=== PATIENT | female | born 1970 | race Caucasian/White ===

== ENCOUNTER 2020-06-11 15:35 | Inpatient (IN) | payer OTHER, SELFPAY ==
[2020-06-11] VITALS (9 sets, daily range): BP systolic 134–149; BP diastolic 75–90; PULSE 84–131; RESP 16–22; TEMP 36.6–36.8; O2SAT 89–100; BMI 41.8
--- NOTE | 2020-06-11 15:38 | ECG_ITS ---
Test Reason : ROUTINE Blood Pressure : / mmHG Vent. Rate : 089 BPM Atrial Rate : 089 BPM P-R Int : 180 ms QRS Dur : 108 ms QT Int : 382 ms P-R-T Axes : 075 -14 134 degrees QTc Int : 464 ms Sinus rhythm with occasional Premature ventricular complexes Possible Left atrial enlargement Nonspecific ST and T wave abnormality Prolonged QT Abnormal ECG When compared with ECG of 10-JUN-2019 07:01, Premature ventricular complexes are now Present Minimal criteria for Septal infarct are no longer Present T wave amplitude has decreased in Inferior leads Nonspecific T wave abnormality, worse in Anterolateral leads Referred By: Henry Pabon Electronically Signed By:
--- NOTE | 2020-06-11 15:38 | XR_ITS ---
EXAMINATION: XR CHEST CLINICAL INFORMATION: Shortness of breath COMPARISON: June 08, 2019 TECHNIQUE: AP portable view of the chest was obtained. FINDINGS: There appears to be a moderate right pleural effusion with basilar disease. The cardiopericardial silhouette appears mildly enlarged. No pneumothorax. There appears to be some patchy interstitial disease present within the left lung. Old healed left rib fractures evident. IMPRESSION: Right pleural effusion and airspace disease. Probable regions of interstitial disease within the left lung. Findings are nonspecific and could be related to pulmonary vascular congestion or infectious/inflammatory interstitial disease.
--- NOTE | 2020-06-11 15:41 | ED_ITS ---
HPI - SOB/Dyspnea General Chief Complaint: Dyspnea <ARILN Hernandez - Last Filed: 06/11/20 20:49> Stated Complaint: SHORTNESS OF BREATH <ARLIN Hernandez - Last Filed: 06/11/20 20:49> Time Seen by Provider: 06/11/20 15:54 <ARLIN Hernandez - Last Filed: 06/11/20 20:49> Source: patient and EMS <ARLIN Hernandez - Last Filed: 06/11/20 20:49> Mode of arrival: EMS <ARLIN Hernandez Last Filed: 06/11/20 20:49> Limitations: other (poor historian ) <ARLIN Hernandez - Last Filed: 06/11/20 20:49> History of Present Illness HPI Narrative: 50 yo female with significant PMH of CAD s/p TRELL to LAD in 2018 wiht ischemic cardiomyopathy with EF 15%, CKD III (baseline SCr 2.0), afib not on anticoagulation, poorly controlled DM1, hx prior heroin abuse on suboxone presents with acute onset of SOB and generally not feeling well that started to day when she was laying in bed. She was recently hospitalized in [facility] and left AMA - she stated to nursing staff she was there for heart failure for a few weeks and was sick of being here. She told me she was there for an infection of her RLE. She reports compliance with all of her medications. <ARLIN Hernandez - Last Filed: 06/11/20 20:49> MD elicited complaint: shortness of breath <ARLIN Hernandez - Last Filed: 06/11/20 20:49> Pertinent past history: congestive heart failure and diabetes <ARLIN Hernandez Last Filed: 06/11/20 20:49> Onset (ago): hour(s) (4) <ARLIN Hernandez - Last Filed: 06/11/20 20:49> Context: recent illness <ARLIN Hernandez Last Filed: 06/11/20 20:49> Timing: constant <ARLIN Hernandez Last Filed: 06/11/20 20:49> Severity: moderate <ARLIN Hernandez Last Filed: 06/11/20 20:49> Exacerbating factors: nothing <ARLIN Hernandez - Last Filed: 06/11/20 20:49> Relieving factors: nothing <ARLIN Hernandez - Last Filed: 06/11/20 20:49> Known history of: congestive heart failure and diabetes <ARLIN Hernandez Last Filed: 06/11/20 20:49> Related Data Home oxygen amount: none <ARLIN Hernandez - Last Filed: 06/11/20 20:49> Home Medications: Home Medications Medication Instructions Recorded Confirmed amlodipine 10 mg PO DAILY 06/11/20 06/11/20 aspirin [Aspir-81] 81 mg PO DAILY 06/11/20 06/12/20 atorvastatin 80 mg PO DAILY 06/11/20 06/11/20 buprenorphine-naloxone [Suboxone] 1 film SUBLINGUAL DAILY 06/11/20 06/11/20 carvedilol 6.25 mg PO BID 06/11/20 06/11/20 cetirizine 10 mg PO DAILY 06/11/20 06/11/20 cholecalciferol (vitamin D3) 50 mcg PO DAILY 06/11/20 06/11/20 ferrous gluconate 324 mg PO DAILY 06/11/20 06/11/20 furosemide 40 mg PO DAILY 06/11/20 06/11/20 gabapentin 600 mg PO TID 06/11/20 06/11/20 hydralazine 25 mg PO BID 06/11/20 06/11/20 insulin glargine 28 unit SUBCUT QAM 06/11/20 06/11/20 insulin lispro 1 sliding scale dose SUBCUT 06/11/20 06/11/20 USEASDIRECTD loratadine 10 mg PO DAILY 06/11/20 06/11/20 mirtazapine 15 mg PO BEDTIME 06/11/20 06/11/20 omeprazole 40 mg PO DAILY 06/11/20 06/11/20 tamsulosin 0.4 mg PO DAILY 06/11/20 06/11/20 <ARLIN Hernandez - Last Filed: 06/11/20 20:49> Allergies/Adverse Reactions: Allergies Allergy/AdvReac Type Severity Reaction Status Date / Time No Known Allergies Allergy Unverified 05/26/20 16:02 [No Known Allergies*] <ARLIN Hernandez - Last Filed: 06/11/20 20:49> Review of Systems Review of Systems: Constitutional: No Fever, No Chills ENT/Mouth: No sore throat, No Rhinorrhea, No Swallowing Difficulty Eyes: No Eye Pain, No Swelling, No Redness Cardiovascular: No Chest Pain, positive SOB, Orthopnea, & Edema Respiratory: No Cough, No Sputum, No Wheezing, positive dyspnea Gastrointestinal: No Nausea, No Vomiting, No Diarrhea, No abdominal Pain, No Hem atochezia, No Melena Genitourinary: No Dysuria, No Urinary Frequency, No Hematuria Musculoskeletal: No joint pain, positive Myalgias Skin: No Skin Lesions, No rash Neuro: positive generalized Weakness, No Numbness, No Dizziness, No Headache Psych: No Anxiety/Panic, No Depression Heme/Lymph: No Bruising, No Lymphadenopathy Endocrine: No Polyuria, No Polydipsia All other 10 point ROS are negative. <ARLIN Hernandez - Last Filed: 06/11/20 20:49> [facility] Past Medical History Medical History: Medical History (Updated 06/12/20 @ 00:40 by Henry Pabon MD) CAD (coronary artery disease) CHF (congestive heart failure) Chronic kidney disease (CKD) Diabetes Heart murmur Hemopericardium Hepatitis C Heroin abuse <ARLIN Hernandez - Last Filed: 06/11/20 20:49> Social History Social History: Social History Alcohol intake: unknown Smoking Status: Unknown if ever smoked Smoked in Last 30 Days: No Use of substances other than those prescribed or required for medical reasons: Unknown Advance Directives: No Advance Directives Information Provided: Yes <ARLIN Hernandez - Last Filed: 06/11/20 20:49> Physical Exam Vital Signs and I&O and Narrative: Vital Signs and I&O: Vital Signs Temp 98.2 F 06/11/20 20:58 Pulse 90 06/11/20 23:24 Resp 17 06/11/20 23:24 BP 141/84 H 06/11/20 23:24 Pulse Ox 100 06/11/20 23:24 Intake & Output 06/11/20 06/11/2006/12/20 06:59 18:59 06:59 Output Total 1050 / 1050 Balance -1050 / -1050 Urine Output (Aver age ml/kg/hr) 0.77 Weight 114 kg Output: Output, Urine Am ount (Catheter) 1050 / 1050 Urethral 1050 / 1050 Other: Urine Color Pale Yellow Body Mass Index 41.8 Appearance: Alert. Oriented X3. No acute distress. Eyes: Pupils equal, round and reactive to light. ENT: Pharynx normal. Neck: Normal inspection. Neck supple. CVS: rapid rate, irregular rhythm, +murmur Respiratory: No respiratory distress. Breath sounds normal. Abdomen: Obese, Soft and nontender. +BS x4 Skin: Skin warm and dry. Pale. Extremities: 5+ bilateral LE edema, chronic RLE wound, s/p toe amputations Neuro: Oriented X 3. Generalized weakness. No sensory deficit. <ARLIN Hernandez - Last Filed: 06/11/20 20:49> Vital Signs and I&O: Vital Signs Temp 98.2 F 06/11/20 20:58 Pulse 90 06/11/20 23:24 Resp 17 06/11/20 23:24 BP 141/84 H 06/11/20 23:24 Pulse Ox 100 06/11/20 23:24 Intake & Output 06/11/20 06/11/20 06/12/20 06:59 18:59 06:59 Output Total 1050 / 1050 Balance -1050 / -1050 Urine Output (Aver age ml/kg/hr) 0.77 Weight 114 kg Output: Output, Urine Am ount (Catheter) 1050 / 1050 Urethral 1050 / 1050 Other: Urine Color Pale Yellow Body Mass Index 41.8 <Mi Webber NP - Last Filed: 06/12/20 01:21> Vital Signs and I&O: Vital Signs Temp 98.2 F 06/11/20 20:58 Pulse 90 06/11/20 23:24 Resp 17 06/11/20 23:24 BP 141/84 H 06/11/20 23:24 Pulse Ox 100 06/11/20 23:24 Intake & Output 06/11/20 06/11/20 06/12/20 06:59 18:59 06:59 Output Total 1050 / 1050 Balance -1050 / -1050 Urine Output (Aver age ml/kg/hr) 0.77 Weight 114 kg Output: Output, Urine Am ount (Catheter) 1050 / 1050 Urethral 1050 / 1050 Other: Urine Color Pale Yellow Body Mass Index 41.8 <Fabrizio Coyle DO - Last Filed: 06/12/20 01:21> Const: General: cooperative, comfortable and no acute distress <Mi Webber NP - Last Filed: 06/12/20 01:21> Orientation/consciousness: patient oriented x3 <Mi Webber AWNING ASSEMBLER - Last Filed: 06/12/20 01:21> HENMT: Head: Yes normal to inspection <Mi Webber NP - Last Filed: 06/12/20 01:21> Eyes: General: appearance normal, both eyes and all related structures <Mi Webber NP - Last Filed: 06/12/20 01:21> Neck: Neck: Yes normal visual inspection and Yes no lymphadenopathy <Mi Webber NP - Last Filed: 06/12/20 01:21> Chest: Chest palpation & inspection: normal inspection of the chest and normal palpation of entire chest wall <Mi Webber NP - Last Filed: 06/12/20 01:21> Resp: Effort & Inspection: normal respiratory effort <Mi Webber NP - Last Filed: 06/12/20 01:21> Cardio: Jugular venous distension: no JVD <Mi Webber NP - Last Filed: 06/12/20 01:21> GI: Inspection: Yes normal to inspection <Mi Webber NP - Last Filed: 06/12/20 01:21> : General: Yes no CVA tenderness <Mi Webber NP - Last Filed: 06/12/20 01:21> Back/Spine/Pelvis: Back: no CVA tenderness <Mi Webber NP - Last Filed: 06/12/20 01:21> Skin: General skin exam: no rashes or lesions noted <Mi Webber NP - Last Filed: 06/12/20 01:21> Neuro: General: patient oriented x3 <Mi Webber NP - Last Filed: 06/12/20 01:21> Extrem: General: Yes edema (pitting +2) <Mi Webber NP - Last Filed: 06/12/20 01:21> Psych: Appearance: grossly normal <Mi Webber NP - Last Filed: 06/12/20 01:21> Course Course Hospital Course: patient arrives in rapid afib 130's with SBP 140s. requiring 2L NC to maintain sats. no resp distress at this time. full sepsis workup ordered given patient's report of recent infection. empiric vanco/zosyn ordered, concern for possible HCAP vs cellulitis/wound on LLE. appears grossly volume overloaded, likely acute CHF exacerbation. need to consider PE as well with hx afib not on anticoagulation presenting with hypoxia and tachycardia. <ARLIN Hernandez - Last Filed: 06/11/20 20:49> Reevaluation(s) Reevaluation #1: HR improved to 90's after 5 of IV Lopressor. SERGO noted, likely cardiorenal syndrome with elevated BNP. DDIMER also elevated 2000 so will proceed with V/Q scan given unable to do CTA. Will require admission. Will give dose of IV diuretic now. <ARLIN Hernandez - Last Filed: 06/11/20 20:49> Time: 17:25 <ARLIN Hernandez - Last Filed: 06/11/20 20:49> Reevaluation #2: V/Q scan still pending, given 80 mg IV lasix and Mccartney placed. HR remain stable in 90s after IV lopressor. <ARLIN Hernandez - Last Filed: 06/11/20 20:49> Time: 20:48 <ARLIN Hernandez - Last Filed: 06/11/20 20:49> MDM - SOB/Dyspnea Differential Diagnosis Differential diagnosis: Likely acute exacerbation of chronic obstructive airways disease, congestive heart failure, pneumonia, asthma with exacerbation, pulmonary e mbolism, pleural effusion and anemia <ARLIN Hernandez - Last Filed: 06/11/20 20:49> Medical Records Attestation: I reviewed the patient's medical records. <ARLIN Hernandez - Last Filed: 06/11/20 20:49> Lab Data Attestation: I reviewed the patient's lab results. <ARLIN Hernandez - Last Filed: 06/11/20 20:49> I reviewed the patient's lab results. <Mi Webber NP - Last Filed: 06/12/20 01:21> Result diagrams: : 06/11/20 16:18 06/11/20 16:17 <ARLIN Hernandez - Last Filed: 06/11/20 20:49> Labs: Lab Results 06/11/20 06/11/20 06/11/20 Range/Units 16:16 16:17 16:17 WBC (4.8-10.8) X10*3/uL RBC (4.20-5.50) X10*6/uL Hgb (12.0-16.0) g/dl Hct (37-47) % MCV (80-98) fL MCH (27.0-33.0) pg MCHC (31.0-35.0) g/dl RDW (11.0-16.0) % Plt Count (160-400) X10*3/uL MPV (9.4-12.3) fL Immature Gran % (Auto) (0.0-0.4) % Neut % (Auto) (45-73) % Lymph % (Auto) (20-40) % Gregg % (Auto) (2-11) % Eos % (Auto) (0-4) % Baso % (Auto) (0-2) % Neut # (Auto) (2.0-8.3) X10*3/uL Lymph # (Auto) (1.2-4.9) X10*3/uL Gregg # (Auto) (0.1-1.2) X10*3/uL Eos # (Auto) (0.0-0.4) X10*3/uL Baso # (Auto) (0.0-0.2) X10*3/uL Abs Immat Gran (auto) (0.00-0.03) X10*3/uL Absolute Nucleated RBC (0.0-0.012) X10*3/uL Nucleated RBC % (auto) (0.0-0.2) /100WBC PT 12.9 (10.8-13.0) SEC INR 1.1 (0.9-1.1) APTT 26.9 (24.1-38.0) SEC D-Dimer NG/ML VBG pH (7.32-7.43) VBG pCO2 mmhg VBG Oxygen Liters/Min VBG pO2 mmhg VBG HCO3 mmol/L VBG O2 Saturation % VBG Base Excess mmol/L Sodium 133 L (135-145) mmol/L Potassium 3.6 (3.3-5.1) mmol/l Chloride 89 L (96-108) mmol/L Carbon Dioxide 30 H (22-29) mmol/L Anion Gap 18 (12-20) BUN 113 H* (9-16) mg/dL Creatinine 2.81 H (0.5-1.4) mg/dL Estim Creat Clear Calc 30.8 Estimated GFR 18 POC Glucose (60-115) mg/dL Random Glucose 442 H* (60-115) mg/dL Lactic Acid (0.5-2.0) mmol/L Calcium 8.3 L (8.4-10.2) mg/dL Total Bilirubin 0.6 (0.0-1.0) mg/dL Direct Bilirubin 0.4 (0.0-0.5) mg/dL AST 21 (5-31) U/L ALT 15 (0-31) U/L Alkaline Phosphatase 135 H (39-117) U/L Troponin I High Sens (<3.5-17.0) ng/L C-Reactive Protein 4.58 H (< or = 0.50) mg/dL B-Natriuretic Peptide (<100) pg/mL Total Protein 6.5 (6.5-8.0) g/dL Albumin 3.2 L (3.5-5.0) g/dL Lipase 24 (8-78) U/L Procalcitonin ng/mL Urine Color Urine Appearance Urine pH (5.0-8.0) Ur Specific [place] (1.005-1.025) Urine Protein (NEG-TRACE) MG/DL Urine Glucose (UA) (NEG) MG/DL Urine Ketones (NEG) MG/DL Urine Blood (NEG) Urine Nitrite (NEG) Ur Leukocyte Esterase (NEG) Urine RBC (0) /HPF Urine WBC (0-4) /HPF Urine WBC Clumps Ur Squamous Epith Cells /LPF Urine Bacteria /LPF Urine Yeast /HPF Urine Test (NEGATIVE) Urine Opiates Screen (Not Detect) Ur Barbiturates Screen (Not Detect) Ur Phencyclidine Scrn (Not Detect) Ur Amphetamines Screen (Not Detect) U Benzodiazepines Scrn (Not Detect) Urine Cocaine Screen (Not Detect) U Marijuana (THC) Screen (Not Detect) Ethyl Alcohol < 10 mg/dL 06/11/20 06/11/20 06/11/20 Range/Units 16:17 16:17 16:17 WBC (4.8-10.8) X10*3/uL RBC (4.20-5.50) X10*6/uL Hgb (12.0-16.0) g/dl Hct (37-47) % MCV (80-98) fL MCH (27.0-33.0) pg MCHC (31.0-35.0) g/dl RDW (11.0-16.0) % Plt Count (160-400) X10*3/uL MPV (9.4-12.3) fL Immature Gran % (Auto) (0.0-0.4) % Neut % (Auto) (45-73) % Lymph % (Auto) (20-40) % Gregg % (Auto) (2-11) % Eos % (Auto) (0-4) % Baso % (Auto) (0-2) % Neut # (Auto) (2.0-8.3) X10*3/uL Lymph # (Auto) (1.2-4.9) X10*3/uL Gregg # (Auto) (0.1-1.2) X10*3/uL Eos # (Auto) (0.0-0.4) X10*3/uL Baso # (Auto) (0.0-0.2) X10*3/uL Abs Immat Gran (auto) (0.00-0.03) X10*3/uL Absolute Nucleated RBC (0.0-0.012) X10*3/uL Nucleated RBC % (auto) (0.0-0.2) /100WBC PT (10.8-13.0) SEC INR (0.9-1.1) APTT (24.1-38.0) SEC D-Dimer NG/ML VBG pH (7.32-7.43) VBG pCO2 mmhg VBG Oxygen Liters/Min VBG pO2 mmhg VBG HCO3 mmol/L VBG O2 Saturation % VBG Base Excess mmol/L Sodium (135-145) mmol/L Potassium (3.3-5.1) mmol/l Chloride (96-108) mmol/L Carbon Dioxide (22-29) mmol/L Anion Gap (12-20) BUN (9-16) mg/dL Creatinine (0.5-1.4) mg/dL Estim Creat Clear Calc Estimated GFR POC Glucose (60-115) mg/dL Random Glucose (60-115) mg/dL Lactic Acid 1.9 (0.5-2.0) mmol/L Calcium (8.4-10.2) mg/dL Total Bilirubin (0.0-1.0) mg/dL Direct Bilirubin (0.0-0.5) mg/dL AST (5-31) U/L ALT (0-31) U/L Alkaline Phosphatase (39-117) U/L Troponin I High Sens 51.0 H (<3.5-17.0) ng/L C-Reactive Protein (< or = 0.50) mg/dL B-Natriuretic Peptide 3013 H (<100) pg/mL Total Protein (6.5-8.0) g/dL Albumin (3.5-5.0) g/dL Lipase (8-78) U/L Procalcitonin 0.27 ng/mL Urine Color Urine Appearance Urine pH (5.0-8.0) Ur Specific [place] (1.005-1.025) Urine Protein (NEG-TRACE) MG/DL Urine Glucose (UA) (NEG) MG/DL Urine Ketones (NEG) MG/DL Urine Blood (NEG) Urine Nitrite (NEG) Ur Leukocyte Esterase (NEG) Urine RBC (0) /HPF Urine WBC (0-4) /HPF Urine WBC Clumps Ur Squamous Epith Cells /LPF Urine Bacteria /LPF Urine Yeast /HPF Urine Test (NEGATIVE) Urine Opiates Screen (Not Detect) Ur Barbiturates Screen (Not Detect) Ur Phencyclidine Scrn (Not Detect) Ur Amphetamines Screen (Not Detect) U Benzodiazepines Scrn (Not Detect) Urine Cocaine Screen (Not Detect) U Marijuana (THC) Screen (Not Detect) Ethyl Alcohol mg/dL 10/03/20 10/03/20 10/03/20 Range/Units 16:18 16:18 16:22 WBC 8.4 (4.8-10.8) X10*3/uL RBC 3.94 L (4.20-5.50) X10*6/uL Hgb 9.6 L (12.0-16.0) g/dl Hct 31.8 L (37-47) % MCV 80.7 (80-98) fL MCH 24.4 L (27.0-33.0) pg MCHC 30.2 L (31.0-35.0) g/dl RDW 19.5 H (11.0-16.0) % Plt Count 314 (160-400) X10*3/uL MPV 11.6 (9.4-12.3) fL Immature Gran % (Auto) 0.5 H (0.0-0.4) % Neut % (Auto) 73.4 H (45-73) % Lymph % (Auto) 10.3 L (20-40) % Gregg % (Auto) 9.6 (2-11) % Eos % (Auto) 5.3 H (0-4) % Baso % (Auto) 0.9 (0-2) % Neut # (Auto) 6.2 (2.0-8.3) X10*3/uL Lymph # (Auto) 0.9 L (1.2-4.9) X10*3/uL Gregg # (Auto) 0.8 (0.1-1.2) X10*3/uL Eos # (Auto) 0.5 H (0.0-0.4) X10*3/uL Baso # (Auto) 0.1 (0.0-0.2) X10*3/uL Abs Immat Gran (auto) 0.04 H (0.00-0.03) X10*3/uL Absolute Nucleated RBC 0.000 (0.0-0.012) X10*3/uL Nucleated RBC % (auto) 0.0 (0.0-0.2) /100WBC PT (10.8-13.0) SEC INR (0.9-1.1) APTT (24.1-38.0) SEC D-Dimer 2083 NG/ML VBG pH (7.32-7.43) VBG pCO2 mmhg VBG Oxygen Liters/Min VBG pO2 mmhg VBG HCO3 mmol/L VBG O2 Saturation % VBG Base Excess mmol/L Sodium (135-145) mmol/L Potassium (3.3-5.1) mmol/l Chloride (96-108) mmol/L Carbon Dioxide (22-29) mmol/L Anion Gap (12-20) BUN (9-16) mg/dL Creatinine (0.5-1.4) mg/dL Estim Creat Clear Calc Estimated GFR POC Glucose 433 H* (60-115) mg/dL Random Glucose (60-115) mg/dL Lactic Acid (0.5-2.0) mmol/L Calcium (8.4-10.2) mg/dL Total Bilirubin (0.0-1.0) mg/dL Direct Bilirubin (0.0-0.5) mg/dL AST (5-31) U/L ALT (0-31) U/L Alkaline Phosphatase (39-117) U/L Troponin I High Sens (<3.5-17.0) ng/L C-Reactive Protein (< or = 0.50) mg/dL B-Natriuretic Peptide (<100) pg/mL Total Protein (6.5-8.0) g/dL Albumin (3.5-5.0) g/dL Lipase (8-78) U/L Procalcitonin ng/mL Urine Color Urine Appearance Urine pH (5.0-8.0) Ur Specific [place] (1.005-1.025) Urine Protein (NEG-TRACE) MG/DL Urine Glucose (UA) (NEG) MG/DL Urine Ketones (NEG) MG/DL Urine Blood (NEG) Urine Nitrite (NEG) Ur Leukocyte Esterase (NEG) Urine RBC (0) /HPF Urine WBC (0-4) /HPF Urine WBC Clumps Ur Squamous Epith Cells /LPF Urine Bacteria /LPF Urine Yeast /HPF Urine Test (NEGATIVE) Urine Opiates Screen (Not Detect) Ur Barbiturates Screen (Not Detect) Ur Phencyclidine Scrn (Not Detect) Ur Amphetamines Screen (Not Detect) U Benzodiazepines Scrn (Not Detect) Urine Cocaine Screen (Not Detect) U Marijuana (THC) Screen (Not Detect) Ethyl Alcohol mg/dL 10/03/20 10/03/20 10/03/20 Range/Units 17:18 19:36 19:36 WBC (4.8-10.8) X10*3/uL RBC (4.20-5.50) X10*6/uL Hgb (12.0-16.0) g/dl Hct (37-47) % MCV (80-98) fL MCH (27.0-33.0) pg MCHC (31.0-35.0) g/dl RDW (11.0-16.0) % Plt Count (160-400) X10*3/uL MPV (9.4-12.3) fL Immature Gran % (Auto) (0.0-0.4) % Neut % (Auto) (45-73) % Lymph % (Auto) (20-40) % Gregg % (Auto) (2-11) % Eos % (Auto) (0-4) % Baso % (Auto) (0-2) % Neut # (Auto) (2.0-8.3) X10*3/uL Lymph # (Auto) (1.2-4.9) X10*3/uL Gregg # (Auto) (0.1-1.2) X10*3/uL Eos # (Auto) (0.0-0.4) X10*3/uL Baso # (Auto) (0.0-0.2) X10*3/uL Abs Immat Gran (auto) (0.00-0.03) X10*3/uL Absolute Nucleated RBC (0.0-0.012) X10*3/uL Nucleated RBC % (auto) (0.0-0.2) /100WBC PT (10.8-13.0) SEC INR (0.9-1.1) APTT (24.1-38.0) SEC D-Dimer NG/ML VBG pH 7.43 (7.32-7.43) VBG pCO2 53 mmhg VBG Oxygen Liters/Min 2 L VBG pO2 34 mmhg VBG HCO3 34 mmol/L VBG O2 Saturation 63.1 % VBG Base Excess 8.4 mmol/L Sodium (135-145) mmol/L Potassium (3.3-5.1) mmol/l Chloride (96-108) mmol/L Carbon Dioxide (22-29) mmol/L Anion Gap (12-20) BUN (9-16) mg/dL Creatinine (0.5-1.4) mg/dL Estim Creat Clear Calc Estimated GFR POC Glucose (60-115) mg/dL Random Glucose (60-115) mg/dL Lactic Acid (0.5-2.0) mmol/L Calcium (8.4-10.2) mg/dL Total Bilirubin (0.0-1.0) mg/dL Direct Bilirubin (0.0-0.5) mg/dL AST (5-31) U/L ALT (0-31) U/L Alkaline Phosphatase (39-117) U/L Troponin I High Sens (<3.5-17.0) ng/L C-Reactive Protein (< or = 0.50) mg/dL B-Natriuretic Peptide (<100) pg/mL Total Protein (6.5-8.0) g/dL Albumin (3.5-5.0) g/dL Lipase (8-78) U/L Procalcitonin ng/mL Urine Color STRAW Urine Appearance HAZY Urine pH 6.5 (5.0-8.0) Ur Specific [place] 1.010 (1.005-1.025) Urine Protein NEG (NEG-TRACE) MG/DL Urine Glucose (UA) >=1000 H (NEG) MG/DL Urine Ketones NEG (NEG) MG/DL Urine Blood NEG (NEG) Urine Nitrite NEG (NEG) Ur Leukocyte Esterase NEG (NEG) Urine RBC 0 (0) /HPF Urine WBC 5-9 H (0-4) /HPF Urine WBC Clumps NOTED Ur Squamous Epith Cells TRACE /LPF Urine Bacteria NONE /LPF Urine Yeast 1+ /HPF Urine Test NEGATIVE (NEGATIVE) Urine Opiates Screen Not Detected (Not Detect) Ur Barbiturates Screen Not Detected (Not Detect) Ur Phencyclidine Scrn Not Detected (Not Detect) Ur Amphetamines Screen Not Detected (Not Detect) U Benzodiazepines Scrn Not Detected (Not Detect) Urine Cocaine Screen Not Detected (Not Detect) U Marijuana (THC) Screen Not Detected (Not Detect) Ethyl Alcohol mg/dL 06/11/20 06/11/20 Range/Units 21:12 21:32 WBC (4.8-10.8) X10*3/uL RBC (4.20-5.50) X10*6/uL Hgb (12.0-16.0) g/dl Hct (37-47) % MCV (80-98) fL MCH (27.0-33.0) pg MCHC (31.0-35.0) g/dl RDW (11.0-16.0) % Plt Count (160-400) X10*3/uL MPV (9.4-12.3) fL Immature Gran % (Auto) (0.0-0.4) % Neut % (Auto) (45-73) % Lymph % (Auto) (20-40) % Gregg % (Auto) (2-11) % Eos % (Auto) (0-4) % Baso % (Auto) (0-2) % Neut # (Auto) (2.0-8.3) X10*3/uL Lymph # (Auto) (1.2-4.9) X10*3/uL Gregg # (Auto) (0.1-1.2) X10*3/uL Eos # (Auto) (0.0-0.4) X10*3/uL Baso # (Auto) (0.0-0.2) X10*3/uL Abs Immat Gran (auto) (0.00-0.03) X10*3/uL Absolute Nucleated RBC (0.0-0.012) X10*3/uL Nucleated RBC % (auto) (0.0-0.2) /100WBC PT (10.8-13.0) SEC INR (0.9-1.1) APTT (24.1-38.0) SEC D-Dimer NG/ML VBG pH (7.32-7.43) VBG pCO2 mmhg VBG Oxygen Liters/Min VBG pO2 mmhg VBG HCO3 mmol/L VBG O2 Saturation % VBG Base Excess mmol/L Sodium (135-145) mmol/L Potassium (3.3-5.1) mmol/l Chloride (96-108) mmol/L Carbon Dioxide (22-29) mmol/L Anion Gap (12-20) BUN (9-16) mg/dL Creatinine (0.5-1.4) mg/dL Estim Creat Clear Calc Estimated GFR POC Glucose 315 H (60-115) mg/dL Random Glucose (60-115) mg/dL Lactic Acid (0.5-2.0) mmol/L Calcium (8.4-10.2) mg/dL Total Bilirubin (0.0-1.0) mg/dL Direct Bilirubin (0.0-0.5) mg/dL AST (5-31) U/L ALT (0-31) U/L Alkaline Phosphatase (39-117) U/L Troponin I High Sens 231.8 H D (<3.5-17.0) ng/L C-Reactive Protein (< or = 0.50) mg/dL B-Natriuretic Peptide (<100) pg/mL Total Protein (6.5-8.0) g/dL Albumin (3.5-5.0) g/dL Lipase (8-78) U/L Procalcitonin ng/mL Urine Color Urine Appearance Urine pH (5.0-8.0) Ur Specific [place] (1.005-1.025) Urine Protein (NEG-TRACE) MG/DL Urine Glucose (UA) (NEG) MG/DL Urine Ketones (NEG) MG/DL Urine Blood (NEG) Urine Nitrite (NEG) Ur Leukocyte Esterase (NEG) Urine RBC (0) /HPF Urine WBC (0-4) /HPF Urine WBC Clumps Ur Squamous Epith Cells /LPF Urine Bacteria /LPF Urine Yeast /HPF Urine Test (NEGATIVE) Urine Opiates Screen (Not Detect) Ur Barbiturates Screen (Not Detect) Ur Phencyclidine Scrn (Not Detect) Ur Amphetamines Screen (Not Detect) U Benzodiazepines Scrn (Not Detect) Urine Cocaine Screen (Not Detect) U Marijuana (THC) Screen (Not Detect) Ethyl Alcohol mg/dL <ARLIN Hernandez - Last Filed: 06/11/20 20:49> Lab Results 06/11/20 06/11/20 06/11/20 Range/Units 16:16 16:17 16:17 WBC (4.8-10.8) X10*3/uL RBC (4.20-5.50) X10*6/uL Hgb (12.0-16.0) g/dl Hct (37-47) % MCV (80-98) fL MCH (27.0-33.0) pg MCHC (31.0-35.0) g/dl RDW (11.0-16.0) % Plt Count (160-400) X10*3/uL MPV (9.4-12.3) fL Immature Gran % (Auto) (0.0-0.4) % Neut % (Auto) (45-73) % Lymph % (Auto) (20-40) % [place] % (Auto) (2-11) % Eos % (Auto) (0-4) % Baso % (Auto) (0-2) % Neut # (Auto) (2.0-8.3) X10*3/uL Lymph # (Auto) (1.2-4.9) X10*3/uL [place] # (Auto) (0.1-1.2) X10*3/uL Eos # (Auto) (0.0-0.4) X10*3/uL Baso # (Auto) (0.0-0.2) X10*3/uL Abs Immat Gran (auto) (0.00-0.03) X10*3/uL Absolute Nucleated RBC (0.0-0.012) X10*3/uL Nucleated RBC % (auto) (0.0-0.2) /100WBC PT 12.9 (10.8-13.0) SEC INR 1.1 (0.9-1.1) APTT 26.9 (24.1-38.0) SEC D-Dimer NG/ML VBG pH (7.32-7.43) VBG pCO2 mmhg VBG Oxygen Liters/Min VBG pO2 mmhg VBG HCO3 mmol/L VBG O2 Saturation % VBG Base Excess mmol/L Sodium 133 L (135-145) mmol/L Potassium 3.6 (3.3-5.1) mmol/l Chloride 89 L (96-108) mmol/L Carbon Dioxide 30 H (22-29) mmol/L Anion Gap 18 (12-20) BUN 113 H* (9-16) mg/dL Creatinine 2.81 H (0.5-1.4) mg/dL Estim Creat Clear Calc 30.8 Estimated GFR 18 POC Glucose (60-115) mg/dL Random Glucose 442 H* (60-115) mg/dL Lactic Acid (0.5-2.0) mmol/L Calcium 8.3 L (8.4-10.2) mg/dL Total Bilirubin 0.6 (0.0-1.0) mg/dL Direct Bilirubin 0.4 (0.0-0.5) mg/dL AST 21 (5-31) U/L ALT 15 (0-31) U/L Alkaline Phosphatase 135 H (39-117) U/L Troponin I High Sens (<3.5-17.0) ng/L C-Reactive Protein 4.58 H (< or = 0.50) mg/dL B-Natriuretic Peptide (<100) pg/mL Total Protein 6.5 (6.5-8.0) g/dL Albumin 3.2 L (3.5-5.0) g/dL Lipase 24 (8-78) U/L Procalcitonin ng/mL Urine Color Urine Appearance Urine pH (5.0-8.0) Ur Specific [place] (1.005-1.025) Urine Protein (NEG-TRACE) MG/DL Urine Glucose (UA) (NEG) MG/DL Urine Ketones (NEG) MG/DL Urine Blood (NEG) Urine Nitrite (NEG) Ur Leukocyte Esterase (NEG) Urine RBC (0) /HPF Urine WBC (0-4) /HPF Urine WBC Clumps Ur Squamous Epith Cells /LPF Urine Bacteria /LPF Urine Yeast /HPF Urine Test (NEGATIVE) Urine Opiates Screen (Not Detect) Ur Barbiturates Screen (Not Detect) Ur Phencyclidine Scrn (Not Detect) Ur Amphetamines Screen (Not Detect) U Benzodiazepines Scrn (Not Detect) Urine Cocaine Screen (Not Detect) U Marijuana (THC) Screen (Not Detect) Ethyl Alcohol < 10 mg/dL 06/11/20 06/11/20 06/11/20 Range/Units 16:17 16:17 16:17 WBC (4.8-10.8) X10*3/uL RBC (4.20-5.50) X10*6/uL Hgb (12.0-16.0) g/dl Hct (37-47) % MCV (80-98) fL MCH (27.0-33.0) pg MCHC (31.0-35.0) g/dl RDW (11.0-16.0) % Plt Count (160-400) X10*3/uL MPV (9.4-12.3) fL Immature Gran % (Auto) (0.0-0.4) % Neut % (Auto) (45-73) % Lymph % (Auto) (20-40) % Gregg % (Auto) (2-11) % Eos % (Auto) (0-4) % Baso % (Auto) (0-2) % Neut # (Auto) (2.0-8.3) X10*3/uL Lymph # (Auto) (1.2-4.9) X10*3/uL Gregg # (Auto) (0.1-1.2) X10*3/uL Eos # (Auto) (0.0-0.4) X10*3/uL Baso # (Auto) (0.0-0.2) X10*3/uL Abs Immat Gran (auto) (0.00-0.03) X10*3/uL Absolute Nucleated RBC (0.0-0.012) X10*3/uL Nucleated RBC % (auto) (0.0-0.2) /100WBC PT (10.8-13.0) SEC INR (0.9-1.1) APTT (24.1-38.0) SEC D-Dimer NG/ML VBG pH (7.32-7.43) VBG pCO2 mmhg VBG Oxygen Liters/Min VBG pO2 mmhg VBG HCO3 mmol/L VBG O2 Saturation % VBG Base Excess mmol/L Sodium (135-145) mmol/L Potassium (3.3-5.1) mmol/l Chloride (96-108) mmol/L Carbon Dioxide (22-29) mmol/L Anion Gap (12-20) BUN (9-16) mg/dL Creatinine (0.5-1.4) mg/dL Estim Creat Clear Calc Estimated GFR POC Glucose (60-115) mg/dL Random Glucose (60-115) mg/dL Lactic Acid 1.9 (0.5-2.0) mmol/L Calcium (8.4-10.2) mg/dL Total Bilirubin (0.0-1.0) mg/dL Direct Bilirubin (0.0-0.5) mg/dL AST (5-31) U/L ALT (0-31) U/L Alkaline Phosphatase (39-117) U/L Troponin I High Sens 51.0 H (<3.5-17.0) ng/L C-Reactive Protein (< or = 0.50) mg/dL B-Natriuretic Peptide 3013 H (<100) pg/mL Total Protein (6.5-8.0) g/dL Albumin (3.5-5.0) g/dL Lipase (8-78) U/L Procalcitonin 0.27 ng/mL Urine Color Urine Appearance Urine pH (5.0-8.0) Ur Specific [place] (1.005-1.025) Urine Protein (NEG-TRACE) MG/DL Urine Glucose (UA) (NEG) MG/DL Urine Ketones (NEG) MG/DL Urine Blood (NEG) Urine Nitrite (NEG) Ur Leukocyte Esterase (NEG) Urine RBC (0) /HPF Urine WBC (0-4) /HPF Urine WBC Clumps Ur Squamous Epith Cells /LPF Urine Bacteria /LPF Urine Yeast /HPF Urine Test (NEGATIVE) Urine Opiates Screen (Not Detect) Ur Barbiturates Screen (Not Detect) Ur Phencyclidine Scrn (Not Detect) Ur Amphetamines Screen (Not Detect) U Benzodiazepines Scrn (Not Detect) Urine Cocaine Screen (Not Detect) U Marijuana (THC) Screen (Not Detect) Ethyl Alcohol mg/dL 06/11/20 06/11/20 06/11/20 Range/Units 16:18 16:18 16:22 WBC 8.4 (4.8-10.8) X10*3/uL RBC 3.94 L (4.20-5.50) X10*6/uL Hgb 9.6 L (12.0-16.0) g/dl Hct 31.8 L (37-47) % MCV 80.7 (80-98) fL MCH 24.4 L (27.0-33.0) pg MCHC 30.2 L (31.0-35.0) g/dl RDW 19.5 H (11.0-16.0) % Plt Count 314 (160-400) X10*3/uL MPV 11.6 (9.4-12.3) fL Immature Gran % (Auto) 0.5 H (0.0-0.4) % Neut % (Auto) 73.4 H (45-73) % Lymph % (Auto) 10.3 L (20-40) % Gregg % (Auto) 9.6 (2-11) % Eos % (Auto) 5.3 H (0-4) % Baso % (Auto) 0.9 (0-2) % Neut # (Auto) 6.2 (2.0-8.3) X10*3/uL Lymph # (Auto) 0.9 L (1.2-4.9) X10*3/uL Gregg # (Auto) 0.8 (0.1-1.2) X10*3/uL Eos # (Auto) 0.5 H (0.0-0.4) X10*3/uL Baso # (Auto) 0.1 (0.0-0.2) X10*3/uL Abs Immat Gran (auto) 0.04 H (0.00-0.03) X10*3/uL Absolute Nucleated RBC 0.000 (0.0-0.012) X10*3/uL Nucleated RBC % (auto) 0.0 (0.0-0.2) /100WBC PT (10.8-13.0) SEC INR (0.9-1.1) APTT (24.1-38.0) SEC D-Dimer 2083 NG/ML VBG pH (7.32-7.43) VBG pCO2 mmhg VBG Oxygen Liters/Min VBG pO2 mmhg VBG HCO3 mmol/L VBG O2 Saturation % VBG Base Excess mmol/L Sodium (135-145) mmol/L Potassium (3.3-5.1) mmol/l Chloride (96-108) mmol/L Carbon Dioxide (22-29) mmol/L Anion Gap (12-20) BUN (9-16) mg/dL Creatinine (0.5-1.4) mg/dL Estim Creat Clear Calc Estimated GFR POC Glucose 433 H* (60-115) mg/dL Random Glucose (60-115) mg/dL Lactic Acid (0.5-2.0) mmol/L Calcium (8.4-10.2) mg/dL Total Bilirubin (0.0-1.0) mg/dL Direct Bilirubin (0.0-0.5) mg/dL AST (5-31) U/L ALT (0-31) U/L Alkaline Phosphatase (39-117) U/L Troponin I High Sens (<3.5-17.0) ng/L C-Reactive Protein (< or = 0.50) mg/dL B-Natriuretic Peptide (<100) pg/mL Total Protein (6.5-8.0) g/dL Albumin (3.5-5.0) g/dL Lipase (8-78) U/L Procalcitonin ng/mL Urine Color Urine Appearance Urine pH (5.0-8.0) Ur Specific [place] (1.005-1.025) Urine Protein (NEG-TRACE) MG/DL Urine Glucose (UA) (NEG) MG/DL Urine Ketones (NEG) MG/DL Urine Blood (NEG) Urine Nitrite (NEG) Ur Leukocyte Esterase (NEG) Urine RBC (0) /HPF Urine WBC (0-4) /HPF Urine WBC Clumps Ur Squamous Epith Cells /LPF Urine Bacteria /LPF Urine Yeast /HPF Urine Test (NEGATIVE) Urine Opiates Screen (Not Detect) Ur Barbiturates Screen (Not Detect) Ur Phencyclidine Scrn (Not Detect) Ur Amphetamines Screen (Not Detect) U Benzodiazepines Scrn (Not Detect) Urine Cocaine Screen (Not Detect) U Marijuana (THC) Screen (Not Detect) Ethyl Alcohol mg/dL 06/11/20 06/11/20 06/11/20 Range/Units 17:18 19:36 19:36 WBC (4.8-10.8) X10*3/uL RBC (4.20-5.50) X10*6/uL Hgb (12.0-16.0) g/dl Hct (37-47) % MCV (80-98) fL MCH (27.0-33.0) pg MCHC (31.0-35.0) g/dl RDW (11.0-16.0) % Plt Count (160-400) X10*3/uL MPV (9.4-12.3) fL Immature Gran % (Auto) (0.0-0.4) % Neut % (Auto) (45-73) % Lymph % (Auto) (20-40) % [place] % (Auto) (2-11) % Eos % (Auto) (0-4) % Baso % (Auto) (0-2) % Neut # (Auto) (2.0-8.3) X10*3/uL Lymph # (Auto) (1.2-4.9) X10*3/uL [place]gg # (Auto) (0.1-1.2) X10*3/uL Eos # (Auto) (0.0-0.4) X10*3/uL Baso # (Auto) (0.0-0.2) X10*3/uL Abs Immat Gran (auto) (0.00-0.03) X10*3/uL Absolute Nucleated RBC (0.0-0.012) X10*3/uL Nucleated RBC % (auto) (0.0-0.2) /100WBC PT (10.8-13.0) SEC INR (0.9-1.1) APTT (24.1-38.0) SEC D-Dimer NG/ML VBG pH 7.43 (7.32-7.43) VBG pCO2 53 mmhg VBG Oxygen Liters/Min 2 L VBG pO2 34 mmhg VBG HCO3 34 mmol/L VBG O2 Saturation 63.1 % VBG Base Excess 8.4 mmol/L Sodium (135-145) mmol/L Potassium (3.3-5.1) mmol/l Chloride (96-108) mmol/L Carbon Dioxide (22-29) mmol/L Anion Gap (12-20) BUN (9-16) mg/dL Creatinine (0.5-1.4) mg/dL Estim Creat Clear Calc Estimated GFR POC Glucose (60-115) mg/dL Random Glucose (60-115) mg/dL Lactic Acid (0.5-2.0) mmol/L Calcium (8.4-10.2) mg/dL Total Bilirubin (0.0-1.0) mg/dL Direct Bilirubin (0.0-0.5) mg/dL AST (5-31) U/L ALT (0-31) U/L Alkaline Phosphatase (39-117) U/L Troponin I High Sens (<3.5-17.0) ng/L C-Reactive Protein (< or = 0.50) mg/dL B-Natriuretic Peptide (<100) pg/mL Total Protein (6.5-8.0) g/dL Albumin (3.5-5.0) g/dL Lipase (8-78) U/L Procalcitonin ng/mL Urine Color STRAW Urine Appearance HAZY Urine pH 6.5 (5.0-8.0) Ur Specific [place] 1.010 (1.005-1.025) Urine Protein NEG (NEG-TRACE) MG/DL Urine Glucose (UA) >=1000 H (NEG) MG/DL Urine Ketones NEG (NEG) MG/DL Urine Blood NEG (NEG) Urine Nitrite NEG (NEG) Ur Leukocyte Esterase NEG (NEG) Urine RBC 0 (0) /HPF Urine WBC 5-9 H (0-4) /HPF Urine WBC Clumps NOTED Ur Squamous Epith Cells TRACE /LPF Urine Bacteria NONE /LPF Urine Yeast 1+ /HPF Urine Test NEGATIVE (NEGATIVE) Urine Opiates Screen Not Detected (Not Detect) Ur Barbiturates Screen Not Detected (Not Detect) Ur Phencyclidine Scrn Not Detected (Not Detect) Ur Amphetamines Screen Not Detected (Not Detect) U Benzodiazepines Scrn Not Detected (Not Detect) Urine Cocaine Screen Not Detected (Not Detect) U Marijuana (THC) Screen Not Detected (Not Detect) Ethyl Alcohol mg/dL 06/11/20 06/11/20 Range/Units 21:12 21:32 WBC (4.8-10.8) X10*3/uL RBC (4.20-5.50) X10*6/uL Hgb (12.0-16.0) g/dl Hct (37-47) % MCV (80-98) fL MCH (27.0-33.0) pg MCHC (31.0-35.0) g/dl RDW (11.0-16.0) % Plt Count (160-400) X10*3/uL MPV (9.4-12.3) fL Immature Gran % (Auto) (0.0-0.4) % Neut % (Auto) (45-73) % Lymph % (Auto) (20-40) % [place] % (Auto) (2-11) % Eos % (Auto) (0-4) % Baso % (Auto) (0-2) % Neut # (Auto) (2.0-8.3) X10*3/uL Lymph # (Auto) (1.2-4.9) X10*3/uL [place] # (Auto) (0.1-1.2) X10*3/uL Eos # (Auto) (0.0-0.4) X10*3/uL Baso # (Auto) (0.0-0.2) X10*3/uL Abs Immat Gran (auto) (0.00-0.03) X10*3/uL Absolute Nucleated RBC (0.0-0.012) X10*3/uL Nucleated RBC % (auto) (0.0-0.2) /100WBC PT (10.8-13.0) SEC INR (0.9-1.1) APTT (24.1-38.0) SEC D-Dimer NG/ML VBG pH (7.32-7.43) VBG pCO2 mmhg VBG Oxygen Liters/Min VBG pO2 mmhg VBG HCO3 mmol/L VBG O2 Saturation % VBG Base Excess mmol/L Sodium (135-145) mmol/L Potassium (3.3-5.1) mmol/l Chloride (96-108) mmol/L Carbon Dioxide (22-29) mmol/L Anion Gap (12-20) BUN (9-16) mg/dL Creatinine (0.5-1.4) mg/dL Estim Creat Clear Calc Estimated GFR POC Glucose 315 H (60-115) mg/dL Random Glucose (60-115) mg/dL Lactic Acid (0.5-2.0) mmol/L Calcium (8.4-10.2) mg/dL Total Bilirubin (0.0-1.0) mg/dL Direct Bilirubin (0.0-0.5) mg/dL AST (5-31) U/L ALT (0-31) U/L Alkaline Phosphatase (39-117) U/L Troponin I High Sens 231.8 H D (<3.5-17.0) ng/L C-Reactive Protein (< or = 0.50) mg/dL B-Natriuretic Peptide (<100) pg/mL Total Protein (6.5-8.0) g/dL Albumin (3.5-5.0) g/dL Lipase (8-78) U/L Procalcitonin ng/mL Urine Color Urine Appearance Urine pH (5.0-8.0) Ur Specific [place] (1.005-1.025) Urine Protein (NEG-TRACE) MG/DL Urine Glucose (UA) (NEG) MG/DL Urine Ketones (NEG) MG/DL Urine Blood (NEG) Urine Nitrite (NEG) Ur Leukocyte Esterase (NEG) Urine RBC (0) /HPF Urine WBC (0-4) /HPF Urine WBC Clumps Ur Squamous Epith Cells /LPF Urine Bacteria /LPF Urine Yeast /HPF Urine Test (NEGATIVE) Urine Opiates Screen (Not Detect) Ur Barbiturates Screen (Not Detect) Ur Phencyclidine Scrn (Not Detect) Ur Amphetamines Screen (Not Detect) U Benzodiazepines Scrn (Not Detect) Urine Cocaine Screen (Not Detect) U Marijuana (THC) Screen (Not Detect) Ethyl Alcohol mg/dL <Mi Webber NP - Last Filed: 06/12/20 01:21> Lab Results 06/11/20 06/11/20 06/11/20 Range/Units 16:16 16:17 16:17 WBC (4.8-10.8) X10*3/uL RBC (4.20-5.50) X10*6/uL Hgb (12.0-16.0) g/dl Hct (37-47) % MCV (80-98) fL MCH (27.0-33.0) pg MCHC (31.0-35.0) g/dl RDW (11.0-16.0) % Plt Count (160-400) X10*3/uL MPV (9.4-12.3) fL Immature Gran % (Auto) (0.0-0.4) % Neut % (Auto) (45-73) % Lymph % (Auto) (20-40) % [place] % (Auto) (2-11) % Eos % (Auto) (0-4) % Baso % (Auto) (0-2) % Neut # (Auto) (2.0-8.3) X10*3/uL Lymph # (Auto) (1.2-4.9) X10*3/uL [place] # (Auto) (0.1-1.2) X10*3/uL Eos # (Auto) (0.0-0.4) X10*3/uL Baso # (Auto) (0.0-0.2) X10*3/uL Abs Immat Gran (auto) (0.00-0.03) X10*3/uL Absolute Nucleated RBC (0.0-0.012) X10*3/uL Nucleated RBC % (auto) (0.0-0.2) /100WBC PT 12.9 (10.8-13.0) SEC INR 1.1 (0.9-1.1) APTT 26.9 (24.1-38.0) SEC D-Dimer NG/ML VBG pH (7.32-7.43) VBG pCO2 mmhg VBG Oxygen Liters/Min VBG pO2 mmhg VBG HCO3 mmol/L VBG O2 Saturation % VBG Base Excess mmol/L Sodium 133 L (135-145) mmol/L Potassium 3.6 (3.3-5.1) mmol/l Chloride 89 L (96-108) mmol/L Carbon Dioxide 30 H (22-29) mmol/L Anion Gap 18 (12-20) BUN 113 H* (9-16) mg/dL Creatinine 2.81 H (0.5-1.4) mg/dL Estim Creat Clear Calc 30.8 Estimated GFR 18 POC Glucose (60-115) mg/dL Random Glucose 442 H* (60-115) mg/dL Lactic Acid (0.5-2.0) mmol/L Calcium 8.3 L (8.4-10.2) mg/dL Total Bilirubin 0.6 (0.0-1.0) mg/dL Direct Bilirubin 0.4 (0.0-0.5) mg/dL AST 21 (5-31) U/L ALT 15 (0-31) U/L Alkaline Phosphatase 135 H (39-117) U/L Troponin I High Sens (<3.5-17.0) ng/L C-Reactive Protein 4.58 H (< or = 0.50) mg/dL B-Natriuretic Peptide (<100) pg/mL Total Protein 6.5 (6.5-8.0) g/dL Albumin 3.2 L (3.5-5.0) g/dL Lipase 24 (8-78) U/L Procalcitonin ng/mL Urine Color Urine Appearance Urine pH (5.0-8.0) Ur Specific [place] (1.005-1.025) Urine Protein (NEG-TRACE) MG/DL Urine Glucose (UA) (NEG) MG/DL Urine Ketones (NEG) MG/DL Urine Blood (NEG) Urine Nitrite (NEG) Ur Leukocyte Esterase (NEG) Urine RBC (0) /HPF Urine WBC (0-4) /HPF Urine WBC Clumps Ur Squamous Epith Cells /LPF Urine Bacteria /LPF Urine Yeast /HPF Urine Test (NEGATIVE) Urine Opiates Screen (Not Detect) Ur Barbiturates Screen (Not Detect) Ur Phencyclidine Scrn (Not Detect) Ur Amphetamines Screen (Not Detect) U Benzodiazepines Scrn (Not Detect) Urine Cocaine Screen (Not Detect) U Marijuana (THC) Screen (Not Detect) Ethyl Alcohol < 10 mg/dL 06/11/20 06/11/20 06/11/20 Range/Units 16:17 16:17 16:17 WBC (4.8-10.8) X10*3/uL RBC (4.20-5.50) X10*6/uL Hgb (12.0-16.0) g/dl Hct (37-47) % MCV (80-98) fL MCH (27.0-33.0) pg MCHC (31.0-35.0) g/dl RDW (11.0-16.0) % Plt Count (160-400) X10*3/uL MPV (9.4-12.3) fL Immature Gran % (Auto) (0.0-0.4) % Neut % (Auto) (45-73) % Lymph % (Auto) (20-40) % [place] % (Auto) (2-11) % Eos % (Auto) (0-4) % Baso % (Auto) (0-2) % Neut # (Auto) (2.0-8.3) X10*3/uL Lymph # (Auto) (1.2-4.9) X10*3/uL [place] # (Auto) (0.1-1.2) X10*3/uL Eos # (Auto) (0.0-0.4) X10*3/uL Baso # (Auto) (0.0-0.2) X10*3/uL Abs Immat Gran (auto) (0.00-0.03) X10*3/uL Absolute Nucleated RBC (0.0-0.012) X10*3/uL Nucleated RBC % (auto) (0.0-0.2) /100WBC PT (10.8-13.0) SEC INR (0.9-1.1) APTT (24.1-38.0) SEC D-Dimer NG/ML VBG pH (7.32-7.43) VBG pCO2 mmhg VBG Oxygen Liters/Min VBG pO2 mmhg VBG HCO3 mmol/L VBG O2 Saturation % VBG Base Excess mmol/L Sodium (135-145) mmol/L Potassium (3.3-5.1) mmol/l Chloride (96-108) mmol/L Carbon Dioxide (22-29) mmol/L Anion Gap (12-20) BUN (9-16) mg/dL Creatinine (0.5-1.4) mg/dL Estim Creat Clear Calc Estimated GFR POC Glucose (60-115) mg/dL Random Glucose (60-115) mg/dL Lactic Acid 1.9 (0.5-2.0) mmol/L Calcium (8.4-10.2) mg/dL Total Bilirubin (0.0-1.0) mg/dL Direct Bilirubin (0.0-0.5) mg/dL AST (5-31) U/L ALT (0-31) U/L Alkaline Phosphatase (39-117) U/L Troponin I High Sens 51.0 H (<3.5-17.0) ng/L C-Reactive Protein (< or = 0.50) mg/dL B-Natriuretic Peptide 3013 H (<100) pg/mL Total Protein (6.5-8.0) g/dL Albumin (3.5-5.0) g/dL Lipase (8-78) U/L Procalcitonin 0.27 ng/mL Urine Color Urine Appearance Urine pH (5.0-8.0) Ur Specific [place] (1.005-1.025) Urine Protein (NEG-TRACE) MG/DL Urine Glucose (UA) (NEG) MG/DL Urine Ketones (NEG) MG/DL Urine Blood (NEG) Urine Nitrite (NEG) Ur Leukocyte Esterase (NEG) Urine RBC (0) /HPF Urine WBC (0-4) /HPF Urine WBC Clumps Ur Squamous Epith Cells /LPF Urine Bacteria /LPF Urine Yeast /HPF Urine Test (NEGATIVE) Urine Opiates Screen (Not Detect) Ur Barbiturates Screen (Not Detect) Ur Phencyclidine Scrn (Not Detect) Ur Amphetamines Screen (Not Detect) U Benzodiazepines Scrn (Not Detect) Urine Cocaine Screen (Not Detect) U Marijuana (THC) Screen (Not Detect) Ethyl Alcohol mg/dL 06/11/20 06/11/20 06/11/20 Range/Units 16:18 16:18 16:22 WBC 8.4 (4.8-10.8) X10*3/uL RBC 3.94 L (4.20-5.50) X10*6/uL Hgb 9.6 L (12.0-16.0) g/dl Hct 31.8 L (37-47) % MCV 80.7 (80-98) fL MCH 24.4 L (27.0-33.0) pg MCHC 30.2 L (31.0-35.0) g/dl RDW 19.5 H (11.0-16.0) % Plt Count 314 (160-400) X10*3/uL MPV 11.6 (9.4-12.3) fL Immature Gran % (Auto) 0.5 H (0.0-0.4) % Neut % (Auto) 73.4 H (45-73) % Lymph % (Auto) 10.3 L (20-40) % [place] % (Auto) 9.6 (2-11) % Eos % (Auto) 5.3 H (0-4) % Baso % (Auto) 0.9 (0-2) % Neut # (Auto) 6.2 (2.0-8.3) X10*3/uL Lymph # (Auto) 0.9 L (1.2-4.9) X10*3/uL [place] # (Auto) 0.8 (0.1-1.2) X10*3/uL Eos # (Auto) 0.5 H (0.0-0.4) X10*3/uL Baso # (Auto) 0.1 (0.0-0.2) X10*3/uL Abs Immat Gran (auto) 0.04 H (0.00-0.03) X10*3/uL Absolute Nucleated RBC 0.000 (0.0-0.012) X10*3/uL Nucleated RBC % (auto) 0.0 (0.0-0.2) /100WBC PT (10.8-13.0) SEC INR (0.9-1.1) APTT (24.1-38.0) SEC D-Dimer 2083 NG/ML VBG pH (7.32-7.43) VBG pCO2 mmhg VBG Oxygen Liters/Min VBG pO2 mmhg VBG HCO3 mmol/L VBG O2 Saturation % VBG Base Excess mmol/L Sodium (135-145) mmol/L Potassium (3.3-5.1) mmol/l Chloride (96-108) mmol/L Carbon Dioxide (22-29) mmol/L Anion Gap (12-20) BUN (9-16) mg/dL Creatinine (0.5-1.4) mg/dL Estim Creat Clear Calc Estimated GFR POC Glucose 433 H* (60-115) mg/dL Random Glucose (60-115) mg/dL Lactic Acid (0.5-2.0) mmol/L Calcium (8.4-10.2) mg/dL Total Bilirubin (0.0-1.0) mg/dL Direct Bilirubin (0.0-0.5) mg/dL AST (5-31) U/L ALT (0-31) U/L Alkaline Phosphatase (39-117) U/L Troponin I High Sens (<3.5-17.0) ng/L C-Reactive Protein (< or = 0.50) mg/dL B-Natriuretic Peptide (<100) pg/mL Total Protein (6.5-8.0) g/dL Albumin (3.5-5.0) g/dL Lipase (8-78) U/L Procalcitonin ng/mL Urine Color Urine Appearance Urine pH (5.0-8.0) Ur Specific [place] (1.005-1.025) Urine Protein (NEG-TRACE) MG/DL Urine Glucose (UA) (NEG) MG/DL Urine Ketones (NEG) MG/DL Urine Blood (NEG) Urine Nitrite (NEG) Ur Leukocyte Esterase (NEG) Urine RBC (0) /HPF Urine WBC (0-4) /HPF Urine WBC Clumps Ur Squamous Epith Cells /LPF Urine Bacteria /LPF Urine Yeast /HPF Urine Test (NEGATIVE) Urine Opiates Screen (Not Detect) Ur Barbiturates Screen (Not Detect) Ur Phencyclidine Scrn (Not Detect) Ur Amphetamines Screen (Not Detect) U Benzodiazepines Scrn (Not Detect) Urine Cocaine Screen (Not Detect) U Marijuana (THC) Screen (Not Detect) Ethyl Alcohol mg/dL 06/11/20 06/11/20 06/11/20 Range/Units 17:18 19:36 19:36 WBC (4.8-10.8) X10*3/uL RBC (4.20-5.50) X10*6/uL Hgb (12.0-16.0) g/dl Hct (37-47) % MCV (80-98) fL MCH (27.0-33.0) pg MCHC (31.0-35.0) g/dl RDW (11.0-16.0) % Plt Count (160-400) X10*3/uL MPV (9.4-12.3) fL Immature Gran % (Auto) (0.0-0.4) % Neut % (Auto) (45-73) % Lymph % (Auto) (20-40) % [place] % (Auto) (2-11) % Eos % (Auto) (0-4) % Baso % (Auto) (0-2) % Neut # (Auto) (2.0-8.3) X10*3/uL Lymph # (Auto) (1.2-4.9) X10*3/uL [place] # (Auto) (0.1-1.2) X10*3/uL Eos # (Auto) (0.0-0.4) X10*3/uL Baso # (Auto) (0.0-0.2) X10*3/uL Abs Immat Gran (auto) (0.00-0.03) X10*3/uL Absolute Nucleated RBC (0.0-0.012) X10*3/uL Nucleated RBC % (auto) (0.0-0.2) /100WBC PT (10.8-13.0) SEC INR (0.9-1.1) APTT (24.1-38.0) SEC D-Dimer NG/ML VBG pH 7.43 (7.32-7.43) VBG pCO2 53 mmhg VBG Oxygen Liters/Min 2 L VBG pO2 34 mmhg VBG HCO3 34 mmol/L VBG O2 Saturation 63.1 % VBG Base Excess 8.4 mmol/L Sodium (135-145) mmol/L Potassium (3.3-5.1) mmol/l Chloride (96-108) mmol/L Carbon Dioxide (22-29) mmol/L Anion Gap (12-20) BUN (9-16) mg/dL Creatinine (0.5-1.4) mg/dL Estim Creat Clear Calc Estimated GFR POC Glucose (60-115) mg/dL Random Glucose (60-115) mg/dL Lactic Acid (0.5-2.0) mmol/L Calcium (8.4-10.2) mg/dL Total Bilirubin (0.0-1.0) mg/dL Direct Bilirubin (0.0-0.5) mg/dL AST (5-31) U/L ALT (0-31) U/L Alkaline Phosphatase (39-117) U/L Troponin I High Sens (<3.5-17.0) ng/L C-Reactive Protein (< or = 0.50) mg/dL B-Natriuretic Peptide (<100) pg/mL Total Protein (6.5-8.0) g/dL Albumin (3.5-5.0) g/dL Lipase (8-78) U/L Procalcitonin ng/mL Urine Color STRAW Urine Appearance HAZY Urine pH 6.5 (5.0-8.0) Ur Specific [place] 1.010 (1.005-1.025) Urine Protein NEG (NEG-TRACE) MG/DL Urine Glucose (UA) >=1000 H (NEG) MG/DL Urine Ketones NEG (NEG) MG/DL Urine Blood NEG (NEG) Urine Nitrite NEG (NEG) Ur Leukocyte Esterase NEG (NEG) Urine RBC 0 (0) /HPF Urine WBC 5-9 H (0-4) /HPF Urine WBC Clumps NOTED Ur Squamous Epith Cells TRACE /LPF Urine Bacteria NONE /LPF Urine Yeast 1+ /HPF Urine Test NEGATIVE (NEGATIVE) Urine Opiates Screen Not Detected (Not Detect) Ur Barbiturates Screen Not Detected (Not Detect) Ur Phencyclidine Scrn Not Detected (Not Detect) Ur Amphetamines Screen Not Detected (Not Detect) U Benzodiazepines Scrn Not Detected (Not Detect) Urine Cocaine Screen Not Detected (Not Detect) U Marijuana (THC) Screen Not Detected (Not Detect) Ethyl Alcohol mg/dL 06/11/20 06/11/20 Range/Units 21:12 21:32 WBC (4.8-10.8) X10*3/uL RBC (4.20-5.50) X10*6/uL Hgb (12.0-16.0) g/dl Hct (37-47) % MCV (80-98) fL MCH (27.0-33.0) pg MCHC (31.0-35.0) g/dl RDW (11.0-16.0) % Plt Count (160-400) X10*3/uL MPV (9.4-12.3) fL Immature Gran % (Auto) (0.0-0.4) % Neut % (Auto) (45-73) % Lymph % (Auto) (20-40) % Gregg % (Auto) (2-11) % Eos % (Auto) (0-4) % Baso % (Auto) (0-2) % Neut # (Auto) (2.0-8.3) X10*3/uL Lymph # (Auto) (1.2-4.9) X10*3/uL Gregg # (Auto) (0.1-1.2) X10*3/uL Eos # (Auto) (0.0-0.4) X10*3/uL Baso # (Auto) (0.0-0.2) X10*3/uL Abs Immat Gran (auto) (0.00-0.03) X10*3/uL Absolute Nucleated RBC (0.0-0.012) X10*3/uL Nucleated RBC % (auto) (0.0-0.2) /100WBC PT (10.8-13.0) SEC INR (0.9-1.1) APTT (24.1-38.0) SEC D-Dimer NG/ML VBG pH (7.32-7.43) VBG pCO2 mmhg VBG Oxygen Liters/Min VBG pO2 mmhg VBG HCO3 mmol/L VBG O2 Saturation % VBG Base Excess mmol/L Sodium (135-145) mmol/L Potassium (3.3-5.1) mmol/l Chloride (96-108) mmol/L Carbon Dioxide (22-29) mmol/L Anion Gap (12-20) BUN (9-16) mg/dL Creatinine (0.5-1.4) mg/dL Estim Creat Clear Calc Estimated GFR POC Glucose 315 H (60-115) mg/dL Random Glucose (60-115) mg/dL Lactic Acid (0.5-2.0) mmol/L Calcium (8.4-10.2) mg/dL Total Bilirubin (0.0-1.0) mg/dL Direct Bilirubin (0.0-0.5) mg/dL AST (5-31) U/L ALT (0-31) U/L Alkaline Phosphatase (39-117) U/L Troponin I High Sens 231.8 H D (<3.5-17.0) ng/L C-Reactive Protein (< or = 0.50) mg/dL B-Natriuretic Peptide (<100) pg/mL Total Protein (6.5-8.0) g/dL Albumin (3.5-5.0) g/dL Lipase (8-78) U/L Procalcitonin ng/mL Urine Color Urine Appearance Urine pH (5.0-8.0) Ur Specific [place] (1.005-1.025) Urine Protein (NEG-TRACE) MG/DL Urine Glucose (UA) (NEG) MG/DL Urine Ketones (NEG) MG/DL Urine Blood (NEG) Urine Nitrite (NEG) Ur Leukocyte Esterase (NEG) Urine RBC (0) /HPF Urine WBC (0-4) /HPF Urine WBC Clumps Ur Squamous Epith Cells /LPF Urine Bacteria /LPF Urine Yeast /HPF Urine Test (NEGATIVE) Urine Opiates Screen (Not Detect) Ur Barbiturates Screen (Not Detect) Ur Phencyclidine Scrn (Not Detect) Ur Amphetamines Screen (Not Detect) U Benzodiazepines Scrn (Not Detect) Urine Cocaine Screen (Not Detect) U Marijuana (THC) Screen (Not Detect) Ethyl Alcohol mg/dL <Fabrizio Coyle, DO - Last Filed: 06/12/20 01:21> ECG Data Attestation: I personally reviewed and interpreted this ECG as follows: <ARLIN Hernandez - Last Filed: 06/11/20 20:49> ECG interpretation date: 06/11/20 <ARLIN Hernandez - Last Filed: 06/11/20 20:49> ECG interpretation time: 15:48 <ARLIN Hernandez - Last Filed: 06/11/20 20:49> Interpretation: atrial fibrillation with rapid ventricular response, HR 125 bpm, nonspecific ST-T wave abnormality, prolonged QTc <ARLIN Hernandez - Last Filed: 06/11/20 20:49> Discharge Plan Discharge Clinical Impression: Acute kidney injury superimposed on chronic kidney disease Congestive heart failure Qualifiers: Heart failure type: systolic Heart failure chronicity: acute on chronic Qualified Code(s): I50.23 - Acute on chronic systolic (congestive) heart failure Atrial fibrillation Qualifiers: Atrial fibrillation type: longstanding persistent Qualified Code(s): I48.11 - Longstanding persistent atrial fibrillation Volume overload Qualifiers: Hypervolemia type: unspecified Qualified Code(s): E87.70 - Fluid overload, unspecified <ARLIN Hernandez - Last Filed: 06/11/20 20:49> Patient Disposition: Admitted As Inpatient <ARLIN Hernandez - Last Filed: 06/11/20 20:49> Interventions: Admission Worksheet (ED) Last Done: 06/12/20 00:33 <ARLIN Hernandez - Last Filed: 06/11/20 20:49> Discharge Date/Time: 06/12/20 00:57 <ARLIN Hernandez - Last Filed: 06/11/20 20:49>
[2020-06-11 16:27] LABS: Glucose, Whole Blood 433 mg/dL (60-115)
[2020-06-11 16:29] LABS: MANUAL DIFF FLAG NO
[2020-06-11 16:30] LABS: Basophils Absolute Auto 0.1 X10*3/uL (0.0-0.2); Basophils Percent Auto 0.9 % (0-2); Eosinophils Absolute Auto 0.5 X10*3/uL (0.0-0.4); Eosinophils Percent Auto 5.3 % (0-4); Hematocrit 31.8 % (37-47); Hemoglobin 9.6 g/dl (12.0-16.0); Imm Gran Abs Auto 0.04 X10*3/uL (0.00-0.03); Imm Gran Pct Auto 0.5 % (0.0-0.4); Lymphocytes Absolute Auto 0.9 X10*3/uL (1.2-4.9); Lymphocytes Percent Auto 10.3 % (20-40); Mean Corpuscular HGB Conc 30.2 g/dl (31.0-35.0); Mean Corpuscular Hemoglobin 24.4 pg (27.0-33.0); Mean Corpuscular Volume 80.7 fL (80-98); Mean Platelet Volume 11.6 fL (9.4-12.3); Monocytes Absolute Auto 0.8 X10*3/uL (0.1-1.2); Monocytes Percent Auto 9.6 % (2-11); Neutrophils Absolute Auto 6.2 X10*3/uL (2.0-8.3); Neutrophils Percent Auto 73.4 % (45-73); Platelet Count 314 X10*3/uL (160-400); Red Blood Count 3.94 X10*6/uL (4.20-5.50); Red Cell Distribution Width 19.5 % (11.0-16.0); White Blood Count 8.4 X10*3/uL (4.8-10.8)
[2020-06-11] MEDS: Metoprolol Tartrate 5 MG/5 ML VIAL IVPUSH (16:30)
[2020-06-11] MEDS: Piperacillin Sodium/Tazobactam 3.375 GM in 0.9 % Sodium Chloride 50 ML IV (16:30)
[2020-06-11 16:48] LABS: Lactic Acid 1.9 mmol/L (0.5-2.0)
[2020-06-11 16:51] LABS: Ethanol < 10 mg/dL
[2020-06-11 16:57] LABS: Alanine Aminotransferase 15 U/L (0-31); Albumin Level 3.2 g/dL (3.5-5.0); Alkaline Phosphatase 135 U/L (39-117); Anion Gap 18 (12-20); Aspartate Amino Transferase 21 U/L (5-31); Bilirubin Direct 0.4 mg/dL (0.0-0.5); Bilirubin Total 0.6 mg/dL (0.0-1.0); Blood Urea Nitrogen 113 mg/dL (9-16); C Reactive Protein 4.58 mg/dL (< or = 0.50); Calcium 8.3 mg/dL (8.4-10.2); Carbon Dioxide 30 mmol/L (22-29); Chloride 89 mmol/L (96-108); Creatinine Clr Calc Pharmacy 30.8; Estimated Glomerular Filt Rate 18; Glucose Random 442 mg/dL (60-115); Lipase 24 U/L (8-78); Potassium 3.6 mmol/l (3.3-5.1); Sodium 133 mmol/L (135-145); Total Protein 6.5 g/dL (6.5-8.0)
[2020-06-11 16:59] LABS: INTERNATIONAL NORM RATIO 1.1 (0.9-1.1); Prothrombin Time 12.9 SEC (10.8-13.0)
[2020-06-11 17:00] LABS: B Type Natriuretic Peptide 3013 pg/mL (<100)
[2020-06-11 17:01] LABS: Partial Thromboplastin Time 26.9 SEC (24.1-38.0)
[2020-06-11 17:09] LABS: D Dimer 2083 NG/ML
[2020-06-11 17:11] LABS: Procalcitonin 0.27 ng/mL
[2020-06-11 17:26] LABS: Pt Ventilation O2% Venous 2 L
[2020-06-11 17:35] LABS: pH VBG 7.43 (7.32-7.43)
[2020-06-11 17:36] LABS: Base Excess VBG 8.4 mmol/L; HCO3 VBG 34 mmol/L; PCO2 VBG 53 mmhg; PO2 VBG 34 mmhg
[2020-06-11 17:37] LABS: Oxygen Saturation VBG 63.1 %
--- NOTE | 2020-06-11 17:55 | PC.NURSE ---
PHARMACY CONTACTED ABOUT PT'S ORDERED VANCOMYCIN, PHARMACY STATES IT IS CURRENTLY BEING MIXED. WILL ADMINISTER MEDICATION WHEN IT IS DELIVERED
--- NOTE | 2020-06-11 17:57 | NM_ITS ---
EXAMINATION: NM LUNG IMAGE PERFUSION CLINICAL INFORMATION: Elevated d-dimer. Dyspnea. COMPARISON: Chest x-ray today TECHNIQUE: 4.0 mCi technetium 99m MAA given for perfusion. Multiple image projections were obtained. No ventilation was performed. FINDINGS: Perfusion: There is poor perfusion of the right lung base. This correlates with the density seen on the chest x-ray. This is therefore a matched defect. The lungs are otherwise normally perfused bilaterally, no other perfusion defects. IMPRESSION: Normal perfusion scan. No evidence of pulmonary embolism.
[2020-06-11] MEDS: Insulin Lispro 100 UNIT/ML 3 ML VIAL 12 UNIT SUBCUT (18:18)
[2020-06-11] MEDS: Furosemide 100 MG/10 ML VIAL 80 MG IVPUSH (19:05)
--- NOTE | 2020-06-11 19:43 | PC.NURSE ---
Received report from Yann . medicated per Nov. Bib placed. Labs and UA collected and sent.
[2020-06-11 19:52] LABS: Appearance Urine HAZY; Color Urine STRAW; Glucose Urine UA >=1000 MG/DL (NEG); Leukocyte Esterase Urine NEG (NEG); Nitrite Urine NEG (NEG); PH 6.5 (5.0-8.0); Urine Blood NEG (NEG); Urine Ketones NEG (NEG); Urine Protein NEG (NEG-TRACE)
[2020-06-11 19:54] LABS: UPreg QC Valid YES; Urine Pregnancy NEGATIVE (NEGATIVE)
[2020-06-11 20:04] LABS: RBC Urine 0 /HPF (0); Squamous Epithelial Cell Urine TRACE /LPF
[2020-06-11 20:05] LABS: WBC Clumps Urine NOTED
--- NOTE | 2020-06-11 20:05 | PC.NURSE ---
Pt assist on to bed heath for bowel movement. pt unable to go. Pt reposition and transferred to [facility].
[2020-06-11 20:15] LABS: Amphetamine Screen Urine Not Detected (Not Detect); Barbiturates, Urine Not Detected (Not Detect); Benzodiazepines Screen Urine Not Detected (Not Detect); Cannabinoid Screen Urine Not Detected (Not Detect); Cocaine Screen Urine Not Detected (Not Detect); Opiate Screen Urine Not Detected (Not Detect); Phencyclidine Screen Urine Not Detected (Not Detect)
[2020-06-11 21:37] LABS: Glucose, Whole Blood 315 mg/dL (60-115)
--- NOTE | 2020-06-11 21:50 | PC.NURSE ---
PROVIDER AWARE OF POC RESULTS. PER PROVIDER OKAY FOR PT TO EAT WILL MEDICATE PER MAR. PT IS A&O. PT IS ABLE WITH TRANSFER.
--- NOTE | 2020-06-11 22:01 | ED.GENADULT ---
HPI - General Adult General Chief complaint: Dyspnea <Mi Webber NP - Last Filed: 06/12/20 01:20> Stated complaint: SHORTNESS OF BREATH <Mi Webber NP - Last Filed: 06/12/20 01:20> Time Seen by Provider: 06/11/20 15:54 <Mi Webber NP - Last Filed: 06/12/20 01:20> Source: patient and EMS <Mi Webber NP - Last Filed: 06/12/20 01:20> Mode of arrival: EMS <Mi Webber NP - Last Filed: 06/12/20 01:20> Limitations: other (poor historian ) <Mi Webber NP - Last Filed: 06/12/20 01:20> Related Data Home medications: Home Medications Medication Instructions Recorded Confirmed amlodipine 10 mg PO DAILY 06/11/20 06/11/20 aspirin [Aspir-81] 81 mg PO DAILY 06/11/20 06/12/20 atorvastatin 80 mg PO DAILY 06/11/20 06/11/20 buprenorphine-naloxone [Suboxone] 1 film SUBLINGUAL DAILY 06/11/20 06/11/20 carvedilol 6.25 mg PO BID 06/11/20 06/11/20 cetirizine 10 mg PO DAILY 06/11/20 06/11/20 cholecalciferol (vitamin D3) 50 mcg PO DAILY 06/11/20 06/11/20 ferrous gluconate 324 mg PO DAILY 06/11/20 06/11/20 furosemide 40 mg PO DAILY 06/11/20 06/11/20 gabapentin 600 mg PO TID 06/11/20 06/11/20 hydralazine 25 mg PO BID 06/11/20 06/11/20 insulin glargine 28 unit SUBCUT QAM 06/11/20 06/11/20 insulin lispro 1 sliding scale dose SUBCUT 06/11/20 06/11/20 USEASDIRECTD loratadine 10 mg PO DAILY 06/11/20 06/11/20 mirtazapine 15 mg PO BEDTIME 06/11/20 06/11/20 omeprazole 40 mg PO DAILY 06/11/20 06/11/20 tamsulosin 0.4 mg PO DAILY 06/11/20 06/11/20 <Mi Webber NP - Last Filed: 06/12/20 01:20> Allergies/adverse reactions: Allergies Allergy/AdvReac Type Severity Reaction Status Date / Time No Known Allergies Allergy Unverified 05/26/20 16:02 [No Known Allergies*] <Mi Webber NP - Last Filed: 06/12/20 01:20> [facility] Past Medical History Medical History: Medical History (Updated 06/12/20 @ 00:40 by Henry Pabon MD) CAD (coronary artery disease) CHF (congestive heart failure) Chronic kidney disease (CKD) Diabetes Heart murmur Hemopericardium Hepatitis C Heroin abuse <Mi Webber NP - Last Filed: 06/12/20 01:20> Social History Social History: Social History Alcohol intake: unknown Smoking Status: Unknown if ever smoked Smoked in Last 30 Days: No Use of substances other than those prescribed or required for medical reasons: Unknown Advance Directives: No Advance Directives Information Provided: Yes <Mi Webber NP - Last Filed: 06/12/20 01:20> Physical Exam Vital Signs and I&O and Narrative: Vital Signs and I&O: Vital Signs Temp 98.2 F 06/11/20 20:58 Pulse 90 06/11/20 23:24 Resp 17 06/11/20 23:24 BP 141/84 H 06/11/20 23:24 Pulse Ox 100 06/11/20 23:24 Intake & Output 06/11/20 06/11/20 06/12/20 06:59 18:59 06:59 Output Total 1050 / 1050 Balance -1050 / -1050 Urine Output (Aver age ml/kg/hr) 0.77 Weight 114 kg Output: Output, Urine Am ount (Catheter) 1050 / 1050 Urethral 1050 / 1050 Other: Urine Color Pale Yellow Body Mass Index 41.8 <Mi Webber NP - Last Filed: 06/12/20 01:20> Vital Signs and I&O: Vital Signs Temp 98.2 F 06/11/20 20:58 Pulse 90 06/11/20 23:24 Resp 17 06/11/20 23:24 BP 141/84 H 06/11/20 23:24 Pulse Ox 100 06/11/20 23:24 Intake & Output 06/11/20 06/11/20 06/12/20 06:59 18:59 06:59 Output Total 1050 / 1050 Balance -1050 / -1050 Urine Output (Aver age ml/kg/hr) 0.77 Weight 114 kg Output: Output, Urine Am ount (Catheter) 1050 / 1050 Urethral 1050 / 1050 Other: Urine Color Pale Yellow Body Mass Index 41.8 <Fabrizio Coyle DO - Last Filed: 06/12/20 01:21> Const: General: cooperative, comfortable and no acute distress <Mi Webber NP - Last Filed: 06/12/20 01:20> Orientation/consciousness: patient oriented x3 <Mi Webber NP - Last Filed: 06/12/20 01:20> HENMT: Head: Yes normal to inspection <Mi Webber NP - Last Filed: 06/12/20 01:20> Eyes: General: appearance normal, both eyes and all related structures <Mi Webber NP - Last Filed: 06/12/20 01:20> Neck: Neck: Yes normal visual inspection and Yes no lymphadenopathy <Mi Webber NP - Last Filed: 06/12/20 01:20> Chest: Chest palpation & inspection: normal inspection of the chest and normal palpation of entire chest wall <Mi Webber NP - Last Filed: 06/12/20 01:20> Resp: Effort & Inspection: normal respiratory effort <Mi Webber NP - Last Filed: 06/12/20 01:20> Cardio: Jugular venous distension: no JVD <Mi Webber NP - Last Filed: 06/12/20 01:20> GI: Inspection: Yes normal to inspection <Mi Webber NP - Last Filed: 06/12/20 01:20> : General: Yes no CVA tenderness <Mi Webber NP - Last Filed: 06/12/20 01:20> Back/Spine/Pelvis: Back: no CVA tenderness <Mi Webber NP - Last Filed: 06/12/20 01:20> Skin: General skin exam: no rashes or lesions noted <Mi Webber NP - Last Filed: 06/12/20 01:20> Neuro: General: patient oriented x3 <Mi Webber NP - Last Filed: 06/12/20 01:20> Extrem: General: Yes edema (pitting +2) <Mi Webber NP - Last Filed: 06/12/20 01:20> Psych: Appearance: grossly normal <Mi Webber NP - Last Filed: 06/12/20 01:20> Course Course Hospital Course: patient arrives in rapid afib 130's with SBP 140s. requiring 2L NC to maintain sats. no resp distress at this time. full sepsis workup ordered given patient's report of recent infection. empiric vanco/zosyn ordered, concern for possible HCAP vs cellulitis/wound on LLE. appears grossly volume overloaded, likely acute CHF exacerbation. need to consider PE as well with hx afib not on anticoagulation presenting with hypoxia and tachycardia. <Mi Webber NP - Last Filed: 06/12/20 01:20> Reevaluation(s) Reevaluation #1: sign-out from [place] OLIVEROS at 2100. please refer to her note for full H&P and prior course. V/Q scan is pending. At 10:01 p.m. discussion with hospitalist regarding admission for CHF exacerbation, acute kidney injury and chronic kidney disease. V/Q scan is negative for PE. Blood sugar elevation of 340 was addressed with 6 units of insulin subcu. Discussion with patient regarding plan of care, patient accepts admission recommendation. <Mi Webber NP - Last Filed: 06/12/20 01:20> Time: 22:01 <Mi Webber NP - Last Filed: 06/12/20 01:20> Consultations Consultation #1: Didier Pabon <Mi Webber NP - Last Filed: 06/12/20 01:20> Time: 21:50 <Mi Webber NP - Last Filed: 06/12/20 01:20> Medical Decision Making Lab Data Result diagrams: : 06/11/20 16:18 06/11/20 16:17 <Mi Webber NP - Last Filed: 06/12/20 01:20> Labs: Lab Results 06/11/20 06/11/20 06/11/20 Range/Units 16:16 16:17 16:17 WBC (4.8-10.8) X10*3/uL RBC (4.20-5.50) X10*6/uL Hgb (12.0-16.0) g/dl Hct (37-47) % MCV (80-98) fL MCH (27.0-33.0) pg MCHC (31.0-35.0) g/dl RDW (11.0-16.0) % Plt Count (160-400) X10*3/uL MPV (9.4-12.3) fL Immature Gran % (Auto) (0.0-0.4) % Neut % (Auto) (45-73) % Lymph % (Auto) (20-40) % [place] % (Auto) (2-11) % Eos % (Auto) (0-4) % Baso % (Auto) (0-2) % Neut # (Auto) (2.0-8.3) X10*3/uL Lymph # (Auto) (1.2-4.9) X10*3/uL [place] # (Auto) (0.1-1.2) X10*3/uL Eos # (Auto) (0.0-0.4) X10*3/uL Baso # (Auto) (0.0-0.2) X10*3/uL Abs Immat Gran (auto) (0.00-0.03) X10*3/uL Absolute Nucleated RBC (0.0-0.012) X10*3/uL Nucleated RBC % (auto) (0.0-0.2) /100WBC PT 12.9 (10.8-13.0) SEC INR 1.1 (0.9-1.1) APTT 26.9 (24.1-38.0) SEC D-Dimer NG/ML VBG pH (7.32-7.43) VBG pCO2 mmhg VBG Oxygen Liters/Min VBG pO2 mmhg VBG HCO3 mmol/L VBG O2 Saturation % VBG Base Excess mmol/L Sodium 133 L (135-145) mmol/L Potassium 3.6 (3.3-5.1) mmol/l Chloride 89 L (96-108) mmol/L Carbon Dioxide 30 H (22-29) mmol/L Anion Gap 18 (12-20) BUN 113 H* (9-16) mg/dL Creatinine 2.81 H (0.5-1.4) mg/dL Estim Creat Clear Calc 30.8 Estimated GFR 18 POC Glucose (60-115) mg/dL Random Glucose 442 H* (60-115) mg/dL Lactic Acid (0.5-2.0) mmol/L Calcium 8.3 L (8.4-10.2) mg/dL Total Bilirubin 0.6 (0.0-1.0) mg/dL Direct Bilirubin 0.4 (0.0-0.5) mg/dL AST 21 (5-31) U/L ALT 15 (0-31) U/L Alkaline Phosphatase 135 H (39-117) U/L Troponin I High Sens (<3.5-17.0) ng/L C-Reactive Protein 4.58 H (< or = 0.50) mg/dL B-Natriuretic Peptide (<100) pg/mL Total Protein 6.5 (6.5-8.0) g/dL Albumin 3.2 L (3.5-5.0) g/dL Lipase 24 (8-78) U/L Procalcitonin ng/mL Urine Color Urine Appearance Urine pH (5.0-8.0) Ur Specific [place] (1.005-1.025) Urine Protein (NEG-TRACE) MG/DL Urine Glucose (UA) (NEG) MG/DL Urine Ketones (NEG) MG/DL Urine Blood (NEG) Urine Nitrite (NEG) Ur Leukocyte Esterase (NEG) Urine RBC (0) /HPF Urine WBC (0-4) /HPF Urine WBC Clumps Ur Squamous Epith Cells /LPF Urine Bacteria /LPF Urine Yeast /HPF Urine Test (NEGATIVE) Urine Opiates Screen (Not Detect) Ur Barbiturates Screen (Not Detect) Ur Phencyclidine Scrn (Not Detect) Ur Amphetamines Screen (Not Detect) U Benzodiazepines Scrn (Not Detect) Urine Cocaine Screen (Not Detect) U Marijuana (THC) Screen (Not Detect) Ethyl Alcohol < 10 mg/dL 06/11/20 06/11/20 06/11/20 Range/Units 16:17 16:17 16:17 WBC (4.8-10.8) X10*3/uL RBC (4.20-5.50) X10*6/uL Hgb (12.0-16.0) g/dl Hct (37-47) % MCV (80-98) fL MCH (27.0-33.0) pg MCHC (31.0-35.0) g/dl RDW (11.0-16.0) % Plt Count (160-400) X10*3/uL MPV (9.4-12.3) fL Immature Gran % (Auto) (0.0-0.4) % Neut % (Auto) (45-73) % Lymph % (Auto) (20-40) % [place] % (Auto) (2-11) % Eos % (Auto) (0-4) % Baso % (Auto) (0-2) % Neut # (Auto) (2.0-8.3) X10*3/uL Lymph # (Auto) (1.2-4.9) X10*3/uL [place] # (Auto) (0.1-1.2) X10*3/uL Eos # (Auto) (0.0-0.4) X10*3/uL Baso # (Auto) (0.0-0.2) X10*3/uL Abs Immat Gran (auto) (0.00-0.03) X10*3/uL Absolute Nucleated RBC (0.0-0.012) X10*3/uL Nucleated RBC % (auto) (0.0-0.2) /100WBC PT (10.8-13.0) SEC INR (0.9-1.1) APTT (24.1-38.0) SEC D-Dimer NG/ML VBG pH (7.32-7.43) VBG pCO2 mmhg VBG Oxygen Liters/Min VBG pO2 mmhg VBG HCO3 mmol/L VBG O2 Saturation % VBG Base Excess mmol/L Sodium (135-145) mmol/L Potassium (3.3-5.1) mmol/l Chloride (96-108) mmol/L Carbon Dioxide (22-29) mmol/L Anion Gap (12-20) BUN (9-16) mg/dL Creatinine (0.5-1.4) mg/dL Estim Creat Clear Calc Estimated GFR POC Glucose (60-115) mg/dL Random Glucose (60-115) mg/dL Lactic Acid 1.9 (0.5-2.0) mmol/L Calcium (8.4-10.2) mg/dL Total Bilirubin (0.0-1.0) mg/dL Direct Bilirubin (0.0-0.5) mg/dL AST (5-31) U/L ALT (0-31) U/L Alkaline Phosphatase (39-117) U/L Troponin I High Sens 51.0 H (<3.5-17.0) ng/L C-Reactive Protein (< or = 0.50) mg/dL B-Natriuretic Peptide 3013 H (<100) pg/mL Total Protein (6.5-8.0) g/dL Albumin (3.5-5.0) g/dL Lipase (8-78) U/L Procalcitonin 0.27 ng/mL Urine Color Urine Appearance Urine pH (5.0-8.0) Ur Specific [place] (1.005-1.025) Urine Protein (NEG-TRACE) MG/DL Urine Glucose (UA) (NEG) MG/DL Urine Ketones (NEG) MG/DL Urine Blood (NEG) Urine Nitrite (NEG) Ur Leukocyte Esterase (NEG) Urine RBC (0) /HPF Urine WBC (0-4) /HPF Urine WBC Clumps Ur Squamous Epith Cells /LPF Urine Bacteria /LPF Urine Yeast /HPF Urine Test (NEGATIVE) Urine Opiates Screen (Not Detect) Ur Barbiturates Screen (Not Detect) Ur Phencyclidine Scrn (Not Detect) Ur Amphetamines Screen (Not Detect) U Benzodiazepines Scrn (Not Detect) Urine Cocaine Screen (Not Detect) U Marijuana (THC) Screen (Not Detect) Ethyl Alcohol mg/dL 06/11/20 06/11/20 06/11/20 Range/Units 16:18 16:18 16:22 WBC 8.4 (4.8-10.8) X10*3/uL RBC 3.94 L (4.20-5.50) X10*6/uL Hgb 9.6 L (12.0-16.0) g/dl Hct 31.8 L (37-47) % MCV 80.7 (80-98) fL MCH 24.4 L (27.0-33.0) pg MCHC 30.2 L (31.0-35.0) g/dl RDW 19.5 H (11.0-16.0) % Plt Count 314 (160-400) X10*3/uL MPV 11.6 (9.4-12.3) fL Immature Gran % (Auto) 0.5 H (0.0-0.4) % Neut % (Auto) 73.4 H (45-73) % Lymph % (Auto) 10.3 L (20-40) % [place] % (Auto) 9.6 (2-11) % Eos % (Auto) 5.3 H (0-4) % Baso % (Auto) 0.9 (0-2) % Neut # (Auto) 6.2 (2.0-8.3) X10*3/uL Lymph # (Auto) 0.9 L (1.2-4.9) X10*3/uL [place] # (Auto) 0.8 (0.1-1.2) X10*3/uL Eos # (Auto) 0.5 H (0.0-0.4) X10*3/uL Baso # (Auto) 0.1 (0.0-0.2) X10*3/uL Abs Immat Gran (auto) 0.04 H (0.00-0.03) X10*3/uL Absolute Nucleated RBC 0.000 (0.0-0.012) X10*3/uL Nucleated RBC % (auto) 0.0 (0.0-0.2) /100WBC PT (10.8-13.0) SEC INR (0.9-1.1) APTT (24.1-38.0) SEC D-Dimer 2083 NG/ML VBG pH (7.32-7.43) VBG pCO2 mmhg VBG Oxygen Liters/Min VBG pO2 mmhg VBG HCO3 mmol/L VBG O2 Saturation % VBG Base Excess mmol/L Sodium (135-145) mmol/L Potassium (3.3-5.1) mmol/l Chloride (96-108) mmol/L Carbon Dioxide (22-29) mmol/L Anion Gap (12-20) BUN (9-16) mg/dL Creatinine (0.5-1.4) mg/dL Estim Creat Clear Calc Estimated GFR POC Glucose 433 H* (60-115) mg/dL Random Glucose (60-115) mg/dL Lactic Acid (0.5-2.0) mmol/L Calcium (8.4-10.2) mg/dL Total Bilirubin (0.0-1.0) mg/dL Direct Bilirubin (0.0-0.5) mg/dL AST (5-31) U/L ALT (0-31) U/L Alkaline Phosphatase (39-117) U/L Troponin I High Sens (<3.5-17.0) ng/L C-Reactive Protein (< or = 0.50) mg/dL B-Natriuretic Peptide (<100) pg/mL Total Protein (6.5-8.0) g/dL Albumin (3.5-5.0) g/dL Lipase (8-78) U/L Procalcitonin ng/mL Urine Color Urine Appearance Urine pH (5.0-8.0) Ur Specific [place] (1.005-1.025) Urine Protein (NEG-TRACE) MG/DL Urine Glucose (UA) (NEG) MG/DL Urine Ketones (NEG) MG/DL Urine Blood (NEG) Urine Nitrite (NEG) Ur Leukocyte Esterase (NEG) Urine RBC (0) /HPF Urine WBC (0-4) /HPF Urine WBC Clumps Ur Squamous Epith Cells /LPF Urine Bacteria /LPF Urine Yeast /HPF Urine Test (NEGATIVE) Urine Opiates Screen (Not Detect) Ur Barbiturates Screen (Not Detect) Ur Phencyclidine Scrn (Not Detect) Ur Amphetamines Screen (Not Detect) U Benzodiazepines Scrn (Not Detect) Urine Cocaine Screen (Not Detect) U Marijuana (THC) Screen (Not Detect) Ethyl Alcohol mg/dL 06/11/20 06/11/20 06/11/20 Range/Units 17:18 19:36 19:36 WBC (4.8-10.8) X10*3/uL RBC (4.20-5.50) X10*6/uL Hgb (12.0-16.0) g/dl Hct (37-47) % MCV (80-98) fL MCH (27.0-33.0) pg MCHC (31.0-35.0) g/dl RDW (11.0-16.0) % Plt Count (160-400) X10*3/uL MPV (9.4-12.3) fL Immature Gran % (Auto) (0.0-0.4) % Neut % (Auto) (45-73) % Lymph % (Auto) (20-40) % [place] % (Auto) (2-11) % Eos % (Auto) (0-4) % Baso % (Auto) (0-2) % Neut # (Auto) (2.0-8.3) X10*3/uL Lymph # (Auto) (1.2-4.9) X10*3/uL [place] # (Auto) (0.1-1.2) X10*3/uL Eos # (Auto) (0.0-0.4) X10*3/uL Baso # (Auto) (0.0-0.2) X10*3/uL Abs Immat Gran (auto) (0.00-0.03) X10*3/uL Absolute Nucleated RBC (0.0-0.012) X10*3/uL Nucleated RBC % (auto) (0.0-0.2) /100WBC PT (10.8-13.0) SEC INR (0.9-1.1) APTT (24.1-38.0) SEC D-Dimer NG/ML VBG pH 7.43 (7.32-7.43) VBG pCO2 53 mmhg VBG Oxygen Liters/Min 2 L VBG pO2 34 mmhg VBG HCO3 34 mmol/L VBG O2 Saturation 63.1 % VBG Base Excess 8.4 mmol/L Sodium (135-145) mmol/L Potassium (3.3-5.1) mmol/l Chloride (96-108) mmol/L Carbon Dioxide (22-29) mmol/L Anion Gap (12-20) BUN (9-16) mg/dL Creatinine (0.5-1.4) mg/dL Estim Creat Clear Calc Estimated GFR POC Glucose (60-115) mg/dL Random Glucose (60-115) mg/dL Lactic Acid (0.5-2.0) mmol/L Calcium (8.4-10.2) mg/dL Total Bilirubin (0.0-1.0) mg/dL Direct Bilirubin (0.0-0.5) mg/dL AST (5-31) U/L ALT (0-31) U/L Alkaline Phosphatase (39-117) U/L Troponin I High Sens (<3.5-17.0) ng/L C-Reactive Protein (< or = 0.50) mg/dL B-Natriuretic Peptide (<100) pg/mL Total Protein (6.5-8.0) g/dL Albumin (3.5-5.0) g/dL Lipase (8-78) U/L Procalcitonin ng/mL Urine Color STRAW Urine Appearance HAZY Urine pH 6.5 (5.0-8.0) Ur Specific [place] 1.010 (1.005-1.025) Urine Protein NEG (NEG-TRACE) MG/DL Urine Glucose (UA) >=1000 H (NEG) MG/DL Urine Ketones NEG (NEG) MG/DL Urine Blood NEG (NEG) Urine Nitrite NEG (NEG) Ur Leukocyte Esterase NEG (NEG) Urine RBC 0 (0) /HPF Urine WBC 5-9 H (0-4) /HPF Urine WBC Clumps NOTED Ur Squamous Epith Cells TRACE /LPF Urine Bacteria NONE /LPF Urine Yeast 1+ /HPF Urine Test NEGATIVE (NEGATIVE) Urine Opiates Screen Not Detected (Not Detect) Ur Barbiturates Screen Not Detected (Not Detect) Ur Phencyclidine Scrn Not Detected (Not Detect) Ur Amphetamines Screen Not Detected (Not Detect) U Benzodiazepines Scrn Not Detected (Not Detect) Urine Cocaine Screen Not Detected (Not Detect) U Marijuana (THC) Screen Not Detected (Not Detect) Ethyl Alcohol mg/dL 06/11/20 06/11/20 Range/Units 21:12 21:32 WBC (4.8-10.8) X10*3/uL RBC (4.20-5.50) X10*6/uL Hgb (12.0-16.0) g/dl Hct (37-47) % MCV (80-98) fL MCH (27.0-33.0) pg MCHC (31.0-35.0) g/dl RDW (11.0-16.0) % Plt Count (160-400) X10*3/uL MPV (9.4-12.3) fL Immature Gran % (Auto) (0.0-0.4) % Neut % (Auto) (45-73) % Lymph % (Auto) (20-40) % [place] % (Auto) (2-11) % Eos % (Auto) (0-4) % Baso % (Auto) (0-2) % Neut # (Auto) (2.0-8.3) X10*3/uL Lymph # (Auto) (1.2-4.9) X10*3/uL [place] # (Auto) (0.1-1.2) X10*3/uL Eos # (Auto) (0.0-0.4) X10*3/uL Baso # (Auto) (0.0-0.2) X10*3/uL Abs Immat Gran (auto) (0.00-0.03) X10*3/uL Absolute Nucleated RBC (0.0-0.012) X10*3/uL Nucleated RBC % (auto) (0.0-0.2) /100WBC PT (10.8-13.0) SEC INR (0.9-1.1) APTT (24.1-38.0) SEC D-Dimer NG/ML VBG pH (7.32-7.43) VBG pCO2 mmhg VBG Oxygen Liters/Min VBG pO2 mmhg VBG HCO3 mmol/L VBG O2 Saturation % VBG Base Excess mmol/L Sodium (135-145) mmol/L Potassium (3.3-5.1) mmol/l Chloride (96-108) mmol/L Carbon Dioxide (22-29) mmol/L Anion Gap (12-20) BUN (9-16) mg/dL Creatinine (0.5-1.4) mg/dL Estim Creat Clear Calc Estimated GFR POC Glucose 315 H (60-115) mg/dL Random Glucose (60-115) mg/dL Lactic Acid (0.5-2.0) mmol/L Calcium (8.4-10.2) mg/dL Total Bilirubin (0.0-1.0) mg/dL Direct Bilirubin (0.0-0.5) mg/dL AST (5-31) U/L ALT (0-31) U/L Alkaline Phosphatase (39-117) U/L Troponin I High Sens 231.8 H D (<3.5-17.0) ng/L C-Reactive Protein (< or = 0.50) mg/dL B-Natriuretic Peptide (<100) pg/mL Total Protein (6.5-8.0) g/dL Albumin (3.5-5.0) g/dL Lipase (8-78) U/L Procalcitonin ng/mL Urine Color Urine Appearance Urine pH (5.0-8.0) Ur Specific [place] (1.005-1.025) Urine Protein (NEG-TRACE) MG/DL Urine Glucose (UA) (NEG) MG/DL Urine Ketones (NEG) MG/DL Urine Blood (NEG) Urine Nitrite (NEG) Ur Leukocyte Esterase (NEG) Urine RBC (0) /HPF Urine WBC (0-4) /HPF Urine WBC Clumps Ur Squamous Epith Cells /LPF Urine Bacteria /LPF Urine Yeast /HPF Urine Test (NEGATIVE) Urine Opiates Screen (Not Detect) Ur Barbiturates Screen (Not Detect) Ur Phencyclidine Scrn (Not Detect) Ur Amphetamines Screen (Not Detect) U Benzodiazepines Scrn (Not Detect) Urine Cocaine Screen (Not Detect) U Marijuana (THC) Screen (Not Detect) Ethyl Alcohol mg/dL <Mi Webber NP - Last Filed: 06/12/20 01:20> Lab Results 06/11/20 06/11/20 06/11/20 Range/Units 16:16 16:17 16:17 WBC (4.8-10.8) X10*3/uL RBC (4.20-5.50) X10*6/uL Hgb (12.0-16.0) g/dl Hct (37-47) % MCV (80-98) fL MCH (27.0-33.0) pg MCHC (31.0-35.0) g/dl RDW (11.0-16.0) % Plt Count (160-400) X10*3/uL MPV (9.4-12.3) fL Immature Gran % (Auto) (0.0-0.4) % Neut % (Auto) (45-73) % Lymph % (Auto) (20-40) % [place] % (Auto) (2-11) % Eos % (Auto) (0-4) % Baso % (Auto) (0-2) % Neut # (Auto) (2.0-8.3) X10*3/uL Lymph # (Auto) (1.2-4.9) X10*3/uL [place] # (Auto) (0.1-1.2) X10*3/uL Eos # (Auto) (0.0-0.4) X10*3/uL Baso # (Auto) (0.0-0.2) X10*3/uL Abs Immat Gran (auto) (0.00-0.03) X10*3/uL Absolute Nucleated RBC (0.0-0.012) X10*3/uL Nucleated RBC % (auto) (0.0-0.2) /100WBC PT 12.9 (10.8-13.0) SEC INR 1.1 (0.9-1.1) APTT 26.9 (24.1-38.0) SEC D-Dimer NG/ML VBG pH (7.32-7.43) VBG pCO2 mmhg VBG Oxygen Liters/Min VBG pO2 mmhg VBG HCO3 mmol/L VBG O2 Saturation % VBG Base Excess mmol/L Sodium 133 L (135-145) mmol/L Potassium 3.6 (3.3-5.1) mmol/l Chloride 89 L (96-108) mmol/L Carbon Dioxide 30 H (22-29) mmol/L Anion Gap 18 (12-20) BUN 113 H* (9-16) mg/dL Creatinine 2.81 H (0.5-1.4) mg/dL Estim Creat Clear Calc 30.8 Estimated GFR 18 POC Glucose (60-115) mg/dL Random Glucose 442 H* (60-115) mg/dL Lactic Acid (0.5-2.0) mmol/L Calcium 8.3 L (8.4-10.2) mg/dL Total Bilirubin 0.6 (0.0-1.0) mg/dL Direct Bilirubin 0.4 (0.0-0.5) mg/dL AST 21 (5-31) U/L ALT 15 (0-31) U/L Alkaline Phosphatase 135 H (39-117) U/L Troponin I High Sens (<3.5-17.0) ng/L C-Reactive Protein 4.58 H (< or = 0.50) mg/dL B-Natriuretic Peptide (<100) pg/mL Total Protein 6.5 (6.5-8.0) g/dL Albumin 3.2 L (3.5-5.0) g/dL Lipase 24 (8-78) U/L Procalcitonin ng/mL Urine Color Urine Appearance Urine pH (5.0-8.0) Ur Specific [place] (1.005-1.025) Urine Protein (NEG-TRACE) MG/DL Urine Glucose (UA) (NEG) MG/DL Urine Ketones (NEG) MG/DL Urine Blood (NEG) Urine Nitrite (NEG) Ur Leukocyte Esterase (NEG) Urine RBC (0) /HPF Urine WBC (0-4) /HPF Urine WBC Clumps Ur Squamous Epith Cells /LPF Urine Bacteria /LPF Urine Yeast /HPF Urine Test (NEGATIVE) Urine Opiates Screen (Not Detect) Ur Barbiturates Screen (Not Detect) Ur Phencyclidine Scrn (Not Detect) Ur Amphetamines Screen (Not Detect) U Benzodiazepines Scrn (Not Detect) Urine Cocaine Screen (Not Detect) U Marijuana (THC) Screen (Not Detect) Ethyl Alcohol < 10 mg/dL 06/11/20 06/11/20 06/11/20 Range/Units 16:17 16:17 16:17 WBC (4.8-10.8) X10*3/uL RBC (4.20-5.50) X10*6/uL Hgb (12.0-16.0) g/dl Hct (37-47) % MCV (80-98) fL MCH (27.0-33.0) pg MCHC (31.0-35.0) g/dl RDW (11.0-16.0) % Plt Count (160-400) X10*3/uL MPV (9.4-12.3) fL Immature Gran % (Auto) (0.0-0.4) % Neut % (Auto) (45-73) % Lymph % (Auto) (20-40) % [place] % (Auto) (2-11) % Eos % (Auto) (0-4) % Baso % (Auto) (0-2) % Neut # (Auto) (2.0-8.3) X10*3/uL Lymph # (Auto) (1.2-4.9) X10*3/uL [place] # (Auto) (0.1-1.2) X10*3/uL Eos # (Auto) (0.0-0.4) X10*3/uL Baso # (Auto) (0.0-0.2) X10*3/uL Abs Immat Gran (auto) (0.00-0.03) X10*3/uL Absolute Nucleated RBC (0.0-0.012) X10*3/uL Nucleated RBC % (auto) (0.0-0.2) /100WBC PT (10.8-13.0) SEC INR (0.9-1.1) APTT (24.1-38.0) SEC D-Dimer NG/ML VBG pH (7.32-7.43) VBG pCO2 mmhg VBG Oxygen Liters/Min VBG pO2 mmhg VBG HCO3 mmol/L VBG O2 Saturation % VBG Base Excess mmol/L Sodium (135-145) mmol/L Potassium (3.3-5.1) mmol/l Chloride (96-108) mmol/L Carbon Dioxide (22-29) mmol/L Anion Gap (12-20) BUN (9-16) mg/dL Creatinine (0.5-1.4) mg/dL Estim Creat Clear Calc Estimated GFR POC Glucose (60-115) mg/dL Random Glucose (60-115) mg/dL Lactic Acid 1.9 (0.5-2.0) mmol/L Calcium (8.4-10.2) mg/dL Total Bilirubin (0.0-1.0) mg/dL Direct Bilirubin (0.0-0.5) mg/dL AST (5-31) U/L ALT (0-31) U/L Alkaline Phosphatase (39-117) U/L Troponin I High Sens 51.0 H (<3.5-17.0) ng/L C-Reactive Protein (< or = 0.50) mg/dL B-Natriuretic Peptide 3013 H (<100) pg/mL Total Protein (6.5-8.0) g/dL Albumin (3.5-5.0) g/dL Lipase (8-78) U/L Procalcitonin 0.27 ng/mL Urine Color Urine Appearance Urine pH (5.0-8.0) Ur Specific [place] (1.005-1.025) Urine Protein (NEG-TRACE) MG/DL Urine Glucose (UA) (NEG) MG/DL Urine Ketones (NEG) MG/DL Urine Blood (NEG) Urine Nitrite (NEG) Ur Leukocyte Esterase (NEG) Urine RBC (0) /HPF Urine WBC (0-4) /HPF Urine WBC Clumps Ur Squamous Epith Cells /LPF Urine Bacteria /LPF Urine Yeast /HPF Urine Test (NEGATIVE) Urine Opiates Screen (Not Detect) Ur Barbiturates Screen (Not Detect) Ur Phencyclidine Scrn (Not Detect) Ur Amphetamines Screen (Not Detect) U Benzodiazepines Scrn (Not Detect) Urine Cocaine Screen (Not Detect) U Marijuana (THC) Screen (Not Detect) Ethyl Alcohol mg/dL 06/11/20 06/11/20 06/11/20 Range/Units 16:18 16:18 16:22 WBC 8.4 (4.8-10.8) X10*3/uL RBC 3.94 L (4.20-5.50) X10*6/uL Hgb 9.6 L (12.0-16.0) g/dl Hct 31.8 L (37-47) % MCV 80.7 (80-98) fL MCH 24.4 L (27.0-33.0) pg MCHC 30.2 L (31.0-35.0) g/dl RDW 19.5 H (11.0-16.0) % Plt Count 314 (160-400) X10*3/uL MPV 11.6 (9.4-12.3) fL Immature Gran % (Auto) 0.5 H (0.0-0.4) % Neut % (Auto) 73.4 H (45-73) % Lymph % (Auto) 10.3 L (20-40) % [place] % (Auto) 9.6 (2-11) % Eos % (Auto) 5.3 H (0-4) % Baso % (Auto) 0.9 (0-2) % Neut # (Auto) 6.2 (2.0-8.3) X10*3/uL Lymph # (Auto) 0.9 L (1.2-4.9) X10*3/uL [place] # (Auto) 0.8 (0.1-1.2) X10*3/uL Eos # (Auto) 0.5 H (0.0-0.4) X10*3/uL Baso # (Auto) 0.1 (0.0-0.2) X10*3/uL Abs Immat Gran (auto) 0.04 H (0.00-0.03) X10*3/uL Absolute Nucleated RBC 0.000 (0.0-0.012) X10*3/uL Nucleated RBC % (auto) 0.0 (0.0-0.2) /100WBC PT (10.8-13.0) SEC INR (0.9-1.1) APTT (24.1-38.0) SEC D-Dimer 2083 NG/ML VBG pH (7.32-7.43) VBG pCO2 mmhg VBG Oxygen Liters/Min VBG pO2 mmhg VBG HCO3 mmol/L VBG O2 Saturation % VBG Base Excess mmol/L Sodium (135-145) mmol/L Potassium (3.3-5.1) mmol/l Chloride (96-108) mmol/L Carbon Dioxide (22-29) mmol/L Anion Gap (12-20) BUN (9-16) mg/dL Creatinine (0.5-1.4) mg/dL Estim Creat Clear Calc Estimated GFR POC Glucose 433 H* (60-115) mg/dL Random Glucose (60-115) mg/dL Lactic Acid (0.5-2.0) mmol/L Calcium (8.4-10.2) mg/dL Total Bilirubin (0.0-1.0) mg/dL Direct Bilirubin (0.0-0.5) mg/dL AST (5-31) U/L ALT (0-31) U/L Alkaline Phosphatase (39-117) U/L Troponin I High Sens (<3.5-17.0) ng/L C-Reactive Protein (< or = 0.50) mg/dL B-Natriuretic Peptide (<100) pg/mL Total Protein (6.5-8.0) g/dL Albumin (3.5-5.0) g/dL Lipase (8-78) U/L Procalcitonin ng/mL Urine Color Urine Appearance Urine pH (5.0-8.0) Ur Specific [place] (1.005-1.025) Urine Protein (NEG-TRACE) MG/DL Urine Glucose (UA) (NEG) MG/DL Urine Ketones (NEG) MG/DL Urine Blood (NEG) Urine Nitrite (NEG) Ur Leukocyte Esterase (NEG) Urine RBC (0) /HPF Urine WBC (0-4) /HPF Urine WBC Clumps Ur Squamous Epith Cells /LPF Urine Bacteria /LPF Urine Yeast /HPF Urine Test (NEGATIVE) Urine Opiates Screen (Not Detect) Ur Barbiturates Screen (Not Detect) Ur Phencyclidine Scrn (Not Detect) Ur Amphetamines Screen (Not Detect) U Benzodiazepines Scrn (Not Detect) Urine Cocaine Screen (Not Detect) U Marijuana (THC) Screen (Not Detect) Ethyl Alcohol mg/dL 06/11/20 06/11/20 06/11/20 Range/Units 17:18 19:36 19:36 WBC (4.8-10.8) X10*3/uL RBC (4.20-5.50) X10*6/uL Hgb (12.0-16.0) g/dl Hct (37-47) % MCV (80-98) fL MCH (27.0-33.0) pg MCHC (31.0-35.0) g/dl RDW (11.0-16.0) % Plt Count (160-400) X10*3/uL MPV (9.4-12.3) fL Immature Gran % (Auto) (0.0-0.4) % Neut % (Auto) (45-73) % Lymph % (Auto) (20-40) % [place] % (Auto) (2-11) % Eos % (Auto) (0-4) % Baso % (Auto) (0-2) % Neut # (Auto) (2.0-8.3) X10*3/uL Lymph # (Auto) (1.2-4.9) X10*3/uL [place] # (Auto) (0.1-1.2) X10*3/uL Eos # (Auto) (0.0-0.4) X10*3/uL Baso # (Auto) (0.0-0.2) X10*3/uL Abs Immat Gran (auto) (0.00-0.03) X10*3/uL Absolute Nucleated RBC (0.0-0.012) X10*3/uL Nucleated RBC % (auto) (0.0-0.2) /100WBC PT (10.8-13.0) SEC INR (0.9-1.1) APTT (24.1-38.0) SEC D-Dimer NG/ML VBG pH 7.43 (7.32-7.43) VBG pCO2 53 mmhg VBG Oxygen Liters/Min 2 L VBG pO2 34 mmhg VBG HCO3 34 mmol/L VBG O2 Saturation 63.1 % VBG Base Excess 8.4 mmol/L Sodium (135-145) mmol/L Potassium (3.3-5.1) mmol/l Chloride (96-108) mmol/L Carbon Dioxide (22-29) mmol/L Anion Gap (12-20) BUN (9-16) mg/dL Creatinine (0.5-1.4) mg/dL Estim Creat Clear Calc Estimated GFR POC Glucose (60-115) mg/dL Random Glucose (60-115) mg/dL Lactic Acid (0.5-2.0) mmol/L Calcium (8.4-10.2) mg/dL Total Bilirubin (0.0-1.0) mg/dL Direct Bilirubin (0.0-0.5) mg/dL AST (5-31) U/L ALT (0-31) U/L Alkaline Phosphatase (39-117) U/L Troponin I High Sens (<3.5-17.0) ng/L C-Reactive Protein (< or = 0.50) mg/dL B-Natriuretic Peptide (<100) pg/mL Total Protein (6.5-8.0) g/dL Albumin (3.5-5.0) g/dL Lipase (8-78) U/L Procalcitonin ng/mL Urine Color STRAW Urine Appearance HAZY Urine pH 6.5 (5.0-8.0) Ur Specific [place] 1.010 (1.005-1.025) Urine Protein NEG (NEG-TRACE) MG/DL Urine Glucose (UA) >=1000 H (NEG) MG/DL Urine Ketones NEG (NEG) MG/DL Urine Blood NEG (NEG) Urine Nitrite NEG (NEG) Ur Leukocyte Esterase NEG (NEG) Urine RBC 0 (0) /HPF Urine WBC 5-9 H (0-4) /HPF Urine WBC Clumps NOTED Ur Squamous Epith Cells TRACE /LPF Urine Bacteria NONE /LPF Urine Yeast 1+ /HPF Urine Test NEGATIVE (NEGATIVE) Urine Opiates Screen Not Detected (Not Detect) Ur Barbiturates Screen Not Detected (Not Detect) Ur Phencyclidine Scrn Not Detected (Not Detect) Ur Amphetamines Screen Not Detected (Not Detect) U Benzodiazepines Scrn Not Detected (Not Detect) Urine Cocaine Screen Not Detected (Not Detect) U Marijuana (THC) Screen Not Detected (Not Detect) Ethyl Alcohol mg/dL 06/11/20 06/11/20 Range/Units 21:12 21:32 WBC (4.8-10.8) X10*3/uL RBC (4.20-5.50) X10*6/uL Hgb (12.0-16.0) g/dl Hct (37-47) % MCV (80-98) fL MCH (27.0-33.0) pg MCHC (31.0-35.0) g/dl RDW (11.0-16.0) % Plt Count (160-400) X10*3/uL MPV (9.4-12.3) fL Immature Gran % (Auto) (0.0-0.4) % Neut % (Auto) (45-73) % Lymph % (Auto) (20-40) % [place] % (Auto) (2-11) % Eos % (Auto) (0-4) % Baso % (Auto) (0-2) % Neut # (Auto) (2.0-8.3) X10*3/uL Lymph # (Auto) (1.2-4.9) X10*3/uL [place] # (Auto) (0.1-1.2) X10*3/uL Eos # (Auto) (0.0-0.4) X10*3/uL Baso # (Auto) (0.0-0.2) X10*3/uL Abs Immat Gran (auto) (0.00-0.03) X10*3/uL Absolute Nucleated RBC (0.0-0.012) X10*3/uL Nucleated RBC % (auto) (0.0-0.2) /100WBC PT (10.8-13.0) SEC INR (0.9-1.1) APTT (24.1-38.0) SEC D-Dimer NG/ML VBG pH (7.32-7.43) VBG pCO2 mmhg VBG Oxygen Liters/Min VBG pO2 mmhg VBG HCO3 mmol/L VBG O2 Saturation % VBG Base Excess mmol/L Sodium (135-145) mmol/L Potassium (3.3-5.1) mmol/l Chloride (96-108) mmol/L Carbon Dioxide (22-29) mmol/L Anion Gap (12-20) BUN (9-16) mg/dL Creatinine (0.5-1.4) mg/dL Estim Creat Clear Calc Estimated GFR POC Glucose 315 H (60-115) mg/dL Random Glucose (60-115) mg/dL Lactic Acid (0.5-2.0) mmol/L Calcium (8.4-10.2) mg/dL Total Bilirubin (0.0-1.0) mg/dL Direct Bilirubin (0.0-0.5) mg/dL AST (5-31) U/L ALT (0-31) U/L Alkaline Phosphatase (39-117) U/L Troponin I High Sens 231.8 H D (<3.5-17.0) ng/L C-Reactive Protein (< or = 0.50) mg/dL B-Natriuretic Peptide (<100) pg/mL Total Protein (6.5-8.0) g/dL Albumin (3.5-5.0) g/dL Lipase (8-78) U/L Procalcitonin ng/mL Urine Color Urine Appearance Urine pH (5.0-8.0) Ur Specific [place] (1.005-1.025) Urine Protein (NEG-TRACE) MG/DL Urine Glucose (UA) (NEG) MG/DL Urine Ketones (NEG) MG/DL Urine Blood (NEG) Urine Nitrite (NEG) Ur Leukocyte Esterase (NEG) Urine RBC (0) /HPF Urine WBC (0-4) /HPF Urine WBC Clumps Ur Squamous Epith Cells /LPF Urine Bacteria /LPF Urine Yeast /HPF Urine Test (NEGATIVE) Urine Opiates Screen (Not Detect) Ur Barbiturates Screen (Not Detect) Ur Phencyclidine Scrn (Not Detect) Ur Amphetamines Screen (Not Detect) U Benzodiazepines Scrn (Not Detect) Urine Cocaine Screen (Not Detect) U Marijuana (THC) Screen (Not Detect) Ethyl Alcohol mg/dL <Fabrizio Coyle DO - Last Filed: 06/12/20 01:21> Discharge Plan Discharge Clinical Impression: Acute kidney injury superimposed on chronic kidney disease Congestive heart failure Qualifiers: Heart failure type: systolic Heart failure chronicity: acute on chronic Qualified Code(s): I50.23 - Acute on chronic systolic (congestive) heart failure Atrial fibrillation Qualifiers: Atrial fibrillation type: longstanding persistent Qualified Code(s): I48.11 - Longstanding persistent atrial fibrillation Volume overload Qualifiers: Hypervolemia type: unspecified Qualified Code(s): E87.70 - Fluid overload, unspecified <Mi Webber NP - Last Filed: 06/12/20 01:20> Patient Disposition: Admitted As Inpatient <Mi Webber NP - Last Filed: 06/12/20 01:20> Interventions: Admission Worksheet (ED) Last Done: 06/12/20 00:33 <Mi Webber NP - Last Filed: 06/12/20 01:20> Discharge Date/Time: 06/12/20 00:57 <Mi Webber NP - Last Filed: 06/12/20 01:20>
[2020-06-11 22:08] LABS: Troponin-I High Sensitivity 231.8 ng/L (<3.5-17.0)
--- NOTE | 2020-06-11 22:18 | PC.NURSE ---
PROVIDER AWARE OF ELEVATED TROP. NO REPEAT EKG PER PROVIDER
--- NOTE | 2020-06-11 23:36 | PC.NURSE ---
PT OOB TO BEDSIDE COMMODE. PT HAS A FORM BOWEL MOVEMENT .
[2020-06-12] VITALS (14 sets, daily range): BP systolic 97–151; BP diastolic 53–83; PULSE 72–92; RESP 18–20; TEMP 36.6–36.9; O2SAT 92–99; BMI 35.9
--- NOTE | 2020-06-12 | ECG_ITS ---
Test Reason : SOB Blood Pressure : / mmHG Vent. Rate : 125 BPM Atrial Rate : 141 BPM P-R Int : 000 ms QRS Dur : 110 ms QT Int : 348 ms P-R-T Axes : 000 -17 136 degrees QTc Int : 502 ms Atrial fibrillation with rapid ventricular response ST & T wave abnormality, consider lateral ischemia Abnormal ECG When compared with ECG of 10-JUN-2019 07:01, Atrial fibrillation has replaced Sinus rhythm Vent. rate has increased BY 51 BPM Minimal criteria for Septal infarct are no longer Present T wave inversion more evident in Lateral leads Referred By: Henry Pabon Electronically Signed By:THAIS COURTNEY
--- NOTE | 2020-06-12 00:18 | P.HPIM_ITS ---
History of Present Illness Date of Service: 06/12/20 Chief Complaint: Leg swelling 49 y/o female with extensive cardiac hx who presented from home due to LE swelling. Per history provided by the patient, for the past 1 month has been having worsening LE swelling for what decided to come to the ED for further evaluation. Patient denies any chest pain, SOB, nausea, vomiting, orthopnea, fever or diarrhea. Last admission was on 06/2019 due to NSTEMI, DKA and SERGO. Patient was evaluated by cardiology in the past for possible cardiac cath but due to patient poor medical compliance was deemed not be a candidate. On presentation now patient is noted to be on Afib with RVR for what was given Lopressor IV per ED, HR now 90 with BP of 141/84 mmHg. D dimer/Ventilation perfusion scan done by ED due to suspicion for PE, ventilation perfusion scan negative. CXR showing increased vascular congestion with right sided pleural effusion. One dose of IV lasix given and decision for admission given. Patient evaluated at the bedside, laying down in bed in no acute distress. ROS as above otherwise negative. Physical exam positive for LLE metatarsal amputation, pitting edema +2, no evidence of JVD or rales on exam. PMHX: CAD, NSTEMI s/p PCI with stent placement, Afib, CHF with EF of 35-40%, diabetes, anxiety disorder, depression, Ischemic cardiomyopathy, chronic foot ulcers, and left transmetatarsal amputation. PSX: left transmetatarsal amputation Toxic habits: Alcohol abuse, No hx of IVDA or smoking Review of Systems Review of Systems: Yes all other systems are reviewed and are negative Constitutional: Constitutional: Reports no additional constitutional complaints Eyes: Eyes: Reports no additional eye complaints Cardiovascular: Cardiovascular: Reports no additional cardiovascular complaints and Reports leg edema Respiratory: Respiratory: Reports no additional respiratory complaints Gastrointestinal: Gastrointestinal: Reports no additional gastrointestinal complaints Genitourinary: Genitourinary: Reports no additional female genitourinary complaints Musculoskeletal: Musculoskeletal: Reports no additional musculoskeletal complaints [facility] Medical History (Updated 06/12/20 @ 00:40 by Henry Pabon MD) CAD (coronary artery disease) CHF (congestive heart failure) Chronic kidney disease (CKD) Diabetes Heart murmur Hemopericardium Hepatitis C Heroin abuse Functional capacity: independent ambulation Family history: reviewed and not pertinent Social History Alcohol intake: unknown Smoking Status: Unknown if ever smoked Smoked in Last 30 Days: No Use of substances other than those prescribed or required for medical reasons: Unknown Advance Directives: No Advance Directives Information Provided: Yes Meds Allergies Allergy/AdvReac Type Severity Reaction Status Date / Time No Known Allergies Allergy Unverified 05/26/20 16:02 [No Known Allergies*] Home Medications Medication Instructions Recorded Confirmed Type amlodipine 10 mg PO DAILY 06/11/20 06/11/20 History aspirin [Aspir-81] 06/11/20 History atorvastatin 80 mg PO DAILY 06/11/20 06/11/20 History buprenorphine-naloxone [Suboxone] 1 film SUBLINGUAL DAILY 06/11/20 06/11/20 History carvedilol 6.25 mg PO BID 06/11/20 06/11/20 History cetirizine 10 mg PO DAILY 06/11/20 06/11/20 History cholecalciferol (vitamin D3) 50 mcg PO DAILY 06/11/20 06/11/20 History ferrous gluconate 324 mg PO DAILY 06/11/20 06/11/20 History furosemide 40 mg PO DAILY 06/11/20 06/11/20 History gabapentin 600 mg PO TID 06/11/20 06/11/20 History hydralazine 25 mg PO BID 06/11/20 06/11/20 History insulin glargine 28 unit SUBCUT QAM 06/11/20 06/11/20 History insulin lispro 1 sliding scale dose SUBCUT 06/11/20 06/11/20 History USEASDIRECTD loratadine 10 mg PO DAILY 06/11/20 06/11/20 History mirtazapine 15 mg PO BEDTIME 06/11/20 06/11/20 History omeprazole 40 mg PO DAILY 06/11/20 06/11/20 History tamsulosin 0.4 mg PO DAILY 06/11/20 06/11/20 History Physical Exam Vital Signs and Narrative: Vital Signs: Last Vital Signs Temp 98.2 F 06/11/20 20:58 Pulse 90 06/11/20 23:24 Resp 17 06/11/20 23:24 BP 141/84 H 06/11/20 23:24 Pulse Ox 100 06/11/20 23:24 Body Mass Index 41.8 Const: General: cooperative, comfortable and no acute distress Orientation/consciousness: patient oriented x3 HENMT: Head: Yes normal to inspection Eyes: General: appearance normal, both eyes and all related structures Neck: Yes normal visual inspection and Yes no lymphadenopathy Chest: Chest palpation & inspection: normal inspection of the chest and normal palpation of entire chest wall Resp: Effort & Inspection: normal respiratory effort Cardio: Jugular venous distension: no JVD GI: Inspection: Yes normal to inspection : General: Yes no CVA tenderness Back/Spine/Pelvis: Back: no CVA tenderness Skin: General skin exam: no rashes or lesions noted Neuro: General: patient oriented x3 Extrem: General: Yes edema (pitting +2) Psych: Appearance: grossly normal Results Labs Labs: Laboratory Tests 06/11/20 06/11/20 06/11/20 16:16 16:17 16:17 WBC RBC Hgb Hct MCV MCH MCHC RDW Plt Count MPV Immature Gran % (Auto) Neut % (Auto) Lymph % (Auto) [place] % (Auto) Eos % (Auto) Baso % (Auto) Neut # (Auto) Lymph # (Auto) [place] # (Auto) Eos # (Auto) Baso # (Auto) Abs Immat Gran (auto) Absolute Nucleated RBC Nucleated RBC % (auto) PT 12.9 INR 1.1 APTT 26.9 D-Dimer VBG pH VBG pCO2 VBG Oxygen Liters/Min VBG pO2 VBG HCO3 VBG O2 Saturation VBG Base Excess Sodium 133 L Potassium 3.6 Chloride 89 L Carbon Dioxide 30 H Anion Gap 18 BUN 113 H* Creatinine 2.81 H Estim Creat Clear Calc 30.8 Estimated GFR 18 POC Glucose Random Glucose 442 H* Lactic Acid Calcium 8.3 L Total Bilirubin 0.6 Direct Bilirubin 0.4 AST 21 ALT 15 Alkaline Phosphatase 135 H Troponin I High Sens C-Reactive Protein 4.58 H B-Natriuretic Peptide Total Protein 6.5 Albumin 3.2 L Lipase 24 Procalcitonin Urine Color Urine Appearance Urine pH Ur Specific [place] Urine Protein Urine Glucose (UA) Urine Ketones Urine Blood Urine Nitrite Ur Leukocyte Esterase Urine RBC Urine WBC Urine WBC Clumps Ur Squamous Epith Cells Urine Bacteria Urine Yeast Urine Test Urine Opiates Screen Ur Barbiturates Screen Ur Phencyclidine Scrn Ur Amphetamines Screen U Benzodiazepines Scrn Urine Cocaine Screen U Marijuana (THC) Screen Ethyl Alcohol < 10 06/11/20 06/11/20 06/11/20 16:17 16:17 16:17 WBC RBC Hgb Hct MCV MCH MCHC RDW Plt Count MPV Immature Gran % (Auto) Neut % (Auto) Lymph % (Auto) [place] % (Auto) Eos % (Auto) Baso % (Auto) Neut # (Auto) Lymph # (Auto) [place] # (Auto) Eos # (Auto) Baso # (Auto) Abs Immat Gran (auto) Absolute Nucleated RBC Nucleated RBC % (auto) PT INR APTT D-Dimer VBG pH VBG pCO2 VBG Oxygen Liters/Min VBG pO2 VBG HCO3 VBG O2 Saturation VBG Base Excess Sodium Potassium Chloride Carbon Dioxide Anion Gap BUN Creatinine Estim Creat Clear Calc Estimated GFR POC Glucose Random Glucose Lactic Acid 1.9 Calcium Total Bilirubin Direct Bilirubin AST ALT Alkaline Phosphatase Troponin I High Sens 51.0 H C-Reactive Protein B-Natriuretic Peptide 3013 H Total Protein Albumin Lipase Procalcitonin 0.27 Urine Color Urine Appearance Urine pH Ur Specific [place] Urine Protein Urine Glucose (UA) Urine Ketones Urine Blood Urine Nitrite Ur Leukocyte Esterase Urine RBC Urine WBC Urine WBC Clumps Ur Squamous Epith Cells Urine Bacteria Urine Yeast Urine Test Urine Opiates Screen Ur Barbiturates Screen Ur Phencyclidine Scrn Ur Amphetamines Screen U Benzodiazepines Scrn Urine Cocaine Screen U Marijuana (THC) Screen Ethyl Alcohol 06/11/20 06/11/20 06/11/20 16:18 16:18 16:22 WBC 8.4 RBC 3.94 L Hgb 9.6 L Hct 31.8 L MCV 80.7 MCH 24.4 L MCHC 30.2 L RDW 19.5 H Plt Count 314 MPV 11.6 Immature Gran % (Auto) 0.5 H Neut % (Auto) 73.4 H Lymph % (Auto) 10.3 L [place] % (Auto) 9.6 Eos % (Auto) 5.3 H Baso % (Auto) 0.9 Neut # (Auto) 6.2 Lymph # (Auto) 0.9 L [place] # (Auto) 0.8 Eos # (Auto) 0.5 H Baso # (Auto) 0.1 Abs Immat Gran (auto) 0.04 H Absolute Nucleated RBC 0.000 Nucleated RBC % (auto) 0.0 PT INR APTT D-Dimer 2083 VBG pH VBG pCO2 VBG Oxygen Liters/Min VBG pO2 VBG HCO3 VBG O2 Saturation VBG Base Excess Sodium Potassium Chloride Carbon Dioxide Anion Gap BUN Creatinine Estim Creat Clear Calc Estimated GFR POC Glucose 433 H* Random Glucose Lactic Acid Calcium Total Bilirubin Direct Bilirubin AST ALT Alkaline Phosphatase Troponin I High Sens C-Reactive Protein B-Natriuretic Peptide Total Protein Albumin Lipase Procalcitonin Urine Color Urine Appearance Urine pH Ur Specific [place] Urine Protein Urine Glucose (UA) Urine Ketones Urine Blood Urine Nitrite Ur Leukocyte Esterase Urine RBC Urine WBC Urine WBC Clumps Ur Squamous Epith Cells Urine Bacteria Urine Yeast Urine Test Urine Opiates Screen Ur Barbiturates Screen Ur Phencyclidine Scrn Ur Amphetamines Screen U Benzodiazepines Scrn Urine Cocaine Screen U Marijuana (THC) Screen Ethyl Alcohol 06/11/20 06/11/20 06/11/20 17:18 19:36 19:36 WBC RBC Hgb Hct MCV MCH MCHC RDW Plt Count MPV Immature Gran % (Auto) Neut % (Auto) Lymph % (Auto) [place] % (Auto) Eos % (Auto) Baso % (Auto) Neut # (Auto) Lymph # (Auto) [place] # (Auto) Eos # (Auto) Baso # (Auto) Abs Immat Gran (auto) Absolute Nucleated RBC Nucleated RBC % (auto) PT INR APTT D-Dimer VBG pH 7.43 VBG pCO2 53 VBG Oxygen Liters/Min 2 L VBG pO2 34 VBG HCO3 34 VBG O2 Saturation 63.1 VBG Base Excess 8.4 Sodium Potassium Chloride Carbon Dioxide Anion Gap BUN Creatinine Estim Creat Clear Calc Estimated GFR POC Glucose Random Glucose Lactic Acid Calcium Total Bilirubin Direct Bilirubin AST ALT Alkaline Phosphatase Troponin I High Sens C-Reactive Protein B-Natriuretic Peptide Total Protein Albumin Lipase Procalcitonin Urine Color STRAW Urine Appearance HAZY Urine pH 6.5 Ur Specific [place] 1.010 Urine Protein NEG Urine Glucose (UA) >=1000 H Urine Ketones NEG Urine Blood NEG Urine Nitrite NEG Ur Leukocyte Esterase NEG Urine RBC 0 Urine WBC 5-9 H Urine WBC Clumps NOTED Ur Squamous Epith Cells TRACE Urine Bacteria NONE Urine Yeast 1+ Urine Test NEGATIVE Urine Opiates Screen Not Detected Ur Barbiturates Screen Not Detected Ur Phencyclidine Scrn Not Detected Ur Amphetamines Screen Not Detected U Benzodiazepines Scrn Not Detected Urine Cocaine Screen Not Detected U Marijuana (THC) Screen Not Detected Ethyl Alcohol 06/11/20 06/11/20 21:12 21:32 WBC RBC Hgb Hct MCV MCH MCHC RDW Plt Count MPV Immature Gran % (Auto) Neut % (Auto) Lymph % (Auto) [place] % (Auto) Eos % (Auto) Baso % (Auto) Neut # (Auto) Lymph # (Auto) [place] # (Auto) Eos # (Auto) Baso # (Auto) Abs Immat Gran (auto) Absolute Nucleated RBC Nucleated RBC % (auto) PT INR APTT D-Dimer VBG pH VBG pCO2 VBG Oxygen Liters/Min VBG pO2 VBG HCO3 VBG O2 Saturation VBG Base Excess Sodium Potassium Chloride Carbon Dioxide Anion Gap BUN Creatinine Estim Creat Clear Calc Estimated GFR POC Glucose 315 H Random Glucose Lactic Acid Calcium Total Bilirubin Direct Bilirubin AST ALT Alkaline Phosphatase Troponin I High Sens 231.8 H D C-Reactive Protein B-Natriuretic Peptide Total Protein Albumin Lipase Procalcitonin Urine Color Urine Appearance Urine pH Ur Specific [place] Urine Protein Urine Glucose (UA) Urine Ketones Urine Blood Urine Nitrite Ur Leukocyte Esterase Urine RBC Urine WBC Urine WBC Clumps Ur Squamous Epith Cells Urine Bacteria Urine Yeast Urine Test Urine Opiates Screen Ur Barbiturates Screen Ur Phencyclidine Scrn Ur Amphetamines Screen U Benzodiazepines Scrn Urine Cocaine Screen U Marijuana (THC) Screen Ethyl Alcohol Assessment and Plan (1) Congestive heart failure: Qualifiers: Heart failure chronicity: acute on chronic Heart failure type: systolic Qualified Code(s): I50.23 - Acute on chronic systolic (congestive) heart failure Status: Acute Hemodynamically stable now S/p IV lasix one time dose in the ED Continue with IV lasix 40 mg BID as ordered Monitor I and O's daily weights Echo reviewed from previous admission Cardiology evaluation in the am (2) Atrial fibrillation: Qualifiers: Atrial fibrillation type: longstanding persistent Qualified Code(s): I48.11 - Longstanding persistent atrial fibrillation Status: Acute Afib with RVR resolved Continue with carvedilol home dose for rate control (3) Acute kidney injury superimposed on chronic kidney disease: Status: Acute Monitor renal function and electrolytes closely baseline creatinine of 1.58 Nephrology consult (4) Hypertension: Status: Acute Continue with amlodipine home dose conitnue with hydralazine home dose (5) CAD (coronary artery disease): Status: Acute continue with aspirin home dose continue with statin home dose (6) Diabetes: Status: Acute Insulin regimen as ordered (7) Psychotic disorder: Status: Acute continue with mirtazapine home dose (8) GERD (gastroesophageal reflux disease): Status: Acute continue with PPI home dose (9) Peripheral neuropathy: Status: Acute continue with gabapentin home dose
--- NOTE | 2020-06-12 00:31 | PC.NURSE ---
CALLED REPORT TO [facility]. PT READY FOR TRANSPORT.
--- NOTE | 2020-06-12 00:39 | PC.NURSE ---
Med rec completed.
[2020-06-12 02:04] LABS: Glucose, Whole Blood 218 mg/dL (60-115)
[2020-06-12 03:21] LABS: Glucose, Whole Blood 218 mg/dL (60-115)
[2020-06-12] MEDS: Insulin Lispro 100 UNIT/ML 3 ML VIAL SUBCUT ×4 (03:35→21:30)
--- NOTE | 2020-06-12 04:28 | PM.EVENT ---
Event Note Event Note: Troponin increased from 231 to 384. Patient at present not complaining of any chest pain. EKG obtained shows no evidence of any acute ST T wave changes. one dose of Aspirin to be given now, occult blood ordered given low hgb. A repeat troponin ordered in 3 hrs from now to decide for full dose anticoagulation or not at this point.
--- NOTE | 2020-06-12 05:50 | PC.NURSE ---
PATIENT'S C/O 9/10 CHEST AND LEG PAIN. HOSPITALS NOTIFIED, CATA ORDERED - PT REFUSED.
--- NOTE | 2020-06-12 05:52 | PC.NURSE ---
PATIENT THIRD TROP BACK AT 384.0, HOSPITALIST NOTIFIED AND ORDERED 81MG ASA. PT REFUSING TO TAKE ASA. PT EDUCATED ON WHY SHE IS GETTING ASA BUT IS NOT RECEPTIVE.
--- NOTE | 2020-06-12 05:57 | PC.NURSE ---
PATIENT HAD 4 BEAT OF VTACH AT 0525- PT SLEPT THROUGH IS, PT ASSESSED - STATES, 'I'M FINE' AND PULLED THE COVERS UP. HOSPITIALIST NOTIFIED VIA [facility] CONNECT. NO NEW ORDERS, WILL CONTINUE TO MONITOR.
[2020-06-12 06:51] LABS: MANUAL DIFF FLAG NO
[2020-06-12 06:58] LABS: Basophils Absolute Auto 0.1 X10*3/uL (0.0-0.2); Basophils Percent Auto 1.1 % (0-2); Eosinophils Absolute Auto 0.6 X10*3/uL (0.0-0.4); Eosinophils Percent Auto 7.6 % (0-4); Hematocrit 27.9 % (37-47); Hemoglobin 8.6 g/dl (12.0-16.0); Imm Gran Abs Auto 0.02 X10*3/uL (0.00-0.03); Imm Gran Pct Auto 0.3 % (0.0-0.4); Lymphocytes Absolute Auto 1.3 X10*3/uL (1.2-4.9); Lymphocytes Percent Auto 16.4 % (20-40); Mean Corpuscular HGB Conc 30.8 g/dl (31.0-35.0); Mean Corpuscular Hemoglobin 24.4 pg (27.0-33.0); Mean Platelet Volume 11.7 fL (9.4-12.3); Monocytes Absolute Auto 1.1 X10*3/uL (0.1-1.2); Monocytes Percent Auto 13.7 % (2-11); Neutrophils Absolute Auto 4.9 X10*3/uL (2.0-8.3); Neutrophils Percent Auto 60.9 % (45-73); Platelet Count 299 X10*3/uL (160-400); Red Blood Count 3.53 X10*6/uL (4.20-5.50); Red Cell Distribution Width 19.2 % (11.0-16.0)
[2020-06-12 07:28] LABS: Troponin-I High Sensitivity 384.9 ng/L (<3.5-17.0)
[2020-06-12 07:33] LABS: Anion Gap 12 (12-20); Blood Urea Nitrogen 104 mg/dL (9-16); Calcium 8.4 mg/dL (8.4-10.2); Carbon Dioxide 35 mmol/L (22-29); Chloride 92 mmol/L (96-108); Creatinine Clr Calc Pharmacy 34.3; Estimated Glomerular Filt Rate 22; Glucose Random 115 mg/dL (60-115); Potassium 3.2 mmol/l (3.3-5.1); Sodium 136 mmol/L (135-145)
[2020-06-12 08:16] LABS: Glucose, Whole Blood 145 mg/dL (60-115)
[2020-06-12] MEDS: Tamsulosin HCL 0.4 MG CAPSULE PO (09:06)
[2020-06-12] MEDS: Cholecalciferol (Vitamin D3) 25 MCG TABLET 50 MCG PO (09:06)
[2020-06-12] MEDS: Atorvastatin Calcium 80 MG TABLET PO (09:06)
[2020-06-12] MEDS: carvediloL 6.25 MG TABLET PO (09:06)
[2020-06-12] MEDS: Furosemide 40 MG/4 ML VIAL IVPUSH ×2 (09:06→21:30)
[2020-06-12] MEDS: Gabapentin 600 MG TABLET PO ×3 (09:06→21:29)
[2020-06-12] MEDS: 0.9 % Sodium Chloride Flush 3 ML SYRINGE 2 ML IVFLUSH ×2 (09:07→16:56)
[2020-06-12] MEDS: Omeprazole 40 MG CAPSULE.DR PO (09:07)
[2020-06-12] MEDS: hydrALAZINE HCl 25 MG TABLET PO (09:07)
[2020-06-12] MEDS: Insulin Glargine,Hum.rec.anlog 100 UNIT/ML 10 ML VIAL 28 UNIT SUBCUT (09:07)
[2020-06-12] MEDS: amLODIPine Besylate 10 MG TABLET PO (09:07)
--- NOTE | 2020-06-12 09:49 | MHC.CM.PN ---
Patient lives in an apartment with her Boyfriend/[employer]IST/HCP/Catracho Chowdhury and she uses a cane, walker, w/c to assist with mobility. Patient is hoping to go home today and CM has initiated and will follow for dc planning. IMM addressed with Patient and the original has been given to her and a copy has been placed on the chart. Patient has a history of ETOH,Anxiety, and Depression and may benefit from a Care Team Consult. PCP is Dr. Nazanin Veliz at [phone].
--- NOTE | 2020-06-12 10:22 | P.CONNP_ITS ---
History of Present Illness Chief Complaint Chief complaint: SHORTNESS OF BREATH History of Present Illness Narrative: 49 y/o female with history of CKD recently discharged from [facility] [place] on 06/10 presented to [place] with lower extremity swelling. She currently denies any chest pain, SOB, nausea, vomiting, orthopnea, fever or diarrhea. Patient is known to have systolic CHF with LVEF 10-15% and was aggressively diuresed. She did leave AMA on 06/10. Hospital course was complicated with SERGO and serum creatinine had peaked at 3.6 mg/dl and serum creatinine was down to 2.7 mg/dl on the day of discharge. Review of Systems Review of Systems Yes all other systems are reviewed and are negative [facility] Past Medical History Medical History (Updated 06/12/20 @ 10:38 by Doron Elmore MD) CAD (coronary artery disease) CHF (congestive heart failure) Chronic kidney disease (CKD) Heart murmur Hemopericardium Hepatitis C Heroin abuse Functional capacity: independent ambulation Family History Family history: reviewed and not pertinent Social History Social History Household Members: Significant Other Housing: House Do you presently have visiting nurse or other home services: No Alcohol intake: unknown Smoking Status: Unknown if ever smoked Smoked in Last 30 Days: No Use of substances other than those prescribed or required for medical reasons: No Other Past Substance Use Problem:: pt denies any history of drug abuse but her chart notes she has a past hist Have you been hit, kicked, punched, or otherwise hurt by someone within the past year? If so, by whom?: No Do you feel safe in your current relationship?: Yes Is there a partner from a previous relationship who is making you feel unsafe now?: No Are you made to feel afraid or neglected: No Advance Directives: No Advance Directives Information Provided: Yes Recently lost weight without trying: No service: No Current occupational status: disabled Meds Allergies Allergy/AdvReac Type Severity Reaction Status Date / Time No Known Allergies Allergy Verified 06/12/20 02:19 [No Known Allergies*] Home Medications Medication Instructions Recorded Confirmed Type amlodipine 10 mg PO DAILY 06/11/20 06/11/20 History aspirin [Aspir-81] 81 mg PO DAILY 06/11/20 06/12/20 History atorvastatin 80 mg PO DAILY 06/11/20 06/11/20 History buprenorphine-naloxone [Suboxone] 1 film SUBLINGUAL DAILY 06/11/20 06/11/20 History carvedilol 6.25 mg PO BID 06/11/20 06/11/20 History cetirizine 10 mg PO DAILY 06/11/20 06/11/20 History cholecalciferol (vitamin D3) 50 mcg PO DAILY 06/11/20 06/11/20 History ferrous gluconate 324 mg PO DAILY 06/11/20 06/11/20 History furosemide 40 mg PO DAILY 06/11/20 06/11/20 History gabapentin 600 mg PO TID 06/11/20 06/11/20 History hydralazine 25 mg PO BID 06/11/20 06/11/20 History insulin glargine 28 unit SUBCUT QAM 06/11/20 06/11/20 History insulin lispro 1 sliding scale dose SUBCUT 06/11/20 06/11/20 History USEASDIRECTD loratadine 10 mg PO DAILY 06/11/20 06/11/20 History mirtazapine 15 mg PO BEDTIME 06/11/20 06/11/20 History omeprazole 40 mg PO DAILY 06/11/20 06/11/20 History tamsulosin 0.4 mg PO DAILY 06/11/20 06/11/20 History Physical Exam Vital Signs and I&O: Vital Signs Temp 98.5 F 06/12/20 07:51 Pulse 92 06/12/20 09:07 Resp 18 06/12/20 07:51 BP 129/70 06/12/20 09:07 Pulse Ox 92 06/12/20 07:52 Intake & Output 06/11/20 06/12/20 06/12/20 18:59 06:59 18:59 Intake Total 50 / 550 500 / 550 Output Total 3050 / 3050 Balance 50 / -2500 -2550 / -2500 Urine Output (Average ml/kg/hr) 2.59 Weight 114 kg 98.089 kg Intake: Intake, Oral Amount 500 / 500 Intake, IV Amount 50 / 50 0 / 50 Piperacillin Sodium/Tazobactam 50 / 50 3.375 gm In 0.9 % Sodium Chloride 50 ml @ 100 mls/hr IV ONCE ONE Rx#:[id number] vancomycin HCL 1,500 mg In 0.9 0 / 0 % Sodium Chloride 250 ml @ 186. 667 mls/hr IV ONCE ONE Rx#: [id number] Output: Output, Urine Amount 1000 / 1000 Output, Urine Amount (Catheter) 2049 Urethral 2049 Other: Urine Color Yellow Body Mass Index 35.9 Const General: comfortable HENMT Head: Yes normocephalic and Yes atraumatic Eyes General: appearance normal, both eyes and all related structures Resp Auscultation: diminished lung sounds Cardio Heart sounds: S1 normal heart sound present and S2 normal heart sound present GI Palpation (GI): Soft to palpation and nontender Extrem Left upper extremity: edema Psych Appearance: grossly normal Results Lab Results Result Diagrams: 06/12/20 06:43 06/12/20 06:42 Lab results: Chemistry 06/11/20 06/12/20 16:17 06:42 Sodium 133 L 136 Potassium 3.6 3.2 L Carbon Dioxide 30 H 35 H BUN 113 H* 104 H* Creatinine 2.81 H 2.32 H Calcium 8.3 L 8.4 Hematology 06/11/20 06/12/20 16:18 06:43 WBC 8.4 8.0 Hgb 9.6 L 8.6 L Plt Count 314 299 Urinalysis 06/11/20 19:36 Urine Color STRAW Urine Appearance HAZY Urine pH 6.5 Ur Specific [place] 1.010 Urine Protein NEG Urine Glucose (UA) >=1000 H Urine Ketones NEG Urine Blood NEG Urine Nitrite NEG Ur Leukocyte Esterase NEG Urine RBC 0 Urine WBC 5-9 H Ur Squamous Epith Cells TRACE Assessment and Plan (1) SERGO (acute kidney injury): Status: Acute (2) CHF (congestive heart failure), NYHA class I: Status: Acute (3) Hypokalemia: Status: Acute (4) CKD (chronic kidney disease) stage 3, GFR 30-59 ml/min: Status: Acute resolving SERGO serum creatinine peaked at 3.6 mg/dl at [facility] [place] SERGO due to cardiorenal syndrome underlying CKD due to diabetic nephropathy known systolic CHF and diastolic dysfunction LVEF 10-15% REC replace potassium (ordered 40 meq po x 1) consider adding entresto continue furosemide 40 mg po bid follow kidney function and electrolytes Thank you
[2020-06-12] MEDS: Potassium Chloride ER 20 MEQ TAB.ER.PRT 40 MEQ PO (11:38)
[2020-06-12 12:02] LABS: Glucose, Whole Blood 288 mg/dL (60-115)
--- NOTE | 2020-06-12 13:05 | P.EN_ITS ---
Event Note Event Note: decompensated heart failure with severe LV systolic dysfunction. New onset atrial flutter with rapid ventricular response contributing to heart failure syndrome. Clinically still appears to be fluid overloaded. Continue IV diuresis. Optimize her heart failure medications with increasing carvedilol, hydralazine and Isordil therapy. Hold off on amlodipine therapy. Add amiodarone for rhythm control. Will need to decide about oral anticoagulant therapy, history of haemorrhagic pericardial tamponade in the past as reported in the chart. Will need to confirm with records from [facility]. Full consult dictated separately
[2020-06-12] MEDS: Amiodarone HCL 200 MG TABLET 400 MG PO ×2 (14:04→21:30)
[2020-06-12] MEDS: Isosorbide Dinitrate 5 MG TABLET PO (14:05)
[2020-06-12 16:49] LABS: Glucose, Whole Blood 248 mg/dL (60-115)
[2020-06-12] MEDS: Acetaminophen 325 MG TABLET PO (16:57)
[2020-06-12 21:24] LABS: Glucose, Whole Blood 203 mg/dL (60-115)
[2020-06-12] MEDS: carvediloL 6.25 MG TABLET 12.5 MG PO (21:30)
[2020-06-12] MEDS: Mirtazapine 15 MG TABLET PO (21:30)
[2020-06-12] MEDS: hydrALAZINE HCl 25 MG TABLET 50 MG PO (21:30)
--- NOTE | 2020-06-12 23:25 | PC.NURSE ---
PATIENT SITTING UP IN BED, BED ALARM GOING OFF. PT IS ANGRY THAT IT'S ON, THIS RN EDUCATED PT ON SAFETY. PATIENT IS REFUSING BED ALARM AT THIS TIME. BIOLOGICAL SCIENCE AIDE AWARE VIA TIGER CONNECT.
[2020-06-13] VITALS (12 sets, daily range): BP systolic 116–126; BP diastolic 61–71; PULSE 63–72; RESP 18–20; TEMP 36.3–36.7; O2SAT 92–99; BMI 35.9
[2020-06-13] MEDS: 0.9 % Sodium Chloride Flush 3 ML SYRINGE 2 ML IVFLUSH ×3 (00:20→16:19)
--- NOTE | 2020-06-13 00:29 | CONS_ITS ---
DATE OF SERVICE: REQUESTING PROVIDER: Dr. Schultz. REASON FOR CONSULTATION: Congestive heart failure with yesterday atrial fibrillation. HISTORY OF PRESENT ILLNESS: This is a 49-year-old female who recently signed out against medical advice at [facility] for symptoms of heart failure, was not properly treated, and subsequently went home yesterday, was seen by what appears to be VNA and after talking to the primary care or another doctor, the patient was told to come to the emergency room. She had elected to come to the [facility] because she felt she was not getting treated well at [facility]. The patient came with worsening shortness of breath, leg edema. Yesterday on admission, she was short of breath and was noted to be in atrial flutter with rapid ventricular response. She was then treated, converted back to sinus rhythm and diuresed and since yesterday she has had a negative balance of almost 2200 mL. She says she feels better and wants to go home. She is not much aware of a prior medical history, was obtained from [facility] very complicated prior history. She has history of CAD. She has drug-eluting stent to the LAD in 2018 for WA and prior to that 3 years ago she said she had an WA. EF was in the moderate range last year as per the echocardiogram here, but more recently reported that she had progressive LV systolic dysfunction, admitted in March to [facility] and then subsequently had a pericardial tamponade after question started on oral anticoagulant therapy. This had to be drained. The patient had cardiogenic shock at that time, requiring high dose of diuretics and IV medicines to help with her heart failure syndrome. Subsequently reported EF of 10% to 15%. Do not have the copy of that echo report. The patient says she was planned to have repeat stenting performed. However, there has been no discussion about having seen advanced heart failure guys or having had ICD discussion. The patient says she takes her medications at home. Currently, she says she does not feel short of breath and feels well. PAST MEDICAL HISTORY: Ischemic cardiomyopathy, reported EF of 10% to 15%. Cardiorenal syndrome with chronic kidney disease stage 3 to 4. Intermittently, she has paroxysmal atrial fibrillation/flutter. Currently not on oral anticoagulation due to hemorrhagic pericardial effusion. CAD with prior LAD stenting in 2018 and drug-eluting stent. She has residual disease in the circumflex artery and RCA and was told that she would require repeat stenting, but this has not been pursued. Heart failure syndrome, peripheral neuropathy, type 1 diabetes, status post bilateral transmetatarsal amputation, psychotic disorder, prior polysubstance drug abuse disorder. FAMILY HISTORY: Noncontributory. REVIEW OF SYSTEMS: Difficult to obtain from the patient, but she denies any recent fever or chills. Has had increasing shortness of breath. She denies any clear palpitations. No orthopnea. Does have bilateral leg swelling, minimal functional status. No chest pain. No GI/ symptoms. No bleeding from any site. MEDICATIONS: Medicines currently in the hospital include atorvastatin 80 mg daily, Suboxone, vitamin D, gabapentin, Lantus, mirtazapine, omeprazole, tamsulosin, furosemide 40 mg IV b.i.d., insulin lispro, carvedilol 6.25 mg b.i.d., hydralazine 25 mg b.i.d., amlodipine 10 mg daily, insulin on a sliding scale, aspirin, and Zosyn. PHYSICAL EXAMINATION: GENERAL: The patient is alert and oriented x3, moderately obese middle-aged woman, in no acute respiratory distress. Reveals pallor. There is no icterus, no cyanosis. VITAL SIGNS: Blood pressure is 134/70, pulse is 92, respirations 18 to 22 per minute, pulse ox 98% on 3 L, and temperature 97.8. HEENT: Normocephalic and atraumatic. NECK: Supple with no clear jugular venous distention. LUNGS: Bibasilar crackles. CARDIAC: Regular S1, S2 with S4 with point of maximum impulse displaced laterally. ABDOMEN: Obese. STATION ENGINEER MAIN LINE: Nonfocal. EXTREMITIES: Bilateral 3+ edema. STATION ENGINEER MAIN LINE: Grossly nonfocal. Pulses bilateral . DIAGNOSTIC DATA: EKG shows normal sinus rhythm with occasional PVCs with left atrial enlargement with leftward axis and nonspecific ST-T wave abnormalities. LABORATORY DATA: Hemoglobin 8.6, hematocrit 27.9, platelet count 299, white cell count 8. Protime 12.9, INR 1.1. Sodium 136, potassium 3.2, BUN 104, creatinine 2.32. Troponin of 384.9. Troponin yesterday was 384.0, on admission was 231.8. BNP was 3013. Chest x-ray, consider right pleural effusion and airspace disease. Could suggest inflammation versus vascular congestion. V/Q scan shows normal perfusion. No evidence of pulmonary embolism. ASSESSMENT: This is a 49-year-old female with multiple medical problems, presents with acute decompensated congestive heart failure, probably contributed by rapid atrial flutter converted to sinus rhythm with known measured prior reported LVEF of 10% to 15% with recent admission with cardiogenic shock related to pericardial tamponade requiring drainage and subsequently found out to have hemorrhagic pericardial effusion, paroxysmal atrial fibrillation, history of chronic kidney disease, suspected to be cardiorenal syndrome and noncompliance, and prior substance abuse history. PLAN: At this time, the patient appears to be still very fluid overloaded. Continue IV diuresis. She is responding to this well. Continue Lasix 40 mg IV b.i.d. Daily intake and output chart as well as daily weight monitoring. Need to up titrate heart failure medications for better neurohormonal modulation. We will increase Coreg to 12.5 mg b.i.d. Also up titrate hydralazine and add Isordil to regimen for afterload and preload reduction. We will obtain repeat echocardiogram tomorrow. Given her atrial flutter, decompensated heart failure in the setting of poor cardiac function, should pursue rhythm control approach. are minimal and amiodarone will be used to maintain rhythm. Currently, we will hold off on oral anticoagulation due to recent history of hemorrhagic pericardial effusion. Poor prognosis was discussed with the patient. We discussed about management and plan. She does follow with Dr. Raymond and we will arrange for outpatient followup once she is more optimized. We will follow the patient. MD LUPE Fitch/MODL / [id number]
--- NOTE | 2020-06-13 05:32 | PC.NURSE ---
PATIENT PULLED OUT IV AND RANG SWARTZ AFTER TO ALERT STAFF. WHEN ASKED WHY PT STATED, 'IT WAS BOTHERING ME'. WILL ATTEMPT TO GET NEW ACCESS.
[2020-06-13 06:12] LABS: MANUAL DIFF FLAG NO
[2020-06-13 06:20] LABS: Basophils Absolute Auto 0.1 X10*3/uL (0.0-0.2); Basophils Percent Auto 0.9 % (0-2); Eosinophils Absolute Auto 0.8 X10*3/uL (0.0-0.4); Eosinophils Percent Auto 11.1 % (0-4); Hematocrit 28.8 % (37-47); Hemoglobin 8.8 g/dl (12.0-16.0); Imm Gran Abs Auto 0.02 X10*3/uL (0.00-0.03); Imm Gran Pct Auto 0.3 % (0.0-0.4); Lymphocytes Absolute Auto 1.1 X10*3/uL (1.2-4.9); Mean Corpuscular HGB Conc 30.6 g/dl (31.0-35.0); Mean Corpuscular Hemoglobin 24.4 pg (27.0-33.0); Mean Corpuscular Volume 79.8 fL (80-98); Monocytes Absolute Auto 0.9 X10*3/uL (0.1-1.2); Monocytes Percent Auto 11.9 % (2-11); Neutrophils Absolute Auto 4.5 X10*3/uL (2.0-8.3); Neutrophils Percent Auto 60.8 % (45-73); Platelet Count 247 X10*3/uL (160-400); Red Blood Count 3.61 X10*6/uL (4.20-5.50); Red Cell Distribution Width 19.4 % (11.0-16.0); White Blood Count 7.4 X10*3/uL (4.8-10.8)
[2020-06-13 06:50] LABS: B Type Natriuretic Peptide 1834 pg/mL (<100)
[2020-06-13 06:53] LABS: Anion Gap 14 (12-20); Blood Urea Nitrogen 99 mg/dL (9-16); Calcium 8.2 mg/dL (8.4-10.2); Carbon Dioxide 33 mmol/L (22-29); Chloride 91 mmol/L (96-108); Creatinine Clr Calc Pharmacy 34.3; Estimated Glomerular Filt Rate 22; Glucose Fasting 224 mg/dL (60-99); Potassium 3.8 mmol/l (3.3-5.1); Sodium 134 mmol/L (135-145)
[2020-06-13 07:58] LABS: Glucose, Whole Blood 221 mg/dL (60-115)
[2020-06-13] MEDS: Insulin Lispro 100 UNIT/ML 3 ML VIAL SUBCUT ×4 (08:06→22:18)
[2020-06-13] MEDS: Insulin Glargine,Hum.rec.anlog 100 UNIT/ML 10 ML VIAL 28 UNIT SUBCUT (08:06)
[2020-06-13] MEDS: Cholecalciferol (Vitamin D3) 25 MCG TABLET 50 MCG PO (08:07)
[2020-06-13] MEDS: Omeprazole 40 MG CAPSULE.DR PO (08:07)
[2020-06-13] MEDS: Isosorbide Dinitrate 5 MG TABLET PO ×2 (08:07→12:08)
[2020-06-13] MEDS: hydrALAZINE HCl 25 MG TABLET 50 MG PO ×2 (08:07→22:11)
[2020-06-13] MEDS: Furosemide 40 MG/4 ML VIAL IVPUSH (08:07)
[2020-06-13] MEDS: Gabapentin 600 MG TABLET PO ×3 (08:08→22:10)
[2020-06-13] MEDS: carvediloL 6.25 MG TABLET 12.5 MG PO ×2 (08:08→22:11)
[2020-06-13] MEDS: Atorvastatin Calcium 80 MG TABLET PO (08:08)
[2020-06-13] MEDS: Tamsulosin HCL 0.4 MG CAPSULE PO (08:08)
[2020-06-13] MEDS: Amiodarone HCL 200 MG TABLET 400 MG PO ×2 (08:18→22:10)
[2020-06-13 08:38] LABS: Glucose, Whole Blood 270 mg/dL (60-115)
--- NOTE | 2020-06-13 10:17 | HO.PM.IMPN ---
Subjective Subjective Date of Service: 06/13/20 Interval History: feeling better Respiratory Respiratory: Reports no additional respiratory complaints Gastrointestinal Gastrointestinal: Reports no additional gastrointestinal complaints Physical Exam Vital Signs and I&O and Narrative: Vital Signs and I&O: Vital Signs Temp 98.0 F 06/13/20 08:38 Pulse 71 06/13/20 08:38 Resp 20 06/13/20 08:38 BP 126/70 06/13/20 08:18 Pulse Ox 96 06/13/20 08:38 Intake & Output 06/12/20 06/13/20 06/13/20 18:59 06:59 18:59 Intake Total 600 / 600 240 / 240 Output Total 801 / 1501 700 / 1501 Balance -201 / -901 -700 / -901 240 / 240 Urine Output (Aver age ml/kg/hr) 0.68 0.59 0.59 Intake: Intake, Oral [place] unt 600 / 600 240 / 240 Output: Output, Stool Am ount 1 / 1 Output, Urine Am ount (Catheter) 800 / 1500 700 / 1500 Urethral 800 / 1500 700 / 1500 Other: Breakfast % Eate n 100% 100% Lunch % Eaten 100% Dinner % Eaten 100% Number of Bowel Movements 1 Number of Unmeas ured Emesis 1 Episodes Urine Color Yellow Concentrated Stool Bathroom Stool Color Brown Stool Consistenc y Formed Body Mass Index 35.9 General: AO X 3, no acute distress Resp: CTA bilateral CVS: S1,S2,RRR, 3+ edema GI: soft, non tender, non distended Neuro: motor grossly intact Psych: appropriate affect Objective Data Current Medications Generic Name Dose Route Start Last Admin Trade Name Antonio PRN Reason Stop Dose Admin Acetaminophen 325 mg 06/12/20 13:53 06/12/20 16:57 Acetaminophen 325 Mg Tablet PO 325 mg Q4H PRN Administration pain Amiodarone HCl 400 mg 06/12/20 12:45 06/13/20 08:18 Amiodarone Hcl 200 Mg Tablet PO 400 mg BID LARRY Administration Atorvastatin Calcium 80 mg 06/12/20 09:00 06/13/20 08:08 Atorvastatin Calcium 80 Mg Tablet PO 80 mg DAILY LARRY Administration Buprenorphine/Naloxone 1 film 06/12/20 09:00 06/13/20 08:12 Buprenorphine/Naloxone 4/1 Mg Film SUBLINGUAL Not Given DAILY LARRY Carvedilol 12.5 mg 06/12/20 21:00 06/13/20 08:08 Carvedilol 6.25 Mg Tablet PO 12.5 mg BID LARRY Administration Protocol Furosemide 40 mg 06/12/20 09:00 06/13/20 08:07 Furosemide 40 Mg/4 Ml Vial IVPUSH 40 mg BID LARRY Administration Protocol Gabapentin 600 mg 06/12/20 09:00 06/13/20 08:08 Gabapentin 600 Mg Tablet PO 600 mg TID LARRY Administration Hydralazine HCl 50 mg 06/12/20 21:00 06/13/20 08:07 Hydralazine Hcl 25 Mg Tablet PO 50 mg BID LARRY Administration Protocol Insulin Glargine 28 unit 06/12/20 09:00 06/13/20 08:06 Insulin Glargine,Hum.Rec.Anlog 100 Unit/Ml 10 Ml Vial SUBCUT 28 unit DAILY LARRY Administration Insulin Human Lispro 0 unit 06/12/20 07:30 06/13/20 08:06 Insulin Lispro 100 Unit/Ml 3 Ml Vial SUBCUT 4 unit QIDACHS LARRY Administration Protocol Isosorbide Dinitrate 5 mg 06/12/20 13:00 06/13/20 08:07 Isosorbide Dinitrate 5 Mg Tablet PO 5 mg 0800,1300 LARRY Administration Protocol Mirtazapine 15 mg 06/12/20 21:00 06/12/20 21:30 Mirtazapine 15 Mg Tablet PO 15 mg BEDTIME LARRY Administration Omeprazole 40 mg 06/12/20 09:00 06/13/20 08:07 Omeprazole 40 Mg Capsule.Dr PO 40 mg DAILY LARRY Administration Sodium Chloride 2 ml 06/12/20 08:00 06/13/20 08:21 0.9 % Sodium Chloride Flush 3 Ml Syringe IVFLUSH 2 ml QSHIFT LARRY Administration Tamsulosin HCl 0.4 mg 06/12/20 09:00 06/13/20 08:08 Tamsulosin Hcl 0.4 Mg Capsule PO 0.4 mg DAILY LARRY Administration Vitamin D 50 mcg 06/12/20 09:00 06/13/20 08:07 Cholecalciferol (Vitamin D3) 25 Mcg Tablet PO 50 mcg DAILY LARRY Administration Labs CBC & Chem 7: 06/13/20 05:38 06/13/20 05:38 Labs: Laboratory Results - last 24 hr 06/12/20 06/12/20 06/12/20 11:59 16:42 21:21 MCV MCH MCHC RDW Plt Count MPV Immature Gran % (Auto) Neut % (Auto) Lymph % (Auto) [place] % (Auto) Eos % (Auto) Baso % (Auto) Neut # (Auto) Lymph # (Auto) [place] # (Auto) Eos # (Auto) Baso # (Auto) Abs Immat Gran (auto) Absolute Nucleated RBC Nucleated RBC % (auto) Anion Gap Estim Creat Clear Calc Estimated GFR POC Glucose 288 H 248 H 203 H Fasting Glucose Calcium B-Natriuretic Peptide 06/13/20 06/13/20 06/13/20 05:38 05:38 05:38 MCV 79.8 L MCH 24.4 L MCHC 30.6 L RDW 19.4 H Plt Count 247 MPV 12.0 Immature Gran % (Auto) 0.3 Neut % (Auto) 60.8 Lymph % (Auto) 15.0 L [place] % (Auto) 11.9 H Eos % (Auto) 11.1 H Baso % (Auto) 0.9 Neut # (Auto) 4.5 Lymph # (Auto) 1.1 L [place] # (Auto) 0.9 Eos # (Auto) 0.8 H Baso # (Auto) 0.1 Abs Immat Gran (auto) 0.02 Absolute Nucleated RBC 0.000 Nucleated RBC % (auto) 0.0 Anion Gap 14 Estim Creat Clear Calc 34.3 Estimated GFR 22 POC Glucose Fasting Glucose 224 H Calcium 8.2 L B-Natriuretic Peptide 1834 H 06/13/20 06/13/20 07:54 08:34 MCV MCH MCHC RDW Plt Count MPV Immature Gran % (Auto) Neut % (Auto) Lymph % (Auto) [place] % (Auto) Eos % (Auto) Baso % (Auto) Neut # (Auto) Lymph # (Auto) [place] # (Auto) Eos # (Auto) Baso # (Auto) Abs Immat Gran (auto) Absolute Nucleated RBC Nucleated RBC % (auto) Anion Gap Estim Creat Clear Calc Estimated GFR POC Glucose 221 H 270 H Fasting Glucose Calcium B-Natriuretic Peptide Microbiology Microbiology Results: Microbiology 06/11/20 16:29 Blood - Venous Blood Culture - Preliminary No growth after 24 hours. 06/11/20 16:16 Blood - Venous Blood Culture - Preliminary No growth after 24 hours. Assessment and Plan (1) Atrial fibrillation: Status: Acute (2) Acute kidney injury superimposed on chronic kidney disease: Status: Acute (3) CAD (coronary artery disease): Status: Acute (4) Diabetes: Status: Deleted (5) Acute on chronic systolic and diastolic heart failure, NYHA class 3: Status: Acute Assessment and Plan: 49-year-old female presented shortness of breath acute on chronic systolic and diastolic CHF complicated by AFib with RVR symptoms significantly improved after converting to sinus rhythm, still has a lot of fluid to come off continue IV Lasix, follow-up echo, cardiology following goals for rhythm control, continue amiodarone load, continue Coreg increased to 12.5 b.i.d., continue Isodril and hydralazine amlodipine discontinued not on anticoagulation due to hemorrhagic pericardial effusion and tamponade at [facility] in March 2020 diabetes type 1 insulin coronary disease aspirin statin SERGO on CKD creatinine has been improving, monitor opioid dependence Suboxone
--- NOTE | 2020-06-13 10:43 | PM.PNCARD ---
Subjective Subjective Interval history: feeling better. No new complaints. Shortness of breath is at baseline. She still has leg swelling. Physical Exam Vital Signs and I&O: Vital Signs Temp 98.0 F 06/13/20 08:38 Pulse 71 06/13/20 08:38 Resp 20 06/13/20 08:38 BP 126/70 06/13/20 08:18 Pulse Ox 96 06/13/20 08:38 Intake & Output 06/12/20 06/13/20 06/13/20 18:59 06:59 18:59 Intake Total 600 / 600 240 / 240 Output Total 801 / 1501 700 / 1501 Balance -201 / -901 -700 / -901 240 / 240 Urine Output (Average ml/kg/hr) 0.68 0.59 0.59 Intake: Intake, Oral Amount 600 / 600 240 / 240 Output: Output, Stool Amount 1 / 1 Output, Urine Amount (Catheter) 800 / 1500 700 / 1500 Urethral 800 / 1500 700 / 1500 Other: Breakfast % Eaten 100% 100% Lunch % Eaten 100% Dinner % Eaten 100% Number of Bowel Movements 1 Number of Unmeasured Emesis 1 Episodes Urine Color Yellow Concentrated Stool Bathroom Stool Color Brown Stool Consistency Formed Body Mass Index 35.9 Const General: cooperative, comfortable and no acute distress Orientation/consciousness: patient oriented x3 HENMT Other: Unremarkable Neck Neck: Yes normal visual inspection Chest Chest palpation & inspection: normal inspection of the chest Resp Other: Few basal inspiratory crackles Cardio Other: soft systolic murmur heard all over the pericardium Palpation: normal PMI Heart sounds: S1 normal heart sound present, S2 normal heart sound present and Gallop heart sound present GI Palpation (GI): Soft to palpation Back/Spine/Pelvis Other: unremarkable Skin General skin exam: no rashes or lesions noted Neuro General: patient oriented x3 Extrem Other: bilateral 2 to 3+ leg swelling. Psych Mental Status: mental status grossly normal Progress Note: A&P Assessment and plan (1) Acute on chronic systolic and diastolic heart failure, NYHA class 3: Status: Acute (2) SERGO (acute kidney injury): Status: Acute (3) Atrial fibrillation: Status: Acute (4) CAD (coronary artery disease): Status: Acute Assessment and Plan: She still appears markedly volume overloaded. Continue with IV diuretics. BUN/creatinine continue to be elevated. Otherwise continue Amiodarone loading for atrial fibrillation. With a history of tamponade, we will hold off on anticoagulation for the time being. No anginal symptoms at this time. Echocardiogram to be done today. Fall Risk Details Current Medications: Current Medications Generic Name Dose Route Start Last Admin Trade Name Freq PRN Reason Stop Dose Admin Acetaminophen 325 mg 06/12/20 13:53 06/12/20 16:57 Acetaminophen 325 Mg Tablet PO 325 mg Q4H PRN Administration pain Amiodarone HCl 400 mg 06/12/20 12:45 06/13/20 08:18 Amiodarone Hcl 200 Mg Tablet PO 400 mg BID LARRY Administration Atorvastatin Calcium 80 mg 06/12/20 09:00 06/13/20 08:08 Atorvastatin Calcium 80 Mg Tablet PO 80 mg DAILY LARRY Administration Buprenorphine/Naloxone 1 film 06/12/20 09:00 06/13/20 08:12 Buprenorphine/Naloxone 4/1 Mg Film SUBLINGUAL Not Given DAILY LARRY Carvedilol 12.5 mg 06/12/20 21:00 06/13/20 08:08 Carvedilol 6.25 Mg Tablet PO 12.5 mg BID LARRY Administration Protocol Furosemide 40 mg 06/12/20 09:00 06/13/20 08:07 Furosemide 40 Mg/4 Ml Vial IVPUSH 40 mg BID LARRY Administration Protocol Gabapentin 600 mg 06/12/20 09:00 06/13/20 08:08 Gabapentin 600 Mg Tablet PO 600 mg TID LARRY Administration Hydralazine HCl 50 mg 06/12/20 21:00 06/13/20 08:07 Hydralazine Hcl 25 Mg Tablet PO 50 mg BID LARRY Administration Protocol Insulin Glargine 28 unit 06/12/20 09:00 06/13/20 08:06 Insulin Glargine,Hum.Rec.Anlog 100 Unit/Ml 10 Ml Vial SUBCUT 28 unit DAILY LARRY Administration Insulin Human Lispro 0 unit 06/12/20 07:30 06/13/20 08:06 Insulin Lispro 100 Unit/Ml 3 Ml Vial SUBCUT 4 unit QIDACHS LARRY Administration Protocol Isosorbide Dinitrate 5 mg 06/12/20 13:00 06/13/20 08:07 Isosorbide Dinitrate 5 Mg Tablet PO 5 mg 0800,1300 LARRY Administration Protocol Mirtazapine 15 mg 06/12/20 21:00 06/12/20 21:30 Mirtazapine 15 Mg Tablet PO 15 mg BEDTIME LARRY Administration Omeprazole 40 mg 06/12/20 09:00 06/13/20 08:07 Omeprazole 40 Mg Capsule.Dr PO 40 mg DAILY LARRY Administration Sodium Chloride 2 ml 06/12/20 08:00 06/13/20 08:21 0.9 % Sodium Chloride Flush 3 Ml Syringe IVFLUSH 2 ml QSHIFT LARRY Administration Tamsulosin HCl 0.4 mg 06/12/20 09:00 06/13/20 08:08 Tamsulosin Hcl 0.4 Mg Capsule PO 0.4 mg DAILY LARRY Administration Vitamin D 50 mcg 06/12/20 09:00 06/13/20 08:07 Cholecalciferol (Vitamin D3) 25 Mcg Tablet PO 50 mcg DAILY LARRY Administration Time Spent With Patient Time: Total time spent is greater than 50% in coordination of care (as documented) at patient's floor/unit and/or counseling patient: Time with patient: 15 - 24 minutes
--- NOTE | 2020-06-13 11:00 | CA_ITS ---
Transthoracic Echocardiogram Patient (Last, First, Middle): Kelly Kimball, Gender: Female Date of : 1970 Age: 49 Procedure Date: 06/13/2020 Procedure Type: Transthoracic Echocardiogram Location: [facility] Height: 172.72 cm Weight: 77. kg BSA: 1.91 m2 Heart Rate: bpm BP: 118 / 56 mmHg Ballistic Expert: Referring MD: Pastor Schultz MD Symptoms: [facility] [place] Study Quality: Fair ECG Rhythm: Sinus Conclusions: - The left ventricular systolic function is severely decreased. The visually estimated ejection fraction is between 15-20%. - Evidence suggests grade III (severe) diastolic dysfunction. - There is evidence of regional wall motion abnormalities. - There is moderate mitral valve regurgitation. - There is moderate to severe tricuspid valve regurgitation. - Severe pulmonary hypertension is present. - There is a small pericardial effusion. There are no definitive echocardiographic findings of tamponade physiology. Findings Left Ventricle Normal left ventricular cavity size. There is mildly increased left ventricular wall thickness. The left ventricular systolic function is severely decreased. The visually estimated ejection fraction is between 15 20%. There is evidence of regional wall motion abnormalities. E/E prime ratio is >15, consistent with elevated filling pressures. Evidence suggests grade III (severe) diastolic dysfunction. Wall Motion Rest Echo Findings The entire apex, anterolateral wall, and basal inferolateral segment are hypokinetic. The inferoseptal wall, the basal inferior, basal anterior, mid anterior, mid inferior, basal anteroseptal, mid anteroseptal, and mid inferolateral segments are akinetic. Right Ventricle Normal right ventricular cavity size and systolic function. Atria The left atrium is moderately dilated. The right atrium is normal in size. Aortic Valve There is a normal trileaflet aortic valve. There is mild calcification of the aortic valve. There is no aortic valve stenosis. There is trace (trivial) aortic valve regurgitation. Mitral Valve There is mild mitral annular calcification. There is moderate mitral valve regurgitation. There is no mitral valve stenosis. Pulmonic Valve The pulmonic valve was not well visualized. There is trace pulmonic valve regurgitation. Tricuspid Valve There is mild septal tricuspid leaflet thickening. There is moderate to severe tricuspid valve regurgitation. The right ventricular systolic pressure is 70 mmHg. Severe pulmonary hypertension is present. Great Vessels The aortic annulus, sinuses of valsalva, and asc aorta are normal in size. Venous The inferior vena cava is mildly dilated and collapses less than 50% with inspiration. Pericardium/Pleural There is a small pericardial effusion. There are no definitive echocardiographic findings of tamponade physiology. Most prominent over the right atrium. Prior Study Comparison Changes noted compared to prior study dated: 06/09/2019. Measurements 2D Linear Measurements IVSd: 1.20 0.6-0.9/0.6-1.0 cm LVIDd: 5.82 3.9-5.3/4.2-5.9 cm LVIDd Index: 3.05 2.4-3.2/2.2-3.1 cm/m2 LVIDs: 5.25 2.0-3.6 cm LVPWd: 1.21 0.7-1.1 cm LV Mass: 374.72 67-162/88-224 g LV Mass Index: 196.19 43-95/49-115 g/m2 2D Systolic Function EF 4C: 30.50 >55% EF 2C: 34.70 >55% Tricuspid Valve RVSP: 70.00 Updated in Other Vendor System with Status of Final Jin Crump MD electronically signed on 06/14/2020 12:48:25 PM with status of Final
--- NOTE | 2020-06-13 11:11 | P.PNNP_ITS ---
Subjective Subjective Interval history: feeling better. No new complaints. Shortness of breath is at baseline. She still has leg swelling. Frustrated about her situation mak still in Physical Exam Vital Signs and I&O and Narrative: Vital Signs and I&O: Vital Signs Temp 98.0 F 06/13/20 08:38 Pulse 71 06/13/20 08:38 Resp 20 06/13/20 08:38 BP 126/70 06/13/20 08:18 Pulse Ox 96 06/13/20 08:38 Intake & Output 06/12/20 06/13/20 06/13/20 18:59 06:59 18:59 Intake Total 600 / 600 240 / 240 Output Total 801 / 1501 700 / 1501 Balance -201 / -901 -700 / -901 240 / 240 Urine Output (Aver age ml/kg/hr) 0.68 0.59 0.59 Intake: Intake, Oral [place] unt 600 / 600 240 / 240 Output: Output, Stool Am ount 1 / 1 Output, Urine Am ount (Catheter) 800 / 1500 700 / 1500 Urethral 800 / 1500 700 / 1500 Other: Breakfast % Eate n 100% 100% Lunch % Eaten 100% Dinner % Eaten 100% Number of Bowel Movements 1 Number of Unmeas ured Emesis 1 Episodes Urine Color Yellow Concentrated Stool Bathroom Stool Color Brown Stool Consistenc y Formed Body Mass Index 35.9 Laboratory Tests 06/13/19 06/11/20 06/12/20 05:38 16:17 06:42 Creatinine 1.58 H 2.81 H 2.32 H 06/13/20 05:38 Creatinine 2.32 H Laboratory Tests 06/10/19 06/13/20 05:56 05:38 Creatinine 3.59 H 2.32 H General: AO X 3, no acute distress Resp: CTA bilateral CVS: S1,S2,RRR, 3+ edema GI: soft, non tender, non distended Neuro: motor grossly intact Psych: appropriate affect Const: General: cooperative, comfortable and no acute distress Orientation/consciousness: patient oriented x3 HENMT: Other: Unremarkable Head: Yes normal to inspection, Yes normocephalic and Yes atraumatic Eyes: General: appearance normal, both eyes and all related structures Neck: Neck: Yes normal visual inspection and Yes no lymphadenopathy Chest: Chest palpation & inspection: normal inspection of the chest and normal palpation of entire chest wall Resp: Other: Few basal inspiratory crackles Effort & Inspection: normal respiratory effort Auscultation: diminished lung sounds Cardio: Other: soft systolic murmur heard all over the pericardium Jugular venous distension: no JVD Palpation: normal PMI Heart sounds: S1 normal heart sound present, S2 normal heart sound present and Gallop heart sound present GI: Inspection: Yes normal to inspection Palpation (GI): Soft to palpation and nontender : General: Yes no CVA tenderness Back/Spine/Pelvis: Other: unremarkable Back: no CVA tenderness Skin: General skin exam: no rashes or lesions noted Neuro: General: patient oriented x3 Extrem: Other: bilateral 2 to 3+ leg swelling. General: Yes edema (pitting +2) Left upper extremity: edema Psych: Appearance: grossly normal Mental Status: mental status grossly normal Assessment & Plan Assessment and plan (1) Acute on chronic systolic and diastolic heart failure, NYHA class 3: Status: Acute (2) SERGO (acute kidney injury): Status: Acute (3) Hypokalemia: Status: Acute (4) CKD (chronic kidney disease) stage 3, GFR 30-59 ml/min: Status: Acute (5) Type 1 diabetes: Status: Acute (6) Peripheral neuropathy: Status: Acute (7) Hypertension: Status: Acute (8) Congestive heart failure: Problem details: EF 10-15% and grade 3 diastolic dysfunction Status: Acute (9) Atrial fibrillation: Status: Acute (10) Volume overload: Status: Acute (11) Acute kidney injury superimposed on chronic kidney disease: Status: Acute (12) Chronic kidney disease (CKD): Problem details: baseline creatinine around 2 Status: Acute (13) CAD (coronary artery disease): Status: Acute Assessment and Plan: ASSESSMENT AND RECS CKD 4: c/w combination of DN and CRSyn TBFOL: cont with diuresis on lasix ..neg 2.5 L/past 24 hrs Anemia: goal Hb 9-11; ques Fe def and/or EPO def DM HFrEF REC: cont diuresis; keep feet elevated and trial of compressive stockings; check Fe stores; cautious trial of ACEor ARB ?; at some point may be candidate for CCPD when prog to ESRD; protect non-domnat arm Time Spent With Patient Time: Total time spent is greater than 50% in coordination of care (as documented) at patient's floor/unit and/or counseling patient:
[2020-06-13 11:22] LABS: Glucose, Whole Blood 343 mg/dL (60-115)
[2020-06-13 16:12] LABS: Glucose, Whole Blood 253 mg/dL (60-115)
[2020-06-13 20:36] LABS: Glucose, Whole Blood 214 mg/dL (60-115)
[2020-06-13] MEDS: Mirtazapine 15 MG TABLET PO (22:10)
[2020-06-14] VITALS (9 sets, daily range): BP systolic 105–133; BP diastolic 52–73; PULSE 65–97; RESP 18–20; TEMP 36.2–36.9; O2SAT 93–100
[2020-06-14] MEDS: 0.9 % Sodium Chloride Flush 3 ML SYRINGE 2 ML IVFLUSH ×2 (00:01→09:21)
[2020-06-14] MEDS: Furosemide 40 MG/4 ML VIAL IVPUSH ×2 (00:08→09:18)
[2020-06-14 06:34] LABS: MANUAL DIFF FLAG NO
[2020-06-14 06:46] LABS: Basophils Absolute Auto 0.1 X10*3/uL (0.0-0.2); Basophils Percent Auto 1.1 % (0-2); Eosinophils Percent Auto 13.2 % (0-4); Hemoglobin 8.5 g/dl (12.0-16.0); Imm Gran Abs Auto 0.05 X10*3/uL (0.00-0.03); Imm Gran Pct Auto 0.7 % (0.0-0.4); Lymphocytes Absolute Auto 1.1 X10*3/uL (1.2-4.9); Lymphocytes Percent Auto 14.5 % (20-40); Mean Corpuscular HGB Conc 30.4 g/dl (31.0-35.0); Mean Corpuscular Hemoglobin 24.4 pg (27.0-33.0); Mean Corpuscular Volume 80.5 fL (80-98); Mean Platelet Volume 12.1 fL (9.4-12.3); Monocytes Absolute Auto 0.9 X10*3/uL (0.1-1.2); Monocytes Percent Auto 12.4 % (2-11); Neutrophils Absolute Auto 4.4 X10*3/uL (2.0-8.3); Neutrophils Percent Auto 58.1 % (45-73); Platelet Count 267 X10*3/uL (160-400); Red Blood Count 3.48 X10*6/uL (4.20-5.50); Red Cell Distribution Width 19.4 % (11.0-16.0); White Blood Count 7.6 X10*3/uL (4.8-10.8)
[2020-06-14 07:26] LABS: Glucose, Whole Blood 202 mg/dL (60-115)
[2020-06-14 07:26] LABS: Anion Gap 14 (12-20); Blood Urea Nitrogen 101 mg/dL (9-16); Carbon Dioxide 31 mmol/L (22-29); Chloride 92 mmol/L (96-108); Creatinine Clr Calc Pharmacy 32.5; Estimated Glomerular Filt Rate 21; Glucose Fasting 177 mg/dL (60-99); Magnesium 2.2 mg/dL (1.6-2.6); Sodium 133 mmol/L (135-145)
[2020-06-14] MEDS: Insulin Lispro 100 UNIT/ML 3 ML VIAL SUBCUT ×2 (09:17→11:58)
[2020-06-14] MEDS: Insulin Glargine,Hum.rec.anlog 100 UNIT/ML 10 ML VIAL 28 UNIT SUBCUT (09:18)
[2020-06-14] MEDS: Tamsulosin HCL 0.4 MG CAPSULE PO (09:19)
[2020-06-14] MEDS: Atorvastatin Calcium 80 MG TABLET PO (09:19)
[2020-06-14] MEDS: Cholecalciferol (Vitamin D3) 25 MCG TABLET 50 MCG PO (09:20)
[2020-06-14] MEDS: hydrALAZINE HCl 25 MG TABLET 50 MG PO (09:20)
[2020-06-14] MEDS: carvediloL 6.25 MG TABLET 12.5 MG PO (09:20)
[2020-06-14] MEDS: Amiodarone HCL 200 MG TABLET 400 MG PO (09:21)
[2020-06-14] MEDS: Gabapentin 600 MG TABLET PO (09:21)
[2020-06-14] MEDS: Omeprazole 40 MG CAPSULE.DR PO (09:21)
[2020-06-14] MEDS: Isosorbide Dinitrate 5 MG TABLET PO (09:21)
--- NOTE | 2020-06-14 10:09 | PM.PNNEP ---
Subjective Subjective Interval history: feeling better. No new complaints. Shortness of breath is at baseline. Frustrated about her situation Still w leg swelling Wants to go home today Physical Exam Vital Signs and I&O and Narrative: Vital Signs and I&O: Vital Signs Temp 97.1 F 06/14/20 08:00 Pulse 97 06/14/20 09:21 Resp 18 06/14/20 08:00 BP 118/72 06/14/20 09:21 Pulse Ox 93 06/14/20 08:00 Intake & Output 06/13/20 06/14/20 06/14/20 18:59 06:59 18:59 Intake Total 960 / 1500 540 / 1500 Output Total 800 / 1500 700 / 1500 Balance 160 / 0 -160 / 0 Urine Output (Aver age ml/kg/hr) 0.68 0.60 Weight 98 kg Intake: Intake, Oral [place] unt 960 / 1500 540 / 1500 Output: Output, Urine Am ount 800 / 800 Output, Urine Am ount (Catheter) 700 / 700 Urethral 700 / 700 Other: Breakfast % Eate n 100% Lunch % Eaten 100% Diabetic Snack % Eaten 100 Body Mass Index 35.9 Laboratory Tests 06/13/19 06/11/20 06/14/20 05:38 16:17 05:48 Creatinine 1.58 H 2.81 H 2.45 H General: AO X 3, no acute distress Resp: CTA bilateral CVS: S1,S2,RRR, 3+ edema GI: soft, non tender, non distended Neuro: motor grossly intact Psych: appropriate affect Const: General: cooperative, comfortable and no acute distress Orientation/consciousness: patient oriented x3 HENMT: Other: Unremarkable Head: Yes normal to inspection, Yes normocephalic and Yes atraumatic Eyes: General: appearance normal, both eyes and all related structures Neck: Neck: Yes normal visual inspection and Yes no lymphadenopathy Chest: Chest palpation & inspection: normal inspection of the chest and normal palpation of entire chest wall Resp: Other: Few basal inspiratory crackles Effort & Inspection: normal respiratory effort Auscultation: diminished lung sounds Cardio: Other: soft systolic murmur heard all over the pericardium Jugular venous distension: no JVD Palpation: normal PMI Heart sounds: S1 normal heart sound present, S2 normal heart sound present and Gallop heart sound present GI: Inspection: Yes normal to inspection Palpation (GI): Soft to palpation and nontender : General: Yes no CVA tenderness Back/Spine/Pelvis: Other: unremarkable Back: no CVA tenderness Skin: General skin exam: no rashes or lesions noted Neuro: General: patient oriented x3 Extrem: Other: bilateral 2 to 3+ leg swelling. General: Yes edema (pitting +2) Left upper extremity: edema Psych: Appearance: grossly normal Mental Status: mental status grossly normal Assessment & Plan Assessment and plan (1) Acute on chronic systolic and diastolic heart failure, NYHA class 3: Status: Acute (2) SERGO (acute kidney injury): Status: Acute (3) Type 1 diabetes: Status: Acute (4) Peripheral neuropathy: Status: Acute (5) Hypertension: Status: Acute (6) Congestive heart failure: Problem details: EF 10-15% and grade 3 diastolic dysfunction Status: Acute (7) Volume overload: Status: Acute (8) Acute kidney injury superimposed on chronic kidney disease: Status: Acute (9) Chronic kidney disease (CKD): Problem details: baseline creatinine around 2 Status: Acute (10) CAD (coronary artery disease): Status: Acute Assessment and Plan: 1. 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 TBFOL: cont with diuresis on lasix..based on I/O no diuresis over past 24 hrs...diuretic resistant 3. Anemia: goal Hb 9-11; ques Fe def and/or EPO def 4. DM 5. HFrEF Disc: relative dfiuretic resistant and demanding going home...will need incr diuretics and will consider placeemnt of scherer and outpt IV diuretics with VNA if possible REC: cont diuresis..need to incr diurectics..will incr lasxi 80 IV q 12 hrs and add zaroxlyn; keep feet elevated and trial of compressive stockings; check Fe stores; cautious trial of ACEor ARB ?; at some point may be candidate for CCPD when prog to ESRD; protect non-domnat arm Time Spent With Patient Time: Total time spent is greater than 50% in coordination of care (as documented) at patient's floor/unit and/or counseling patient:
--- NOTE | 2020-06-14 11:22 | PM.PNCARD ---
Subjective Subjective Interval history: Feeling better. No new complaints. Shortness of breath is at baseline. Still w leg swelling Wants to go home today Cardiology- +ve for shortness of breath, leg swelling; No angina; remainder of the 10 system review is negative. Physical Exam Vital Signs and I&O: Vital Signs Temp 97.1 F 06/14/20 08:00 Pulse 97 06/14/20 09:21 Resp 18 06/14/20 08:00 BP 118/72 06/14/20 09:21 Pulse Ox 93 06/14/20 08:00 Intake & Output 06/13/20 06/14/20 06/14/20 18:59 06:59 18:59 Intake Total 960 / 1500 540 / 1500 140 / 140 Output Total 800 / 1500 700 / 1500 300 / 300 Balance 160 / 0 -160 / 0 -160 / -160 Urine Output (Average ml/kg/hr) 0.68 0.60 0.26 Weight 216 lb 0.848 oz Intake: Intake, Oral Amount 960 / 1500 540 / 1500 140 / 140 Output: Output, Urine Amount 800 / 800 Output, Urine Amount (Catheter) 700 / 700 300 / 300 Urethral 700 / 700 300 / 300 Other: Breakfast % Eaten 100% Lunch % Eaten 100% Diabetic Snack % Eaten 100 Body Mass Index 35.9 Const General: cooperative, comfortable and no acute distress Orientation/consciousness: patient oriented x3 HENMT Other: Unremarkable Neck Neck: Yes normal visual inspection Chest Chest palpation & inspection: normal inspection of the chest Resp Other: Few basal inspiratory crackles Cardio Other: soft systolic murmur heard all over the pericardium Palpation: normal PMI Heart sounds: S1 normal heart sound present, S2 normal heart sound present and Gallop heart sound present GI Palpation (GI): Soft to palpation Back/Spine/Pelvis Other: unremarkable Skin General skin exam: no rashes or lesions noted Neuro General: patient oriented x3 Extrem Other: bilateral 2+ leg swelling. Psych Mental Status: mental status grossly normal Progress Note: A&P Assessment and plan (1) Acute on chronic systolic and diastolic heart failure, NYHA class 3: Status: Acute (2) SERGO (acute kidney injury): Status: Acute (3) Atrial fibrillation: Status: Acute (4) CAD (coronary artery disease): Status: Acute Assessment and Plan: She still appears volume overloaded. Would prefer IV diuretics, but if she is going to insist on going home, then change to oral diuretics. Otherwise continue Amiodarone loading for atrial fibrillation. With a history of tamponade, we will hold off on anticoagulation for the time being. No anginal symptoms at this time. Follow-up with her own executive marketing assistant at [facility]. Fall Risk Details Current Medications: Current Medications Generic Name Dose Route Start Last Admin Trade Name Freq PRN Reason Stop Dose Admin Acetaminophen 325 mg 06/12/20 13:53 06/12/20 16:57 Acetaminophen 325 Mg Tablet PO 325 mg Q4H PRN Administration pain Amiodarone HCl 400 mg 06/12/20 12:45 06/14/20 09:21 Amiodarone Hcl 200 Mg Tablet PO 400 mg BID LARRY Administration Atorvastatin Calcium 80 mg 06/12/20 09:00 06/14/20 09:19 Atorvastatin Calcium 80 Mg Tablet PO 80 mg DAILY LARRY Administration Buprenorphine/Naloxone 1 film 06/12/20 09:00 06/14/20 09:19 Buprenorphine/Naloxone 4/1 Mg Film SUBLINGUAL Not Given DAILY LARRY Carvedilol 12.5 mg 06/12/20 21:00 06/14/20 09:20 Carvedilol 6.25 Mg Tablet PO 12.5 mg BID LARRY Administration Protocol Furosemide 80 mg 06/14/20 10:30 Furosemide 40 Mg/4 Ml Vial IVPUSH BID LARRY Protocol Gabapentin 600 mg 06/12/20 09:00 06/14/20 09:21 Gabapentin 600 Mg Tablet PO 600 mg TID LARRY Administration Hydralazine HCl 50 mg 06/12/20 21:00 06/14/20 09:20 Hydralazine Hcl 25 Mg Tablet PO 50 mg BID LARRY Administration Protocol Insulin Glargine 28 unit 06/12/20 09:00 06/14/20 09:18 Insulin Glargine,Hum.Rec.Anlog 100 Unit/Ml 10 Ml Vial SUBCUT 28 unit DAILY LARRY Administration Insulin Human Lispro 0 unit 06/12/20 07:30 06/14/20 09:17 Insulin Lispro 100 Unit/Ml 3 Ml Vial SUBCUT 4 unit QIDACHS LARRY Administration Protocol Isosorbide Dinitrate 5 mg 06/12/20 13:00 06/14/20 09:21 Isosorbide Dinitrate 5 Mg Tablet PO 5 mg 0800,1300 LARRY Administration Protocol Mirtazapine 15 mg 06/12/20 21:00 06/13/20 22:10 Mirtazapine 15 Mg Tablet PO 15 mg BEDTIME LARRY Administration Omeprazole 40 mg 06/12/20 09:00 06/14/20 09:21 Omeprazole 40 Mg Capsule.Dr PO 40 mg DAILY LARRY Administration Sodium Chloride 2 ml 06/12/20 08:00 06/14/20 09:21 0.9 % Sodium Chloride Flush 3 Ml Syringe IVFLUSH 2 ml QSHIFT LARRY Administration Tamsulosin HCl 0.4 mg 06/12/20 09:00 06/14/20 09:19 Tamsulosin Hcl 0.4 Mg Capsule PO 0.4 mg DAILY LARRY Administration Vitamin D 50 mcg 06/12/20 09:00 06/14/20 09:20 Cholecalciferol (Vitamin D3) 25 Mcg Tablet PO 50 mcg DAILY LARRY Administration Time Spent With Patient Time: Total time spent is greater than 50% in coordination of care (as documented) at patient's floor/unit and/or counseling patient: Time with patient: 15 - 24 minutes
[2020-06-14 11:33] LABS: Glucose, Whole Blood 331 mg/dL (60-115)
--- NOTE | 2020-06-14 11:53 | PM.DS ---
DS: Providers Provider Date of admission: 06/12/20 00:14 Primary care physician: Unknown Physician Consults: 06/12/20 00:35 Consult to Physician Routine Consulting Provider: [facility] Cardiovascular Services Reason for consultation: CHF exacerbation Has provider been notified: No 06/12/20 02:46 Consult to Nephrology Routine Consulting Provider: [facility] Reason for consultation: SERGO on CKD Has provider been notified: No DS: Diagnosis Discharge Diagnosis (1) Acute on chronic systolic and diastolic heart failure, NYHA class 3: Status: Acute (2) SERGO (acute kidney injury): Status: Acute (3) Atrial fibrillation: Status: Acute (4) CAD (coronary artery disease): Status: Acute DS: Summary Hospital Course Hospital Course: Admission note HPI 49 y/o female with extensive cardiac hx who presented from home due to LE swelling. Per history provided by the patient, for the past 1 month has been having worsening LE swelling for what decided to come to the ED for further evaluation. Patient denies any chest pain, SOB, nausea, vomiting, orthopnea, fever or diarrhea. Last admission was on 06/2019 due to NSTEMI, DKA and SERGO. Patient was evaluated by cardiology in the past for possible cardiac cath but due to patient poor medical compliance was deemed not be a candidate. On presentation now patient is noted to be on Afib with RVR for what was given Lopressor IV per ED, HR now 90 with BP of 141/84 mmHg. D dimer/Ventilation perfusion scan done by ED due to suspicion for PE, ventilation perfusion scan negative. CXR showing increased vascular congestion with right sided pleural effusion. One dose of IV lasix given and decision for admission given. Patient evaluated at the bedside, laying down in bed in no acute distress. ROS as above otherwise negative. Physical exam positive for LLE metatarsal amputation, pitting edema +2, no evidence of JVD or rales on exam. hospital course patient arrives in rapid afib 130's with SBP 140s. requiring 2L NC to maintain sats. no resp distress at this time. full sepsis workup ordered given patient's report of recent infection. empiric vanco/zosyn ordered, concern for possible HCAP vs cellulitis/wound on LLE. appears grossly volume overloaded, likely acute CHF exacerbation. The patient was treated for acute on chronic systolic and diastolic CHF complicated by atrial fibrillation with rapid ventricular rate. Significantly improved after confirming to sinus rhythm with uses of loading amiodarone and increase the dose of carvedilol with fair response. Cardiology recommended not to continue with amiodarone at time of discharge as the patient requested to leave the hospital. She still has bilateral lower extremity swelling but back on room air. not on anticoagulation due to hemorrhagic pericardial effusion and tamponade at [facility] in March 2020 To be discharged home on a higher dose of Lasix To increase the dose of carvedilol to 12.5 b.i.d. To monitor body weight and report any changes to PCP or distillation operator. Time Spent with Patient Time attestation: Total time spent providing and/or coordinating discharge services: Physical Exam Vital Signs and I&O and Narrative: Vital Signs and I&O: Vital Signs Temp 97.1 F 06/14/20 08:00 Pulse 97 06/14/20 09:21 Resp 18 06/14/20 08:00 BP 118/72 06/14/20 09:21 Pulse Ox 93 06/14/20 08:00 Intake & Output 06/13/20 06/14/20 06/14/20 18:59 06:59 18:59 Intake Total 960 / 1500 540 / 1500 140 / 140 Output Total 800 / 1500 700 / 1500 300 / 300 Balance 160 / 0 -160 / 0 -160 / -160 Urine Output (Aver age ml/kg/hr) 0.68 0.60 0.26 Weight 98 kg Intake: Intake, Oral Patrick unt 960 / 1500 540 / 1500 140 / 140 Output: Output, Urine Am ount 800 / 800 Output, Urine Am ount (Catheter) 700 / 700 300 / 300 Urethral 700 / 700 300 / 300 Other: Breakfast % Eate n 100% Lunch % Eaten 100% Diabetic Snack % Eaten 100 Body Mass Index 35.9 DS: Data Data Completed and Pending Labs on day of discharge: Labs from last 24 hours 06/14/20 06/14/20 06/14/20 11:26 07:24 05:48 WBC RBC Hgb Hct MCV MCH MCHC RDW Plt Count MPV Immature Gran % (Auto) Neut % (Auto) Lymph % (Auto) [place] % (Auto) Eos % (Auto) Baso % (Auto) Neut # (Auto) Lymph # (Auto) [place] # (Auto) Eos # (Auto) Baso # (Auto) Abs Immat Gran (auto) Absolute Nucleated RBC Nucleated RBC % (auto) Sodium 133 L Potassium 4.0 Chloride 92 L Carbon Dioxide 31 H Anion Gap 14 BUN 101 H* Creatinine 2.45 H Estim Creat Clear Calc 32.5 Estimated GFR 21 POC Glucose 331 H 202 H Fasting Glucose 177 H Calcium 8.0 L Magnesium 2.2 06/14/20 06/13/20 06/13/20 05:48 20:33 16:09 WBC 7.6 RBC 3.48 L Hgb 8.5 L Hct 28.0 L MCV 80.5 MCH 24.4 L MCHC 30.4 L RDW 19.4 H Plt Count 267 MPV 12.1 Immature Gran % (Auto) 0.7 H Neut % (Auto) 58.1 Lymph % (Auto) 14.5 L [place] % (Auto) 12.4 H Eos % (Auto) 13.2 H Baso % (Auto) 1.1 Neut # (Auto) 4.4 Lymph # (Auto) 1.1 L [place] # (Auto) 0.9 Eos # (Auto) 1.0 H Baso # (Auto) 0.1 Abs Immat Gran (auto) 0.05 H Absolute Nucleated RBC 0.000 Nucleated RBC % (auto) 0.0 Sodium Potassium Chloride Carbon Dioxide Anion Gap BUN Creatinine Estim Creat Clear Calc Estimated GFR POC Glucose 214 H 253 H Fasting Glucose Calcium Magnesium Preliminary micro results at discharge 06/11/20 16:29 Blood Culture - Preliminary Blood - Venous No growth after 48 hours. 06/11/20 16:16 Blood Culture - Preliminary Blood - Venous No growth after 48 hours. Discharge Plan Discharge Anticipated Discharge Date/Time: 06/14/20 11:35 Patient Disposition: Home Health Service Referrals: [facility] [Other] [facility] [Outside] (Patient will return home with services through [facility], NOT [facility].) Nazanin Veliz DO [Physician] - 1 Week (Please call and schedule a follow up appointment within 1 week.) Discharge Medications: New carvedilol 6.25 mg Tablet 12.5 mg PO BID Qty: 120 RF: 0 hydralazine 25 mg Tablet 50 mg PO BID Qty: 120 RF: 0 isosorbide dinitrate 5 mg Tablet 5 mg PO 0800,1300 Qty: 30 RF: 0 furosemide [Lasix] 80 mg tablet 80 mg PO BID Qty: 60 RF: 0 Continued atorvastatin 80 mg Tablet 80 mg PO DAILY RF: 0 gabapentin 600 mg Tablet 600 mg PO TID RF: 0 cetirizine 10 mg Tablet 10 mg PO DAILY RF: 0 hydralazine 25 mg Tablet 25 mg PO BID RF: 0 aspirin 81 mg Tablet,Delayed Release (Dr/Ec) 81 mg PO DAILY RF: 0 ferrous gluconate 324 mg (36 mg iron) Tablet 324 mg PO DAILY RF: 0 cholecalciferol (vitamin D3) 50 mcg (2,000 unit) Tablet 50 mcg PO DAILY RF: 0 buprenorphine-naloxone [Suboxone] 4-1 mg Film 1 film SUBLINGUAL DAILY RF: 0 insulin glargine 100 unit/mL Solution 28 unit SUBCUT QAM RF: 0 omeprazole 40 mg Capsule,Delayed Release(Dr/Ec) 40 mg PO DAILY RF: 0 tamsulosin 0.4 mg Capsule 0.4 mg PO DAILY RF: 0 mirtazapine 15 mg Tablet 15 mg PO BEDTIME RF: 0 insulin lispro 100 unit/mL Solution 1 sliding scale dose SUBCUT USEASDIRECTD RF: 0 loratadine 10 mg Tablet 10 mg PO DAILY RF: 0 Discontinued furosemide 40 mg Tablet 40 mg PO DAILY RF: 0 carvedilol 6.25 mg Tablet 6.25 mg PO BID RF: 0 amlodipine 10 mg Tablet 10 mg PO DAILY RF: 0 Discharge Orders: Discharge Order (Routine); Ordered 06/14/20 Ordered By: Kalpesh Delacruz Diet: advance to your usual diet and diabetic diet Activity on Discharge: As tolerated Discharge Date/Time: 06/14/20 14:25 Other Ambulatory Orders: Basic Metabolic Panel (Routine) Timeframe: 20200620 Facility: [facility] - Location: Laboratory Ordered By: Kalpesh Delacruz Visit Report Forms: Patient Portal Discharge page Care Plan Goals: Read below Health Concerns: Read below Plan of Treatment: Read below
--- NOTE | 2020-06-14 12:12 | MHC.CM.PN ---
Patient has been medically cleared for dc to home today with RN visits through [facility] (CM has left a message for Mirta at [facility] @ [phone], informing her of today's dc and that Attending MD would like f/u with Dr. Mistry after dc. Last IMM addressed on 06/12/20. Patient is aware of and pleased with the dc plan.
== END 2020-06-14 14:25 | disposition home health service (06) | DRG 291 ==
LOC: HO.ED 22:05 → HO.IMC 06-12 00:19
PROVIDERS: Internal Medicine; Physician Assistant; Admitting Provider Internal Medicine; Visit Provider Student in an Organized Health Care Education/Training Program
DX: I13.0 Hypertensive heart and chronic kidney disease with heart failure and stage 1 through stage 4 chronic kidney disease, or unspecified chronic kidney disease (principal); I50.23 Acute on chronic systolic (congestive) heart failure; I48.11 Longstanding persistent atrial fibrillation; N17.9 Acute kidney failure, unspecified; F11.20 Opioid dependence, uncomplicated; N18.4 Chronic kidney disease, stage 4 (severe); E87.70 Fluid overload, unspecified; K21.9 Gastro-esophageal reflux disease without esophagitis; I25.10 Atherosclerotic heart disease of native coronary artery without angina pectoris; F29 Unspecified psychosis not due to a substance or known physiological condition; E10.22 Type 1 diabetes mellitus with diabetic chronic kidney disease; E10.42 Type 1 diabetes mellitus with diabetic polyneuropathy; E87.6 Hypokalemia; Z79.82 Long term (current) use of aspirin; Z79.899 Other long term (current) drug therapy
CPT/HCPCS: 36415; 71045; 78580; 80048; 80076; 80307; 80320; 81001; 81025; 82803; 82947; 83605; 83690; 83735; 83880; 84145; 84484; 85025; 85379; 85610; 85730; 86140; 87040; 93005; 93010; 93306; 93308; 96365; 96367; 96375; 99284; 99285; A9540; J0573; J1940; J2543; J3370

== ENCOUNTER 2020-06-15 06:25 | Emergency (ER) | payer OTHER, SELFPAY ==
[2020-06-15 06:36] VITALS: BP 148/80; PULSE 73; RESP 16; TEMP 36.7; O2SAT 100; BMI 33.6
--- NOTE | 2020-06-15 06:41 | ED.SOB ---
HPI - SOB/Dyspnea General Chief Complaint: Dyspnea Stated Complaint: sob Time Seen by Provider: 06/15/20 06:41 Source: patient and old records reviewed Mode of arrival: EMS Limitations: no limitations History of Present Illness MD elicited complaint: shortness of breath Pertinent past history: congestive heart failure Onset (ago): hour(s) Context: recent illness Timing: constant Severity: moderate Exacerbating factors: lying flat Relieving factors: oxygen Known history of: congestive heart failure Associated symptoms: cough and lower extremity pain Treatment prior to arrival: oxygen Related Data Home Medications Medication Instructions Recorded Confirmed aspirin 81 mg PO DAILY 06/11/20 06/12/20 atorvastatin 80 mg PO DAILY 06/11/20 06/11/20 buprenorphine-naloxone [Suboxone] 1 film SUBLINGUAL DAILY 06/11/20 06/11/20 cetirizine 10 mg PO DAILY 06/11/20 06/11/20 cholecalciferol (vitamin D3) 50 mcg PO DAILY 06/11/20 06/11/20 ferrous gluconate 324 mg PO DAILY 06/11/20 06/11/20 gabapentin 600 mg PO TID 06/11/20 06/11/20 hydralazine 25 mg PO BID 06/11/20 06/11/20 insulin glargine 28 unit SUBCUT QAM 06/11/20 06/11/20 insulin lispro 1 sliding scale dose SUBCUT 06/11/20 06/11/20 USEASDIRECTD loratadine 10 mg PO DAILY 06/11/20 06/11/20 mirtazapine 15 mg PO BEDTIME 06/11/20 06/11/20 omeprazole 40 mg PO DAILY 06/11/20 06/11/20 tamsulosin 0.4 mg PO DAILY 06/11/20 06/11/20 Previous Rx's Medication Instructions Recorded carvedilol 12.5 mg PO BID #120 tab 06/14/20 furosemide [Lasix] 80 mg PO BID #60 tab 06/14/20 hydralazine 50 mg PO BID #120 tab 06/14/20 isosorbide dinitrate 5 mg PO 0800,1300 #30 tab 06/14/20 Allergies Allergy/AdvReac Type Severity Reaction Status Date / Time No Known Allergies Allergy Verified 06/15/20 06:28 [No Known Allergies*] Review of Systems Review of Systems: Constitutional : No Fever, No Chills ENT/Mouth : No sore throat, No Rhinorrhea, No Swallowing Difficulty Eyes: No Eye Pain, No Swelling, No Redness Cardiovascular : No Chest Pain, positive SOB, positive Orthopnea, positive Edema Respiratory : positive Cough, No Sputum, No Wheezing, positive dyspnea Gastrointestinal : No Nausea, No Vomiting, No Diarrhea, No abdominal Pain, No Hematochezia, No Melena Genitourinary : No Dysuria, No Urinary Frequency, No Hematuria Musculoskeletal : No joint pain, No Myalgias Skin : No Skin Lesions, No rash Neuro : No Weakness, No Numbness, No Dizziness, No Headache Psych : No Anxiety/Panic, No Depression Heme/Lymph: No Bruising, No Lymphadenopathy Endocrine : No Polyuria, No Polydipsia All other systems reviewed and are negative [facility] Past Medical History Medical History CAD (coronary artery disease) CHF (congestive heart failure) Chronic kidney disease (CKD) Heart murmur Hemopericardium Hepatitis C Heroin abuse Social History Social History (Updated 06/15/20 @ 06:48 by Jill Salinas DO) Household Members: Significant Other Housing: House Alcohol intake: former Smoking Status: Never smoker Advance Directives: No Advance Directives Information Provided: Yes service: No Current occupational status: disabled Physical Exam Vital Signs and I&O and Narrative: Vital Signs and I&O: Vital Signs Temp 98.1 F 06/15/20 06:36 Pulse 72 06/15/20 07:26 Resp 15 06/15/20 07:26 BP 137/84 06/15/20 07:26 Pulse Ox 100 06/15/20 07:26 Intake & Output 06/14/20 06/15/20 06/15/20 18:59 06:59 18:59 Weight 88.931 kg Body Mass Index 33.6 Appearance: Alert. Oriented X3. No acute distress. Eyes: Pupils equal, round and reactive to light. ENT: Pharynx normal. Neck: Normal inspection. Neck supple. CVS: Normal heart rate and rhythm. Pulses decreased Respiratory: No respiratory distress. Breath sounds decreased, rales noted Abdomen: Soft and nontender. Skin: Skin warm and dry. Normal skin color. Normal skin turgor. Extremities 4+ pitting lower extremity edema. Weeping lesions no infection under left leg Neuro: Oriented X 3. No motor deficit. No sensory deficit. Course Reevaluation(s) Reevaluation #1: patient alert and oriented now states she wants to leave, does not want to stay in the ED, answering questions appropriately Reevaluation #2: I've attempted to get the patient to stay but she refuses, BUN and CR at her trend she is not encephalopathic at this time, BNP and trop at baseline, she still refuses to stay, no SI, aware of my concerns, plans to leave ED MDM - SOB/Dyspnea MDM Narrative Medical decision making narrative: 49 yo female with hx of CKD CHF EF 20%, NSTEMI with PCI, afib not on AC therapy, states she was just discharged from here was at home and felt short of breath, notes her LE edema is the same, took her medications, has cough, denies pain at this time will need labs, EKG, CXR, IV lasix likely admit vs dispo to rehab pending results, PE seems unlikely given recent negative PE workup Lab Data Result diagrams: 06/15/20 07:32 06/15/20 07:32 Labs: Lab Results 06/15/20 06/15/20 06/15/20 Range/Units 07:32 07:32 07:32 WBC 8.0 (4.8-10.8) X10*3/uL RBC 3.70 L (4.20-5.50) X10*6/uL Hgb 8.9 L (12.0-16.0) g/dl Hct 29.9 L (37-47) % MCV 80.8 (80-98) fL MCH 24.1 L (27.0-33.0) pg MCHC 29.8 L (31.0-35.0) g/dl RDW 19.3 H (11.0-16.0) % Plt Count 288 (160-400) X10*3/uL MPV 12.2 (9.4-12.3) fL Immature Gran % (Auto) 0.3 (0.0-0.4) % Neut % (Auto) 62.7 (45-73) % Lymph % (Auto) 13.3 L (20-40) % [place] % (Auto) 12.4 H (2-11) % Eos % (Auto) 10.3 H (0-4) % Baso % (Auto) 1.0 (0-2) % Neut # (Auto) 5.0 (2.0-8.3) X10*3/uL Lymph # (Auto) 1.1 L (1.2-4.9) X10*3/uL [place] # (Auto) 1.0 (0.1-1.2) X10*3/uL Eos # (Auto) 0.8 H (0.0-0.4) X10*3/uL Baso # (Auto) 0.1 (0.0-0.2) X10*3/uL Abs Immat Gran (auto) 0.02 (0.00-0.03) X10*3/uL Absolute Nucleated RBC 0.000 (0.0-0.012) X10*3/uL Nucleated RBC % (auto) 0.0 (0.0-0.2) /100WBC PT (10.8-13.0) SEC INR (0.9-1.1) APTT (24.1-38.0) SEC VBG pH (7.32-7.43) VBG pCO2 mmhg VBG Oxygen Liters/Min VBG pO2 mmhg VBG HCO3 mmol/L VBG O2 Saturation % VBG Base Excess mmol/L Sodium 132 L (135-145) mmol/L Potassium 4.0 (3.3-5.1) mmol/l Chloride 90 L (96-108) mmol/L Carbon Dioxide 31 H (22-29) mmol/L Anion Gap 15 (12-20) BUN 107 H* (9-16) mg/dL Creatinine 2.64 H (0.5-1.4) mg/dL Estim Creat Clear Calc 28.1 Estimated GFR 19 POC Glucose (60-115) mg/dL Random Glucose 270 H D (60-115) mg/dL Lactic Acid 1.3 (0.5-2.0) mmol/L Calcium 8.4 (8.4-10.2) mg/dL Magnesium 2.3 (1.6-2.6) mg/dL Total Bilirubin 0.5 (0.0-1.0) mg/dL Direct Bilirubin 0.3 (0.0-0.5) mg/dL AST 17 (5-31) U/L ALT 14 (0-31) U/L Alkaline Phosphatase 112 (39-117) U/L Ammonia (13-55) umol/L Troponin I High Sens (<3.5-17.0) ng/L B-Natriuretic Peptide (<100) pg/mL Total Protein 6.6 (6.5-8.0) g/dL Albumin 3.3 L (3.5-5.0) g/dL Lipase 38 (8-78) U/L 06/15/20 06/15/20 06/15/20 Range/Units 07:32 07:32 07:32 WBC (4.8-10.8) X10*3/uL RBC (4.20-5.50) X10*6/uL Hgb (12.0-16.0) g/dl Hct (37-47) % MCV (80-98) fL MCH (27.0-33.0) pg MCHC (31.0-35.0) g/dl RDW (11.0-16.0) % Plt Count (160-400) X10*3/uL MPV (9.4-12.3) fL Immature Gran % (Auto) (0.0-0.4) % Neut % (Auto) (45-73) % Lymph % (Auto) (20-40) % [place] % (Auto) (2-11) % Eos % (Auto) (0-4) % Baso % (Auto) (0-2) % Neut # (Auto) (2.0-8.3) X10*3/uL Lymph # (Auto) (1.2-4.9) X10*3/uL [place] # (Auto) (0.1-1.2) X10*3/uL Eos # (Auto) (0.0-0.4) X10*3/uL Baso # (Auto) (0.0-0.2) X10*3/uL Abs Immat Gran (auto) (0.00-0.03) X10*3/uL Absolute Nucleated RBC (0.0-0.012) X10*3/uL Nucleated RBC % (auto) (0.0-0.2) /100WBC PT (10.8-13.0) SEC INR (0.9-1.1) APTT (24.1-38.0) SEC VBG pH 7.38 (7.32-7.43) VBG pCO2 55 mmhg VBG Oxygen Liters/Min TNP VBG pO2 41 mmhg VBG HCO3 31 mmol/L VBG O2 Saturation 70.8 % VBG Base Excess 5.2 mmol/L Sodium (135-145) mmol/L Potassium (3.3-5.1) mmol/l Chloride (96-108) mmol/L Carbon Dioxide (22-29) mmol/L Anion Gap (12-20) BUN (9-16) mg/dL Creatinine (0.5-1.4) mg/dL Estim Creat Clear Calc Estimated GFR POC Glucose (60-115) mg/dL Random Glucose (60-115) mg/dL Lactic Acid (0.5-2.0) mmol/L Calcium (8.4-10.2) mg/dL Magnesium (1.6-2.6) mg/dL Total Bilirubin (0.0-1.0) mg/dL Direct Bilirubin (0.0-0.5) mg/dL AST (5-31) U/L ALT (0-31) U/L Alkaline Phosphatase (39-117) U/L Ammonia 35 (13-55) umol/L Troponin I High Sens 77.0 H D (<3.5-17.0) ng/L B-Natriuretic Peptide 2175 H (<100) pg/mL Total Protein (6.5-8.0) g/dL Albumin (3.5-5.0) g/dL Lipase (8-78) U/L 06/15/20 06/15/20 Range/Units 07:52 07:53 WBC (4.8-10.8) X10*3/uL RBC (4.20-5.50) X10*6/uL Hgb (12.0-16.0) g/dl Hct (37-47) % MCV (80-98) fL MCH (27.0-33.0) pg MCHC (31.0-35.0) g/dl RDW (11.0-16.0) % Plt Count (160-400) X10*3/uL MPV (9.4-12.3) fL Immature Gran % (Auto) (0.0-0.4) % Neut % (Auto) (45-73) % Lymph % (Auto) (20-40) % [place] % (Auto) (2-11) % Eos % (Auto) (0-4) % Baso % (Auto) (0-2) % Neut # (Auto) (2.0-8.3) X10*3/uL Lymph # (Auto) (1.2-4.9) X10*3/uL [place] # (Auto) (0.1-1.2) X10*3/uL Eos # (Auto) (0.0-0.4) X10*3/uL Baso # (Auto) (0.0-0.2) X10*3/uL Abs Immat Gran (auto) (0.00-0.03) X10*3/uL Absolute Nucleated RBC (0.0-0.012) X10*3/uL Nucleated RBC % (auto) (0.0-0.2) /100WBC PT 14.0 H (10.8-13.0) SEC INR 1.2 H (0.9-1.1) APTT 28.1 (24.1-38.0) SEC VBG pH (7.32-7.43) VBG pCO2 mmhg VBG Oxygen Liters/Min VBG pO2 mmhg VBG HCO3 mmol/L VBG O2 Saturation % VBG Base Excess mmol/L Sodium (135-145) mmol/L Potassium (3.3-5.1) mmol/l Chloride (96-108) mmol/L Carbon Dioxide (22-29) mmol/L Anion Gap (12-20) BUN (9-16) mg/dL Creatinine (0.5-1.4) mg/dL Estim Creat Clear Calc Estimated GFR POC Glucose 266 H (60-115) mg/dL Random Glucose (60-115) mg/dL Lactic Acid (0.5-2.0) mmol/L Calcium (8.4-10.2) mg/dL Magnesium (1.6-2.6) mg/dL Total Bilirubin (0.0-1.0) mg/dL Direct Bilirubin (0.0-0.5) mg/dL AST (5-31) U/L ALT (0-31) U/L Alkaline Phosphatase (39-117) U/L Ammonia (13-55) umol/L Troponin I High Sens (<3.5-17.0) ng/L B-Natriuretic Peptide (<100) pg/mL Total Protein (6.5-8.0) g/dL Albumin (3.5-5.0) g/dL Lipase (8-78) U/L ECG Data Attestation: I personally reviewed and interpreted this ECG as follows: ECG interpretation date: 06/15/20 ECG interpretation time: 06:50 Interpretation: Rate: 73 Rhythm: NSR [place]: left Normal P waves. Normal [place]. widened QRS complex. ST T wave : nonspecific qTC: prolonged prior studies: no acute change The study has been interpreted contemporaneously by me. . Discharge Plan Discharge Clinical Impression: Congestive heart failure Qualifiers: Heart failure type: systolic Heart failure chronicity: chronic Qualified Code(s): I50.22 - Chronic systolic (congestive) heart failure Patient Disposition: Left Against Medical Advice Instructions: Heart Failure (ED), Against Medical Advice (ED) Prescriptions: No Action atorvastatin 80 mg Tablet 80 mg PO DAILY RF: 0 gabapentin 600 mg Tablet 600 mg PO TID RF: 0 cetirizine 10 mg Tablet 10 mg PO DAILY RF: 0 hydralazine 25 mg Tablet 25 mg PO BID RF: 0 aspirin 81 mg Tablet,Delayed Release (Dr/Ec) 81 mg PO DAILY RF: 0 ferrous gluconate 324 mg (36 mg iron) Tablet 324 mg PO DAILY RF: 0 cholecalciferol (vitamin D3) 50 mcg (2,000 unit) Tablet 50 mcg PO DAILY RF: 0 buprenorphine-naloxone [Suboxone] 4-1 mg Film 1 film SUBLINGUAL DAILY RF: 0 insulin glargine 100 unit/mL Solution 28 unit SUBCUT QAM RF: 0 omeprazole 40 mg Capsule,Delayed Release(Dr/Ec) 40 mg PO DAILY RF: 0 tamsulosin 0.4 mg Capsule 0.4 mg PO DAILY RF: 0 mirtazapine 15 mg Tablet 15 mg PO BEDTIME RF: 0 insulin lispro 100 unit/mL Solution 1 sliding scale dose SUBCUT USEASDIRECTD RF: 0 loratadine 10 mg Tablet 10 mg PO DAILY RF: 0 carvedilol 6.25 mg Tablet 12.5 mg PO BID Qty: 120 RF: 0 hydralazine 25 mg Tablet 50 mg PO BID Qty: 120 RF: 0 isosorbide dinitrate 5 mg Tablet 5 mg PO 0800,1300 Qty: 30 RF: 0 furosemide [Lasix] 80 mg tablet 80 mg PO BID Qty: 60 RF: 0 Referrals: Nazanin Veliz DO [Primary Care Provider] - 2 days
--- NOTE | 2020-06-15 06:43 | XR_ITS ---
EXAMINATION: XR CHEST CLINICAL INFORMATION: Dyspnea COMPARISON: Chest radiographs 06/11/2020, 06/08/2019 TECHNIQUE: Portable upright AP view of the chest was obtained. FINDINGS: There are low lung volumes with some mild elevation right diaphragm. Again, there is effusion and airspace opacity right base. The left lung is clear. The vascularity is within normal. There may be trace left effusion blunting the costophrenic angle. The cardiopericardial silhouette is mildly enlarged similar to prior study. The hilar contours and bony structures are unremarkable. IMPRESSION: 1. Right effusion and airspace opacities right lower zone consistent with recent exam. 2. Low lung volumes. Mild elevation right diaphragm, probable new atelectasis right base. Question new trace left effusion.
[2020-06-15 07:26] VITALS: BP 137/84; PULSE 72; RESP 15; O2SAT 100
[2020-06-15 07:43] LABS: MANUAL DIFF FLAG NO
[2020-06-15 07:44] LABS: Basophils Absolute Auto 0.1 X10*3/uL (0.0-0.2); Eosinophils Absolute Auto 0.8 X10*3/uL (0.0-0.4); Eosinophils Percent Auto 10.3 % (0-4); Hematocrit 29.9 % (37-47); Hemoglobin 8.9 g/dl (12.0-16.0); Imm Gran Abs Auto 0.02 X10*3/uL (0.00-0.03); Imm Gran Pct Auto 0.3 % (0.0-0.4); Lymphocytes Absolute Auto 1.1 X10*3/uL (1.2-4.9); Lymphocytes Percent Auto 13.3 % (20-40); Mean Corpuscular HGB Conc 29.8 g/dl (31.0-35.0); Mean Corpuscular Hemoglobin 24.1 pg (27.0-33.0); Mean Corpuscular Volume 80.8 fL (80-98); Mean Platelet Volume 12.2 fL (9.4-12.3); Monocytes Percent Auto 12.4 % (2-11); Neutrophils Percent Auto 62.7 % (45-73); Platelet Count 288 X10*3/uL (160-400); Red Cell Distribution Width 19.3 % (11.0-16.0)
[2020-06-15 07:56] LABS: Glucose, Whole Blood 266 mg/dL (60-115)
[2020-06-15 08:09] LABS: PCO2 VBG 55 mmhg; PO2 VBG 41 mmhg; pH VBG 7.38 (7.32-7.43)
[2020-06-15 08:10] LABS: Base Excess VBG 5.2 mmol/L; HCO3 VBG 31 mmol/L; Oxygen Saturation VBG 70.8 %
[2020-06-15 08:12] LABS: Ammonia 35 umol/L (13-55); Lactic Acid 1.3 mmol/L (0.5-2.0)
[2020-06-15 08:14] LABS: INTERNATIONAL NORM RATIO 1.2 (0.9-1.1)
--- NOTE | 2020-06-15 08:16 | PC.NURSE ---
PT REQUESTED GIVEN DIET HERMANN LAURENT AND CRACKERS. PT REMOVED 02 WHICH WAS AT 3L/M VIA N/V STATING I AM FINE, I DON'T NEED IT. I WANT TO GO HOME. PT 02 AT THIS TIME IS 91-93% ON ROOM AIR, MD AWARE. VS [id number].
[2020-06-15 08:17] LABS: Partial Thromboplastin Time 28.1 SEC (24.1-38.0)
[2020-06-15 08:37] LABS: Alanine Aminotransferase 14 U/L (0-31); Albumin Level 3.3 g/dL (3.5-5.0); Alkaline Phosphatase 112 U/L (39-117); Anion Gap 15 (12-20); Aspartate Amino Transferase 17 U/L (5-31); Bilirubin Direct 0.3 mg/dL (0.0-0.5); Bilirubin Total 0.5 mg/dL (0.0-1.0); Blood Urea Nitrogen 107 mg/dL (9-16); Calcium 8.4 mg/dL (8.4-10.2); Carbon Dioxide 31 mmol/L (22-29); Chloride 90 mmol/L (96-108); Creatinine Clr Calc Pharmacy 28.1; Estimated Glomerular Filt Rate 19; Glucose Random 270 mg/dL (60-115); Lipase 38 U/L (8-78); Magnesium 2.3 mg/dL (1.6-2.6); Sodium 132 mmol/L (135-145); Total Protein 6.6 g/dL (6.5-8.0)
[2020-06-15 08:38] LABS: B Type Natriuretic Peptide 2175 pg/mL (<100)
== END 2020-06-15 10:38 | disposition left against medical advice (07) ==
PROVIDERS: Emergency Provider Emergency Medicine; PCP Internal Medicine
DX: I50.22 Chronic systolic (congestive) heart failure (principal); I25.10 Atherosclerotic heart disease of native coronary artery without angina pectoris; Z79.899 Other long term (current) drug therapy; Z87.891 Personal history of nicotine dependence
CPT/HCPCS: 36415; 71045; 80048; 80076; 82140; 82803; 82947; 83605; 83690; 83735; 83880; 84484; 85025; 85610; 85730; 87040; 99284

== ENCOUNTER 2020-06-15 16:05 | Inpatient (IN) | payer OTHER, SELFPAY ==
--- NOTE | 2020-06-15 | ECG_ITS ---
Test Reason : SHORTNESS OF BREATH Blood Pressure : / mmHG Vent. Rate : 083 BPM Atrial Rate : 083 BPM P-R Int : 174 ms QRS Dur : 112 ms QT Int : 402 ms P-R-T Axes : 066 -15 131 degrees QTc Int : 472 ms Normal sinus rhythm Possible Left atrial enlargement ST & T wave abnormality, consider lateral ischemia Prolonged QT Left axis deviation Abnormal ECG When compared with ECG of 15-JUN-2020 06:36, No significant change was found Referred By: Fabrizio Coyle Electronically Signed By:JOSIAH GARZA MD
[2020-06-15 16:19] VITALS: BP 153/69; PULSE 83; PULSE 84; RESP 16; RESP 20; TEMP 36.7; O2SAT 98; BMI 29.6
[2020-06-15 16:37] VITALS: O2SAT 99
--- NOTE | 2020-06-15 16:42 | PC.NURSE ---
MD AT BEDSIDE FOR EVALUATION. AWAITING MD ORDERS.
--- NOTE | 2020-06-15 16:49 | ED_ITS ---
HPI - SOB/Dyspnea General Chief Complaint: Dyspnea Stated Complaint: SOB Time Seen by Provider: 06/15/20 16:33 Source: patient History of Present Illness HPI Narrative: 49-year-old female with chief complaint of shortness of breath. Patient was seen earlier this morning and signed out AMA. Patient was stating that for the past couple days and then having increasing shortness of breath. No fevers no chills. Has been taking her p.o. Lasix without assistance. Denies chest pain denies abdominal pain denies nausea vomiting diarrhea. patient does state increased bilateral leg swelling MD elicited complaint: shortness of breath Severity: mild Related Data Home Medications Medication Instructions Recorded Confirmed aspirin 81 mg PO DAILY 06/11/20 06/15/20 atorvastatin 80 mg PO DAILY 06/11/20 06/15/20 buprenorphine-naloxone [Suboxone] 1 film SUBLINGUAL DAILY 06/11/20 06/15/20 cetirizine 10 mg PO DAILY 06/11/20 06/15/20 cholecalciferol (vitamin D3) 50 mcg PO DAILY 06/11/20 06/15/20 gabapentin 600 mg PO TID 06/11/20 06/15/20 insulin glargine 28 unit SUBCUT QAM 06/11/20 06/15/20 insulin lispro 1 sliding scale dose SUBCUT 06/11/20 06/15/20 USEASDIRECTD mirtazapine 15 mg PO BEDTIME 06/11/20 06/15/20 omeprazole 40 mg PO DAILY 06/11/20 06/15/20 tamsulosin 0.4 mg PO DAILY 06/11/20 06/15/20 acetaminophen [Mapap Arthritis 650 mg PO TID 06/15/20 06/15/20 Pain] amlodipine 10 mg PO DAILY 06/15/20 06/15/20 hydralazine 25 mg PO QID 06/15/20 06/15/20 metolazone 5 mg PO DAILY 06/15/20 06/15/20 Previous Rx's Medication Instructions Recorded carvedilol 12.5 mg PO BID #120 tab 06/14/20 furosemide [Lasix] 80 mg PO BID #60 tab 06/14/20 isosorbide dinitrate 5 mg PO 0800,1300 #30 tab 06/14/20 Allergies Allergy/AdvReac Type Severity Reaction Status Date / Time No Known Allergies Allergy Verified 06/15/20 06:28 [No Known Allergies*] Review of Systems Constitutional: Comments: Constitutional : No Weight loss, No Fever, No Chills, No Night Sweats, No Fatigue, No Malaise ENT/Mouth : No Hearing loss, No Ear Pain, No Nasal Congestion, No Sinus Pain, No Hoarseness, No sore throat, No Rhinorrhea, No Swallowing Difficulty Eyes: No Eye Pain, No Swelling, No Redness, No Foreign Body, No Discharge, No Vision Changes Cardiovascular : No Chest Pain, mild SOB, mild Dyspnea on Exertion, No Orthopnea, positive bilateral rails the base bilaterally Respiratory : No Cough, No Sputum, No Wheezing, No Smoke Exposure, No Dyspnea Gastrointestinal : No Nausea, No Vomiting, No Diarrhea, No Constipation, No abdominal Pain, No Hematochezia, No Melena Genitourinary : no irregular bleeding, No Dysuria, No Urinary Frequency, No Hematuria, No Urinary Incontinence, No Urgency, No Flank Pain, No Urinary Flow Changes, No Hesitancy Musculoskeletal : No joint pain, No Myalgias, bilateral pedal edema. Mild skin abrasion to left naranjo Skin : No Skin Lesions, No rash Neuro : No Weakness, No Numbness, No Paresthesias, No Loss of Consciousness, No Dizziness, No Headache Psych : No Anxiety/Panic, No Depression, No SI/HI/AH/VH, No Social Issues, Heme/Lymph: No Bruising, No Bleeding,No Lymphadenopathy Endocrine : No Polyuria, No Polydipsia, No Temperature Intolerance PMFSH Past Medical History Medical History CAD (coronary artery disease) CHF (congestive heart failure) Chronic kidney disease (CKD) Heart murmur Hemopericardium Hepatitis C Heroin abuse Social History Social History Household Members: Significant Other Housing: House Do you presently have visiting nurse or other home services: Yes Alcohol intake: never Smoking Status: Never smoker Use of substances other than those prescribed or required for medical reasons: No Have you been hit, kicked, punched, or otherwise hurt by someone within the past year? If so, by whom?: No Do you feel safe in your current relationship?: Yes Is there a partner from a previous relationship who is making you feel unsafe now?: No Are you made to feel afraid or neglected: No Advance Directives: No Advance Directives Information Provided: Yes Do you have thoughts of harming others: None service: No Current occupational status: disabled Physical Exam Vital Signs and I&O and Narrative: Vital Signs and I&O: Vital Signs Temp 97.6 F 06/15/20 23:52 Pulse 74 06/15/20 23:52 Resp 16 06/15/20 23:52 BP 114/63 06/15/20 23:52 Pulse Ox 96 06/16/20 00:00 Intake & Output 06/15/20 06/15/20 06/16/20 06:59 18:59 06:59 Weight 88.451 kg Body Mass Index 29.6 vital signs reviewed Const: Other: Appearance: Alert. Oriented X3. mild acute distress. Eyes: Pupils equal, round and reactive to light. ENT: Pharynx normal. Neck: Normal inspection. Neck supple. CVS: Normal heart rate and rhythm. Pulses normal. Respiratory: mild respiratory distress. Bilateral rales at the bases. No wheezing. No crepitus Abdomen: Soft and nontender. Skin: Skin warm and dry. Normal skin color. Normal skin turgor. Extremities: bilateral lower leg edema pitting 2/4 no erythema. No lacerations. Neurovascularly intact Neuro: Oriented X 3. No motor deficit. No sensory deficit. Course Course Course Narrative: records reviewed of earlier this morning patient signed out AMA. medical records revealed MPRESSION: Normal perfusion scan. No evidence of pulmonary embolism. Dictated By:ESTEPHANIA SHAH MD Signed By:<Electronically signed by ESTEPHANIA SHAH MD in OV>06/11/202053 patient with recent study for pulmonary embolism in which I believe is less likely to for the patient have now. Patient given IV Lasix for fluid overload patient did go home after AMA did not feel better will need admission for IV diuretics patient aware MDM - SOB/Dyspnea Lab Data Attestation: I reviewed the patient's lab results. Result diagrams: 06/15/20 17:37 06/15/20 17:36 Labs: Lab Results 06/15/20 06/15/20 06/15/20 Range/Units 17:36 17:37 17:37 WBC 8.1 (4.8-10.8) X10*3/uL RBC 3.88 L (4.20-5.50) X10*6/uL Hgb 9.3 L (12.0-16.0) g/dl Hct 31.1 L (37-47) % MCV 80.2 (80-98) fL MCH 24.0 L (27.0-33.0) pg MCHC 29.9 L (31.0-35.0) g/dl RDW 19.1 H (11.0-16.0) % Plt Count 278 (160-400) X10*3/uL MPV 12.1 (9.4-12.3) fL Immature Gran % (Auto) 0.5 H (0.0-0.4) % Neut % (Auto) 71.4 (45-73) % Lymph % (Auto) 9.7 L (20-40) % Austin % (Auto) 10.1 (2-11) % Eos % (Auto) 7.3 H (0-4) % Baso % (Auto) 1.0 (0-2) % Lymph # (Auto) 0.8 L (1.2-4.9) X10*3/uL Austin # (Auto) 0.8 (0.1-1.2) X10*3/uL Eos # (Auto) 0.6 H (0.0-0.4) X10*3/uL Baso # (Auto) 0.1 (0.0-0.2) X10*3/uL Abs Immat Gran (auto) 0.04 H (0.00-0.03) X10*3/uL Absolute Neuts (auto) 5.8 (2.0-8.3) X10*3/uL Absolute Nucleated RBC 0.000 (0.0-0.012) X10*3/uL Nucleated RBC % (auto) 0.0 (0.0-0.2) /100WBC Sodium 130 L (135-145) mmol/L Potassium 4.3 (3.3-5.1) mmol/l Chloride 89 L (96-108) mmol/L Carbon Dioxide 31 H (22-29) mmol/L Anion Gap 14 (12-20) BUN 105 H* (9-16) mg/dL Creatinine 2.83 H (0.5-1.4) mg/dL Estim Creat Clear Calc 28.2 Estimated GFR 18 Random Glucose 596 H* (60-115) mg/dL Calcium 8.3 L (8.4-10.2) mg/dL Troponin I High Sens 54.2 H (<3.5-17.0) ng/L B-Natriuretic Peptide 2566 H (<100) pg/mL ECG Data Attestation: I personally reviewed and interpreted this ECG as follows: Interpretation: EKG read by me at 83 beats per minute normal sinus rhythm. Right-sided access. Normal ST-T segments normal NM interval Discharge Plan Discharge Clinical Impression: Acute respiratory distress, Hyperglycemia Volume overload Qualifiers: Hypervolemia type: unspecified Qualified Code(s): E87.70 - Fluid overload, unspecified Congestive heart failure Qualifiers: Heart failure type: systolic Patient Disposition: Admitted As Inpatient Interventions: Admission Worksheet (ED) Last Done: 06/15/20 21:58 Discharge Date/Time: 06/15/20 22:00
[2020-06-15] MEDS: Albuterol/Iprat 2.5/0.5MG 3 ML AMPUL.NEB INHALE (17:11)
[2020-06-15] MEDS: Lidocaine HCl 2 % MPF 5 ML VIAL INFILTRATI (17:27)
[2020-06-15] MEDS: Furosemide 100 MG/10 ML VIAL 60 MG IVPUSH (17:34)
[2020-06-15 17:41] LABS: MANUAL DIFF FLAG NO
--- NOTE | 2020-06-15 17:43 | PC.NURSE ---
MD AT BEDSIDE FOR ULTRASOUND GUIDED PERIPHERAL IV . PATIENT TOLERATED PLACEMENT
[2020-06-15 17:45] LABS: Basophils Absolute Auto 0.1 X10*3/uL (0.0-0.2); Eosinophils Absolute Auto 0.6 X10*3/uL (0.0-0.4); Eosinophils Percent Auto 7.3 % (0-4); Hematocrit 31.1 % (37-47); Hemoglobin 9.3 g/dl (12.0-16.0); Imm Gran Abs Auto 0.04 X10*3/uL (0.00-0.03); Imm Gran Pct Auto 0.5 % (0.0-0.4); Lymphocytes Absolute Auto 0.8 X10*3/uL (1.2-4.9); Lymphocytes Percent Auto 9.7 % (20-40); Mean Corpuscular HGB Conc 29.9 g/dl (31.0-35.0); Mean Corpuscular Volume 80.2 fL (80-98); Mean Platelet Volume 12.1 fL (9.4-12.3); Monocytes Absolute Auto 0.8 X10*3/uL (0.1-1.2); Monocytes Percent Auto 10.1 % (2-11); Neutrophils Absolute Auto 5.8 X10*3/uL (2.0-8.3); Neutrophils Percent Auto 71.4 % (45-73); Platelet Count 278 X10*3/uL (160-400); Red Blood Count 3.88 X10*6/uL (4.20-5.50); Red Cell Distribution Width 19.1 % (11.0-16.0); White Blood Count 8.1 X10*3/uL (4.8-10.8)
[2020-06-15 18:25] LABS: B Type Natriuretic Peptide 2566 pg/mL (<100); Troponin-I High Sensitivity 54.2 ng/L (<3.5-17.0)
[2020-06-15 18:27] LABS: Anion Gap 14 (12-20); Blood Urea Nitrogen 105 mg/dL (9-16); Calcium 8.3 mg/dL (8.4-10.2); Carbon Dioxide 31 mmol/L (22-29); Chloride 89 mmol/L (96-108); Creatinine Clr Calc Pharmacy 28.2; Estimated Glomerular Filt Rate 18; Glucose Random 596 mg/dL (60-115); Potassium 4.3 mmol/l (3.3-5.1); Sodium 130 mmol/L (135-145)
--- NOTE | 2020-06-15 19:49 | PC.NURSE ---
REPORT GIVEN TO AGA ON IMC, AWAITING HOSP. ORDERS TO TRANSFER PT
--- NOTE | 2020-06-15 20:36 | PM.IMHP ---
History of Present Illness Date of Service: 06/15/20 Chief Complaint: SOB 49 y/o female with an extensive cardiac history including ischemic cardiomyopathy and low EF CHF (15-20%) who presented from home c/o SOB since yesterday. Patient was initially evaluated today in the am but patient signed AMS, now presents with same complains for evaluation. Patient has been admitted twice this year (on may 28 due alcoholic pancreatitis and then again in the present month due to DKA/SERGO and NSTEMI, recently discharged 2 days ago). Patient reports now that for the past 2 days has been having worsening difficulty breathing associated with LE swelling. Denies any chest pain, nausea, vomiting, sick contacts or recent travel. Does reports occasional dry cough. Patient was immediately tested for covid and placed on isolation, current vitals are 153/69, HR stable, no evidence of fever. Labs are pertinent for Na of 130, Hgb 9.3 (baseline), Glucose of 536, creatinine of 2.83 (previous of 2.64), troponin of 77 which decreased to 54.2 and BNP of 2566. CXR per radiology positive for right sided pleural effusion and possible left sided pleural effusion, evidence of atelectasis in the right base. Last echo obtained on previous admission was noted to have EF of 15-20 with level III diastolic dysfunction. Patient was administered lasix 60 mg IV push once, albuterol updraft as well as 10 units of insulin lispro. Off note, no PCI done on previous admission given hx of poor medical compliance of patient. Decision for admission given to medicine. Patient was seen and evaluated at the bedside, laying down in bed in no acute distress. ROS as above otherwise negative. Physical exam positive for LE pitting edema +3, no rales or wheezes on auscultation of the lungs, no evidence of JVD on exam. PMHX: Diabetes, anxiety disorder, depression, CAD, status post myocardial infarction October,, status post PCI with stent placement, ischemic CMOP/CHF, chronic foot ulcers, and left transmetatarsal amputation. PSX: PCI in 2018 with stent placement Toxic habits: hx of alcohol abuse, no hx of smoking or IVDA Review of Systems Cardiovascular: Cardiovascular: Reports dyspnea Respiratory: Respiratory: Reports dyspnea Integumentary/Breasts: Skin/Breast: Reports swelling (bilateral LE ) [facility] Medical History CAD (coronary artery disease) CHF (congestive heart failure) Chronic kidney disease (CKD) Heart murmur Hemopericardium Hepatitis C Heroin abuse Functional capacity: independent ambulation Family history: reviewed and not pertinent Social History Household Members: Significant Other Housing: House Alcohol intake: never Smoking Status: Never smoker Use of substances other than those prescribed or required for medical reasons: No Advance Directives: No Advance Directives Information Provided: Yes service: No Current occupational status: disabled Meds Allergies Allergy/AdvReac Type Severity Reaction Status Date / Time No Known Allergies Allergy Verified 06/15/20 06:28 [No Known Allergies*] Home Medications Medication Instructions Recorded Confirmed Type aspirin 81 mg PO DAILY 06/11/20 06/15/20 History atorvastatin 80 mg PO DAILY 06/11/20 06/15/20 History buprenorphine-naloxone [Suboxone] 1 film SUBLINGUAL DAILY 06/11/20 06/15/20 History cetirizine 10 mg PO DAILY 06/11/20 06/15/20 History cholecalciferol (vitamin D3) 50 mcg PO DAILY 06/11/20 06/15/20 History gabapentin 600 mg PO TID 06/11/20 06/15/20 History insulin glargine 28 unit SUBCUT QAM 06/11/20 06/15/20 History insulin lispro 1 sliding scale dose SUBCUT 06/11/20 06/15/20 History USEASDIRECTD mirtazapine 15 mg PO BEDTIME 06/11/20 06/15/20 History omeprazole 40 mg PO DAILY 06/11/20 06/15/20 History tamsulosin 0.4 mg PO DAILY 06/11/20 06/15/20 History acetaminophen [Mapap Arthritis 650 mg PO TID 06/15/20 06/15/20 History Pain] amlodipine 10 mg PO DAILY 06/15/20 06/15/20 History hydralazine 25 mg PO QID 06/15/20 06/15/20 History metolazone 5 mg PO DAILY 06/15/20 06/15/20 History Physical Exam Vital Signs and Narrative: Vital Signs: Last Vital Signs Temp 98.0 F 10/07/20 16:19 Pulse 84 06/15/20 16:19 Resp 20 06/15/20 16:19 BP 153/69 H 06/15/20 16:19 Pulse Ox 99 06/15/20 16:37 Body Mass Index 29.6 Const: General: cooperative, comfortable and no acute distress Orientation/consciousness: patient oriented x3 HENMT: Head: Yes normal to inspection Eyes: General: appearance normal, both eyes and all related structures Neck: Yes normal visual inspection and Yes no JVD Chest: Chest palpation & inspection: normal inspection of the chest Resp: Effort & Inspection: normal respiratory effort Auscultation: clear to auscultation bilaterally Cardio: Jugular venous distension: no JVD Rate: regular rate Heart sounds: S1 normal heart sound present and S2 normal heart sound present GI: Inspection: Yes normal to inspection Neuro: General: patient oriented x3 Extrem: General: Yes edema (pitting +3) Psych: Appearance: grossly normal Results Labs Labs: Laboratory Tests 06/15/20 06/15/20 06/15/20 17:36 17:37 17:37 WBC 8.1 RBC 3.88 L Hgb 9.3 L Hct 31.1 L MCV 80.2 MCH 24.0 L MCHC 29.9 L RDW 19.1 H Plt Count 278 MPV 12.1 Immature Gran % (Auto) 0.5 H Neut % (Auto) 71.4 Lymph % (Auto) 9.7 L Arthur % (Auto) 10.1 Eos % (Auto) 7.3 H Baso % (Auto) 1.0 Lymph # (Auto) 0.8 L Arthur # (Auto) 0.8 Eos # (Auto) 0.6 H Baso # (Auto) 0.1 Abs Immat Gran (auto) 0.04 H Absolute Neuts (auto) 5.8 Absolute Nucleated RBC 0.000 Nucleated RBC % (auto) 0.0 Sodium 130 L Potassium 4.3 Chloride 89 L Carbon Dioxide 31 H Anion Gap 14 BUN 105 H* Creatinine 2.83 H Estim Creat Clear Calc 28.2 Estimated GFR 18 Random Glucose 596 H* Calcium 8.3 L Troponin I High Sens 54.2 H B-Natriuretic Peptide 2566 H Assessment and Plan (1) Acute on chronic systolic and diastolic heart failure, NYHA class 3: Status: Acute S/p 60 mg IV push in the ED on lasix per ED attending Monitor I and O's daily weights Continue with Lasix 80 mg BID IV Continue with amlodipine 10 mg as ordered Continue with hydralazine home dose Continue with metolazone home dose Continue with isosorbide home dose (2) Cardiorenal syndrome: Status: Acute Monitor renal function closely Nephrology consult (3) Type 1 diabetes: Status: Acute Insulin regimen as ordered Diabetic diet (4) Atrial fibrillation: Qualifiers: Atrial fibrillation type: longstanding persistent Qualified Code(s): I48.11 - Longstanding persistent atrial fibrillation Status: Acute Not on anticoagulation at present EKG sinus rythm (5) Psychotic disorder: Status: Acute continue with mirtazapine home dose (6) CKD (chronic kidney disease) stage 3, GFR 30-59 ml/min: Status: Acute Wosening renal function likely due to cardiotenal syndrome Monitor electrolytes closely Nephrology consult (7) CAD (coronary artery disease): Status: Acute Continue with aspirin home dose continue with atorvastatin home dose (8) Opiate abuse, continuous: Status: Acute continue with suboxone home dose (9) Peripheral neuropathy: Status: Acute continue with gabapentin home dose (10) GERD (gastroesophageal reflux disease): Status: Acute continue with PPI home dose (11) Urinary retention: Status: Acute continue with flomax home dose
--- NOTE | 2020-06-15 21:03 | PC.NURSE ---
10UNITS INSULIN GIVEN PER EMAR, MOY W/HOSPITALIST, WILL GIVE ADDITIONAL 10UNITS NOW, RECHECK POC 20 MINS AFTER PROFESSOR [employer] EN[employer]ONMENT[employer] SCIENCE
[2020-06-15 22:07] VITALS: BP 154/80; PULSE 80; RESP 16; TEMP 36.6; O2SAT 96
[2020-06-15 22:16] LABS: Glucose, Whole Blood 375 mg/dL (60-115)
[2020-06-15] MEDS: Insulin Glargine,Hum.rec.anlog 100 UNIT/ML 10 ML VIAL 28 UNIT SUBCUT (22:50)
[2020-06-15] MEDS: Heparin Sodium,Porcine 5,000 UNIT/ML VIAL 5000 UNIT SUBCUT (22:50)
[2020-06-15 22:51] VITALS: BP 143/60; PULSE 80
[2020-06-15] MEDS: Mirtazapine 15 MG TABLET PO (22:51)
[2020-06-15] MEDS: carvediloL 6.25 MG TABLET 12.5 MG PO (22:51)
[2020-06-15] MEDS: Gabapentin 600 MG TABLET PO (22:51)
[2020-06-15 22:52] VITALS: BP 143/60; PULSE 80
[2020-06-15] MEDS: hydrALAZINE HCl 25 MG TABLET PO (22:52)
[2020-06-15 23:52] VITALS: BP 114/63; PULSE 74; RESP 16; TEMP 36.4; O2SAT 96
[2020-06-16] VITALS (11 sets, daily range): BP systolic 112–138; BP diastolic 57–80; PULSE 66–73; RESP 18; TEMP 36.1–36.8; O2SAT 93–97; BMI 34.6
[2020-06-16 00:01] LABS: Glucose, Whole Blood 334 mg/dL (60-115)
[2020-06-16] MEDS: 0.9 % Sodium Chloride Flush 3 ML SYRINGE 2 ML IVFLUSH ×3 (00:03→15:44)
[2020-06-16 05:30] LABS: Glucose, Whole Blood 319 mg/dL (60-115)
[2020-06-16] MEDS: Heparin Sodium,Porcine 5,000 UNIT/ML VIAL 5000 UNIT SUBCUT ×3 (05:30→20:58)
[2020-06-16] MEDS: Omeprazole 40 MG CAPSULE.DR PO (05:30)
[2020-06-16] MEDS: Insulin Lispro 100 UNIT/ML 3 ML VIAL SUBCUT ×3 (06:28→21:00)
[2020-06-16 07:00] LABS: MANUAL DIFF FLAG NO
[2020-06-16 07:13] LABS: Basophils Absolute Auto 0.1 X10*3/uL (0.0-0.2); Eosinophils Absolute Auto 0.7 X10*3/uL (0.0-0.4); Eosinophils Percent Auto 9.5 % (0-4); Hematocrit 28.8 % (37-47); Hemoglobin 8.8 g/dl (12.0-16.0); Imm Gran Abs Auto 0.02 X10*3/uL (0.00-0.03); Imm Gran Pct Auto 0.3 % (0.0-0.4); Lymphocytes Absolute Auto 0.9 X10*3/uL (1.2-4.9); Lymphocytes Percent Auto 12.1 % (20-40); Mean Corpuscular HGB Conc 30.6 g/dl (31.0-35.0); Mean Corpuscular Hemoglobin 24.6 pg (27.0-33.0); Mean Corpuscular Volume 80.7 fL (80-98); Mean Platelet Volume 12.8 fL (9.4-12.3); Monocytes Absolute Auto 0.6 X10*3/uL (0.1-1.2); Monocytes Percent Auto 8.9 % (2-11); Neutrophils Absolute Auto 4.9 X10*3/uL (2.0-8.3); Neutrophils Percent Auto 68.2 % (45-73); Platelet Count 251 X10*3/uL (160-400); Red Blood Count 3.57 X10*6/uL (4.20-5.50); Red Cell Distribution Width 19.1 % (11.0-16.0); White Blood Count 7.2 X10*3/uL (4.8-10.8)
[2020-06-16 07:59] LABS: Glucose, Whole Blood 196 mg/dL (60-115)
[2020-06-16 08:09] LABS: Anion Gap 14 (12-20); Blood Urea Nitrogen 101 mg/dL (9-16); Calcium 8.3 mg/dL (8.4-10.2); Carbon Dioxide 29 mmol/L (22-29); Chloride 93 mmol/L (96-108); Creatinine Clr Calc Pharmacy 33.4; Estimated Glomerular Filt Rate 20; Glucose Random 284 mg/dL (60-115); Potassium 3.8 mmol/l (3.3-5.1); Sodium 132 mmol/L (135-145)
[2020-06-16] MEDS: Furosemide 100 MG/10 ML VIAL 80 MG IVPUSH (08:33)
[2020-06-16] MEDS: Insulin Glargine,Hum.rec.anlog 100 UNIT/ML 10 ML VIAL 28 UNIT SUBCUT (08:34)
--- NOTE | 2020-06-16 09:27 | PC.NURSE ---
PT refusing bed alarm per title curative specialist and still currently refusing alarm to be placed this AM. She is deemed high fall risk, education given to PT regarding risk of falling. Pt room is located next to nursing station, will continue to monitor. Res Counselor to be made aware
[2020-06-16] MEDS: Isosorbide Dinitrate 5 MG TABLET PO ×2 (10:10→13:57)
[2020-06-16] MEDS: Cholecalciferol (Vitamin D3) 25 MCG TABLET 50 MCG PO (10:10)
[2020-06-16] MEDS: Gabapentin 600 MG TABLET PO ×3 (10:11→20:59)
[2020-06-16] MEDS: Atorvastatin Calcium 80 MG TABLET PO (10:11)
[2020-06-16] MEDS: Tamsulosin HCL 0.4 MG CAPSULE PO (10:11)
[2020-06-16] MEDS: carvediloL 6.25 MG TABLET 12.5 MG PO ×2 (10:11→20:59)
[2020-06-16] MEDS: Aspirin Enteric Coated 81 MG TABLET.DR PO (10:12)
[2020-06-16] MEDS: amLODIPine Besylate 10 MG TABLET PO (10:12)
[2020-06-16] MEDS: hydrALAZINE HCl 25 MG TABLET PO ×4 (10:12→20:59)
[2020-06-16] MEDS: metOLazone 5 MG TABLET PO (10:12)
--- NOTE | 2020-06-16 11:22 | MHC.CM.PN ---
IMM 06/16/20 Female DX HF Lives w S.O. Usman in place. Pt is WC bound. She can transfer with assist. No HCP, ED provided. Pt is interested in completing a HCP. The document completed, placed on chart. DP resume Usman. C transport. CM will follow.
--- NOTE | 2020-06-16 11:26 | PM.CNCAR ---
History of Present Illness History of Present Illness Date of Consult: June 16, 2020 Requesting physician: Viviana Morfin Consult reason: congestive heart failure Chief complaint: SOB Narrative: This is a cardiology consultation regarding congestive heart failure. she has had multiple hospitalizations between [facility] in [facility]. Recent cardiology consultation from [facility] were reviewed.She has a history of coronary artery disease. She underwent drug-eluting stent to the LAD as well as angioplasty to OM1 in 2018. She has ischemic cardiomyopathy with LVEF in the 15 20% range in grade 3 diastolic dysfunction with moderate mitral regurgitation and severe tricuspid regurgitation with pulmonary hypertension. She also has substance abuse disorder, type 1 diabetes hypertension and dyslipidemia as well as chronic hepatitis and stage 4 chronic kidney disease. During the recent hospitalization to [facility], she was put on IV Bumex 4 mg b.i.d. and that apparently helped her diuresis well. It was felt that there was a lot of complaints issues and according to the consultation she was not considered to be a candidate for advanced mechanical therapies. Subsequently, she has been readmitted to [facility] at least twice in the last few days. In the recent admission she insisted on going home a couple of days ago and she still had significant leg swelling upon getting discharged. Now she is readmitted back as her breathing is not good and she has also continued have the leg swelling. No clear angina. Unknown medication compliance at home. Review of Systems Review of Systems: cardiac-positive for shortness of breath. Positive for leg swelling. Negative for angina. Negative for palpitations. Negative for syncopal episodes. Remainder of the 10 system review is negative. [facility] Past Medical History Medical History CAD (coronary artery disease) CHF (congestive heart failure) Chronic kidney disease (CKD) Heart murmur Hemopericardium Hepatitis C Heroin abuse Functional capacity: independent ambulation Family History Family history: reviewed and not pertinent Social History Social History Household Members: Significant Other Housing: House Do you presently have visiting nurse or other home services: Yes Alcohol intake: never Smoking Status: Never smoker Use of substances other than those prescribed or required for medical reasons: No Currently Displaying Signs/Symptoms of Drug Intoxication Withdrawal: No Have you been hit, kicked, punched, or otherwise hurt by someone within the past year? If so, by whom?: No Do you feel safe in your current relationship?: Yes Is there a partner from a previous relationship who is making you feel unsafe now?: No Are you made to feel afraid or neglected: No Advance Directives: No Advance Directives Information Provided: Yes Do you have thoughts of harming others: None service: No Current occupational status: disabled Meds Allergies Allergy/AdvReac Type Severity Reaction Status Date / Time No Known Allergies Allergy Verified 06/15/20 06:28 [No Known Allergies*] Home Medications Medication Instructions Recorded Confirmed Type aspirin 81 mg PO DAILY 06/11/20 06/15/20 History atorvastatin 80 mg PO DAILY 06/11/20 06/15/20 History buprenorphine-naloxone [Suboxone] 1 film SUBLINGUAL DAILY 06/11/20 06/15/20 History cetirizine 10 mg PO DAILY 06/11/20 06/15/20 History cholecalciferol (vitamin D3) 50 mcg PO DAILY 06/11/20 06/15/20 History gabapentin 600 mg PO TID 06/11/20 06/15/20 History insulin glargine 28 unit SUBCUT QAM 06/11/20 06/15/20 History insulin lispro 1 sliding scale dose SUBCUT 06/11/20 06/15/20 History USEASDIRECTD mirtazapine 15 mg PO BEDTIME 06/11/20 06/15/20 History omeprazole 40 mg PO DAILY 06/11/20 06/15/20 History tamsulosin 0.4 mg PO DAILY 06/11/20 06/15/20 History acetaminophen [Mapap Arthritis 650 mg PO TID 06/15/20 06/15/20 History Pain] amlodipine 10 mg PO DAILY 06/15/20 06/15/20 History hydralazine 25 mg PO QID 06/15/20 06/15/20 History metolazone 5 mg PO DAILY 06/15/20 06/15/20 History Physical Exam Vital Signs and I&O and Narrative: Vital Signs and I&O: Vital Signs Temp 98.2 F 06/16/20 08:00 Pulse 66 06/16/20 08:00 Resp 18 06/16/20 08:00 BP 138/78 06/16/20 08:00 Pulse Ox 97 06/16/20 08:00 Comfortable, no distress No pallor, icterus or cyanosis HEENT -unremarkable Cardiac- elevated JVD; normal S1; normal S2; possibly S3 gallop; 2/6 holosystolic murmur heard all over the pericardium Respiratory-normal breath sounds bilaterally, no crackles, no wheeze Abdomen- soft, nontender Neuro- alert and oriented Lower extremities- Bilateral 3+ edema Results Labs and Meds Result diagrams: 06/16/20 06:54 06/16/20 06:54 Lab results: Laboratory Tests 06/15/20 06/15/20 07:32 17:37 Troponin I High Sens 77.0 H D 54.2 H B-Natriuretic Peptide 2566 H EKG Interpretation EKG Comments: EKG shows sinus rhythm with some lateral ST-T changes are nonspecific. Telemetry shows sinus rhythm. Assessment and Plan (1) Acute on chronic systolic and diastolic heart failure, NYHA class 3: Status: Acute (2) PAF (paroxysmal atrial fibrillation): Status: Acute (3) Atherosclerotic cardiovascular disease: Status: Acute (4) SERGO (acute kidney injury): Status: Acute (5) CKD (chronic kidney disease) stage 3, GFR 30-59 ml/min: Status: Acute (6) Type 1 diabetes: Status: Acute Recent echocardiogram- - The left ventricular systolic function is severely decreased. The visually estimated ejection fraction is between 15-20%. - Evidence suggests grade III (severe) diastolic dysfunction. - There is evidence of regional wall motion abnormalities. - There is moderate mitral valve regurgitation. - There is moderate to severe tricuspid valve regurgitation. - Severe pulmonary hypertension is present. - There is a small pericardial effusion. There are no definitive echocardiographic findings of tamponade physiology. Overall, she has severe ischemic cardiomyopathy. She may have diuretic resistance but also unclear compliance at home. We can try to switch her to IV Bumex as apparently at work well in the recent [facility] admission. Need to closely monitor the creatinine. If necessary, we can also ask Nephrology to see. Due to recent hemorrhagic pericardial effusion while on anticoagulation, not a candidate for anticoagulation. we will closely follow her with you.
[2020-06-16 11:37] LABS: Glucose, Whole Blood 122 mg/dL (60-115)
--- NOTE | 2020-06-16 12:23 | PM.PNNEP ---
Subjective Subjective Principal diagnosis: SOB Interval history: Readm for incr SOB and edema. No CP Frustrated Physical Exam Vital Signs and I&O and Narrative: Vital Signs and I&O: Vital Signs Temp 98.2 F 06/16/20 11:40 Pulse 71 06/16/20 11:40 Resp 18 06/16/20 11:40 BP 131/57 L 06/16/20 11:40 Pulse Ox 96 06/16/20 11:40 Intake & Output 06/15/20 06/16/20 06/16/20 18:59 06:59 18:59 Intake Total 360 / 360 240 / 240 Output Total 750 / 750 450 / 450 Balance -390 / -390 -210 / -210 Urine Output (Aver age ml/kg/hr) 0.60 0.36 Weight 88.451 kg 103.4 kg Intake: Intake, Oral Patrick unt 360 / 360 240 / 240 Output: Output, Urine Am ount 750 / 750 450 / 450 Other: Breakfast % Eate n 50% Number of Bowel Movements 1 Urine Bedside Commode Urine Color Pale Yellow Stool Bedside Commode Stool Color Brown Stool Consistenc y Formed Body Mass Index 34.6 Laboratory Tests 06/11/20 06/15/20 06/16/20 16:17 17:36 06:54 BUN 105 H* 101 H* Creatinine 2.81 H 2.59 H Comfortable, no distress No pallor, icterus or cyanosis HEENT -unremarkable Cardiac- elevated JVD; normal S1; normal S2; possibly S3 gallop; 2/6 holosystolic murmur heard all over the pericardium Respiratory-normal breath sounds bilaterally, no crackles, no wheeze Abdomen- soft, nontender Neuro- alert and oriented Lower extremities- Bilateral 3+ edema Const: Other: Appearance: Alert. Oriented X3. mild acute distress. Eyes: Pupils equal, round and reactive to light. ENT: Pharynx normal. Neck: Normal inspection. Neck supple. CVS: Normal heart rate and rhythm. Pulses normal. Respiratory: mild respiratory distress. Bilateral rales at the bases. No wheezing. No crepitus Abdomen: Soft and nontender. Skin: Skin warm and dry. Normal skin color. Normal skin turgor. Extremities: bilateral lower leg edema pitting 2/4 no erythema. No lacerations. Neurovascularly intact Neuro: Oriented X 3. No motor deficit. No sensory deficit. General: cooperative, comfortable and no acute distress Orientation/consciousness: patient oriented x3 HENMT: Head: Yes normal to inspection Eyes: General: appearance normal, both eyes and all related structures Neck: Neck: Yes normal visual inspection and Yes no JVD Chest: Chest palpation & inspection: normal inspection of the chest Resp: Effort & Inspection: normal respiratory effort Auscultation: clear to auscultation bilaterally Cardio: Jugular venous distension: no JVD Rate: regular rate Heart sounds: S1 normal heart sound present and S2 normal heart sound present GI: Inspection: Yes normal to inspection Neuro: General: patient oriented x3 Extrem: General: Yes edema (pitting +3) Psych: Appearance: grossly normal Assessment & Plan Assessment and plan (1) Atherosclerotic cardiovascular disease: Status: Acute (2) PAF (paroxysmal atrial fibrillation): Status: Acute (3) GERD (gastroesophageal reflux disease): Status: Acute (4) Cardiorenal syndrome: Status: Acute (5) Acute on chronic systolic and diastolic heart failure, NYHA class 3: Status: Acute (6) Type 1 diabetes: Status: Acute (7) Peripheral neuropathy: Status: Acute (8) Hypertension: Status: Acute (9) Congestive heart failure: Problem details: EF 10-15% and grade 3 diastolic dysfunction Status: Acute (10) Chronic kidney disease (CKD): Problem details: baseline creatinine around 2 Status: Acute Assessment and Plan: 1. 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 TBFOL: cont with diuresis on lasix..based on I/O no diuresis over past 24 hrs...diuretic resistant 3. Anemia: goal Hb 9-11; ques Fe def and/or EPO def 4. DM 5. HFrEF Disc: relative dfiuretic resistant and demanding going home...will need incr diuretics and will consider placeemnt of scherer and outpt IV diuretics with VNA if possible REC: cont diuresis..need to incr diurectics.IV bumex and po zaroxlyn; keep feet elevated and trial of compressive stockings; cautious trial of ACEor ARB ?; at some point may be candidate for CCPD when prog to ESRD; protect non-domnat arm Time Spent With Patient Time: Total time spent is greater than 50% in coordination of care (as documented) at patient's floor/unit and/or counseling patient:
--- NOTE | 2020-06-16 14:15 | PC.NURSE ---
PT unable to keep lunch down, complaint of feeling like food is stuck. Speech eval intervention put in, crushed pills in pudding for PT and she was able to swallow without regurgitation. MD made aware and an order for alok received.
[2020-06-16] MEDS: ondansetron HCL 4 MG/2 ML VIAL IVPUSH (14:31)
[2020-06-16 16:38] LABS: Glucose, Whole Blood 104 mg/dL (60-115)
--- NOTE | 2020-06-16 16:45 | PM.IMPN ---
Subjective Subjective Date of Service: 06/16/20 Interval History: chf , lamar vs ckd - still feels short of breath. Review of Systems Has shortness of breath, denies any chest pain or abdominal pain or fever or chills . had episode of nausea /vomiting also but denies any abdominal pain. Physical Exam Vital Signs and I&O and Narrative: Vital Signs and I&O: Vital Signs Temp 97 F 06/16/20 15:42 Pulse 66 06/16/20 15:57 Resp 18 06/16/20 15:42 BP 112/64 06/16/20 15:57 Pulse Ox 93 06/16/20 15:42 Intake & Output 06/15/20 06/16/20 06/16/20 18:59 06:59 18:59 Intake Total 360 / 360 480 / 480 Output Total 750 / 750 850 / 850 Balance -390 / -390 -370 / -370 Urine Output (Aver age ml/kg/hr) 0.60 0.69 Weight 88.451 kg 103.4 kg 103.4 kg Intake: Intake, Oral Morton unt 360 / 360 480 / 480 Output: Output, Urine Am ount 750 / 750 850 / 850 Other: Breakfast % Eate n 50% Lunch % Eaten 75% Number of Bowel Movements 1 Urine Bedside Commode Urine Color Pale Yellow Stool Bedside Commode Stool Color Brown Stool Consistenc y Formed Body Mass Index 34.6 physical exam: Cvs: rrr, [id number] , no murmur res: Grossly good air entry, slightly diminished, no rales or wheezing. abd: no rebound or guarding ,nt, bs present. ext pulses present , no cyanosis , has 3+ leg edema neuro: axo3 , nonfocal. Objective Data Current Medications Generic Name Dose Route Start Last Admin Trade Name Freq PRN Reason Stop Dose Admin Amlodipine Besylate 10 mg 06/16/20 09:00 06/16/20 10:12 Amlodipine Besylate 10 Mg Tablet PO 10 mg DAILY LARRY Administration Protocol Aspirin 81 mg 06/16/20 09:00 06/16/20 10:12 Aspirin Enteric Coated 81 Mg Tablet. PO 81 mg DAILY LARRY Administration Atorvastatin Calcium 80 mg 06/16/20 09:00 06/16/20 10:11 Atorvastatin Calcium 80 Mg Tablet PO 80 mg DAILY LARRY Administration Bumetanide 3 mg 06/16/20 21:00 Bumetanide 1 Mg/4 Ml Vial IVPUSH BID COUNT INCLUDES THE [facility] Protocol Buprenorphine/Naloxone 1 film 06/16/20 09:00 06/16/20 08:35 Buprenorphine/Naloxone 4/1 Mg Film SUBLINGUAL Not Given DAILY COUNT INCLUDES THE [facility] Carvedilol 12.5 mg 06/15/20 21:00 06/16/20 10:11 Carvedilol 6.25 Mg Tablet PO 12.5 mg BID LARRY Administration Protocol Gabapentin 600 mg 06/15/20 21:00 06/16/20 13:58 Gabapentin 600 Mg Tablet PO 600 mg TID LARRY Administration Heparin Sodium (Porcine) 5,000 unit 06/15/20 22:00 06/16/20 13:59 Heparin Sodium,Porcine 5,000 Unit/Ml Vial SUBCUT 5,000 unit Q8H LARRY Administration Hydralazine HCl 25 mg 06/15/20 21:00 06/16/20 15:57 Hydralazine Hcl 25 Mg Tablet PO 25 mg QID LARRY Administration Protocol Insulin Glargine 28 unit 06/15/20 21:00 06/16/20 08:34 Insulin Glargine,Hum.Rec.Anlog 100 Unit/Ml 10 Ml Vial SUBCUT 28 unit DAILY LARRY Administration Insulin Human Lispro 0 unit 06/16/20 07:30 06/16/20 16:35 Insulin Lispro 100 Unit/Ml 3 Ml Vial SUBCUT Not Given QIDACHS COUNT INCLUDES THE [facility] Protocol Isosorbide Dinitrate 5 mg 06/16/20 08:00 06/16/20 13:57 Isosorbide Dinitrate 5 Mg Tablet PO 5 mg 0800,1300 LARRY Administration Protocol Metolazone 5 mg 06/16/20 09:00 06/16/20 10:12 Metolazone 5 Mg Tablet PO 5 mg DAILY LARRY Administration Mirtazapine 15 mg 06/15/20 21:00 06/15/20 22:51 Mirtazapine 15 Mg Tablet PO 15 mg BEDTIME LARRY Administration Omeprazole 40 mg 06/16/20 06:30 06/16/20 05:30 Omeprazole 40 Mg Capsule.Dr PO 40 mg DAILY@0630 COUNT INCLUDES THE [facility] Administration Ondansetron HCl 4 mg 06/16/20 14:06 06/16/20 14:31 Ondansetron Hcl 4 Mg/2 Ml Vial IVPUSH 4 mg Q4H PRN Administration Nausea Sodium Chloride 2 ml 06/16/20 00:00 06/16/20 15:44 0.9 % Sodium Chloride Flush 3 Ml Syringe IVFLUSH 2 ml QSHIFT LARRY Administration Tamsulosin HCl 0.4 mg 06/16/20 09:00 06/16/20 10:11 Tamsulosin Hcl 0.4 Mg Capsule PO 0.4 mg DAILY LARRY Administration Vitamin D 50 mcg 06/16/20 09:00 06/16/20 10:10 Cholecalciferol (Vitamin D3) 25 Mcg Tablet PO 50 mcg DAILY LARRY Administration Labs CBC & Chem 7: 06/16/20 06:54 06/16/20 06:54 Labs: Laboratory Results - last 24 hr 06/15/20 06/15/20 06/15/20 17:36 17:37 17:37 MCV 80.2 MCH 24.0 L MCHC 29.9 L RDW 19.1 H Plt Count 278 MPV 12.1 Immature Gran % (Auto) 0.5 H Neut % (Auto) 71.4 Lymph % (Auto) 9.7 L [place] % (Auto) 10.1 Eos % (Auto) 7.3 H Baso % (Auto) 1.0 Lymph # (Auto) 0.8 L [place] # (Auto) 0.8 Eos # (Auto) 0.6 H Baso # (Auto) 0.1 Abs Immat Gran (auto) 0.04 H Absolute Neuts (auto) 5.8 Absolute Nucleated RBC 0.000 Nucleated RBC % (auto) 0.0 Anion Gap 14 Estim Creat Clear Calc 28.2 Estimated GFR 18 POC Glucose Random Glucose 596 H* Calcium 8.3 L Troponin I High Sens 54.2 H B-Natriuretic Peptide 2566 H 06/15/20 06/15/20 06/16/20 22:12 23:57 05:25 MCV MCH MCHC RDW Plt Count MPV Immature Gran % (Auto) Neut % (Auto) Lymph % (Auto) [place] % (Auto) Eos % (Auto) Baso % (Auto) Lymph # (Auto) [place] # (Auto) Eos # (Auto) Baso # (Auto) Abs Immat Gran (auto) Absolute Neuts (auto) Absolute Nucleated RBC Nucleated RBC % (auto) Anion Gap Estim Creat Clear Calc Estimated GFR POC Glucose 375 H* 334 H 319 H Random Glucose Calcium Troponin I High Sens B-Natriuretic Peptide 06/16/20 06/16/20 06/16/20 06:54 06:54 07:55 MCV 80.7 MCH 24.6 L MCHC 30.6 L RDW 19.1 H Plt Count 251 MPV 12.8 H Immature Gran % (Auto) 0.3 Neut % (Auto) 68.2 Lymph % (Auto) 12.1 L [place] % (Auto) 8.9 Eos % (Auto) 9.5 H Baso % (Auto) 1.0 Lymph # (Auto) 0.9 L [place] # (Auto) 0.6 Eos # (Auto) 0.7 H Baso # (Auto) 0.1 Abs Immat Gran (auto) 0.02 Absolute Neuts (auto) 4.9 Absolute Nucleated RBC 0.000 Nucleated RBC % (auto) 0.0 Anion Gap 14 Estim Creat Clear Calc 33.4 Estimated GFR 20 POC Glucose 196 H Random Glucose 284 H D Calcium 8.3 L Troponin I High Sens B-Natriuretic Peptide 06/16/20 06/16/20 11:29 16:33 MCV MCH MCHC RDW Plt Count MPV Immature Gran % (Auto) Neut % (Auto) Lymph % (Auto) [place] % (Auto) Eos % (Auto) Baso % (Auto) Lymph # (Auto) [place] # (Auto) Eos # (Auto) Baso # (Auto) Abs Immat Gran (auto) Absolute Neuts (auto) Absolute Nucleated RBC Nucleated RBC % (auto) Anion Gap Estim Creat Clear Calc Estimated GFR POC Glucose 122 H 104 Random Glucose Calcium Troponin I High Sens B-Natriuretic Peptide Progress Note: A&P (1) Chronic kidney disease (CKD): Problem details: baseline creatinine around 2 Status: Acute (2) Acute on chronic systolic and diastolic heart failure, NYHA class 3: Status: Acute Assessment and Plan: 1.Acute on chronic systolic and diastolic heart failure, NYHA class 3: S/p 60 mg IV push in the ED on lasix per ED attending Monitor I and O's daily weights continue IV Bumex, Zaroxolyn, hydralazine, metolazone, isosorbide . discuss cardio continue above management currently. 2. Cardiorenal syndrome vs ckd: BUN and creatinine seems to be improving slightly continue to monitor renal function f.or Nephro evaluation noted 3.Type 1 diabetes: uncontrolled, Fingersticks are fluctuating, continue current insulin regimen monitor fingersticks closely.Diabetic diet 4. Atrial fibrillation: not on anticoagulation due to hemorrhagic pericardial effusion and tamponade at [facility] [place] in March 2020 5 Psychotic disorder: continue with mirtazapine home dose. 6.CAD (coronary artery disease):Continue with aspirin and atorvastatin . 7. Opiate abuse, continuous; continue with suboxone . 8 Urinary retention;continue with flomax. 9.nausea/one episode of vomitin: denies any abdominal pain or diarrahae, will give Zofran and continue to monitor.
[2020-06-16 20:44] LABS: Glucose, Whole Blood 174 mg/dL (60-115)
[2020-06-16] MEDS: Mirtazapine 15 MG TABLET PO (20:59)
[2020-06-16] MEDS: Bumetanide 1 MG/4 ML VIAL 3 MG IVPUSH (21:01)
[2020-06-17] VITALS (9 sets, daily range): BP systolic 113–146; BP diastolic 64–77; PULSE 67–85; RESP 17–20; TEMP 36.1–36.9; O2SAT 90–98
[2020-06-17] MEDS: Omeprazole 40 MG CAPSULE.DR PO (05:53)
[2020-06-17] MEDS: Heparin Sodium,Porcine 5,000 UNIT/ML VIAL 5000 UNIT SUBCUT ×2 (05:54→22:15)
[2020-06-17 06:51] LABS: Hematocrit 26.5 % (37-47); Hemoglobin 8.1 g/dl (12.0-16.0)
[2020-06-17 07:25] LABS: Anion Gap 15 (12-20); Blood Urea Nitrogen 107 mg/dL (9-16); Calcium 8.1 mg/dL (8.4-10.2); Carbon Dioxide 31 mmol/L (22-29); Chloride 91 mmol/L (96-108); Creatinine Clr Calc Pharmacy 31.9; Estimated Glomerular Filt Rate 19; Glucose Random 109 mg/dL (60-115); Potassium 3.9 mmol/l (3.3-5.1); Sodium 133 mmol/L (135-145)
[2020-06-17 08:05] LABS: Glucose, Whole Blood 81 mg/dL (60-115)
[2020-06-17] MEDS: Insulin Glargine,Hum.rec.anlog 100 UNIT/ML 10 ML VIAL 28 UNIT SUBCUT (08:16)
[2020-06-17] MEDS: amLODIPine Besylate 10 MG TABLET PO (08:16)
[2020-06-17] MEDS: Bumetanide 1 MG/4 ML VIAL 3 MG IVPUSH (08:16)
[2020-06-17] MEDS: Tamsulosin HCL 0.4 MG CAPSULE PO (08:16)
[2020-06-17] MEDS: Aspirin Enteric Coated 81 MG TABLET.DR PO (08:16)
[2020-06-17] MEDS: Isosorbide Dinitrate 5 MG TABLET PO ×2 (08:16→12:08)
[2020-06-17] MEDS: Cholecalciferol (Vitamin D3) 25 MCG TABLET 50 MCG PO (08:17)
[2020-06-17] MEDS: carvediloL 6.25 MG TABLET 12.5 MG PO ×2 (08:17→22:16)
[2020-06-17] MEDS: metOLazone 5 MG TABLET PO (08:17)
[2020-06-17] MEDS: Gabapentin 600 MG TABLET PO ×3 (08:17→22:17)
[2020-06-17] MEDS: hydrALAZINE HCl 25 MG TABLET PO ×4 (08:17→22:16)
[2020-06-17] MEDS: Atorvastatin Calcium 80 MG TABLET PO (08:17)
[2020-06-17] MEDS: 0.9 % Sodium Chloride Flush 3 ML SYRINGE 2 ML IVFLUSH (08:18)
[2020-06-17 09:47] LABS: Iron 16 mcg/dL (30-160); Percent Iron Saturation 4 % (15-50); Total Iron Binding Capacity 414 mcg/dL (228-428); Unsaturated Iron Binding 398 ug/dL
[2020-06-17 10:07] LABS: Ferritin 77 ng/mL (10-250)
--- NOTE | 2020-06-17 10:39 | PM.PNCARD ---
Subjective Subjective Principal diagnosis: SOB Interval history: Patient was seen and examined. She still short of breath. Continues to have the leg swelling. Review of Systems Review of Systems Cardiac-positive for leg swelling. Positive for shortness of breath. Negative for angina. Negative for palpitations or dizzy spells or syncopal episodes. Remainder of the 10 system review is negative. Physical Exam Vital Signs and I&O: Vital Signs Temp Pulse Resp BP Pulse Ox 06/17/20 07:02 98.5 F 85 20 132/72 98 06/17/20 04:00 93 06/17/20 03:37 97.2 F 73 18 129/68 90 L 06/17/20 00:00 97 F 70 17 113/67 93 06/16/20 20:59 72 134/80 06/16/20 19:53 94 06/16/20 19:42 97.9 F 73 18 123/64 94 06/16/20 16:00 93 06/16/20 15:57 66 112/64 06/16/20 15:42 97 F 66 18 112/64 93 06/16/20 11:40 98.2 F 71 18 131/57 L 96 Intake & Output 06/15/20 06/16/20 06/17/20 06/18/20 06:59 06:59 06:59 06:59 Intake Total 360 / 360 960 / 960 420 / 420 Output Total 750 / 750 850 / 850 Balance -390 / -390 110 / 110 420 / 420 Weight 227 lb 15.327 oz 227 lb 15.327 oz Comfortable, no distress No pallor, icterus or cyanosis HEENT -unremarkable Cardiac- elevated JVD; normal S1; normal S2; S3 gallop; 2/6 holosystolic murmur heard all over the pericardium Respiratory-normal breath sounds bilaterally, no crackles, no wheeze Abdomen- soft, nontender Neuro- alert and oriented Lower extremities- Bilateral 3-4+ edema Progress Note: A&P Assessment and plan (1) Acute on chronic systolic and diastolic heart failure, NYHA class 3: Status: Acute (2) PAF (paroxysmal atrial fibrillation): Status: Acute (3) Atherosclerotic cardiovascular disease: Status: Acute (4) SERGO (acute kidney injury): Status: Acute (5) CKD (chronic kidney disease) stage 3, GFR 30-59 ml/min: Status: Acute (6) Type 1 diabetes: Status: Acute Assessment and Plan: Recent echocardiogram- - The left ventricular systolic function is severely decreased. The visually estimated ejection fraction is between 15-20%. - Evidence suggests grade III (severe) diastolic dysfunction. - There is evidence of regional wall motion abnormalities. - There is moderate mitral valve regurgitation. - There is moderate to severe tricuspid valve regurgitation. - Severe pulmonary hypertension is present. - There is a small pericardial effusion. There are no definitive echocardiographic findings of tamponade physiology. Overall, she has severe ischemic cardiomyopathy. She may have diuretic resistance but also unclear compliance at home. We can try to switch her to IV Bumex drip. Also on Metolazone. Need to closely monitor the creatinine. If necessary, we can also ask Nephrology to see. Due to recent hemorrhagic pericardial effusion while on anticoagulation, not a candidate for anticoagulation. We will closely follow her with you. Fall Risk Details Current Medications: Current Medications Generic Name Dose Route Start Last Admin Trade Name Freq PRN Reason Stop Dose Admin Amlodipine Besylate 10 mg 06/16/20 09:00 06/17/20 08:16 Amlodipine Besylate 10 Mg Tablet PO 10 mg DAILY LARRY Administration Protocol Aspirin 81 mg 06/16/20 09:00 06/17/20 08:16 Aspirin Enteric Coated 81 Mg Tablet.Dr PO 81 mg DAILY LARRY Administration Atorvastatin Calcium 80 mg 06/16/20 09:00 06/17/20 08:17 Atorvastatin Calcium 80 Mg Tablet PO 80 mg DAILY LARRY Administration Buprenorphine/Naloxone 1 film 06/16/20 09:00 06/17/20 08:17 Buprenorphine/Naloxone 4/1 Mg Film SUBLINGUAL Not Given DAILY LARRY Carvedilol 12.5 mg 06/15/20 21:00 06/17/20 08:17 Carvedilol 6.25 Mg Tablet PO 12.5 mg BID LARRY Administration Protocol Gabapentin 600 mg 06/15/20 21:00 06/17/20 08:17 Gabapentin 600 Mg Tablet PO 600 mg TID LARRY Administration Heparin Sodium (Porcine) 5,000 unit 06/15/20 22:00 06/17/20 05:54 Heparin Sodium,Porcine 5,000 Unit/Ml Vial SUBCUT 5,000 unit Q8H LARRY Administration Hydralazine HCl 25 mg 06/15/20 21:00 06/17/20 08:17 Hydralazine Hcl 25 Mg Tablet PO 25 mg QID LARRY Administration Protocol Bumetanide 25 mg/ IV 100 mls @ 2 mls/hr 06/17/20 10:45 Miscellaneous Supplies IVCONT .Q24H LARRY 0.5 MG/HR Insulin Glargine 28 unit 06/15/20 21:00 06/17/20 08:16 Insulin Glargine,Hum.Rec.Anlog 100 Unit/Ml 10 Ml Vial SUBCUT 28 unit DAILY LARRY Administration Insulin Human Lispro 0 unit 06/16/20 07:30 06/17/20 08:18 Insulin Lispro 100 Unit/Ml 3 Ml Vial SUBCUT Not Given QIDACHS [facility] Protocol Isosorbide Dinitrate 5 mg 06/16/20 08:00 06/17/20 08:16 Isosorbide Dinitrate 5 Mg Tablet PO 5 mg 0800,1300 LARRY Administration Protocol Metolazone 5 mg 06/16/20 09:00 06/17/20 08:17 Metolazone 5 Mg Tablet PO 5 mg DAILY LARRY Administration Mirtazapine 15 mg 06/15/20 21:00 06/16/20 20:59 Mirtazapine 15 Mg Tablet PO 15 mg BEDTIME LARRY Administration Omeprazole 40 mg 06/16/20 06:30 06/17/20 05:53 Omeprazole 40 Mg Capsule.Dr PO 40 mg DAILY@0630 LARRY Administration Ondansetron HCl 4 mg 06/16/20 14:06 06/16/20 14:31 Ondansetron Hcl 4 Mg/2 Ml Vial IVPUSH 4 mg Q4H PRN Administration Nausea Sodium Chloride 2 ml 06/16/20 00:00 06/17/20 08:18 0.9 % Sodium Chloride Flush 3 Ml Syringe IVFLUSH 2 ml QSHIFT LARRY Administration Tamsulosin HCl 0.4 mg 06/16/20 09:00 06/17/20 08:16 Tamsulosin Hcl 0.4 Mg Capsule PO 0.4 mg DAILY LARRY Administration Vitamin D 50 mcg 06/16/20 09:00 06/17/20 08:17 Cholecalciferol (Vitamin D3) 25 Mcg Tablet PO 50 mcg DAILY LARRY Administration Time Spent With Patient Time: Total time spent is greater than 50% in coordination of care (as documented) at patient's floor/unit and/or counseling patient: Time with patient: 15 - 24 minutes
[2020-06-17 11:40] LABS: Glucose, Whole Blood 162 mg/dL (60-115)
--- NOTE | 2020-06-17 11:49 | PM.PNNEP ---
Subjective Subjective Principal diagnosis: SOB Interval history: Patient was seen and examined. She still short of breath. Continues to have the leg swelling. POOR RESPONSE to Bumex/zaroxlyn over past 24 hrs !! Physical Exam Vital Signs and I&O and Narrative: Vital Signs and I&O: Vital Signs Temp 98.5 F 06/17/20 07:02 Pulse 85 06/17/20 07:02 Resp 20 06/17/20 07:02 BP 132/72 06/17/20 07:02 Pulse Ox 98 06/17/20 07:02 Intake & Output 06/16/20 06/17/20 06/17/20 18:59 06:59 18:59 Intake Total 480 / 960 480 / 960 420 / 420 Output Total 850 / 850 Balance -370 / 110 480 / 110 420 / 420 Urine Output (Aver age ml/kg/hr) 0.69 0.69 0.69 Weight 103.4 kg Intake: Intake, Oral Patrick unt 480 / 960 480 / 960 420 / 420 Output: Output, Urine Am ount 850 / 850 Other: Breakfast % Eate n 50% Lunch % Eaten 75% Number of Unmeas ured Voids 2 Urine Bedside Commode Urine Color Yellow Body Mass Index 34.6 Comfortable, no distress No pallor, icterus or cyanosis HEENT -unremarkable Cardiac- elevated JVD; normal S1; normal S2; possibly S3 gallop; 2/6 holosystolic murmur heard all over the pericardium Respiratory-normal breath sounds bilaterally, no crackles, no wheeze Abdomen- soft, nontender Neuro- alert and oriented Lower extremities- Bilateral 3+ edema Const: Other: Appearance: Alert. Oriented X3. mild acute distress. Eyes: Pupils equal, round and reactive to light. ENT: Pharynx normal. Neck: Normal inspection. Neck supple. CVS: Normal heart rate and rhythm. Pulses normal. Respiratory: mild respiratory distress. Bilateral rales at the bases. No wheezing. No crepitus Abdomen: Soft and nontender. Skin: Skin warm and dry. Normal skin color. Normal skin turgor. Extremities: bilateral lower leg edema pitting 2/4 no erythema. No lacerations. Neurovascularly intact Neuro: Oriented X 3. No motor deficit. No sensory deficit. General: cooperative, comfortable and no acute distress Orientation/consciousness: patient oriented x3 HENMT: Head: Yes normal to inspection Eyes: General: appearance normal, both eyes and all related structures Neck: Neck: Yes normal visual inspection and Yes no JVD Chest: Chest palpation & inspection: normal inspection of the chest Resp: Effort & Inspection: normal respiratory effort Auscultation: clear to auscultation bilaterally Cardio: Jugular venous distension: no JVD Rate: regular rate Heart sounds: S1 normal heart sound present and S2 normal heart sound present GI: Inspection: Yes normal to inspection Neuro: General: patient oriented x3 Extrem: General: Yes edema (pitting +3) Psych: Appearance: grossly normal Assessment & Plan Assessment and plan (1) Atherosclerotic cardiovascular disease: Status: Acute (2) PAF (paroxysmal atrial fibrillation): Status: Acute (3) GERD (gastroesophageal reflux disease): Status: Acute (4) Cardiorenal syndrome: Status: Acute (5) Acute on chronic systolic and diastolic heart failure, NYHA class 3: Status: Acute (6) Type 1 diabetes: Status: Acute (7) Peripheral neuropathy: Status: Acute (8) Hypertension: Status: Acute (9) Congestive heart failure: Problem details: EF 10-15% and grade 3 diastolic dysfunction Status: Acute (10) Chronic kidney disease (CKD): Problem details: baseline creatinine around 2 Status: Acute Assessment and Plan: 1. 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 TBFOL: poor response to IV bumex/po zaroxlyn 3. Anemia: goal Hb 9-11; ques Fe def and/or EPO def 4. DM 5. HFrEF Disc: relative dfiuretic resistant ....will need incr diuretics and will consider placeemnt of scherer and outpt IV diuretics with VNA if possible REC: iv lasix drip 20 mg/hr conc drip and po zaroxlyn 5 qd; keep feet elevated and trial of compressive stockings; cautious trial of ACEor ARB ?; at some point may be candidate for CCPD when prog to ESRD; protect non-domnat arm Time Spent With Patient Time: Total time spent is greater than 50% in coordination of care (as documented) at patient's floor/unit and/or counseling patient:
[2020-06-17] MEDS: Bumetanide 25 MG in Container,Empty 0 ML IVCONT (12:05)
[2020-06-17] MEDS: Insulin Lispro 100 UNIT/ML 3 ML VIAL SUBCUT ×2 (12:08→22:14)
[2020-06-17] MEDS: ondansetron HCL 4 MG/2 ML VIAL IVPUSH ×2 (12:41→18:49)
--- NOTE | 2020-06-17 13:31 | MHC.CM.PN ---
DP home with existing [employer] [facility] [place] transport.
--- NOTE | 2020-06-17 18:28 | P.PNIM_ITS ---
Subjective Subjective Date of Service: 06/17/20 Interval History: CHF exacerbation, SERGO versus CKD Review of Systems patient says sort shortness of breath improving, has some nausea still, denies any chest pain or abdominal pain or fever or chills. Physical Exam Vital Signs and I&O and Narrative: Vital Signs and I&O: Vital Signs Temp 97.5 F 06/17/20 15:56 Pulse 84 06/17/20 15:56 Resp 20 06/17/20 15:56 BP 127/77 06/17/20 15:56 Pulse Ox 91 L 06/17/20 15:56 Intake & Output 06/16/20 06/17/20 06/17/20 18:59 06:59 18:59 Intake Total 480 / 960 480 / 960 660 / 660 Output Total 850 / 850 Balance -370 / 110 480 / 110 660 / 660 Urine Output (Aver age ml/kg/hr) 0.69 0.69 0.69 Weight 103.4 kg Intake: Intake, Oral Patrick unt 480 / 960 480 / 960 660 / 660 Output: Output, Urine Am ount 850 / 850 Other: Breakfast % Eate n 50% 50% Lunch % Eaten 75% 50% Number of Unmeas ured Voids 2 Urine Bedside Commode Urine Color Yellow Body Mass Index 34.6 Physio: Cvs: [id number], [id number] , no murmur res: clear to auscultation ,no rhonchii or wheezing abd: no rebound or guarding ,nt, bs present. ext pulses present , no cyanosis , has 3+ leg edema neuro: axo3 , nonfocal. Objective Data Current Medications Generic Name Dose Route Start Last Admin Trade Name Antonio PRN Reason Stop Dose Admin Amlodipine Besylate 10 mg 06/16/20 09:00 06/17/20 08:16 Amlodipine Besylate 10 Mg Tablet PO 10 mg DAILY LARRY Administration Protocol Aspirin 81 mg 06/16/20 09:00 06/17/20 08:16 Aspirin Enteric Coated 81 Mg Tablet. PO 81 mg DAILY LARRY Administration Atorvastatin Calcium 80 mg 06/16/20 09:00 06/17/20 08:17 Atorvastatin Calcium 80 Mg Tablet PO 80 mg DAILY [facility]ARR[facility] Administration Buprenorphine/Naloxone 1 film 06/16/20 09:00 06/17/20 08:17 Buprenorphine/Naloxone 4/1 Mg Film SUBLINGUAL Not Given DAILY LARRY Carvedilol 12.5 mg 06/15/20 21:00 06/17/20 08:17 Carvedilol 6.25 Mg Tablet PO 12.5 mg BID [facility] Administration Protocol Gabapentin 600 mg 06/15/20 21:00 06/17/20 17:04 Gabapentin 600 Mg Tablet PO 600 mg TID LARRY Administration Heparin Sodium (Porcine) 5,000 unit 06/15/20 22:00 06/17/20 12:42 Heparin Sodium,Porcine 5,000 Unit/Ml Vial SUBCUT Not Given Q8H [facility] Hydralazine HCl 25 mg 06/15/20 21:00 06/17/20 17:04 Hydralazine Hcl 25 Mg Tablet PO 25 mg QID [facility] Administration Protocol Bumetanide 25 mg/ IV 100 mls @ 2 mls/hr 06/17/20 10:45 06/17/20 12:05 Miscellaneous Supplies IVCONT 0.5 mg/hr .Q24H LARRY 2 mls/hr Administration 0.5 MG/HR Insulin Glargine 28 unit 06/15/20 21:00 06/17/20 08:16 Insulin Glargine,Hum.Rec.Anlog 100 Unit/Ml 10 Ml Vial SUBCUT 28 unit DAILY [facility] Administration Insulin Human Lispro 0 unit 06/16/20 07:30 06/17/20 17:40 Insulin Lispro 100 Unit/Ml 3 Ml Vial SUBCUT Not Given QIDACHS [facility] Protocol Isosorbide Dinitrate 5 mg 06/16/20 08:00 06/17/20 12:08 Isosorbide Dinitrate 5 Mg Tablet PO 5 mg 0800,1300 [facility] Administration Protocol Metolazone 5 mg 06/16/20 09:00 06/17/20 08:17 Metolazone 5 Mg Tablet PO 5 mg DAILY [facility] Administration Mirtazapine 15 mg 06/15/20 21:00 06/16/20 20:59 Mirtazapine 15 Mg Tablet PO 15 mg BEDTIME [facility]Y Administration Omeprazole 40 mg 06/16/20 06:30 06/17/20 05:53 Omeprazole 40 Mg Capsule.Dr PO 40 mg DAILY@0630 [facility] Administration Ondansetron HCl 4 mg 06/16/20 14:06 06/17/20 12:41 Ondansetron Hcl 4 Mg/2 Ml Vial IVPUSH 4 mg Q4H PRN Administration Nausea Sodium Chloride 2 ml 06/16/20 00:00 06/17/20 17:05 0.9 % Sodium Chloride Flush 3 Ml Syringe IVFLUSH Not Given QSHIFT [facility] Tamsulosin HCl 0.4 mg 06/16/20 09:00 06/17/20 08:16 Tamsulosin Hcl 0.4 Mg Capsule PO 0.4 mg DAILY [facility]ARR[facility] Administration Vitamin D 50 mcg 06/16/20 09:00 06/17/20 08:17 Cholecalciferol (Vitamin D3) 25 Mcg Tablet PO 50 mcg DAILY [facility] Administration Labs CBC & Chem 7: 06/17/20 05:59 06/17/20 05:59 Labs: Laboratory Results - last 24 hr 06/16/20 06/17/20 06/17/20 20:41 05:59 07:56 Anion Gap 15 Estim Creat Clear Calc 31.9 Estimated GFR 19 POC Glucose 174 H 81 Random Glucose 109 D Calcium 8.1 L Iron 16 L TIBC 414 % Saturation 4 L Unsat Iron Binding 398 Ferritin 77 06/17/20 11:31 Anion Gap Estim Creat Clear Calc Estimated GFR POC Glucose 162 H Random Glucose Calcium Iron TIBC % Saturation Unsat Iron Binding Ferritin Progress Note: A&P (1) Acute on chronic systolic and diastolic heart failure, NYHA class 3: Status: Acute (2) SERGO (acute kidney injury): Status: Acute (3) Chronic kidney disease (CKD): Problem details: baseline creatinine around 2 Status: Acute Assessment and Plan: 1.Acute on chronic systolic and diastolic heart failure, NYHA class 3: S/p 60 mg IV push in the ED on lasix per ED attending Monitor I and O's daily weights Still has significant fluid overload discussed with cardio and Nephro- started on IV Bumex drip, Zaroxolyn, hydralazine, isosorbide . discuss cardio continue above management currently. 2. Cardiorenal syndrome vs ckd: BUN and creatinine seems to similar to yesterday continue to monitor renal function f.or Nephro evaluation noted 3.Type 1 diabetes: uncontrolled, Fingersticks are fluctuating, continue current insulin regimen monitor fingersticks closely.Diabetic diet 4. Atrial fibrillation: not on anticoagulation due to hemorrhagic pericardial effusion and tamponade at [facility] [place] in March 2020 5 Psychotic disorder: continue with mirtazapine home dose. 6.CAD (coronary artery disease):Continue with aspirin and atorvastatin . 7. Opiate abuse, continuous; continue with suboxone . 8 Urinary retention;continue with flomax. 9.nausea/one episode of vomitin: denies any abdominal pain or diarrahae. still has nausea -will add famotidine , zofran
[2020-06-17 21:40] LABS: Glucose, Whole Blood 328 mg/dL (60-115)
[2020-06-17] MEDS: Mirtazapine 15 MG TABLET PO (22:17)
[2020-06-17] MEDS: Morphine Sulfate 2 MG/ML CARTRIDGE 1 MG IVPUSH (22:18)
[2020-06-18] VITALS (14 sets, daily range): BP systolic 116–136; BP diastolic 56–78; PULSE 72–82; RESP 18–20; TEMP 36.4–36.9; O2SAT 92–97; BMI 36.6
[2020-06-18] MEDS: Omeprazole 40 MG CAPSULE.DR PO (05:41)
[2020-06-18] MEDS: 0.9 % Sodium Chloride Flush 3 ML SYRINGE 2 ML IVFLUSH ×2 (07:53→15:50)
[2020-06-18 08:05] LABS: Anion Gap 15 (12-20); Calcium 8.1 mg/dL (8.4-10.2); Carbon Dioxide 31 mmol/L (22-29); Chloride 90 mmol/L (96-108); Creatinine Clr Calc Pharmacy 29.8; Estimated Glomerular Filt Rate 17; Glucose Random 271 mg/dL (60-115); Potassium 3.6 mmol/l (3.3-5.1); Sodium 132 mmol/L (135-145)
[2020-06-18 08:06] LABS: Blood Urea Nitrogen 109 mg/dL (9-16)
[2020-06-18 08:09] LABS: Glucose, Whole Blood 229 mg/dL (60-115)
[2020-06-18] MEDS: Insulin Lispro 100 UNIT/ML 3 ML VIAL SUBCUT ×2 (09:02→21:56)
[2020-06-18] MEDS: Cholecalciferol (Vitamin D3) 25 MCG TABLET 50 MCG PO (09:03)
[2020-06-18] MEDS: Isosorbide Dinitrate 5 MG TABLET PO ×2 (09:04→13:16)
[2020-06-18] MEDS: metOLazone 5 MG TABLET PO (09:04)
[2020-06-18] MEDS: Aspirin Enteric Coated 81 MG TABLET.DR PO (09:05)
[2020-06-18] MEDS: hydrALAZINE HCl 25 MG TABLET PO ×4 (09:05→22:02)
[2020-06-18] MEDS: amLODIPine Besylate 10 MG TABLET PO (09:05)
[2020-06-18] MEDS: Atorvastatin Calcium 80 MG TABLET PO (09:05)
[2020-06-18] MEDS: Tamsulosin HCL 0.4 MG CAPSULE PO (09:05)
[2020-06-18] MEDS: Gabapentin 600 MG TABLET PO ×3 (09:05→21:55)
[2020-06-18] MEDS: Insulin Glargine,Hum.rec.anlog 100 UNIT/ML 10 ML VIAL 28 UNIT SUBCUT (09:06)
[2020-06-18] MEDS: carvediloL 6.25 MG TABLET 12.5 MG PO ×2 (09:06→22:01)
--- NOTE | 2020-06-18 10:50 | P.PNNP_ITS ---
Subjective Subjective Principal diagnosis: SOB Interval history: CHF exacerbation, SERGO versus CKD Physical Exam Vital Signs: Vital Signs: Vital Signs Temp Pulse Resp BP Pulse Ox 06/18/20 09:06 77 128/63 06/18/20 09:05 77 128/63 06/18/20 09:04 77 128/63 06/18/20 08:00 98.2 F 77 20 128/63 94 06/18/20 04:00 97.5 F 74 20 117/56 L 92 06/18/20 00:00 98 F 82 20 135/78 97 06/17/20 22:18 18 06/17/20 22:16 80 131/64 06/17/20 20:00 97.8 F 80 20 136/72 92 06/17/20 15:56 97.5 F 84 20 127/77 91 L 06/17/20 11:58 97.7 F 67 146/73 H 94 Body Mass Index 36.6 Const: General: cooperative Orientation/consciousness: patient oriented x3 Neck: Neck: Yes supple Resp: Auscultation: crackles Cardio: Palpation: no palpable S3 Heart sounds: no rubs GI: Inspection: Yes normal to inspection Palpation (GI): Soft to palpation Neuro: General: patient oriented x3 Motor exam (neuro): No Asterixis during motor activity present Assessment & Plan Assessment and plan (1) SERGO (acute kidney injury): Problem details: SERGO /Cardiorenal syndrome Status: Acute Assessment and Plan: Still with significant fluid overload Bumex drip- can increase dose Keep O > I No absolute indication for dialysis yet 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
[2020-06-18 12:16] LABS: Glucose, Whole Blood 192 mg/dL (60-115)
--- NOTE | 2020-06-18 13:07 | PM.IMPN ---
Subjective Subjective Date of Service: 06/18/20 Interval History: CHF exacerbation Review of Systems patient shortness of breath improved, still has significant leg edema seems fluid overloaded still. Denies any chest pain or nausea or vomiting or abdominal pain today. Physical Exam Vital Signs: Vital Signs: Vital Signs Temp Pulse Resp BP Pulse Ox 06/18/20 09:06 77 128/63 06/18/20 09:05 77 128/63 06/18/20 09:04 77 128/63 06/18/20 08:00 98.2 F 77 20 128/63 94 06/18/20 04:00 97.5 F 74 20 117/56 L 92 06/18/20 00:00 98 F 82 20 135/78 97 06/17/20 22:18 18 06/17/20 22:16 80 131/64 06/17/20 20:00 97.8 F 80 20 136/72 92 06/17/20 15:56 97.5 F 84 20 127/77 91 L Body Mass Index 36.6 Physical exam: Cvs: [id number], [id number] , no murmur res: clear to auscultation ,no rhonchii or wheezing abd: no rebound or guarding ,nt, bs present. ext pulses present , no cyanosis, has 3+ edema neuro: axo3 , nonfocal. Objective Data Current Medications Generic Name Dose Route Start Last Admin Trade Name Freq PRN Reason Stop Dose Admin Amlodipine Besylate 10 mg 06/16/20 09:00 06/18/20 09:05 Amlodipine Besylate 10 Mg Tablet PO 10 mg DAILY [facility]ARRY Administration Protocol Aspirin 81 mg 06/16/20 09:00 06/18/20 09:05 Aspirin Enteric Coated 81 Mg Tablet.Dr PO 81 mg DAILY [facility] Administration Atorvastatin Calcium 80 mg 06/16/20 09:00 06/18/20 09:05 Atorvastatin Calcium 80 Mg Tablet PO 80 mg DAILY [facility] Administration Buprenorphine/Naloxone 1 film 06/16/20 09:00 06/18/20 09:09 Buprenorphine/Naloxone 4/1 Mg Film SUBLINGUAL Not Given DAILY [facility] Carvedilol 12.5 mg 06/15/20 21:00 06/18/20 09:06 Carvedilol 6.25 Mg Tablet PO 12.5 mg BID [facility] Administration Protocol Gabapentin 600 mg 06/15/20 21:00 10/10/20 09:05 Gabapentin 600 Mg Tablet PO 600 mg TID [facility]ARR[facility] Administration Heparin Sodium (Porcine) 5,000 unit 06/15/20 22:00 06/18/20 05:45 Heparin Sodium,Porcine 5,000 Unit/Ml Vial SUBCUT Not Given Q8H [facility] Hydralazine HCl 25 mg 06/15/20 21:00 06/18/20 09:05 Hydralazine Hcl 25 Mg Tablet PO 25 mg QID [facility] Administration Protocol Bumetanide 25 mg/ IV 100 mls @ 2 mls/hr 06/17/20 10:45 06/17/20 12:05 Miscellaneous Supplies IVCONT 0.5 mg/hr .Q24H [facility] 2 mls/hr Administration 0.5 MG/HR Insulin Glargine 28 unit 06/15/20 21:00 06/18/20 09:06 Insulin Glargine,Hum.Rec.Anlog 100 Unit/Ml 10 Ml Vial SUBCUT 28 unit DAILY [facility] Administration Insulin Human Lispro 0 unit 06/16/20 07:30 06/18/20 12:29 Insulin Lispro 100 Unit/Ml 3 Ml Vial SUBCUT Not Given QIDACHS [facility] Protocol Isosorbide Dinitrate 5 mg 06/16/20 08:00 06/18/20 09:04 Isosorbide Dinitrate 5 Mg Tablet PO 5 mg 0800,1300 [facility] Administration Protocol Metolazone 5 mg 06/16/20 09:00 06/18/20 09:04 Metolazone 5 Mg Tablet PO 5 mg DAILY [facility] Administration Mirtazapine 15 mg 06/15/20 21:00 06/17/20 22:17 Mirtazapine 15 Mg Tablet PO 15 mg BEDTIME [facility] Administration Omeprazole 40 mg 06/16/20 06:30 06/18/20 05:41 Omeprazole 40 Mg Capsule.Dr PO 40 mg DAILY@0630 [facility] Administration Ondansetron HCl 4 mg 06/16/20 14:06 06/17/20 18:49 Ondansetron Hcl 4 Mg/2 Ml Vial IVPUSH 4 mg Q4H PRN Administration Nausea Sodium Chloride 2 ml 06/16/20 00:00 06/18/20 07:53 0.9 % Sodium Chloride Flush 3 Ml Syringe IVFLUSH 2 ml QSHIFT [facility]Y Administration Tamsulosin HCl 0.4 mg 06/16/20 09:00 06/18/20 09:05 Tamsulosin Hcl 0.4 Mg Capsule PO 0.4 mg DAILY [facility] Administration Vitamin D 50 mcg 06/16/20 09:00 06/18/20 09:03 Cholecalciferol (Vitamin D3) 25 Mcg Tablet PO 50 mcg DAILY [facility] Administration Labs CBC & Chem 7: 06/17/20 05:59 06/18/20 06:24 Labs: Laboratory Results - last 24 hr 06/17/20 06/18/20 06/18/20 21:31 06:24 08:05 Anion Gap 15 Estim Creat Clear Calc 29.8 Estimated GFR 17 POC Glucose 328 H 229 H Random Glucose 271 H D Calcium 8.1 L 06/18/20 12:10 Anion Gap Estim Creat Clear Calc Estimated GFR POC Glucose 192 H Random Glucose Calcium Progress Note: A&P (1) SERGO (acute kidney injury): Problem details: SERGO /Cardiorenal syndrome Status: Acute (2) Type 1 diabetes: Status: Acute (3) Acute on chronic systolic and diastolic heart failure, NYHA class 3: Status: Acute (4) Chronic kidney disease (CKD): Problem details: baseline creatinine around 2 Status: Acute Assessment and Plan: 1.Acute on chronic systolic and diastolic heart failure, NYHA class 3: S/p 60 mg IV push in the ED on lasix per ED attending Monitor I and O's-diuresing 24 hrs i/o 900/1200 daily weights Still has significant fluid overload discussed with cardio and Nephro- started on IV Bumex drip, Zaroxolyn, hydralazine, isosorbide . discuss cardio continue above management currently. 2. Cardiorenal syndrome vs ckd: BUN and creatinine seems slowly increasing Nephro recommended to continue Bumex days-and increase it to 1 mg /hr . 3.Type 1 diabetes: fs in 160-200's range :improving, Fingersticks are fluctuating, continue current insulin regimen monitor fingersticks closely.Diabetic diet 4. Atrial fibrillation: not on anticoagulation due to hemorrhagic pericardial effusion and tamponade at [facility] [place] 5 Psychotic disorder: continue with mirtazapine home dose. 6.CAD (coronary artery disease):Continue with aspirin and atorvastatin . 7. Opiate abuse, continuous; continue with suboxone . 8 Urinary retention;continue with flomax. 9.nausea/one episode of vomitin: denies any abdominal pain or diarrahae. still has nausea -will add famotidine , zofran
--- NOTE | 2020-06-18 13:38 | PC.NURSE ---
Patient alert and able to make needs known. Ambulating alone in room with slow shuffling gait. Refusing assistance from nurse. refusing bed alarm or telesitter. Patient pulled out IV access while attempting to use the commode at approximately 9am. Several nurses have attempted to obtain IV access unsuccessfully. MD aware. Nursing complaint evaluation supervisor aware.
[2020-06-18] MEDS: Bumetanide 25 MG in Container,Empty 0 ML IVCONT (14:32)
[2020-06-18] MEDS: ondansetron HCL 4 MG/2 ML VIAL IVPUSH (14:33)
[2020-06-18 16:27] LABS: Glucose, Whole Blood 169 mg/dL (60-115)
[2020-06-18 20:55] LABS: Glucose, Whole Blood 165 mg/dL (60-115)
[2020-06-18] MEDS: Mirtazapine 15 MG TABLET PO (21:55)
[2020-06-18] MEDS: Acetaminophen 325 MG TABLET 650 MG PO (22:01)
[2020-06-18] MEDS: traMADoL HCL 50 MG TABLET PO (22:01)
[2020-06-19] VITALS (12 sets, daily range): BP systolic 110–132; BP diastolic 59–75; PULSE 70–90; RESP 16–20; TEMP 35.7–36.3; O2SAT 90–95; BMI 36.3
[2020-06-19] MEDS: Morphine Sulfate 4 MG/ML CARTRIDGE IVPUSH (01:36)
[2020-06-19] MEDS: Omeprazole 40 MG CAPSULE.DR PO (05:37)
[2020-06-19 07:37] LABS: Glucose, Whole Blood 48 mg/dL (60-115)
[2020-06-19 07:53] LABS: Glucose, Whole Blood 62 mg/dL (60-115)
--- NOTE | 2020-06-19 08:14 | PC.NURSE ---
poc 48 this morning. notified. Pt given orange juice and cheerios with milk. Repeat poc 62. Peanut butter and jelly sandwich given with whole milk. Pt also received her breakfast tray which she had 1/2. Poc 96.
[2020-06-19 08:15] LABS: Glucose, Whole Blood 96 mg/dL (60-115)
--- NOTE | 2020-06-19 08:17 | PC.NURSE ---
Bumex drip off this am at 0730. Unknown how long the drip was off. notified. Drip restarted at 0800
[2020-06-19] MEDS: Gabapentin 600 MG TABLET PO ×3 (08:39→20:11)
[2020-06-19] MEDS: amLODIPine Besylate 10 MG TABLET PO (08:39)
[2020-06-19 08:40] LABS: Anion Gap 15 (12-20); Calcium 8.3 mg/dL (8.4-10.2); Carbon Dioxide 33 mmol/L (22-29); Chloride 89 mmol/L (96-108); Creatinine Clr Calc Pharmacy 30.9; Estimated Glomerular Filt Rate 18; Potassium 3.2 mmol/l (3.3-5.1); Sodium 134 mmol/L (135-145)
[2020-06-19] MEDS: carvediloL 6.25 MG TABLET 12.5 MG PO ×2 (08:40→20:11)
[2020-06-19] MEDS: Aspirin Enteric Coated 81 MG TABLET.DR PO (08:40)
[2020-06-19] MEDS: Atorvastatin Calcium 80 MG TABLET PO (08:40)
[2020-06-19] MEDS: Tamsulosin HCL 0.4 MG CAPSULE PO (08:40)
[2020-06-19] MEDS: hydrALAZINE HCl 25 MG TABLET PO ×4 (08:40→20:12)
[2020-06-19] MEDS: metOLazone 5 MG TABLET PO (08:40)
[2020-06-19] MEDS: Acetaminophen 325 MG TABLET 650 MG PO (08:41)
[2020-06-19] MEDS: Cholecalciferol (Vitamin D3) 25 MCG TABLET 50 MCG PO (08:41)
[2020-06-19] MEDS: 0.9 % Sodium Chloride Flush 3 ML SYRINGE 2 ML IVFLUSH ×2 (08:42→17:29)
[2020-06-19] MEDS: Isosorbide Dinitrate 5 MG TABLET PO ×2 (08:48→12:11)
[2020-06-19 08:56] LABS: Blood Urea Nitrogen 116 mg/dL (9-16); Glucose Random 47 mg/dL (60-115)
--- NOTE | 2020-06-19 11:00 | MHC.PIE ---
Patient continues to refuse bed alarm. Deemed high fall risk by nursing staff, educated patient on the importance of high fall risk precautions. Patient told this RN supervisor cereal, If you put that bed alarm on there's going to be a problem. Instructed patient to call nursing staff for assistance with commode, ensured that call jones is within patient's reach. Patient able to pivot well independently.
[2020-06-19 11:44] LABS: Glucose, Whole Blood 220 mg/dL (60-115)
[2020-06-19] MEDS: Bumetanide 25 MG in Container,Empty 0 ML IVCONT (12:10)
--- NOTE | 2020-06-19 12:54 | P.PNCA_ITS ---
Subjective Subjective Principal diagnosis: SOB Interval history: Seen and examined. She continues to have leg swelling. Shortness of breath is at baseline. No angina. Review of Systems Review of Systems Cardiac positive for shortness of breath and leg swelling. No angina. No palpitations, dizzy spells or syncopal episodes. Remainder of the 10 system review is negative. Physical Exam Vital Signs: Vital Signs Temp 97.4 F 06/19/20 12:00 Pulse 73 06/19/20 12:11 Resp 20 06/19/20 12:00 BP 116/68 06/19/20 12:11 Pulse Ox 95 06/19/20 12:00 Intake & Output 06/18/20 06/19/20 06/19/20 18:59 06:59 18:59 Intake Total 732.9 / 1452.9 720 / 1452.9 43.267 / 43.267 Output Total 3400 / 3800 400 / 3800 Balance -2667.1 / -2347.1 320 / -2347.1 43.267 / 43.267 Urine Output (Average ml/kg/hr) 2.59 0.31 0.31 Intake: Intake, Oral Amount 680 / 1400 720 / 1400 Intake, IV Amount 52.9 / 52.9 43.267 / 43.267 Bumetanide 25 mg In Container, 52.9 / 52.9 43.267 / 43.267 Empty 0 ml @ 1 MG/HR 4 mls/hr IVCONT .Q24H [facility] Rx#:[id number] Output: Output, Urine Amount 3400 / 3800 400 / 3800 Other: Breakfast % Eaten 100% Lunch % Eaten 100% Urine Bedside Commode Bedside Commode Urine Color Yellow Yellow Weight 238 lb 12.17 oz Weight 238 lb 12.17 oz Comfortable, no distress No pallor, icterus or cyanosis HEENT -unremarkable Cardiac- elevated JVD; normal S1; normal S2; S3 gallop; 2/6 holosystolic murmur heard all over the pericardium Respiratory-normal breath sounds bilaterally, no crackles, no wheeze Abdomen- soft, nontender Neuro- alert and oriented Lower extremities- Bilateral 3-4+ edema Progress Note: A&P Assessment and plan (1) Acute on chronic systolic and diastolic heart failure, NYHA class 3: Status: Acute (2) PAF (paroxysmal atrial fibrillation): Status: Acute (3) Atherosclerotic cardiovascular disease: Status: Acute (4) SERGO (acute kidney injury): Problem details: SERGO /Cardiorenal syndrome Status: Acute (5) CKD (chronic kidney disease) stage 3, GFR 30-59 ml/min: Status: Acute (6) Type 1 diabetes: Status: Acute Assessment and Plan: Recent echocardiogram- - The left ventricular systolic function is severely decreased. The visually estimated ejection fraction is between 15-20%. - Evidence suggests grade III (severe) diastolic dysfunction. - There is evidence of regional wall motion abnormalities. - There is moderate mitral valve regurgitation. - There is moderate to severe tricuspid valve regurgitation. - Severe pulmonary hypertension is present. - There is a small pericardial effusion. There are no definitive echocardiographic findings of tamponade physiology. Overall, she has severe ischemic cardiomyopathy. She may have diuretic resistance but also unclear compliance at home. Continue with IV Bumex drip. Also on Metolazone. Need to closely monitor the creatinine. Due to recent hemorrhagic pericardial effusion while on anticoagulation, not a candidate for anticoagulation. [facility] documentation was reviewed and, she was felt that she is not a candidate for any advanced therapies mainly due to her compliance. We will closely follow her with you. Fall Risk Details Current Medications: Current Medications Generic Name Dose Route Start Last Admin Trade Name Freq PRN Reason Stop Dose Admin Acetaminophen 650 mg 06/18/20 21:41 06/19/20 08:41 Acetaminophen 325 Mg Tablet PO 650 mg Q6H PRN Administration Pain and Fever Amlodipine Besylate 10 mg 06/16/20 09:00 06/19/20 08:39 Amlodipine Besylate 10 Mg Tablet PO 10 mg DAILY [facility] Administration Protocol Aspirin 81 mg 06/16/20 09:00 06/19/20 08:40 Aspirin Enteric Coated 81 Mg Tablet.Dr PO 81 mg DAILY [facility]Y Administration Atorvastatin Calcium 80 mg 06/16/20 09:00 06/19/20 08:40 Atorvastatin Calcium 80 Mg Tablet PO 80 mg DAILY [facility] Administration Buprenorphine/Naloxone 1 film 06/16/20 09:00 06/19/20 09:11 Buprenorphine/Naloxone 4/1 Mg Film SUBLINGUAL Not Given DAILY LARRY Carvedilol 12.5 mg 06/15/20 21:00 06/19/20 08:40 Carvedilol 6.25 Mg Tablet PO 12.5 mg BID [facility] Administration Protocol Dextrose 25 gm 06/19/20 11:15 Dextrose 50 % 25 Gm/50 Ml Vial IV Q8H PRN HYPOGLYCEMIA Gabapentin 600 mg 06/15/20 21:00 06/19/20 08:39 Gabapentin 600 Mg Tablet PO 600 mg TID [facility]ARRY Administration Heparin Sodium (Porcine) 5,000 unit 06/15/20 22:00 06/19/20 05:39 Heparin Sodium,Porcine 5,000 Unit/Ml Vial SUBCUT Not Given Q8H [facility] Hydralazine HCl 25 mg 06/15/20 21:00 06/19/20 12:11 Hydralazine Hcl 25 Mg Tablet PO 25 mg QID [facility] Administration Protocol Bumetanide 25 mg/ IV 100 mls @ 4 mls/hr 06/17/20 10:45 06/19/20 12:10 Miscellaneous Supplies IVCONT 0.5 mg/hr .Q24H LARRY 2 mls/hr Administration 1 MG/HR Insulin Glargine 28 unit 06/15/20 21:00 06/19/20 09:12 Insulin Glargine,Hum.Rec.Anlog 100 Unit/Ml 10 Ml Vial SUBCUT Not Given DAILY [facility] Insulin Human Lispro 0 unit 06/16/20 07:30 06/19/20 12:11 Insulin Lispro 100 Unit/Ml 3 Ml Vial SUBCUT Not Given QIDACHS [facility] Protocol Isosorbide Dinitrate 5 mg 06/16/20 08:00 06/19/20 12:11 Isosorbide Dinitrate 5 Mg Tablet PO 5 mg 0800,1300 [facility] Administration Protocol Metolazone 5 mg 06/16/20 09:00 06/19/20 08:40 Metolazone 5 Mg Tablet PO 5 mg DAILY [facility] Administration Mirtazapine 15 mg 06/15/20 21:00 06/18/20 21:55 Mirtazapine 15 Mg Tablet PO 15 mg BEDTIME [facility]ARR[facility] Administration Omeprazole 40 mg 06/16/20 06:30 06/19/20 05:37 Omeprazole 40 Mg Capsule.Dr PO 40 mg DAILY@0630 [facility] Administration Ondansetron HCl 4 mg 06/16/20 14:06 06/18/20 14:33 Ondansetron Hcl 4 Mg/2 Ml Vial IVPUSH 4 mg Q4H PRN Administration Nausea Ondansetron HCl 4 mg 06/18/20 15:02 Ondansetron Hcl 4 Mg/2 Ml Vial IVPUSH Q4H PRN Nausea Sodium Chloride 2 ml 06/16/20 00:00 06/19/20 08:42 0.9 % Sodium Chloride Flush 3 Ml Syringe IVFLUSH 2 ml QSHIFT [facility]Y Administration Tamsulosin HCl 0.4 mg 06/16/20 09:00 06/19/20 08:40 Tamsulosin Hcl 0.4 Mg Capsule PO 0.4 mg DAILY [facility] Administration Vitamin D 50 mcg 06/16/20 09:00 06/19/20 08:41 Cholecalciferol (Vitamin D3) 25 Mcg Tablet PO 50 mcg DAILY [facility] Administration Time Spent With Patient Time: Total time spent is greater than 50% in coordination of care (as documented) at patient's floor/unit and/or counseling patient: Time with patient: 15 - 24 minutes
--- NOTE | 2020-06-19 14:38 | P.PNNP_ITS ---
Subjective Subjective Principal diagnosis: SOB Interval history: Events noted On Bumex drip Currently in negative balance. Physical Exam Vital Signs: Vital Signs: Vital Signs Temp Pulse Resp BP Pulse Ox 06/19/20 12:11 73 116/68 06/19/20 12:00 97.4 F 73 20 116/68 95 06/19/20 08:48 89 132/75 06/19/20 08:40 89 132/75 06/19/20 08:39 89 132/75 06/19/20 07:55 89 20 132/75 94 06/19/20 03:23 97.4 F 74 16 112/60 94 06/18/20 23:50 98.4 F 74 18 122/63 93 06/18/20 22:02 81 129/71 06/18/20 22:01 81 129/71 06/18/20 19:28 98 F 76 18 126/66 93 06/18/20 18:19 74 120/62 06/18/20 15:30 98 F 72 20 116/66 97 Body Mass Index 36.3 Const: General: cooperative Orientation/consciousness: patient oriented x3 Neck: Neck: Yes supple Resp: Auscultation: crackles Cardio: Palpation: no palpable S3 Heart sounds: no rubs GI: Inspection: Yes normal to inspection Palpation (GI): Soft to palpation Neuro: General: patient oriented x3 Motor exam (neuro): No Asterixis during motor activity present Assessment & Plan Assessment and plan (1) SERGO (acute kidney injury): Problem details: SERGO /Cardiorenal syndrome Status: Acute Assessment and Plan: Still with significant fluid overload Bumex drip- Keep same dose,since she is responding well. Keep O > I No absolute indication for dialysis yet May need Pollard cather for student services director out pt diuretic Discussed with team
[2020-06-19] MEDS: Heparin Sodium,Porcine 5,000 UNIT/ML VIAL 5000 UNIT SUBCUT (14:52)
--- NOTE | 2020-06-19 14:56 | PC.NURSE ---
Pt reji states her boyfriend won't visit her in the hosp. He said she doesn't even know if it's worth it to be here. Her clarified that she doesn't think it's worth it to be alive. She has continued to repeat this and I can't take it any more. notified and has put in a swat consult.
--- NOTE | 2020-06-19 15:00 | P.PNIM_ITS ---
Subjective Subjective Date of Service: 06/19/20 Interval History: CHF exacerbation Review of Systems patient still has significant leg edema, denies any shortness of breath or chest pain or nausea or vomiting or abdominal pain or fever or chills, she is complaining of feeling sad, depressed, if life is worth living question suicidal Physical Exam Vital Signs: Vital Signs: Vital Signs Temp Pulse Resp BP Pulse Ox 06/19/20 12:11 73 116/68 06/19/20 12:00 97.4 F 73 20 116/68 95 06/19/20 08:48 89 132/75 06/19/20 08:40 89 132/75 06/19/20 08:39 89 132/75 06/19/20 07:55 89 20 132/75 94 06/19/20 03:23 97.4 F 74 16 112/60 94 06/18/20 23:50 98.4 F 74 18 122/63 93 06/18/20 22:02 81 129/71 06/18/20 22:01 81 129/71 06/18/20 19:28 98 F 76 18 126/66 93 06/18/20 18:19 74 120/62 06/18/20 15:30 98 F 72 20 116/66 97 Body Mass Index 36.3 Physical exam: cvs: rrr, [id number] , no murmur res: clear to auscultation ,no rhonchii or wheezing abd: no rebound or guarding ,nt, bs present. ext :pulses present , leg edema seems slightly improving neuro: axo3 , nonfocal. Objective Data Current Medications Generic Name Dose Route Start Last Admin Trade Name Antonio PRN Reason Stop Dose Admin Acetaminophen 650 mg 06/18/20 21:41 06/19/20 08:41 Acetaminophen 325 Mg Tablet PO 650 mg Q6H PRN Administration Pain and Fever Amlodipine Besylate 10 mg 06/16/20 09:00 06/19/20 08:39 Amlodipine Besylate 10 Mg Tablet PO 10 mg DAILY LARRY Administration Protocol Aspirin 81 mg 06/16/20 09:00 06/19/20 08:40 Aspirin Enteric Coated 81 Mg Tablet. PO 81 mg DAILY LARRY Administration Atorvastatin Calcium 80 mg 06/16/20 09:00 06/19/20 08:40 Atorvastatin Calcium 80 Mg Tablet PO 80 mg DAILY LARRY Administration Buprenorphine/Naloxone 1 film 06/16/20 09:00 06/19/20 09:11 Buprenorphine/Naloxone 4/1 Mg Film SUBLINGUAL Not Given DAILY [facility] Carvedilol 12.5 mg 06/15/20 21:00 06/19/20 08:40 Carvedilol 6.25 Mg Tablet PO 12.5 mg BID LARRY Administration Protocol Dextrose 25 gm 06/19/20 11:15 Dextrose 50 % 25 Gm/50 Ml Vial IV Q8H PRN HYPOGLYCEMIA Gabapentin 600 mg 06/15/20 21:00 06/19/20 14:52 Gabapentin 600 Mg Tablet PO 600 mg TID LARRY Administration Heparin Sodium (Porcine) 5,000 unit 06/15/20 22:00 06/19/20 14:52 Heparin Sodium,Porcine 5,000 Unit/Ml Vial SUBCUT 5,000 unit Q8H LARRY Administration Hydralazine HCl 25 mg 06/15/20 21:00 06/19/20 12:11 Hydralazine Hcl 25 Mg Tablet PO 25 mg QID LARRY Administration Protocol Bumetanide 25 mg/ IV 100 mls @ 4 mls/hr 06/17/20 10:45 06/19/20 12:10 Miscellaneous Supplies IVCONT 0.5 mg/hr .Q24H LARRY 2 mls/hr Administration 1 MG/HR Insulin Glargine 28 unit 06/15/20 21:00 06/19/20 09:12 Insulin Glargine,Hum.Rec.Anlog 100 Unit/Ml 10 Ml Vial SUBCUT Not Given DAILY [facility] Insulin Human Lispro 0 unit 06/16/20 07:30 06/19/20 12:11 Insulin Lispro 100 Unit/Ml 3 Ml Vial SUBCUT Not Given QIDACHS [facility] Protocol Isosorbide Dinitrate 5 mg 06/16/20 08:00 06/19/20 12:11 Isosorbide Dinitrate 5 Mg Tablet PO 5 mg 0800,1300 [facility] Administration Protocol Metolazone 5 mg 06/16/20 09:00 06/19/20 08:40 Metolazone 5 Mg Tablet PO 5 mg DAILY LARRY Administration Mirtazapine 15 mg 06/15/20 21:00 06/18/20 21:55 Mirtazapine 15 Mg Tablet PO 15 mg BEDTIME LARRY Administration Omeprazole 40 mg 06/16/20 06:30 06/19/20 05:37 Omeprazole 40 Mg Capsule.Dr PO 40 mg DAILY@0630 LARRY Administration Ondansetron HCl 4 mg 06/16/20 14:06 06/18/20 14:33 Ondansetron Hcl 4 Mg/2 Ml Vial IVPUSH 4 mg Q4H PRN Administration Nausea Ondansetron HCl 4 mg 06/18/20 15:02 Ondansetron Hcl 4 Mg/2 Ml Vial IVPUSH Q4H PRN Nausea Sodium Chloride 2 ml 06/16/20 00:00 06/19/20 08:42 0.9 % Sodium Chloride Flush 3 Ml Syringe IVFLUSH 2 ml QSHIFT LARRY Administration Tamsulosin HCl 0.4 mg 06/16/20 09:00 06/19/20 08:40 Tamsulosin Hcl 0.4 Mg Capsule PO 0.4 mg DAILY LARRY Administration Vitamin D 50 mcg 06/16/20 09:00 06/19/20 08:41 Cholecalciferol (Vitamin D3) 25 Mcg Tablet PO 50 mcg DAILY LARRY Administration Labs CBC & Chem 7: 06/17/20 05:59 06/19/20 07:06 Assessment and Plan (1) SERGO (acute kidney injury): Problem details: SERGO /Cardiorenal syndrome Status: Acute (2) Acute on chronic systolic and diastolic heart failure, NYHA class 3: Status: Acute (3) Atrial fibrillation: Status: Acute (4) Acute kidney injury superimposed on chronic kidney disease: Status: Acute (5) CAD (coronary artery disease): Status: Acute (6) Diabetes: Status: Deleted Assessment and Plan: 1.Acute on chronic systolic and diastolic heart failure, NYHA class 3: S/p 60 mg IV push in the ED on lasix per ED attending Monitor I and O's daily weights Still has significant fluid overload discussed with cardio and Nephro- started on IV Bumex drip, Zaroxolyn, hydralazine, isosorbide . discuss cardio continue above management currently. 2. Cardiorenal syndrome vs ckd: BUN and creatinine seems to similar to yesterday continue to monitor renal function f.or Nephro evaluation noted 3.Type 1 diabetes: uncontrolled, Fingersticks are fluctuating, continue current insulin regimen monitor fingersticks closely.Diabetic diet 4. Atrial fibrillation: not on anticoagulation due to hemorrhagic pericardial effusion and tamponade at [facility] in March 2020 5 Psychotic disorder: continue with mirtazapine home dose. 6.CAD (coronary artery disease):Continue with aspirin and atorvastatin . 7. Opiate abuse, continuous; continue with suboxone -she keep refusing so far- risks discussed with her , he told . 8 Urinary retention;continue with flomax. 9. depressed /sad: Si : added swat evaluation, we will need the BHn clearance before discharge.
[2020-06-19 16:06] LABS: Glucose, Whole Blood 369 mg/dL (60-115)
--- NOTE | 2020-06-19 16:10 | MHC.CARE ---
CARE Team met with Pt secondary to a consult placed for depression/SI . Pt reports she was frustrated that her long time partner (30 years ) did not end up coming to visit her as he promised. Pt reports she has been lonely since being in the hospital and was disappointed when he said he was no longer coming. Pt denies current or history of SI, SIB or SA and IPLOC admissions. Pt does have not have current mental health providers and is followed by her PCP. During the consult Pts [id number] walked in and Pt gave t/w verbal permission to speak in front of her. Pts [id number] did not report any safety concerns though did report she should have a different [employer]. Note Pts C[employer]ANKETS is her partner. Pts [id number] additionally reported Pts partner is an alcoholic and contributes as a stressor to Pt. Pt was acknowledging of this. Pt denies needing additional mental health support at this time or referrals. CARE Team provided Pt with information for CARE Team, outpatient therapy list and explained CRISIS Services. Pt verbalized understanding of information provided. CARE Team encouraged Pt to utilize the CARE Team if Pt would like assistance in obtaining mental health support during admission or post-discharge.
[2020-06-19] MEDS: Insulin Lispro 100 UNIT/ML 3 ML VIAL SUBCUT ×3 (17:28→22:05)
--- NOTE | 2020-06-19 18:25 | PC.NURSE ---
MD ordered pneumatic boots for patient since unable to be on anticoagulants due to previous hx. Nurse educated patient on pneumatics and patient refused stating, you already have a camera in here and now you think you can tie me down. I'm not wearing those.
[2020-06-19] MEDS: Mirtazapine 15 MG TABLET PO (20:13)
[2020-06-19 21:30] LABS: Glucose, Whole Blood 471 mg/dL (60-115)
[2020-06-19] MEDS: Insulin Glargine,Hum.rec.anlog 100 UNIT/ML 10 ML VIAL 15 UNIT SUBCUT (22:05)
[2020-06-20] VITALS: BP 121/63; PULSE 76; RESP 18; TEMP 36.6; O2SAT 91
[2020-06-20 04:00] VITALS: BP 144/69; PULSE 71; RESP 20; TEMP 36.6; O2SAT 96
[2020-06-20] MEDS: Omeprazole 40 MG CAPSULE.DR PO (05:31)
[2020-06-20 06:00] VITALS: BMI 37.2
[2020-06-20 07:33] LABS: Anion Gap 16 (12-20); Blood Urea Nitrogen 123 mg/dL (9-16); Calcium 8.3 mg/dL (8.4-10.2); Carbon Dioxide 32 mmol/L (22-29); Chloride 87 mmol/L (96-108); Creatinine Clr Calc Pharmacy 29.1; Estimated Glomerular Filt Rate 16; Glucose Random 183 mg/dL (60-115); Potassium 3.4 mmol/l (3.3-5.1); Sodium 132 mmol/L (135-145)
[2020-06-20 08:00] VITALS: BP 132/71; PULSE 73; RESP 18; TEMP 36.6; O2SAT 97
[2020-06-20 08:20] LABS: Hematocrit 26.2 % (37-47); Hemoglobin 8.1 g/dl (12.0-16.0)
[2020-06-20 08:34] LABS: Magnesium 2.2 mg/dL (1.6-2.6)
[2020-06-20] MEDS: Insulin Glargine,Hum.rec.anlog 100 UNIT/ML 10 ML VIAL 28 UNIT SUBCUT (08:45)
[2020-06-20] MEDS: Atorvastatin Calcium 80 MG TABLET PO (08:46)
[2020-06-20] MEDS: Gabapentin 600 MG TABLET PO ×2 (08:46→13:18)
[2020-06-20] MEDS: Aspirin Enteric Coated 81 MG TABLET.DR PO (08:46)
[2020-06-20] MEDS: Cholecalciferol (Vitamin D3) 25 MCG TABLET 50 MCG PO (08:46)
[2020-06-20] MEDS: hydrALAZINE HCl 25 MG TABLET PO ×2 (08:46→13:18)
[2020-06-20] MEDS: metOLazone 5 MG TABLET PO (08:46)
[2020-06-20] MEDS: amLODIPine Besylate 10 MG TABLET PO (08:46)
[2020-06-20] MEDS: Tamsulosin HCL 0.4 MG CAPSULE PO (08:46)
[2020-06-20] MEDS: Isosorbide Dinitrate 5 MG TABLET PO ×2 (08:46→13:18)
[2020-06-20] MEDS: carvediloL 6.25 MG TABLET 12.5 MG PO (08:47)
[2020-06-20 11:32] LABS: Glucose, Whole Blood 156 mg/dL (60-115)
[2020-06-20 11:32] LABS: Glucose, Whole Blood 201 mg/dL (60-115)
[2020-06-20 12:00] VITALS: BP 132/76; PULSE 62; RESP 18; TEMP 36.4; O2SAT 98
--- NOTE | 2020-06-20 12:29 | PM.PNCARD ---
Subjective Subjective Principal diagnosis: SOB Interval history: Seen and examined. Shortness of breath is at baseline. Leg swelling slightly better but still present. Review of Systems Review of Systems Cardiac-positive for shortness of breath. Positive for leg swelling. Negative for angina. Negative for palpitations. Negative for dizziness or syncopal episodes. Remainder of the 10 system review is negative. Physical Exam Vital Signs: Vital Signs Temp 97.9 F 06/20/20 08:00 Pulse 73 06/20/20 08:00 Resp 18 06/20/20 08:00 BP 132/71 06/20/20 08:00 Pulse Ox 97 06/20/20 08:00 Intake & Output 06/19/20 06/20/20 06/20/20 18:59 06:59 18:59 Intake Total 1043.267 / 1883.267 840 / 1883.267 42.9 / 42.9 Output Total 1300 / 2100 800 / 2100 1400 / 1400 Balance -256.733 / -216.733 40 / -216.733 -1357.1 / -1357.1 Urine Output (Average ml/kg/hr) 1.00 0.60 1.05 Intake: Intake, Oral Amount 1000 / 1840 840 / 1840 Intake, IV Amount 43.267 / 43.267 42.9 / 42.9 Bumetanide 25 mg In Container, 43.267 / 43.267 42.9 / 42.9 Empty 0 ml @ 1 MG/HR 4 mls/hr IVCONT .Q24H [facility] Rx#:[id number] Output: Output, Urine Amount 1300 / 2100 800 / 2100 1400 / 1400 Other: Meal Refused No NPO No Breakfast % Eaten 100% Morning Snack % Eaten 100 Lunch % Eaten 100% Dinner % Eaten 100% Number of Bowel Movements 1 Urine Bedside Commode Urine Color Yellow Last Bowel Movement 06/20/20 Stool Bedside Commode Stool Color Brown Stool Consistency Hard Weight 244 lb 12.821 oz Weight 244 lb 12.821 oz Comfortable, no distress No pallor, icterus or cyanosis HEENT -unremarkable Cardiac- elevated JVD; normal S1; normal S2; S3 gallop; 2/6 holosystolic murmur heard all over the pericardium Respiratory-normal breath sounds bilaterally, no crackles, no wheeze Abdomen- soft, nontender Neuro- alert and oriented Lower extremities- Bilateral 3+ edema Progress Note: A&P Assessment and plan (1) Acute on chronic systolic and diastolic heart failure, NYHA class 3: Status: Acute (2) PAF (paroxysmal atrial fibrillation): Status: Acute (3) Atherosclerotic cardiovascular disease: Status: Acute (4) SERGO (acute kidney injury): Problem details: SERGO /Cardiorenal syndrome Status: Acute (5) CKD (chronic kidney disease) stage 3, GFR 30-59 ml/min: Status: Acute (6) Type 1 diabetes: Status: Acute Assessment and Plan: Recent echocardiogram- - The left ventricular systolic function is severely decreased. The visually estimated ejection fraction is between 15-20%. - Evidence suggests grade III (severe) diastolic dysfunction. - There is evidence of regional wall motion abnormalities. - There is moderate mitral valve regurgitation. - There is moderate to severe tricuspid valve regurgitation. - Severe pulmonary hypertension is present. - There is a small pericardial effusion. There are no definitive echocardiographic findings of tamponade physiology. Overall, she has severe ischemic cardiomyopathy. She may have diuretic resistance but also unclear compliance at home. Continue with Bumex/metolazone. Can change to p.o. diuretics. Due to recent hemorrhagic pericardial effusion while on anticoagulation, not a candidate for anticoagulation. [facility] documentation was reviewed and, she was felt that she is not a candidate for any advanced therapies mainly due to her compliance. Discussed with Nephrology as well as hospitalist service. Fall Risk Details Current Medications: Current Medications Generic Name Dose Route Start Last Admin Trade Name Freq PRN Reason Stop Dose Admin Acetaminophen 650 mg 06/18/20 21:41 06/19/20 08:41 Acetaminophen 325 Mg Tablet PO 650 mg Q6H PRN Administration Pain and Fever Amlodipine Besylate 10 mg 06/16/20 09:00 06/20/20 08:46 Amlodipine Besylate 10 Mg Tablet PO 10 mg DAILY LARRY Administration Protocol Aspirin 81 mg 06/16/20 09:00 06/20/20 08:46 Aspirin Enteric Coated 81 Mg Tablet. PO 81 mg DAILY LARRY Administration Atorvastatin Calcium 80 mg 06/16/20 09:00 06/20/20 08:46 Atorvastatin Calcium 80 Mg Tablet PO 80 mg DAILY LARRY Administration Buprenorphine/Naloxone 1 film 06/16/20 09:00 06/20/20 08:47 Buprenorphine/Naloxone 4/1 Mg Film SUBLINGUAL Not Given DAILY LARRY Carvedilol 12.5 mg 06/15/20 21:00 06/20/20 08:47 Carvedilol 6.25 Mg Tablet PO 12.5 mg BID LARRY Administration Protocol Dextrose 25 gm 06/19/20 11:15 Dextrose 50 % 25 Gm/50 Ml Vial IV Q8H PRN HYPOGLYCEMIA Gabapentin 600 mg 06/15/20 21:00 06/20/20 08:46 Gabapentin 600 Mg Tablet PO 600 mg TID LARRY Administration Hydralazine HCl 25 mg 06/15/20 21:00 06/20/20 08:46 Hydralazine Hcl 25 Mg Tablet PO 25 mg QID LARRY Administration Protocol Bumetanide 25 mg/ IV 100 mls @ 4 mls/hr 06/17/20 10:45 06/20/20 09:37 Miscellaneous Supplies IVCONT 0 mg/hr .Q24H LARRY 0 mls/hr Infusion 1 MG/HR Insulin Glargine 28 unit 06/15/20 21:00 06/20/20 08:45 Insulin Glargine,Hum.Rec.Anlog 100 Unit/Ml 10 Ml Vial SUBCUT 28 unit DAILY LARRY Administration Insulin Glargine 15 unit 06/19/20 22:00 06/19/20 22:05 Insulin Glargine,Hum.Rec.Anlog 100 Unit/Ml 10 Ml Vial SUBCUT 15 unit BEDTIME LARRY Administration Insulin Human Lispro 0 unit 06/16/20 07:30 06/20/20 08:50 Insulin Lispro 100 Unit/Ml 3 Ml Vial SUBCUT Not Given QIDACHS [facility] Protocol Isosorbide Dinitrate 5 mg 06/16/20 08:00 06/20/20 08:46 Isosorbide Dinitrate 5 Mg Tablet PO 5 mg 0800,1300 [facility] Administration Protocol Metolazone 5 mg 06/16/20 09:00 06/20/20 08:46 Metolazone 5 Mg Tablet PO 5 mg DAILY LARRY Administration Mirtazapine 15 mg 06/15/20 21:00 06/19/20 20:13 Mirtazapine 15 Mg Tablet PO 15 mg BEDTIME LARRY Administration Omeprazole 40 mg 06/16/20 06:30 06/20/20 05:31 Omeprazole 40 Mg Capsule.Dr PO 40 mg DAILY@0630 LARRY Administration Ondansetron HCl 4 mg 06/16/20 14:06 06/18/20 14:33 Ondansetron Hcl 4 Mg/2 Ml Vial IVPUSH 4 mg Q4H PRN Administration Nausea Ondansetron HCl 4 mg 06/18/20 15:02 Ondansetron Hcl 4 Mg/2 Ml Vial IVPUSH Q4H PRN Nausea Sodium Chloride 2 ml 06/16/20 00:00 06/20/20 08:47 0.9 % Sodium Chloride Flush 3 Ml Syringe IVFLUSH Not Given QSHIFT LARRY Tamsulosin HCl 0.4 mg 06/16/20 09:00 06/20/20 08:46 Tamsulosin Hcl 0.4 Mg Capsule PO 0.4 mg DAILY LARRY Administration Vitamin D 50 mcg 06/16/20 09:00 06/20/20 08:46 Cholecalciferol (Vitamin D3) 25 Mcg Tablet PO 50 mcg DAILY ALRRY Administration Time Spent With Patient Time: Total time spent is greater than 50% in coordination of care (as documented) at patient's floor/unit and/or counseling patient: Time with patient: 15 - 24 minutes
--- NOTE | 2020-06-20 13:38 | MHC.CM.PN ---
DC plan discussed with pt. Pt made aware VNA was being recommended however she reports she does not want one. Pt wants to DC home with no services. Pt will be transported via [facility] chair van and [facility] will be notified of pts DC and recommendations and they will see pt within 48 hours of DC for a post hospitalization assessment
--- NOTE | 2020-06-20 17:19 | PM.DS ---
DS: Providers Provider Date of admission: 06/15/20 21:17 Primary care physician: Unknown Physician Consults: 06/15/20 21:45 Consult to Nephrology Routine Consulting Provider: [facility] Reason for consultation: Cardiorenal syndrome Consult to Physician Routine Consulting Provider: [facility] Reason for consultation: CHF exacerbation Has provider been notified: No 06/17/20 12:38 Consult to Wound Care Provider Routine Consulting Provider: Aakash Becerra Reason for consultation: leg wound 06/19/20 14:59 Consult to Care Team Routine Comment: Reason for consultation: depression/SI DS: Diagnosis Discharge Diagnosis (1) Acute on chronic systolic and diastolic heart failure, NYHA class 3: Status: Acute (2) PAF (paroxysmal atrial fibrillation): Status: Acute (3) Atherosclerotic cardiovascular disease: Status: Acute (4) SERGO (acute kidney injury): Status: Acute Problem details: SERGO /Cardiorenal syndrome (5) CKD (chronic kidney disease) stage 3, GFR 30-59 ml/min: Status: Acute (6) Type 1 diabetes: Status: Acute DS: Summary Hospital Course Hospital Course: HPI:49 y/o female with extensive cardiac hx who presented from home due to LE swelling. Per history provided by the patient, for the past 1 month has been having worsening LE swelling for what decided to come to the ED for further evaluation. Patient denies any chest pain, SOB, nausea, vomiting, orthopnea, fever or diarrhea. Last admission was on 06/2019 due to NSTEMI, DKA and SERGO. Patient was evaluated by cardiology in the past for possible cardiac cath but due to patient poor medical compliance was deemed not be a candidate. On presentation now patient is noted to be on Afib with RVR for what was given Lopressor IV per ED, HR now 90 with BP of 141/84 mmHg. D dimer/Ventilation perfusion scan done by ED due to suspicion for PE, ventilation perfusion scan negative. CXR showing increased vascular congestion with right sided pleural effusion. One dose of IV lasix given and decision for admission given. Patient evaluated at the bedside, laying down in bed in no acute distress. ROS as above otherwise negative. Physical exam positive for LLE metatarsal amputation, pitting edema +2, no evidence of JVD or rales on exam. PMHX: CAD, NSTEMI s/p PCI with stent placement, Afib, CHF with EF of 35-40%, diabetes, anxiety disorder, depression, Ischemic cardiomyopathy, chronic foot ulcers, and left transmetatarsal amputation. Hospital course problem hopkins section: 1.Acute on chronic systolic and diastolic heart failure, NYHA class 3: patient was initially started on IV Lasix, I/o monitored subsequently patient had suboptimal response with Lasix so switched to IV Bumex drip: Diuresed well afterwards, almost diuresed 8-10 lb. currently she seems comfortable not short of breath and leg edema is also improving symptoms significantly. seen by Cardiology: And echo was done( please see imaging section), As per Cardiology: severe ischemic cardiomyopathy. She may have diuretic resistance but also unclear compliance at home. Continue with Bumex/metolazone. Can change to p.o. diuretics. Due to recent hemorrhagic pericardial effusion while on anticoagulation, not a candidate for anticoagulation. [facility] documentation was reviewed and, she was felt that she is not a candidate for any advanced therapies mainly due to her compliance. patient was advised for diuretic compliance, also follow-up outpatient with Nephrology and Cardiology. Cardio may arrange outpatient appointment also. 2. Cardiorenal syndrome vs sergo : BUN and creatinine seems slowly increasing, but creatinine clearance looks near similar to the previous admission. discussed with Nephrology and Cardiology: Plan is to switch to p.o. Bumex . Nephrology will check renal function and electrolytes , as well as Hb/hct out patiently and arrange outpatient appointment. 3.Type 1 diabetes: will adjust Lantus to 25 units since our fingersticks are fluctuating, monitor fingersticks at home and further management outpatient as per PCP. 4. Atrial fibrillation: not on anticoagulation due to hemorrhagic pericardial effusion and tamponade at [facility] [place] in March 2020 5 Psychotic disorder: continue with mirtazapine home dose. 6.CAD (coronary artery disease):Continue with aspirin and atorvastatin . 7. Opiate abuse, continuous; continue with suboxone, She says she does not take it for 1 month, unclear if she takes at home . she still admits that she uses actively cocaine and heroin- advised to quit substances, refuses to speak to care team. 8 Urinary retention;continue with flomax. patient was also given the option to go home with VNA but patient categorically refuses. Above management discussed with the patient in detail length she understand and in agreement with the above plan, time spent 50 minutes and 50% time spent on counseling. Time Spent with Patient Time attestation: Total time spent providing and/or coordinating discharge services: 50 minutes. Physical Exam Vital Signs: Vital Signs: Vital Signs Temp Pulse Resp BP Pulse Ox 06/20/20 12:00 97.6 F 62 18 132/76 98 06/20/20 08:00 97.9 F 73 18 132/71 97 06/20/20 04:00 97.8 F 71 20 144/69 H 96 06/20/20 00:00 97.9 F 76 18 121/63 91 L 06/19/20 20:12 90 110/59 L 06/19/20 20:11 90 110/59 L 06/19/20 19:16 96.6 F L 75 20 110/59 L 90 L 06/19/20 17:29 76 122/60 Body Mass Index 37.2 Physical exam: Cvs: rrr, [id number] , no murmur res: clear to auscultation ,no rhonchii or wheezing abd: no rebound or guarding ,nt, bs present. ext pulses present , no cyanosis, still has edema seems improving neuro: axo3 , nonfocal. DS: Data Data Completed and Pending Labs on day of discharge: Labs from last 24 hours 06/20/20 06/20/20 06/20/20 11:28 07:23 05:53 Hgb 8.1 L Hct 26.2 L Sodium Potassium Chloride Carbon Dioxide Anion Gap BUN Creatinine Estim Creat Clear Calc Estimated GFR POC Glucose 201 H 156 H Random Glucose Calcium Magnesium 06/20/20 06/19/20 05:53 21:26 Hgb Hct Sodium 132 L Potassium 3.4 Chloride 87 L Carbon Dioxide 32 H Anion Gap 16 BUN 123 H* Creatinine 3.09 H Estim Creat Clear Calc 29.1 Estimated GFR 16 POC Glucose 471 H* Random Glucose 183 H D Calcium 8.3 L Magnesium 2.2 date :06/13/20: echo: Conclusions: - The left ventricular systolic function is severely decreased. The visually estimated ejection fraction is between 15-20%. - Evidence suggests grade III (severe) diastolic dysfunction. - There is evidence of regional wall motion abnormalities. - There is moderate mitral valve regurgitation. - There is moderate to severe tricuspid valve regurgitation. - Severe pulmonary hypertension is present. - There is a small pericardial effusion. There are no definitive echocardiographic findings of tamponade physiology. Discharge Plan Discharge Patient Disposition: Home, Self-Care Referrals: Nazanin Veliz DO [Physician] - 1 Week (Please call and schedule a follow up appointment within 1 week.) Discharge Medications: New bumetanide 2 mg tablet 3 mg PO BID Qty: 90 RF: 0 Continued atorvastatin 80 mg Tablet 80 mg PO DAILY RF: 0 gabapentin 600 mg Tablet 600 mg PO TID RF: 0 cetirizine 10 mg Tablet 10 mg PO DAILY RF: 0 aspirin 81 mg Tablet,Delayed Release (Dr/Ec) 81 mg PO DAILY RF: 0 cholecalciferol (vitamin D3) 50 mcg (2,000 unit) Tablet 50 mcg PO DAILY RF: 0 buprenorphine-naloxone [Suboxone] 4-1 mg Film 1 film SUBLINGUAL DAILY RF: 0 omeprazole 40 mg Capsule,Delayed Release(Dr/Ec) 40 mg PO DAILY RF: 0 tamsulosin 0.4 mg Capsule 0.4 mg PO DAILY RF: 0 mirtazapine 15 mg Tablet 15 mg PO BEDTIME RF: 0 insulin lispro 100 unit/mL Solution 1 sliding scale dose SUBCUT USEASDIRECTD RF: 0 carvedilol 6.25 mg Tablet 12.5 mg PO BID Qty: 120 RF: 0 isosorbide dinitrate 5 mg Tablet 5 mg PO 0800,1300 Qty: 30 RF: 0 metolazone 5 mg tablet 5 mg PO DAILY RF: 0 hydralazine 25 mg tablet 25 mg PO QID RF: 0 acetaminophen [Mapap Arthritis Pain] 650 mg tablet extended release 650 mg PO TID RF: 0 amlodipine 10 mg tablet 10 mg PO DAILY RF: 0 Changed insulin glargine 100 unit/mL Solution 25 unit SUBCUT QAM 30 Days RF: 0 Discontinued furosemide [Lasix] 80 mg tablet 80 mg PO BID Qty: 60 RF: 0 Discharge Orders: Discharge Order (Routine); Ordered 06/20/20 Ordered By: Viviana Morfin Diet: advance to your usual diet and diabetic diet Activity on Discharge: As tolerated Discharge Date/Time: 06/20/20 15:00 Visit Report Forms: Patient Portal Discharge page Care Plan Goals: Patient came with CHF exacerbation: subsequently started on IV diuresis initially with IV Lasix subsequently switched to IV Bumex drip: Patient has already diuresed 8-10 lb: denies any shortness of breath or chest pain or any new symptoms, patient will be going home with p.hardik Layne. Nephrology will follow-up and order BMP as well as hb/hct out patiently during this week and follow-up with the patient. Please follow-up with Dr. Read nephrology . Health Concerns: as above. Plan of Treatment: As above.
[2020-06-20 22:25] LABS: Folate 7.3 ng/mL (> or = 4.0); Vitamin B12 507 pg/mL (200-900)
== END 2020-06-20 15:00 | disposition home or self-care (01) | DRG 291 ==
LOC: HO.ED 18:02 → HO.IMC 21:32
PROVIDERS: Internal Medicine; Admitting Provider Physician Assistant Medical; Emergency Provider Emergency Medicine; Visit Provider Internal Medicine
DX: I13.0 Hypertensive heart and chronic kidney disease with heart failure and stage 1 through stage 4 chronic kidney disease, or unspecified chronic kidney disease (principal); I50.43 Acute on chronic combined systolic (congestive) and diastolic (congestive) heart failure; F11.20 Opioid dependence, uncomplicated; N18.4 Chronic kidney disease, stage 4 (severe); N17.9 Acute kidney failure, unspecified; K21.9 Gastro-esophageal reflux disease without esophagitis; F41.9 Anxiety disorder, unspecified; F32.9 Major depressive disorder, single episode, unspecified; E10.42 Type 1 diabetes mellitus with diabetic polyneuropathy; R33.9 Retention of urine, unspecified; E10.22 Type 1 diabetes mellitus with diabetic chronic kidney disease; I25.5 Ischemic cardiomyopathy; D63.1 Anemia in chronic kidney disease; I25.2 Old myocardial infarction; I25.10 Atherosclerotic heart disease of native coronary artery without angina pectoris; Z79.82 Long term (current) use of aspirin; Z79.4 Long term (current) use of insulin; Z79.899 Other long term (current) drug therapy; I48.0 Paroxysmal atrial fibrillation
CPT/HCPCS: 11104; 36415; 71045; 78580; 80048; 80076; 80307; 80320; 81001; 81025; 82140; 82607; 82728; 82746; 82803; 82947; 83540; 83605; 83690; 83735; 83880; 84145; 84484; 85014; 85018; 85025; 85379; 85610; 85730; 86140; 87040; 92526; 92610; 93005; 93010; 93306; 96365; 96367; 96374; 96375; 99225; 99284; 99285; A9540; J0573; J1940; J2270; J2405; J2543; J3370

== ENCOUNTER 2020-09-05 10:12 | Inpatient (IN) | payer OTHER, SELFPAY ==
[2020-09-05] VITALS (11 sets, daily range): BP systolic 111–141; BP diastolic 61–90; PULSE 73–124; RESP 14–18; TEMP 36.1–36.7; O2SAT 95–100; BMI 30.1; BMI 31.5
[2020-09-05 10:35] LABS: Glucose, Whole Blood 515 mg/dL (60-115)
--- NOTE | 2020-09-05 11:26 | PC.NURSE ---
pt refused to change into hospital gowned and put on heart monitor. RN aware.
--- NOTE | 2020-09-05 12:05 | PC.NURSE ---
pt adamantly refused to changed into hosp garment and to be placed on rate setter.
--- NOTE | 2020-09-05 12:22 | ECG_ITS ---
Test Reason : GENERAL MEDICAL Blood Pressure : / mmHG Vent. Rate : 125 BPM Atrial Rate : 178 BPM P-R Int : 000 ms QRS Dur : 118 ms QT Int : 356 ms P-R-T Axes : 000 -15 128 degrees QTc Int : 513 ms Atrial fibrillation with rapid ventricular response Non-specific intra-ventricular conduction delay ST & T wave abnormality, consider lateral ischemia Abnormal ECG When compared with ECG of 15-JUN-2020 17:23, Atrial fibrillation has replaced Sinus rhythm Vent. rate has increased BY 42 BPM Referred By: Koko Avila Electronically Signed By:PADILLA GUERRA
--- NOTE | 2020-09-05 12:24 | XR_ITS ---
EXAMINATION: XR CHEST CLINICAL INFORMATION: Shortness of breath. COMPARISON: Chest 06/15/2020 TECHNIQUE: Frontal view of the chest was obtained. FINDINGS: The lungs are in moderate inspiration with patchy reticular opacities seen in both lungs. There is haziness in the right lung base likely a small pleural effusion with underlying atelectasis/infiltrate. It has improved since 06/15/2020. The heart size is borderline normal. Pulmonary vascularity is normal. No gross bony abnormality seen. XR/XR chest 1V IMPRESSION: Hypoexpanded lungs with patchy reticular opacities in both lobes likely interstitial pneumonitis. Right basilar haziness question effusion/atelectasis/infiltrate. The haziness has improved since 06/15/2020
--- NOTE | 2020-09-05 12:27 | ED.GENADULT ---
HPI - General Adult General Chief complaint: General Medical Stated complaint: HYPERGLYCEMIA Time Seen by Provider: 09/05/20 12:10 Source: patient Limitations: no limitations History of Present Illness HPI narrative: 49-year-old who presents emergency department for evaluation elevated blood sugars. The patient was apparently admitted to [facility] 09/02/2020 for elevated glucose. The patient however is not able to give me any details about her treatment. She states that her sugars have been high at home. She states that she has been compliant with her insulin regimen. She states she has had increased thirst. She has felt weak and fatigued. She denied fever, chills, chest pain, shortness of breath, abdominal pain. She states she has had nausea and has vomited several times. She denied frequency, urgency or dysuria. Please note: On presentation the patient stated that she did not want any labs or any treatment, she changed her mind multiple times which led to a significant delay in her care. Eventually she did agree to have the blood work and an IV. Due to access issues there was further delay in her care and eventually was able to get a right EJ in her and draw blood from her as well. Related Data Home Medications Medication Instructions Recorded Confirmed aspirin 81 mg PO DAILY 06/11/20 06/15/20 atorvastatin 80 mg PO DAILY 06/11/20 06/15/20 buprenorphine-naloxone [Suboxone] 1 film SUBLINGUAL DAILY 06/11/20 06/15/20 cetirizine 10 mg PO DAILY 06/11/20 06/15/20 cholecalciferol (vitamin D3) 50 mcg PO DAILY 06/11/20 06/15/20 gabapentin 600 mg PO TID 06/11/20 06/15/20 insulin lispro 1 sliding scale dose SUBCUT 06/11/20 06/15/20 USEASDIRECTD mirtazapine 15 mg PO BEDTIME 06/11/20 06/15/20 omeprazole 40 mg PO DAILY 06/11/20 06/15/20 tamsulosin 0.4 mg PO DAILY 06/11/20 06/15/20 acetaminophen [Mapap Arthritis 650 mg PO TID 06/15/20 06/15/20 Pain] amlodipine 10 mg PO DAILY 06/15/20 06/15/20 hydralazine 25 mg PO QID 06/15/20 06/15/20 metolazone 5 mg PO DAILY 06/15/20 06/15/20 Previous Rx's Medication Instructions Recorded carvedilol 12.5 mg PO BID #120 tab 06/14/20 isosorbide dinitrate 5 mg PO 0800,1300 #30 tab 06/14/20 bumetanide 3 mg PO BID #90 tab 06/20/20 insulin glargine 25 unit SUBCUT QAM 30 Days ml 06/20/20 Allergies Allergy/AdvReac Type Severity Reaction Status Date / Time No Known Allergies Allergy Verified 06/15/20 06:28 [No Known Allergies*] Review of Systems Review of Systems: Yes all other systems are reviewed and are negative Constitutional: Constitutional: Reports as per HPI Eyes: Eyes: Reports as per HPI ENT: Reports as per HPI Cardiovascular: Cardiovascular: Reports as per HPI Respiratory: Respiratory: Reports as per HPI Gastrointestinal: Gastrointestinal: Reports as per HPI Genitourinary: Genitourinary: Reports as per HPI Musculoskeletal: Musculoskeletal: Reports as per HPI Integumentary/Breasts: Skin/Breast: Reports as per HPI Neurologic: Reports as per HPI and Reports Abnormal speech present Psychiatric: Psychiatric: Reports as per HPI Allergic/Immunologic: Allergic/Immunologic: Reports as per HPI [facility] Past Medical History Attestation statement: The following information was validated with the patient. Source: unable to obtain Medical History Acute on chronic systolic and diastolic heart failure, NYHA class 3 Acute respiratory distress Atherosclerotic cardiovascular disease Atrial fibrillation CAD (coronary artery disease) Cardiorenal syndrome CHF (congestive heart failure) Chronic kidney disease (CKD) CKD (chronic kidney disease) stage 3, GFR 30-59 ml/min Congestive heart failure GERD (gastroesophageal reflux disease) Heart murmur Hemopericardium Hepatitis C Heroin abuse Hyperglycemia Hypertension PAF (paroxysmal atrial fibrillation) Peripheral neuropathy Psychotic disorder Type 1 diabetes Urinary retention Social History Social History Household Members: Significant Other Housing: House Alcohol intake: never Smoking Status: Never smoker Use of substances other than those prescribed or required for medical reasons: No Advance Directives: No Advance Directives Information Provided: No service: No Current occupational status: disabled Physical Exam Vital Signs: Vital Signs: Last Vital Signs Temp 97.0 F 09/05/20 17:25 Pulse 124 H 09/05/20 17:25 Resp 15 09/05/20 17:25 BP 121/74 09/05/20 17:25 Pulse Ox 100 09/05/20 17:25 Body Mass Index 30.1 Const: General: other (Chronically ill appearing, moaning, uncooperative) Orientation/consciousness: oriented to person and oriented to place Limitations: no limitations HENMT: Head: Yes normal to inspection, Yes normocephalic and Yes atraumatic Ears: external ears normal General nose exam: Normal external nose present Face and sinus: Yes normal facial exam Mouth: other (Very dry mucous membranes) Throat: Yes posterior oropharynx normal Eyes: Periorbital: periorbital findings normal Eyelids: Yes eyelids normal Conjunctivae: conjunctivae normal Sclerae: sclerae normal Corneas: corneas normal Pupils: Equal, round and reactive pupils present Direct Ophthalmoscopy: normal light reflex Neck: Neck: Yes full ROM, Yes no lymphadenopathy, Yes no meningeal signs, Yes trachea midline and Yes supple Chest: Chest palpation & inspection: normal inspection of the chest and normal palpation of entire chest wall Resp: Effort & Inspection: normal respiratory effort and able to speak in complete sentences Auscultation: clear to auscultation bilaterally Cardio: Rate: regular rate Rhythm: regular rhythm Heart sounds: S1 normal heart sound present, S2 normal heart sound present and no murmurs GI: Inspection: Yes normal to inspection Palpation (GI): Soft to palpation, nontender, no guarding, not rigid and No hepatosplenomegaly present : General: Yes no CVA tenderness Back/Spine/Pelvis: Back: no CVA tenderness Cervical Spine: normal cervical lordosis Thoracic/Lumbar Spine: thoracic and lumbar spine normal to inspection Skin: Lesions: no lesions Rashes: no rashes Wounds: no wounds Neuro: General: oriented to person, oriented to place and no meningeal signs Cranial nerves: Yes Equal, round and reactive pupils present Cognition (Neuro): normal cognition Speech: Abnormal speech present Motor exam (neuro): 5/5 motor strength present throughout Extrem: General: Yes other (Left foot toe amputations, bilateral lower extremity edema with erythema an) Psych: Appearance: disheveled Affect: Other affect and mood findings present Attitude: not cooperative Thought process: Normal thought process present Course Course Course Narrative: 49-year-old female with a history of diabetes mellitus who presents the emergency department for elevated glucose. The patient was initially uncooperative and refused care which delayed her treatment. Eventually she did consent to getting an IV and required a right EJ by me. Also, she was difficult to draw blood from and I was able to draw blood from her right femoral vein. The patient's point of care glucose was markedly elevated and she was ordered to get normal saline x1 L and regular insulin 10 units IV. Repeat point of care glucose was elevated at 498 therefore the patient was ordered to get a 2nd L of normal saline and 10 units of regular insulin IV. 1723: The patient's chest x-ray is concerning for possible bilateral interstitial pneumonia and right basilar infiltrate. This patient was a very difficult IV stick and the laboratory was unable to get blood from this patient and I was only able to get blood via a right femoral stick. Given these issues with trying to establish an IV, the patient refused further blood draws/ blood cultures therefore blood cultures were not obtained prior to giving antibiotics. 1826 patient's laboratory evaluation revealed a low bicarb of 8 and elevated anion gap suggestive the patient has DKA. Lactic acid is also elevated at 3.8, this could be secondary sepsis or may be related to the patient's DKA. The patient does have an elevated BUN creatinine of 63 and 2.3 but she does have chronic kidney injury. Given these findings the patient was started on insulin drip. I did discuss the patient's presentation with the covering manager performance improvement and he requested that a CT scan without IV contrast be obtained to further evaluate the patient's pneumonia. I will order 1/3 L of normal saline on this patient as well. Procedures EJ/Peripheral Line Neck R: Time Out Performed: Yes Skin Cleansed in Sterile Fashion: Yes Size (gauge): 20 IV Secured and Dressing Applied: Yes Patient Tolerated Procedure: well Medical Decision Making Lab Data Result diagrams: 09/05/20 16:57 09/05/20 16:58 Labs: Lab Results 09/05/20 09/05/20 09/05/20 Range/Units 10:31 14:50 14:54 WBC (4.8-10.8) X10*3/uL RBC (4.20-5.50) X10*6/uL Hgb (12.0-16.0) g/dl Hct (37-47) % MCV (80-98) fL MCH (27.0-33.0) pg MCHC (31.0-35.0) g/dl RDW (11.0-16.0) % Plt Count (160-400) X10*3/uL MPV (9.4-12.3) fL Immature Gran % (Auto) (0.0-0.4) % Neut % (Auto) (45-73) % Lymph % (Auto) (20-40) % Gilchrist % (Auto) (2-11) % Eos % (Auto) (0-4) % Baso % (Auto) (0-2) % Lymph # (Auto) (1.2-4.9) X10*3/uL Gilchrist # (Auto) (0.1-1.2) X10*3/uL Eos # (Auto) (0.0-0.4) X10*3/uL Baso # (Auto) (0.0-0.2) X10*3/uL Abs Immat Gran (auto) (0.00-0.03) X10*3/uL Absolute Neuts (auto) (2.0-8.3) X10*3/uL Absolute Nucleated RBC (0.0-0.012) X10*3/uL Nucleated RBC % (auto) (0.0-0.2) /100WBC Sodium (135-145) mmol/L Potassium (3.3-5.1) mmol/l Chloride (96-108) mmol/L Carbon Dioxide (22-29) mmol/L Anion Gap (12-20) BUN (9-16) mg/dL Creatinine (0.5-1.4) mg/dL Estim Creat Clear Calc Estimated GFR POC Glucose 515 H* 471 H* (60-115) mg/dL Random Glucose (60-115) mg/dL Lactic Acid (0.5-2.0) mmol/L Calcium (8.4-10.2) mg/dL Total Bilirubin (0.0-1.0) mg/dL AST (5-31) U/L ALT (0-31) U/L Alkaline Phosphatase (39-117) U/L Troponin I High Sens (<3.5-17.0) ng/L Total Protein (6.5-8.0) g/dL Albumin (3.5-5.0) g/dL Lipase (8-78) U/L Beta-Hydroxybutyrate/Acetoacetate Cancelled 09/05/20 09/05/20 09/05/20 Range/Units 16:49 16:57 16:57 WBC 9.9 (4.8-10.8) X10*3/uL RBC 3.79 L (4.20-5.50) X10*6/uL Hgb 9.4 L (12.0-16.0) g/dl Hct 32.6 L D (37-47) % MCV 86.0 (80-98) fL MCH 24.8 L (27.0-33.0) pg MCHC 28.8 L (31.0-35.0) g/dl RDW 22.9 H (11.0-16.0) % Plt Count 327 D (160-400) X10*3/uL MPV 12.4 H (9.4-12.3) fL Immature Gran % (Auto) 0.7 H (0.0-0.4) % Neut % (Auto) 76.3 H (45-73) % Lymph % (Auto) 8.5 L (20-40) % Gilchrist % (Auto) 14.0 H (2-11) % Eos % (Auto) 0.1 (0-4) % Baso % (Auto) 0.4 (0-2) % Lymph # (Auto) 0.8 L (1.2-4.9) X10*3/uL Gilchrist # (Auto) 1.4 H (0.1-1.2) X10*3/uL Eos # (Auto) 0.0 (0.0-0.4) X10*3/uL Baso # (Auto) 0.0 (0.0-0.2) X10*3/uL Abs Immat Gran (auto) 0.07 H (0.00-0.03) X10*3/uL Absolute Neuts (auto) 7.6 (2.0-8.3) X10*3/uL Absolute Nucleated RBC 0.000 (0.0-0.012) X10*3/uL Nucleated RBC % (auto) 0.0 (0.0-0.2) /100WBC Sodium (135-145) mmol/L Potassium (3.3-5.1) mmol/l Chloride (96-108) mmol/L Carbon Dioxide (22-29) mmol/L Anion Gap (12-20) BUN (9-16) mg/dL Creatinine (0.5-1.4) mg/dL Estim Creat Clear Calc Estimated GFR POC Glucose 489 H* (60-115) mg/dL Random Glucose (60-115) mg/dL Lactic Acid (0.5-2.0) mmol/L Calcium (8.4-10.2) mg/dL Total Bilirubin (0.0-1.0) mg/dL AST (5-31) U/L ALT (0-31) U/L Alkaline Phosphatase (39-117) U/L Troponin I High Sens 23.2 H D (<3.5-17.0) ng/L Total Protein (6.5-8.0) g/dL Albumin (3.5-5.0) g/dL Lipase (8-78) U/L Beta-Hydroxybutyrate/Acetoacetate 09/05/20 09/05/20 09/05/20 Range/Units 16:57 16:58 16:58 WBC (4.8-10.8) X10*3/uL RBC (4.20-5.50) X10*6/uL Hgb (12.0-16.0) g/dl Hct (37-47) % MCV (80-98) fL MCH (27.0-33.0) pg MCHC (31.0-35.0) g/dl RDW (11.0-16.0) % Plt Count (160-400) X10*3/uL MPV (9.4-12.3) fL Immature Gran % (Auto) (0.0-0.4) % Neut % (Auto) (45-73) % Lymph % (Auto) (20-40) % Gilchrist % (Auto) (2-11) % Eos % (Auto) (0-4) % Baso % (Auto) (0-2) % Lymph # (Auto) (1.2-4.9) X10*3/uL Gilchrist # (Auto) (0.1-1.2) X10*3/uL Eos # (Auto) (0.0-0.4) X10*3/uL Baso # (Auto) (0.0-0.2) X10*3/uL Abs Immat Gran (auto) (0.00-0.03) X10*3/uL Absolute Neuts (auto) (2.0-8.3) X10*3/uL Absolute Nucleated RBC (0.0-0.012) X10*3/uL Nucleated RBC % (auto) (0.0-0.2) /100WBC Sodium 132 L (135-145) mmol/L Potassium 5.9 H D (3.3-5.1) mmol/l Chloride 102 (96-108) mmol/L Carbon Dioxide 8 L* D (22-29) mmol/L Anion Gap 28 H (12-20) BUN 63 H (9-16) mg/dL Creatinine 2.34 H (0.5-1.4) mg/dL Estim Creat Clear Calc 34.4 Estimated GFR 22 POC Glucose (60-115) mg/dL Random Glucose 551 H* (60-115) mg/dL Lactic Acid 3.8 H* (0.5-2.0) mmol/L Calcium 7.8 L D (8.4-10.2) mg/dL Total Bilirubin 0.5 (0.0-1.0) mg/dL AST 18 (5-31) U/L ALT 18 (0-31) U/L Alkaline Phosphatase 108 (39-117) U/L Troponin I High Sens (<3.5-17.0) ng/L Total Protein 6.2 L (6.5-8.0) g/dL Albumin 3.2 L (3.5-5.0) g/dL Lipase 43 (8-78) U/L Beta-Hydroxybutyrate/Acetoacetate 09/05/ Range/Units 17:39 WBC (4.8-10.8) X10*3/uL RBC (4.20-5.50) X10*6/uL Hgb (12.0-16.0) g/dl Hct (37-47) % MCV (80-98) fL MCH (27.0-33.0) pg MCHC (31.0-35.0) g/dl RDW (11.0-16.0) % Plt Count (160-400) X10*3/uL MPV (9.4-12.3) fL Immature Gran % (Auto) (0.0-0.4) % Neut % (Auto) (45-73) % Lymph % (Auto) (20-40) % Gilchrist % (Auto) (2-11) % Eos % (Auto) (0-4) % Baso % (Auto) (0-2) % Lymph # (Auto) (1.2-4.9) X10*3/uL Gilchrist # (Auto) (0.1-1.2) X10*3/uL Eos # (Auto) (0.0-0.4) X10*3/uL Baso # (Auto) (0.0-0.2) X10*3/uL Abs Immat Gran (auto) (0.00-0.03) X10*3/uL Absolute Neuts (auto) (2.0-8.3) X10*3/uL Absolute Nucleated RBC (0.0-0.012) X10*3/uL Nucleated RBC % (auto) (0.0-0.2) /100WBC Sodium (135-145) mmol/L Potassium (3.3-5.1) mmol/l Chloride (96-108) mmol/L Carbon Dioxide (22-29) mmol/L Anion Gap (12-20) BUN (9-16) mg/dL Creatinine (0.5-1.4) mg/dL Estim Creat Clear Calc Estimated GFR POC Glucose 474 H* (60-115) mg/dL Random Glucose (60-115) mg/dL Lactic Acid (0.5-2.0) mmol/L Calcium (8.4-10.2) mg/dL Total Bilirubin (0.0-1.0) mg/dL AST (5-31) U/L ALT (0-31) U/L Alkaline Phosphatase (39-117) U/L Troponin I High Sens (<3.5-17.0) ng/L Total Protein (6.5-8.0) g/dL Albumin (3.5-5.0) g/dL Lipase (8-78) U/L Beta-Hydroxybutyrate/Acetoacetate Critical Care Time Critical Care Time Total Critical Care Time: 70 Attestation: Critical Care: The patient was critically ill with a high probability of imminent or life threatening deterioration. I spent greater than 30 minutes of discontinuous time evaluating the patient,delivering critical care at the bedside, discussing and evaluating pertinent data with consultants. Critical care time does not include time spent performing separately billable procedures or teaching. Total time spent performing critical care was 70 minutes. Discharge Plan Discharge Clinical Impression: Diabetic keto-acidosis, Pneumonia, Acute dehydration Patient Disposition: Admitted As Inpatient
--- NOTE | 2020-09-05 14:13 | PC.NURSE ---
pt refusing blood draw. rn aware.
[2020-09-05] MEDS: 0.9 % Sodium Chloride 1,000 ML 999 ML IV ×3 (15:26→18:15)
[2020-09-05 15:31] LABS: Glucose, Whole Blood 471 mg/dL (60-115)
[2020-09-05] MEDS: Insulin Regular, Human 100 UNIT/ML 3 ML VIAL 10 UNIT IVPUSH ×2 (15:38→17:01)
[2020-09-05 16:52] LABS: Glucose, Whole Blood 489 mg/dL (60-115)
[2020-09-05 17:02] LABS: MANUAL DIFF FLAG NO
[2020-09-05 17:05] LABS: Basophils Percent Auto 0.4 % (0-2); Eosinophils Percent Auto 0.1 % (0-4); Hematocrit 32.6 % (37-47); Hemoglobin 9.4 g/dl (12.0-16.0); Imm Gran Abs Auto 0.07 X10*3/uL (0.00-0.03); Imm Gran Pct Auto 0.7 % (0.0-0.4); Lymphocytes Absolute Auto 0.8 X10*3/uL (1.2-4.9); Lymphocytes Percent Auto 8.5 % (20-40); Mean Corpuscular HGB Conc 28.8 g/dl (31.0-35.0); Mean Corpuscular Hemoglobin 24.8 pg (27.0-33.0); Mean Platelet Volume 12.4 fL (9.4-12.3); Monocytes Absolute Auto 1.4 X10*3/uL (0.1-1.2); Neutrophils Absolute Auto 7.6 X10*3/uL (2.0-8.3); Neutrophils Percent Auto 76.3 % (45-73); Platelet Count 327 X10*3/uL (160-400); Red Blood Count 3.79 X10*6/uL (4.20-5.50); Red Cell Distribution Width 22.9 % (11.0-16.0); White Blood Count 9.9 X10*3/uL (4.8-10.8)
[2020-09-05] MEDS: cefTRIAXone sodium 1 GM in 0.9 % Sodium Chloride 50 ML IV (17:44)
[2020-09-05 17:45] LABS: Glucose, Whole Blood 474 mg/dL (60-115)
[2020-09-05 17:47] LABS: Lactic Acid 3.8 mmol/L (0.5-2.0)
[2020-09-05 17:49] LABS: Lipase 43 U/L (8-78)
[2020-09-05 17:53] LABS: Alanine Aminotransferase 18 U/L (0-31); Albumin Level 3.2 g/dL (3.5-5.0); Alkaline Phosphatase 108 U/L (39-117); Anion Gap 28 (12-20); Aspartate Amino Transferase 18 U/L (5-31); Bilirubin Total 0.5 mg/dL (0.0-1.0); Blood Urea Nitrogen 63 mg/dL (9-16); Calcium 7.8 mg/dL (8.4-10.2); Carbon Dioxide 8 mmol/L (22-29); Chloride 102 mmol/L (96-108); Creatinine Clr Calc Pharmacy 34.4; Estimated Glomerular Filt Rate 22; Glucose Random 551 mg/dL (60-115); Potassium 5.9 mmol/l (3.3-5.1); Sodium 132 mmol/L (135-145); Total Protein 6.2 g/dL (6.5-8.0)
[2020-09-05 17:56] LABS: Troponin-I High Sensitivity 23.2 ng/L (<3.5-17.0)
--- NOTE | 2020-09-05 18:05 | PC.NURSE ---
pt's ella martinez ([phone]) [place] [facility] [place] status. pt/ aware of plan of care for admission to hosp.
--- NOTE | 2020-09-05 18:18 | CT_ITS ---
EXAMINATION: CT CHEST WITHOUT CONTRAST CLINICAL INFORMATION: Hyperglycemia. Abnormal chest x-ray. COMPARISON: Chest 09/05/2020 TECHNIQUE: Multidetector volumetric CT imaging of the chest was done. Axial MIP volume rendering provided. Sagittal and coronal reformatted images were obtained. This CT examination was performed using dose optimization techniques as appropriate, variously including the following: *Automated exposure control *Adjustment of mA and/or kV according to patient size (this includes techniques or standardized protocols for targeted exams where dose is matched to indication/reason for exam; i.e. extremities or head) *Use of iterative reconstruction technique DLP: 486 mGy-cm FINDINGS: SKEIN WASHER: Inflated lungs with blunting of right CP angle. LUNGS: There is right upper lobe and lower lobe compression n atelectasis from right pleural effusion. There is a left lower lobe compression atelectasis from small left pleural effusion. Left lower lobe airspace disease is visualized as well and underlying infiltrate is not excluded. MEDIASTINUM: Size is enlarged with coronary artery calcifications. The great vessels are normal caliber. There are small reactive lymph nodes in the precarinal space and left para-aortic space. The largest short axis lymph noted right pretracheal space measures 1.2 cm. PLEURA: There is a large right and small left pleural effusions. AXILLA: A small shotty bilateral axillary and lateral thoracic wall lymph nodes. UPPER ABDOMEN: Visualized liver, spleen appears unremarkable. OSSEOUS STRUCTURES: There is irregularity along the distal sternum and xiphoid process question old fracture. No soft tissue swelling seen. The thoracic spine is unremarkable. There are multiple old left rib fractures involving seventh through 10th . CT/CT chest wo con IMPRESSION: Large right and small left pleural effusion with underlying compressive atelectasis. There is airspace disease in left lung base as well. Infiltrate is not excluded. Reactionary lymph nodes in the mediastinum. Irregularity along the distal sternum and the system most likely an old nonhealed fracture. There are multiple healing old fractures left lateral lower ribs. Correlate with previous trauma-history
--- NOTE | 2020-09-05 18:55 | PC.NURSE ---
2nd iv placed to pt's r ac by jose khan (rn). pt has an ej placed by earlier to r juglar.
[2020-09-05] MEDS: Azithromycin 500 MG in 0.9 % Sodium Chloride 250 ML 125 MG IV (19:01)
[2020-09-05 19:04] LABS: Reflex Lactate? Lactic Acid Added
[2020-09-05 19:41] LABS: Influenza A PCR NEGATIVE (Negative); Influenza B PCR NEGATIVE (Negative); Resp Syncy Virus RNA Qual PCR NEGATIVE (Negative); SARS COV2 PCR INHOUSE NEGATIVE (Negative)
[2020-09-05 19:42] LABS: Glucose, Whole Blood 406 mg/dL (60-115)
[2020-09-05 19:42] LABS: Glucose, Whole Blood 381 mg/dL (60-115)
[2020-09-05 19:52] LABS: Acetone, serum QL Small (Negative)
[2020-09-05] MEDS: Insulin Regular/NS 100 UNIT/100 ML PLAST..BAG IVCONT (19:55)
--- NOTE | 2020-09-05 19:56 | PC.NURSE ---
poc 381 verbal ok per icu pct to starte the iv insulin drip per protocal except do not give the boluse of 10 units. witnessed with jose hernandez.
--- NOTE | 2020-09-05 19:58 | PC.NURSE ---
at this time pt is finishing her 2 bag of ns 1000ml pt stat 100% pt not wanting to talk due to feeling not well. skin warm and dry no urine at this time.
--- NOTE | 2020-09-05 20:13 | PM.CCHP ---
History of Present Illness Date of Service: 09/05/20 <ARLIN Cabrera - Last Filed: 09/06/20 01:52> Chief Complaint: elevated blood sugars <ARLIN Cabrera - Last Filed: 09/06/20 01:52> Patient is a 49-year-old female with a past medical history of 50 yo female with significant PMH of CAD s/p TRELL to LAD in 2018 with ischemic cardiomyopathy with EF 15%, CKD III (baseline SCr 2.0), hx of afib not on anticoagulation, poorly controlled DM1, hx prior heroin abuse on suboxone presents with complaining of elevated blood sugars. The patient states she was admitted to [facility] on 09/02 for elevated blood sugars but is unable to provide any further details. According to emergency department records, the patient states her sugars have been high at home despite being compliant with her insulin regimen and and patient is complaining of increased thirst, increased weakness, fatigue, nausea and states she has vomited several times. She denies fever, chills, chest pain, shortness of breath, abdominal pain, frequency, urgency or dysuria. Of note, the emergency department records reflect that the patient was refusing labs treatments, blood cultures and an IV but eventually agreed and an IV & right EJ were placed. The patient's refusal red to a significant delay in her care. Upon my evaluation of the patient, she was tired and refusing to answer my questions, the only question of mine she did answer was that she was not nauseous. Patient's labs were found to be as follows, bicarb of 8 anion gap 28, lactic acid 3.8, BUN 63, creatinine 2.3 (baseline SCr 2.0). Chest CT showed Large right and small left pleural effusion with underlying compressive atelectasis. There is airspace disease in left lung base as well. Infiltrate is not excluded. Reactionary lymph nodes in the mediastinum. Irregularity along the distal sternum and the system most likely an old nonhealed fracture. There are multiple healing old fractures left lateral lower ribs. Correlate with previous trauma-history <ARLIN Cabrera - Last Filed: 09/06/20 01:52> Review of Systems Review of Systems: See HPI <ARLIN Cabrera - Last Filed: 09/06/20 01:52> PMFSH Past Medical History Medical History: Medical History (Updated 09/06/20 @ 10:40 by Reuben Murphy MD) Acute on chronic systolic and diastolic heart failure, NYHA class 3 Acute respiratory distress Atherosclerotic cardiovascular disease Atrial fibrillation CAD (coronary artery disease) Cardiorenal syndrome CHF (congestive heart failure) CHF (congestive heart failure) Chronic kidney disease (CKD) CKD (chronic kidney disease) stage 3, GFR 30-59 ml/min Congestive heart failure GERD (gastroesophageal reflux disease) Heart murmur Hemopericardium Hepatitis C Heroin abuse Hyperglycemia Hypertension Ischemic dilated cardiomyopathy PAF (paroxysmal atrial fibrillation) Peripheral neuropathy Psychotic disorder Type 1 diabetes Urinary retention <ARLIN Cabrera - Last Filed: 09/06/20 01:52> Social History Social History: Social History Household Members: Significant Other Housing: House Alcohol intake: never Smoking Status: Never smoker Use of substances other than those prescribed or required for medical reasons: No Currently Displaying Signs/Symptoms of Drug Intoxication Withdrawal: No Advance Directives: No Advance Directives Information Provided: No Do you have thoughts of harming others: None Do you have a plan to hurt others: No Plan service: No Current occupational status: disabled <ARLIN Cabrera - Last Filed: 09/06/20 01:52> Meds Allergies/Adverse reactions: Allergies Allergy/AdvReac Type Severity Reaction Status Date / Time No Known Allergies Allergy Verified 06/15/20 06:28 [No Known Allergies*] <ARLIN Cabrera - Last Filed: 09/06/20 01:52> Home medications: Home Medications Medication Instructions Recorded Confirmed Type aspirin 81 mg PO DAILY 06/11/20 06/15/20 History atorvastatin 80 mg PO DAILY 06/11/20 06/15/20 History buprenorphine-naloxone [Suboxone] 1 film SUBLINGUAL DAILY 06/11/20 06/15/20 History cetirizine 10 mg PO DAILY 06/11/20 06/15/20 History cholecalciferol (vitamin D3) 50 mcg PO DAILY 06/11/20 06/15/20 History gabapentin 600 mg PO TID 06/11/20 06/15/20 History insulin lispro 1 sliding scale dose SUBCUT 06/11/20 06/15/20 History USEASDIRECTD mirtazapine 15 mg PO BEDTIME 06/11/20 06/15/20 History omeprazole 40 mg PO DAILY 06/11/20 06/15/20 History tamsulosin 0.4 mg PO DAILY 06/11/20 06/15/20 History acetaminophen [Mapap Arthritis 650 mg PO TID 06/15/20 06/15/20 History Pain] amlodipine 10 mg PO DAILY 06/15/20 06/15/20 History hydralazine 25 mg PO QID 06/15/20 06/15/20 History metolazone 5 mg PO DAILY 06/15/20 06/15/20 History <ARLIN Cabrera Last Filed: 09/06/20 01:52> Physical Exam Vital Signs: Vital Signs: Last Vital Signs Temp 98.1 F 09/05/20 20:00 Pulse 88 09/05/20 20:00 Resp 16 09/05/20 20:00 BP 133/71 09/05/20 20:00 Pulse Ox 96 09/05/20 20:00 Body Mass Index 30.1 <ARLIN Cabrera Last Filed: 09/06/20 01:52> Const: General: comfortable, no acute distress and ill appearing <ARLIN Cabrera Last Filed: 09/06/20 01:52> Nutritional Appearance: obese <ARLIN Cabrera Last Filed: 09/06/20 01:52> Orientation/consciousness: patient oriented x3 <ALRIN Cabrera Last Filed: 09/06/20 01:52> HENMT: Head: Yes normal to inspection <ARLIN Cabrera Last Filed: 09/06/20 01:52> Face and sinus: Yes normal facial exam <ARLIN Cabrera Last Filed: 09/06/20 01:52> Eyes: General: appearance normal, both eyes and all related structures <ARLIN Cabrera Last Filed: 09/06/20 01:52> Neck: Neck: Yes normal visual inspection, Yes full ROM and Yes supple <ARLIN Cabrera Last Filed: 09/06/20 01:52> Resp: Effort & Inspection: normal respiratory effort <Allison Zuñiga PA - Last Filed: 09/06/20 01:52> Auscultation: clear to auscultation bilaterally <Allison Zuñiga PA - Last Filed: 09/06/20 01:52> Cardio: Rate: regular rate <Allison Zuñiga PA - Last Filed: 09/06/20 01:52> Rhythm: regular rhythm <Allison Zuñiga PA - Last Filed: 09/06/20 01:52> Heart sounds: normal S1 and S2 <Allison Zuñiga PA - Last Filed: 09/06/20 01:52> GI: Inspection: Yes obesity <Allison Zuñiga PA - Last Filed: 09/06/20 01:52> Palpation (GI): Soft to palpation and nontender <ARLIN Cabrera - Last Filed: 09/06/20 01:52> Skin: General skin exam: no rashes or lesions noted <Allison Zuñiga PA - Last Filed: 09/06/20 01:52> Neuro: General: patient oriented x3 <ARLIN Cabrera - Last Filed: 09/06/20 01:52> Extrem: Other: Last foot toe amputations, bilateral lower extremity edema with erythema <Allison Zuñiga PA - Last Filed: 09/06/20 01:52> Psych: Appearance: disheveled <Allison Zuñiga PA - Last Filed: 09/06/20 01:52> Attitude: not cooperative <Allison Zuñiga PA - Last Filed: 09/06/20 01:52> Insight: Fair insight present (Psych) <ARLIN Cabrera - Last Filed: 09/06/20 01:52> Results Labs CBC and Chem 7: : 09/06/20 05:07 09/06/20 05:07 <ARLIN Cabrera - Last Filed: 09/06/20 01:52> Labs: Laboratory Results - last 24 hr 09/05/20 09/05/20 09/05/20 10:31 14:50 14:54 MCV MCH MCHC RDW Plt Count MPV Immature Gran % (Auto) Neut % (Auto) Lymph % (Auto) Shelby % (Auto) Eos % (Auto) Baso % (Auto) Lymph # (Auto) Shelby # (Auto) Eos # (Auto) Baso # (Auto) Abs Immat Gran (auto) Absolute Neuts (auto) Absolute Nucleated RBC Nucleated RBC % (auto) Anion Gap Estim Creat Clear Calc Estimated GFR POC Glucose 515 H* 471 H* Random Glucose Lactic Acid Calcium Total Bilirubin AST ALT Alkaline Phosphatase Troponin I High Sens Total Protein Albumin Lipase Beta-Hydroxybutyrate/Acetoacetate Cancelled Acetone, Qual Coronavirus (PCR) Influenza Type A (PCR) Influenza Type B (PCR) RSV RNA Qual (PCR) 09/05/20 09/05/20 09/05/20 16:49 16:57 16:57 MCV 86.0 MCH 24.8 L MCHC 28.8 L RDW 22.9 H Plt Count 327 D MPV 12.4 H Immature Gran % (Auto) 0.7 H Neut % (Auto) 76.3 H Lymph % (Auto) 8.5 L Shelby % (Auto) 14.0 H Eos % (Auto) 0.1 Baso % (Auto) 0.4 Lymph # (Auto) 0.8 L Shelby # (Auto) 1.4 H Eos # (Auto) 0.0 Baso # (Auto) 0.0 Abs Immat Gran (auto) 0.07 H Absolute Neuts (auto) 7.6 Absolute Nucleated RBC 0.000 Nucleated RBC % (auto) 0.0 Anion Gap Estim Creat Clear Calc Estimated GFR POC Glucose 489 H* Random Glucose Lactic Acid Calcium Total Bilirubin AST ALT Alkaline Phosphatase Troponin I High Sens 23.2 H D Total Protein Albumin Lipase Beta-Hydroxybutyrate/Acetoacetate Acetone, Qual Coronavirus (PCR) Influenza Type A (PCR) Influenza Type B (PCR) RSV RNA Qual (PCR) 09/05/20 09/05/20 09/05/20 16:57 16:58 16:58 MCV MCH MCHC RDW Plt Count MPV Immature Gran % (Auto) Neut % (Auto) Lymph % (Auto) Shelby % (Auto) Eos % (Auto) Baso % (Auto) Lymph # (Auto) Shelby # (Auto) Eos # (Auto) Baso # (Auto) Abs Immat Gran (auto) Absolute Neuts (auto) Absolute Nucleated RBC Nucleated RBC % (auto) Anion Gap 28 H Estim Creat Clear Calc 34.4 Estimated GFR 22 POC Glucose Random Glucose 551 H* Lactic Acid 3.8 H* Calcium 7.8 L D Total Bilirubin 0.5 AST 18 ALT 18 Alkaline Phosphatase 108 Troponin I High Sens Total Protein 6.2 L Albumin 3.2 L Lipase 43 Beta-Hydroxybutyrate/Acetoacetate Acetone, Qual Coronavirus (PCR) Influenza Type A (PCR) Influenza Type B (PCR) RSV RNA Qual (PCR) 09/05/20 09/05/20 09/05/20 16:58 17:39 18:50 MCV MCH MCHC RDW Plt Count MPV Immature Gran % (Auto) Neut % (Auto) Lymph % (Auto) Shelby % (Auto) Eos % (Auto) Baso % (Auto) Lymph # (Auto) Shelby # (Auto) Eos # (Auto) Baso # (Auto) Abs Immat Gran (auto) Absolute Neuts (auto) Absolute Nucleated RBC Nucleated RBC % (auto) Anion Gap Estim Creat Clear Calc Estimated GFR POC Glucose 474 H* Random Glucose Lactic Acid Calcium Total Bilirubin AST ALT Alkaline Phosphatase Troponin I High Sens Total Protein Albumin Lipase Beta-Hydroxybutyrate/Acetoacetate Acetone, Qual Small H Coronavirus (PCR) NEGATIVE Influenza Type A (PCR) NEGATIVE Influenza Type B (PCR) NEGATIVE RSV RNA Qual (PCR) NEGATIVE 09/05/20 09/05/20 19:35 19:37 MCV MCH MCHC RDW Plt Count MPV Immature Gran % (Auto) Neut % (Auto) Lymph % (Auto) Shelby % (Auto) Eos % (Auto) Baso % (Auto) Lymph # (Auto) Shelby # (Auto) Eos # (Auto) Baso # (Auto) Abs Immat Gran (auto) Absolute Neuts (auto) Absolute Nucleated RBC Nucleated RBC % (auto) Anion Gap Estim Creat Clear Calc Estimated GFR POC Glucose 406 H* 381 H* Random Glucose Lactic Acid Calcium Total Bilirubin AST ALT Alkaline Phosphatase Troponin I High Sens Total Protein Albumin Lipase Beta-Hydroxybutyrate/Acetoacetate Acetone, Qual Coronavirus (PCR) Influenza Type A (PCR) Influenza Type B (PCR) RSV RNA Qual (PCR) <Allison Zuñiga, PA - Last Filed: 09/06/20 01:52> Imaging Radiologist's Impressions: Impressions Chest X-Ray 09/05/20 12:24 IMPRESSION: Hypoexpanded lungs with patchy reticular opacities in both lobes likely interstitial pneumonitis. Right basilar haziness question effusion/atelectasis/infiltrate. The haziness has improved since 06/15/[address] 09/05/20 18:18 IMPRESSION: Large right and small left pleural effusion with underlying compressive atelectasis. There is airspace disease in left lung base as well. Infiltrate is not excluded. Reactionary lymph nodes in the mediastinum. Irregularity along the distal sternum and the system most likely an old nonhealed fracture. There are multiple healing old fractures left lateral lower ribs. Correlate with previous trauma-history <ARLIN Cabrera Last Filed: 09/06/20 01:52> Assessment and Plan (1) Diabetic keto-acidosis: Status: Acute <ARLIN Cabrera Last Filed: 09/06/20 01:52> Insulin drip, hourly blood sugars and monitor metabolic panel <ARLIN Cabrera Last Filed: 09/06/20 01:52> (2) Pneumonia: Status: Acute <ARLIN Cabrera Last Filed: 09/06/20 01:52> Patient given 500 mg azithromycin and 1 g of ceftriaxone in ED <ARLIN Cabrera Last Filed: 09/06/20 01:52> (3) Acute dehydration: Status: Acute <ARLIN Cabrera Last Filed: 09/06/20 01:52> (4) Acute on chronic kidney failure: Status: Acute <ARLIN Cabrera Last Filed: 09/06/20 01:52> Fluid resuscitation and monitor renal indices <ARLIN Cabrera Last Filed: 09/06/20 01:52> (5) Opiate abuse, continuous: Status: Acute <ARLIN Cabrera Last Filed: 09/06/20 01:52> Monitor for signs of withdrawal <ARLIN Cabrera Last Filed: 09/06/20 01:52>
[2020-09-05 20:14] LABS: ~Lactic Acid-LAB USE ONLY 3.3 mmol/L (0.5-2.0)
[2020-09-05 20:55] LABS: Glucose, Whole Blood 381 mg/dL (60-115)
[2020-09-05 21:20] LABS: Anion Gap 21 (12-20); Blood Urea Nitrogen 61 mg/dL (9-16); Calcium 7.5 mg/dL (8.4-10.2); Carbon Dioxide 14 mmol/L (22-29); Chloride 105 mmol/L (96-108); Creatinine Clr Calc Pharmacy 36.6; Estimated Glomerular Filt Rate 24; Glucose Random 434 mg/dL (60-115); Potassium 5.5 mmol/l (3.3-5.1); Sodium 134 mmol/L (135-145)
[2020-09-05 21:35] LABS: HCO3 VBG 16 mmol/L; Oxygen Saturation VBG 93.6 %; PCO2 VBG 39 mmhg; PO2 VBG 76 mmhg; pH VBG 7.23 (7.32-7.43)
[2020-09-05 21:47] LABS: Reflex Lactate? 2 Y
[2020-09-05 21:54] LABS: Glucose, Whole Blood 328 mg/dL (60-115)
--- NOTE | 2020-09-05 22:09 | PC.NURSE ---
poc 328 insulin drip decreased to 4 units/hr. no bolus given at this time will verify with provider before giving.
[2020-09-05 22:51] LABS: Glucose, Whole Blood 357 mg/dL (60-115)
--- NOTE | 2020-09-05 22:51 | PC.NURSE ---
insulin drip at 4 units.hr for poc 357 at 2245. pt vitals stable. waiting order to transfer to icu.
--- NOTE | 2020-09-05 22:54 | PC.NURSE ---
provider made aware of poc 357 and rate is now at 4 unit/hr. verbal bolus is to be 5 units and not 10 units as protocol per Angelica npt in icu
[2020-09-05 23:15] LABS: ~Lactic Acid-LAB USE ONLY 2.1 mmol/L (0.5-2.0)
[2020-09-05] MEDS: Insulin Regular, Human 100 UNIT/ML 3 ML VIAL IVPUSH (23:26)
--- NOTE | 2020-09-05 23:27 | PC.NURSE ---
unabel to scan insulin 5 unit iv push given due to no barcode lables in the pyxis.
--- NOTE | 2020-09-05 23:56 | PC.NURSE ---
insulin drip increased by 1 unit/hr for poc 300
[2020-09-06] VITALS (23 sets, daily range): BP systolic 111–153; BP diastolic 43–85; PULSE 70–122; RESP 9–20; TEMP 36.2–37.1; O2SAT 92–100; BMI 31.5
--- NOTE | 2020-09-06 | ECG_ITS ---
Test Reason : sinus tach vs afib Blood Pressure : / mmHG Vent. Rate : 127 BPM Atrial Rate : 119 BPM P-R Int : 000 ms QRS Dur : 104 ms QT Int : 346 ms P-R-T Axes : 000 001 144 degrees QTc Int : 502 ms Atrial fibrillation with rapid ventricular response Nonspecific ST and T wave abnormality Abnormal ECG No previous ECGs available Referred By: Allison Zuñiga Electronically Signed By:PADILLA GUERRA
[2020-09-06 00:03] LABS: Glucose, Whole Blood 300 mg/dL (60-115)
--- NOTE | 2020-09-06 00:25 | PC.NURSE ---
REPORT GIVEN TO SKYLAR RN AND PT IS GOING INTO ROOM 259-1 ON A INSULIN DRIP AT 4 UNIT/HR.
[2020-09-06 00:51] LABS: Glucose, Whole Blood 274 mg/dL (60-115)
[2020-09-06 01:19] LABS: Anion Gap 17 (12-20); Blood Urea Nitrogen 60 mg/dL (9-16); Calcium 7.6 mg/dL (8.4-10.2); Carbon Dioxide 18 mmol/L (22-29); Chloride 106 mmol/L (96-108); Creatinine Clr Calc Pharmacy 37.3; Estimated Glomerular Filt Rate 24; Glucose Random 312 mg/dL (60-115); Potassium 5.2 mmol/l (3.3-5.1); Sodium 136 mmol/L (135-145)
[2020-09-06 01:48] LABS: Base Excess VBG -6.1 mmol/L; HCO3 VBG 20 mmol/L; Oxygen Saturation VBG 64.2 %; PCO2 VBG 41 mmhg; PO2 VBG 36 mmhg; pH VBG 7.31 (7.32-7.43)
[2020-09-06 01:57] LABS: Glucose, Whole Blood 245 mg/dL (60-115)
[2020-09-06 02:29] LABS: Glucose Urine UA >=1000 MG/DL (NEG); Leukocyte Esterase Urine NEG (NEG); Nitrite Urine NEG (NEG); PH 5.5 (5.0-8.0); Urine Blood TRACE (NEG); Urine Ketones 5 MG/DL (NEG); Urine Protein 1+ MG/DL (NEG-TRACE)
[2020-09-06 02:34] LABS: Appearance Urine HAZY; Color Urine YELLOW
[2020-09-06 02:51] LABS: Bacteria Urine TRACE /LPF; Hyaline Casts Urine 0-2 /LPF; Mucus Urine TRACE /LPF; RBC Urine 0-2 /HPF (0); UACC CULT YES; WBC Clumps Urine NOTED
[2020-09-06 02:52] LABS: Amphetamine Screen Urine Not Detected (Not Detect); Barbiturates, Urine Not Detected (Not Detect); Benzodiazepines Screen Urine Not Detected (Not Detect); Cannabinoid Screen Urine Not Detected (Not Detect); Cocaine Screen Urine Not Detected (Not Detect); Opiate Screen Urine Not Detected (Not Detect); Phencyclidine Screen Urine Not Detected (Not Detect)
[2020-09-06 03:11] LABS: Glucose, Whole Blood 190 mg/dL (60-115)
[2020-09-06] MEDS: Dextrose 5 % and 0.9 % NaCl 1,000 ML 100 ML IVCONT (03:29)
[2020-09-06 04:04] LABS: Glucose, Whole Blood 182 mg/dL (60-115)
[2020-09-06 04:53] LABS: Glucose, Whole Blood 143 mg/dL (60-115)
[2020-09-06 05:21] LABS: Basophils Percent Auto 0.5 % (0-2); Eosinophils Absolute Auto 0.1 X10*3/uL (0.0-0.4); Eosinophils Percent Auto 0.9 % (0-4); Hematocrit 30.5 % (37-47); Imm Gran Abs Auto 0.03 X10*3/uL (0.00-0.03); Imm Gran Pct Auto 0.4 % (0.0-0.4); Lymphocytes Absolute Auto 1.5 X10*3/uL (1.2-4.9); Lymphocytes Percent Auto 18.3 % (20-40); MANUAL DIFF FLAG NO; Mean Corpuscular HGB Conc 29.5 g/dl (31.0-35.0); Mean Corpuscular Hemoglobin 24.4 pg (27.0-33.0); Mean Corpuscular Volume 82.7 fL (80-98); Mean Platelet Volume 11.6 fL (9.4-12.3); Monocytes Absolute Auto 1.1 X10*3/uL (0.1-1.2); Monocytes Percent Auto 13.3 % (2-11); Neutrophils Absolute Auto 5.4 X10*3/uL (2.0-8.3); Neutrophils Percent Auto 66.6 % (45-73); Platelet Count 278 X10*3/uL (160-400); Red Blood Count 3.69 X10*6/uL (4.20-5.50); Red Cell Distribution Width 22.6 % (11.0-16.0)
[2020-09-06 05:33] LABS: Base Excess VBG -6.5 mmol/L; HCO3 VBG 20 mmol/L; PCO2 VBG 41 mmhg; PO2 VBG 34 mmhg
[2020-09-06 05:50] LABS: Anion Gap 18 (12-20); Blood Urea Nitrogen 60 mg/dL (9-16); Calcium 7.7 mg/dL (8.4-10.2); Carbon Dioxide 16 mmol/L (22-29); Chloride 107 mmol/L (96-108); Creatinine Clr Calc Pharmacy 41.2; Estimated Glomerular Filt Rate 27; Glucose Random 160 mg/dL (60-115); Magnesium 2.1 mg/dL (1.6-2.6); Phosphorus 4.1 mg/dL (2.7-4.5); Potassium 5.1 mmol/l (3.3-5.1); Sodium 136 mmol/L (135-145)
[2020-09-06 06:12] LABS: Glucose, Whole Blood 144 mg/dL (60-115)
--- NOTE | 2020-09-06 06:45 | PC.NURSE ---
care assumed at admit to icu...drowsy..responds briefly to questions..positions self side-side in bed...respirations easy on room air...marked edema lower legs/feet...old scratches and scars to legs...received >3000ML iv in er..denied urge to void...mak placed per icu biostatistics professor and immediately drained 850ml sedimented yellow urine...insulin drip 4 units/hr at admit...d5ns 100 cc/hr started per icu biostatistics professor when poc<200...D5NS TO 50 CC/HR PER MAT WORKER THIS AM
[2020-09-06 07:16] LABS: Glucose, Whole Blood 116 mg/dL (60-115)
[2020-09-06 08:01] LABS: Glucose, Whole Blood 100 mg/dL (60-115)
--- NOTE | 2020-09-06 08:27 | PC.NURSE ---
Pt refusing care, refusing to be repositioned and washed up, refusing to eat breakfast, states I just want to be left alone . MD aware, insuln drip being titrated
[2020-09-06 08:57] LABS: Glucose, Whole Blood 90 mg/dL (60-115)
[2020-09-06 09:53] LABS: Glucose, Whole Blood 83 mg/dL (60-115)
--- NOTE | 2020-09-06 10:31 | P.PNCC_ITS ---
Subjective Subjective Date of Service: 09/06/20 Interval History: 49-year-old female very advanced diabetic disease with what appears to be an ischemic cardiomyopathy and 20% ejection fraction in addition to presenting with acute on chronic stage III renal failure and peripheral vascular disease that is already resulted in a transmetatarsal amputation on the right side presents with combination of diabetic ketoacidosis as well as lactic acidosis There is a history of chronic opiate abuse and her skin she has severe bilateral chronic stasis dermatitis and multiple wounds but no real apparent cellulitis and chest x-ray and CT scan show significant right greater than left bilateral pleural effusions in in an overall picture of CHF Were limited in the rate of fluid replacement because of the cardiomyopathy number hoping to supplement with IV dobutamine to help mobilize 3rd space fluid Physical Exam Vital Signs: Vital Signs: Last Vital Signs Temp 97.9 F 09/06/20 10:00 Pulse 81 09/06/20 10:00 Resp 9 L 09/06/20 10:00 BP 125/80 09/06/20 10:00 Pulse Ox 100 09/06/20 10:00 Body Mass Index 31.5 Const: Other: Very lethargic but oriented will and she can be aroused but not willing to cooperate and has no desire to eat The serum bicarb level has been slow to repair Neurologic is nonfocal Bedside echo shows dilated diffuse hypokinesis of the left ventricle severe reduction of systolic reserve evidence of moderately severe secondary pulmonary hypertension Lungs with no adventitious sounds Abdomen benign with good bowel sounds and no organomegaly Skin specially lower extremities with significant elephantiasis and what appears to be stasis dermatitis multiple wounds with breaks in the skin but no apparent evidence of cellulitis Objective Data Labs CBC & Chem 7: 09/06/20 05:07 09/06/20 05:07 Labs: Laboratory Results - last 24 hr 09/05/20 09/05/20 09/05/20 10:31 14:50 14:54 WBC RBC Hgb Hct MCV MCH MCHC RDW Plt Count MPV Immature Gran % (Auto) Neut % (Auto) Lymph % (Auto) [place] % (Auto) Eos % (Auto) Baso % (Auto) Lymph # (Auto) [place] # (Auto) Eos # (Auto) Baso # (Auto) Abs Immat Gran (auto) Absolute Neuts (auto) Absolute Nucleated RBC Nucleated RBC % (auto) VBG pH VBG pCO2 VBG pO2 VBG HCO3 VBG O2 Saturation VBG Base Excess Sodium Potassium Chloride Carbon Dioxide Anion Gap BUN Creatinine Estim Creat Clear Calc Estimated GFR POC Glucose 515 H* 471 H* Random Glucose Lactic Acid Lactic Acid Fup @ 2Hr Lactic Acid Fup @ 4Hr Calcium Phosphorus Magnesium Total Bilirubin AST ALT Alkaline Phosphatase Troponin I High Sens Total Protein Albumin Lipase Beta-Hydroxybutyrate/Acetoacetate Cancelled Urine Color Urine Appearance Urine pH Ur Specific [place] Urine Protein Urine Glucose (UA) Urine Ketones Urine Blood Urine Nitrite Ur Leukocyte Esterase Urine RBC Urine WBC Urine WBC Clumps Ur Squamous Epith Cells Urine Bacteria Hyaline Casts Urine Mucus Urine Yeast Urine Opiates Screen Ur Barbiturates Screen Ur Phencyclidine Scrn Ur Amphetamines Screen U Benzodiazepines Scrn Urine Cocaine Screen U Marijuana (THC) Screen Acetone, Qual Coronavirus (PCR) Influenza Type A (PCR) Influenza Type B (PCR) RSV RNA Qual (PCR) 09/05/20 09/05/20 09/05/20 16:49 16:57 16:57 WBC 9.9 RBC 3.79 L Hgb 9.4 L Hct 32.6 L D MCV 86.0 MCH 24.8 L MCHC 28.8 L RDW 22.9 H Plt Count 327 D MPV 12.4 H Immature Gran % (Auto) 0.7 H Neut % (Auto) 76.3 H Lymph % (Auto) 8.5 L [place] % (Auto) 14.0 H Eos % (Auto) 0.1 Baso % (Auto) 0.4 Lymph # (Auto) 0.8 L [place] # (Auto) 1.4 H Eos # (Auto) 0.0 Baso # (Auto) 0.0 Abs Immat Gran (auto) 0.07 H Absolute Neuts (auto) 7.6 Absolute Nucleated RBC 0.000 Nucleated RBC % (auto) 0.0 VBG pH VBG pCO2 VBG pO2 VBG HCO3 VBG O2 Saturation VBG Base Excess Sodium Potassium Chloride Carbon Dioxide Anion Gap BUN Creatinine Estim Creat Clear Calc Estimated GFR POC Glucose 489 H* Random Glucose Lactic Acid Lactic Acid Fup @ 2Hr Lactic Acid Fup @ 4Hr Calcium Phosphorus Magnesium Total Bilirubin AST ALT Alkaline Phosphatase Troponin I High Sens 23.2 H D Total Protein Albumin Lipase Beta-Hydroxybutyrate/Acetoacetate Urine Color Urine Appearance Urine pH Ur Specific [place] Urine Protein Urine Glucose (UA) Urine Ketones Urine Blood Urine Nitrite Ur Leukocyte Esterase Urine RBC Urine WBC Urine WBC Clumps Ur Squamous Epith Cells Urine Bacteria Hyaline Casts Urine Mucus Urine Yeast Urine Opiates Screen Ur Barbiturates Screen Ur Phencyclidine Scrn Ur Amphetamines Screen U Benzodiazepines Scrn Urine Cocaine Screen U Marijuana (THC) Screen Acetone, Qual Coronavirus (PCR) Influenza Type A (PCR) Influenza Type B (PCR) RSV RNA Qual (PCR) 09/05/20 09/05/20 09/05/20 16:57 16:58 16:58 WBC RBC Hgb Hct MCV MCH MCHC RDW Plt Count MPV Immature Gran % (Auto) Neut % (Auto) Lymph % (Auto) [place] % (Auto) Eos % (Auto) Baso % (Auto) Lymph # (Auto) [place] # (Auto) Eos # (Auto) Baso # (Auto) Abs Immat Gran (auto) Absolute Neuts (auto) Absolute Nucleated RBC Nucleated RBC % (auto) VBG pH VBG pCO2 VBG pO2 VBG HCO3 VBG O2 Saturation VBG Base Excess Sodium 132 L Potassium 5.9 H D Chloride 102 Carbon Dioxide 8 L* D Anion Gap 28 H BUN 63 H Creatinine 2.34 H Estim Creat Clear Calc 34.4 Estimated GFR 22 POC Glucose Random Glucose 551 H* Lactic Acid 3.8 H* Lactic Acid Fup @ 2Hr Lactic Acid Fup @ 4Hr Calcium 7.8 L D Phosphorus Magnesium Total Bilirubin 0.5 AST 18 ALT 18 Alkaline Phosphatase 108 Troponin I High Sens Total Protein 6.2 L Albumin 3.2 L Lipase 43 Beta-Hydroxybutyrate/Acetoacetate Urine Color Urine Appearance Urine pH Ur Specific [place] Urine Protein Urine Glucose (UA) Urine Ketones Urine Blood Urine Nitrite Ur Leukocyte Esterase Urine RBC Urine WBC Urine WBC Clumps Ur Squamous Epith Cells Urine Bacteria Hyaline Casts Urine Mucus Urine Yeast Urine Opiates Screen Ur Barbiturates Screen Ur Phencyclidine Scrn Ur Amphetamines Screen U Benzodiazepines Scrn Urine Cocaine Screen U Marijuana (THC) Screen Acetone, Qual Coronavirus (PCR) Influenza Type A (PCR) Influenza Type B (PCR) RSV RNA Qual (PCR) 09/05/20 09/05/20 09/05/20 16:58 17:39 18:50 WBC RBC Hgb Hct MCV MCH MCHC RDW Plt Count MPV Immature Gran % (Auto) Neut % (Auto) Lymph % (Auto) [place] % (Auto) Eos % (Auto) Baso % (Auto) Lymph # (Auto) [place] # (Auto) Eos # (Auto) Baso # (Auto) Abs Immat Gran (auto) Absolute Neuts (auto) Absolute Nucleated RBC Nucleated RBC % (auto) VBG pH VBG pCO2 VBG pO2 VBG HCO3 VBG O2 Saturation VBG Base Excess Sodium Potassium Chloride Carbon Dioxide Anion Gap BUN Creatinine Estim Creat Clear Calc Estimated GFR POC Glucose 474 H* Random Glucose Lactic Acid Lactic Acid Fup @ 2Hr Lactic Acid Fup @ 4Hr Calcium Phosphorus Magnesium Total Bilirubin AST ALT Alkaline Phosphatase Troponin I High Sens Total Protein Albumin Lipase Beta-Hydroxybutyrate/Acetoacetate Urine Color Urine Appearance Urine pH Ur Specific [place] Urine Protein Urine Glucose (UA) Urine Ketones Urine Blood Urine Nitrite Ur Leukocyte Esterase Urine RBC Urine WBC Urine WBC Clumps Ur Squamous Epith Cells Urine Bacteria Hyaline Casts Urine Mucus Urine Yeast Urine Opiates Screen Ur Barbiturates Screen Ur Phencyclidine Scrn Ur Amphetamines Screen U Benzodiazepines Scrn Urine Cocaine Screen U Marijuana (THC) Screen Acetone, Qual Small H Coronavirus (PCR) NEGATIVE Influenza Type A (PCR) NEGATIVE Influenza Type B (PCR) NEGATIVE RSV RNA Qual (PCR) NEGATIVE 09/05/20 09/05/20 09/05/20 19:35 19:37 19:45 WBC RBC Hgb Hct MCV MCH MCHC RDW Plt Count MPV Immature Gran % (Auto) Neut % (Auto) Lymph % (Auto) [place] % (Auto) Eos % (Auto) Baso % (Auto) Lymph # (Auto) [place] # (Auto) Eos # (Auto) Baso # (Auto) Abs Immat Gran (auto) Absolute Neuts (auto) Absolute Nucleated RBC Nucleated RBC % (auto) VBG pH VBG pCO2 VBG pO2 VBG HCO3 VBG O2 Saturation VBG Base Excess Sodium Potassium Chloride Carbon Dioxide Anion Gap BUN Creatinine Estim Creat Clear Calc Estimated GFR POC Glucose 406 H* 381 H* Random Glucose Lactic Acid Lactic Acid Fup @ 2Hr 3.3 H* Lactic Acid Fup @ 4Hr Calcium Phosphorus Magnesium Total Bilirubin AST ALT Alkaline Phosphatase Troponin I High Sens Total Protein Albumin Lipase Beta-Hydroxybutyrate/Acetoacetate Urine Color Urine Appearance Urine pH Ur Specific [place] Urine Protein Urine Glucose (UA) Urine Ketones Urine Blood Urine Nitrite Ur Leukocyte Esterase Urine RBC Urine WBC Urine WBC Clumps Ur Squamous Epith Cells Urine Bacteria Hyaline Casts Urine Mucus Urine Yeast Urine Opiates Screen Ur Barbiturates Screen Ur Phencyclidine Scrn Ur Amphetamines Screen U Benzodiazepines Scrn Urine Cocaine Screen U Marijuana (THC) Screen Acetone, Qual Coronavirus (PCR) Influenza Type A (PCR) Influenza Type B (PCR) RSV RNA Qual (PCR) 09/05/20 09/05/20 09/05/20 20:40 20:51 21:26 WBC RBC Hgb Hct MCV MCH MCHC RDW Plt Count MPV Immature Gran % (Auto) Neut % (Auto) Lymph % (Auto) [place] % (Auto) Eos % (Auto) Baso % (Auto) Lymph # (Auto) [place] # (Auto) Eos # (Auto) Baso # (Auto) Abs Immat Gran (auto) Absolute Neuts (auto) Absolute Nucleated RBC Nucleated RBC % (auto) VBG pH 7.23 L VBG pCO2 39 VBG pO2 76 VBG HCO3 16 VBG O2 Saturation 93.6 VBG Base Excess -11.0 Sodium 134 L Potassium 5.5 H Chloride 105 Carbon Dioxide 14 L Anion Gap 21 H BUN 61 H Creatinine 2.20 H Estim Creat Clear Calc 36.6 Estimated GFR 24 POC Glucose 381 H* Random Glucose 434 H* Lactic Acid Lactic Acid Fup @ 2Hr Lactic Acid Fup @ 4Hr Calcium 7.5 L Phosphorus Magnesium Total Bilirubin AST ALT Alkaline Phosphatase Troponin I High Sens Total Protein Albumin Lipase Beta-Hydroxybutyrate/Acetoacetate Urine Color Urine Appearance Urine pH Ur Specific [place] Urine Protein Urine Glucose (UA) Urine Ketones Urine Blood Urine Nitrite Ur Leukocyte Esterase Urine RBC Urine WBC Urine WBC Clumps Ur Squamous Epith Cells Urine Bacteria Hyaline Casts Urine Mucus Urine Yeast Urine Opiates Screen Ur Barbiturates Screen Ur Phencyclidine Scrn Ur Amphetamines Screen U Benzodiazepines Scrn Urine Cocaine Screen U Marijuana (THC) Screen Acetone, Qual Coronavirus (PCR) Influenza Type A (PCR) Influenza Type B (PCR) RSV RNA Qual (PCR) 09/05/20 09/05/20 09/05/20 21:49 22:30 22:46 WBC RBC Hgb Hct MCV MCH MCHC RDW Plt Count MPV Immature Gran % (Auto) Neut % (Auto) Lymph % (Auto) [place] % (Auto) Eos % (Auto) Baso % (Auto) Lymph # (Auto) [place] # (Auto) Eos # (Auto) Baso # (Auto) Abs Immat Gran (auto) Absolute Neuts (auto) Absolute Nucleated RBC Nucleated RBC % (auto) VBG pH VBG pCO2 VBG pO2 VBG HCO3 VBG O2 Saturation VBG Base Excess Sodium Potassium Chloride Carbon Dioxide Anion Gap BUN Creatinine Estim Creat Clear Calc Estimated GFR POC Glucose 328 H 357 H* Random Glucose Lactic Acid Lactic Acid Fup @ 2Hr Lactic Acid Fup @ 4Hr 2.1 H* Calcium Phosphorus Magnesium Total Bilirubin AST ALT Alkaline Phosphatase Troponin I High Sens Total Protein Albumin Lipase Beta-Hydroxybutyrate/Acetoacetate Urine Color Urine Appearance Urine pH Ur Specific [place] Urine Protein Urine Glucose (UA) Urine Ketones Urine Blood Urine Nitrite Ur Leukocyte Esterase Urine RBC Urine WBC Urine WBC Clumps Ur Squamous Epith Cells Urine Bacteria Hyaline Casts Urine Mucus Urine Yeast Urine Opiates Screen Ur Barbiturates Screen Ur Phencyclidine Scrn Ur Amphetamines Screen U Benzodiazepines Scrn Urine Cocaine Screen U Marijuana (THC) Screen Acetone, Qual Coronavirus (PCR) Influenza Type A (PCR) Influenza Type B (PCR) RSV RNA Qual (PCR) 09/05/20 09/06/20 09/06/20 23:53 00:46 00:47 WBC RBC Hgb Hct MCV MCH MCHC RDW Plt Count MPV Immature Gran % (Auto) Neut % (Auto) Lymph % (Auto) [place] % (Auto) Eos % (Auto) Baso % (Auto) Lymph # (Auto) [place] # (Auto) Eos # (Auto) Baso # (Auto) Abs Immat Gran (auto) Absolute Neuts (auto) Absolute Nucleated RBC Nucleated RBC % (auto) VBG pH VBG pCO2 VBG pO2 VBG HCO3 VBG O2 Saturation VBG Base Excess Sodium 136 Potassium 5.2 H Chloride 106 Carbon Dioxide 18 L Anion Gap 17 BUN 60 H Creatinine 2.21 H Estim Creat Clear Calc 37.3 Estimated GFR 24 POC Glucose 300 H 274 H Random Glucose 312 H Lactic Acid Lactic Acid Fup @ 2Hr Lactic Acid Fup @ 4Hr Calcium 7.6 L Phosphorus Magnesium Total Bilirubin AST ALT Alkaline Phosphatase Troponin I High Sens Total Protein Albumin Lipase Beta-Hydroxybutyrate/Acetoacetate Urine Color Urine Appearance Urine pH Ur Specific [place] Urine Protein Urine Glucose (UA) Urine Ketones Urine Blood Urine Nitrite Ur Leukocyte Esterase Urine RBC Urine WBC Urine WBC Clumps Ur Squamous Epith Cells Urine Bacteria Hyaline Casts Urine Mucus Urine Yeast Urine Opiates Screen Ur Barbiturates Screen Ur Phencyclidine Scrn Ur Amphetamines Screen U Benzodiazepines Scrn Urine Cocaine Screen U Marijuana (THC) Screen Acetone, Qual Coronavirus (PCR) Influenza Type A (PCR) Influenza Type B (PCR) RSV RNA Qual (PCR) 09/06/20 09/06/20 09/06/20 01:37 01:37 01:37 WBC RBC Hgb Hct MCV MCH MCHC RDW Plt Count MPV Immature Gran % (Auto) Neut % (Auto) Lymph % (Auto) [place] % (Auto) Eos % (Auto) Baso % (Auto) Lymph # (Auto) [place] # (Auto) Eos # (Auto) Baso # (Auto) Abs Immat Gran (auto) Absolute Neuts (auto) Absolute Nucleated RBC Nucleated RBC % (auto) VBG pH 7.31 L VBG pCO2 41 VBG pO2 36 VBG HCO3 20 VBG O2 Saturation 64.2 VBG Base Excess -6.1 Sodium Potassium Chloride Carbon Dioxide Anion Gap BUN Creatinine Estim Creat Clear Calc Estimated GFR POC Glucose Random Glucose Lactic Acid Lactic Acid Fup @ 2Hr Lactic Acid Fup @ 4Hr Calcium Phosphorus Magnesium Total Bilirubin AST ALT Alkaline Phosphatase Troponin I High Sens Total Protein Albumin Lipase Beta-Hydroxybutyrate/Acetoacetate Urine Color YELLOW Urine Appearance HAZY Urine pH 5.5 Ur Specific [place] 1.020 Urine Protein 1+ H Urine Glucose (UA) >=1000 H Urine Ketones 5 Urine Blood TRACE Urine Nitrite NEG Ur Leukocyte Esterase NEG Urine RBC 0-2 Urine WBC 15-29 H Urine WBC Clumps NOTED Ur Squamous Epith Cells NONE Urine Bacteria TRACE Hyaline Casts 0-2 Urine Mucus TRACE Urine Yeast 1+ Urine Opiates Screen Not Detected Ur Barbiturates Screen Not Detected Ur Phencyclidine Scrn Not Detected Ur Amphetamines Screen Not Detected U Benzodiazepines Scrn Not Detected Urine Cocaine Screen Not Detected U Marijuana (THC) Screen Not Detected Acetone, Qual Coronavirus (PCR) Influenza Type A (PCR) Influenza Type B (PCR) RSV RNA Qual (PCR) 09/06/20 09/06/20 09/06/20 01:53 03:07 03:59 WBC RBC Hgb Hct MCV MCH MCHC RDW Plt Count MPV Immature Gran % (Auto) Neut % (Auto) Lymph % (Auto) [place] % (Auto) Eos % (Auto) Baso % (Auto) Lymph # (Auto) [place] # (Auto) Eos # (Auto) Baso # (Auto) Abs Immat Gran (auto) Absolute Neuts (auto) Absolute Nucleated RBC Nucleated RBC % (auto) VBG pH VBG pCO2 VBG pO2 VBG HCO3 VBG O2 Saturation VBG Base Excess Sodium Potassium Chloride Carbon Dioxide Anion Gap BUN Creatinine Estim Creat Clear Calc Estimated GFR POC Glucose 245 H 190 H 182 H Random Glucose Lactic Acid Lactic Acid Fup @ 2Hr Lactic Acid Fup @ 4Hr Calcium Phosphorus Magnesium Total Bilirubin AST ALT Alkaline Phosphatase Troponin I High Sens Total Protein Albumin Lipase Beta-Hydroxybutyrate/Acetoacetate Urine Color Urine Appearance Urine pH Ur Specific [place] Urine Protein Urine Glucose (UA) Urine Ketones Urine Blood Urine Nitrite Ur Leukocyte Esterase Urine RBC Urine WBC Urine WBC Clumps Ur Squamous Epith Cells Urine Bacteria Hyaline Casts Urine Mucus Urine Yeast Urine Opiates Screen Ur Barbiturates Screen Ur Phencyclidine Scrn Ur Amphetamines Screen U Benzodiazepines Scrn Urine Cocaine Screen U Marijuana (THC) Screen Acetone, Qual Coronavirus (PCR) Influenza Type A (PCR) Influenza Type B (PCR) RSV RNA Qual (PCR) 09/06/20 09/06/20 09/06/20 04:48 05:07 05:07 WBC 8.0 RBC 3.69 L Hgb 9.0 L Hct 30.5 L MCV 82.7 MCH 24.4 L MCHC 29.5 L RDW 22.6 H Plt Count 278 MPV 11.6 Immature Gran % (Auto) 0.4 Neut % (Auto) 66.6 Lymph % (Auto) 18.3 L [place] % (Auto) 13.3 H Eos % (Auto) 0.9 Baso % (Auto) 0.5 Lymph # (Auto) 1.5 [place] # (Auto) 1.1 Eos # (Auto) 0.1 Baso # (Auto) 0.0 Abs Immat Gran (auto) 0.03 Absolute Neuts (auto) 5.4 Absolute Nucleated RBC 0.000 Nucleated RBC % (auto) 0.0 VBG pH VBG pCO2 VBG pO2 VBG HCO3 VBG O2 Saturation VBG Base Excess Sodium 136 Potassium 5.1 Chloride 107 Carbon Dioxide 16 L Anion Gap 18 BUN 60 H Creatinine 2.00 H Estim Creat Clear Calc 41.2 Estimated GFR 27 POC Glucose 143 H Random Glucose 160 H D Lactic Acid Lactic Acid Fup @ 2Hr Lactic Acid Fup @ 4Hr Calcium 7.7 L Phosphorus 4.1 Magnesium 2.1 Total Bilirubin AST ALT Alkaline Phosphatase Troponin I High Sens Total Protein Albumin Lipase Beta-Hydroxybutyrate/Acetoacetate Urine Color Urine Appearance Urine pH Ur Specific [place] Urine Protein Urine Glucose (UA) Urine Ketones Urine Blood Urine Nitrite Ur Leukocyte Esterase Urine RBC Urine WBC Urine WBC Clumps Ur Squamous Epith Cells Urine Bacteria Hyaline Casts Urine Mucus Urine Yeast Urine Opiates Screen Ur Barbiturates Screen Ur Phencyclidine Scrn Ur Amphetamines Screen U Benzodiazepines Scrn Urine Cocaine Screen U Marijuana (THC) Screen Acetone, Qual Coronavirus (PCR) Influenza Type A (PCR) Influenza Type B (PCR) RSV RNA Qual (PCR) 09/06/20 09/06/20 09/06/20 05:07 06:07 07:09 WBC RBC Hgb Hct MCV MCH MCHC RDW Plt Count MPV Immature Gran % (Auto) Neut % (Auto) Lymph % (Auto) [place] % (Auto) Eos % (Auto) Baso % (Auto) Lymph # (Auto) [place] # (Auto) Eos # (Auto) Baso # (Auto) Abs Immat Gran (auto) Absolute Neuts (auto) Absolute Nucleated RBC Nucleated RBC % (auto) VBG pH 7.30 L VBG pCO2 41 VBG pO2 34 VBG HCO3 20 VBG O2 Saturation 60.0 VBG Base Excess -6.5 Sodium Potassium Chloride Carbon Dioxide Anion Gap BUN Creatinine Estim Creat Clear Calc Estimated GFR POC Glucose 144 H 116 H Random Glucose Lactic Acid Lactic Acid Fup @ 2Hr Lactic Acid Fup @ 4Hr Calcium Phosphorus Magnesium Total Bilirubin AST ALT Alkaline Phosphatase Troponin I High Sens Total Protein Albumin Lipase Beta-Hydroxybutyrate/Acetoacetate Urine Color Urine Appearance Urine pH Ur Specific [place] Urine Protein Urine Glucose (UA) Urine Ketones Urine Blood Urine Nitrite Ur Leukocyte Esterase Urine RBC Urine WBC Urine WBC Clumps Ur Squamous Epith Cells Urine Bacteria Hyaline Casts Urine Mucus Urine Yeast Urine Opiates Screen Ur Barbiturates Screen Ur Phencyclidine Scrn Ur Amphetamines Screen U Benzodiazepines Scrn Urine Cocaine Screen U Marijuana (THC) Screen Acetone, Qual Coronavirus (PCR) Influenza Type A (PCR) Influenza Type B (PCR) RSV RNA Qual (PCR) 09/06/20 09/06/20 09/06/20 07:57 08:54 09:50 WBC RBC Hgb Hct MCV MCH MCHC RDW Plt Count MPV Immature Gran % (Auto) Neut % (Auto) Lymph % (Auto) [place] % (Auto) Eos % (Auto) Baso % (Auto) Lymph # (Auto) [place] # (Auto) Eos # (Auto) Baso # (Auto) Abs Immat Gran (auto) Absolute Neuts (auto) Absolute Nucleated RBC Nucleated RBC % (auto) VBG pH VBG pCO2 VBG pO2 VBG HCO3 VBG O2 Saturation VBG Base Excess Sodium Potassium Chloride Carbon Dioxide Anion Gap BUN Creatinine Estim Creat Clear Calc Estimated GFR POC Glucose 100 90 83 Random Glucose Lactic Acid Lactic Acid Fup @ 2Hr Lactic Acid Fup @ 4Hr Calcium Phosphorus Magnesium Total Bilirubin AST ALT Alkaline Phosphatase Troponin I High Sens Total Protein Albumin Lipase Beta-Hydroxybutyrate/Acetoacetate Urine Color Urine Appearance Urine pH Ur Specific [place] Urine Protein Urine Glucose (UA) Urine Ketones Urine Blood Urine Nitrite Ur Leukocyte Esterase Urine RBC Urine WBC Urine WBC Clumps Ur Squamous Epith Cells Urine Bacteria Hyaline Casts Urine Mucus Urine Yeast Urine Opiates Screen Ur Barbiturates Screen Ur Phencyclidine Scrn Ur Amphetamines Screen U Benzodiazepines Scrn Urine Cocaine Screen U Marijuana (THC) Screen Acetone, Qual Coronavirus (PCR) Influenza Type A (PCR) Influenza Type B (PCR) RSV RNA Qual (PCR) Progress Note: A&P Assessment and plan (1) CHF (congestive heart failure): Status: Acute (2) Ischemic dilated cardiomyopathy: Status: Acute (3) Acute on chronic kidney failure: Status: Acute (4) Diabetic keto-acidosis: Status: Acute (5) Pneumonia: Status: Acute (6) Acute dehydration: Status: Acute (7) Opiate abuse, continuous: Status: Acute (8) Volume overload: Status: Acute (9) Chronic kidney disease (CKD): Problem details: baseline creatinine around 2 Status: Acute Assessment and Plan: She at this point in order to repair that her serum bicarb level and I will continue and a low rate with supplementation with IV dobutamine to help mobilize 3rd space fluid and follow serum bicarb and lactic acid as well recheck cultures and probably cover with antibiotics empirically to include possible skin site infection Time Spent With Patient Time: Total time spent is greater than 50% in coordination of care (as documented) at patient's floor/unit and/or counseling patient: Total time spent with greater than 50% in coordination of care (as documented) at patient's floor/unit and/or counseling patient:: 35
[2020-09-06 10:57] LABS: Glucose, Whole Blood 102 mg/dL (60-115)
[2020-09-06] MEDS: Piperacillin Sodium/Tazobactam 2.25 GM in 0.9 % Sodium Chloride 50 ML IV ×3 (11:21→23:01)
--- NOTE | 2020-09-06 11:50 | MHC.CM.PN ---
Met with pt. Pt not very interested in meeting with CM, but is cooperative and answering questions. Lives with Kezia Chowdhury ([phone]) corrected contact number, who is also her HCP. HCP on file. Pt uses a W/C, walker and shower chair which is provided by [facility]. Also uses [facility] for transportation to medical appointments. Unsure of transportation home. Pt has substance misuse, tox screen negative, and admits to being clean for a month. Denies using suboxone. Pt tells CM she just stops using when she wants to. HX heroin. D/C plan is home without services or rehab per pt. Pt tells CM she will not go to rehab and will not have services in the home. Explained to pt need to have a safe d/c plan and may need to re-evaluate the plan depending on pt recovery. IMM reviewed and signed.
[2020-09-06 11:59] LABS: Glucose, Whole Blood 140 mg/dL (60-115)
[2020-09-06 13:13] LABS: Glucose, Whole Blood 158 mg/dL (60-115)
[2020-09-06] MEDS: HYDROmorphone HCl 0.5 MG/0.5 ML SYRINGE IVPUSH ×3 (13:32→23:04)
[2020-09-06 13:38] LABS: Base Excess VBG -6.4 mmol/L; HCO3 VBG 19 mmol/L; Oxygen Saturation VBG 86.9 %; PCO2 VBG 36 mmhg; PO2 VBG 56 mmhg; pH VBG 7.34 (7.32-7.43)
[2020-09-06 14:12] LABS: Anion Gap 16 (12-20); Blood Urea Nitrogen 56 mg/dL (9-16); Calcium 8.2 mg/dL (8.4-10.2); Carbon Dioxide 19 mmol/L (22-29); Chloride 106 mmol/L (96-108); Creatinine Clr Calc Pharmacy 39.9; Estimated Glomerular Filt Rate 26; Glucose Random 156 mg/dL (60-115); Potassium 4.9 mmol/l (3.3-5.1); Sodium 136 mmol/L (135-145)
--- NOTE | 2020-09-06 14:24 | PC.NURSE ---
Pt becoming restless this afternoon, continues to refuse care, states she wants to leave and be left alone. Reports she is in pain and uncomfortable in the bed. Refusing to get out of bed into chair. MD aware, dilaudid ordered and given with effect. Urine output trending 30-50ml.hr, bedside echo done by MD this am. Dobutamine drip ordered, and started via peripheral iv per MD. Med to be titrated to urine output, keep output greater than input per MD.
[2020-09-06 14:26] LABS: Glucose, Whole Blood 155 mg/dL (60-115)
[2020-09-06 15:00] LABS: Glucose, Whole Blood 176 mg/dL (60-115)
[2020-09-06 15:56] LABS: Glucose, Whole Blood 180 mg/dL (60-115)
[2020-09-06 17:06] LABS: Glucose, Whole Blood 224 mg/dL (60-115)
[2020-09-06] MEDS: Sodium Chloride 0.45 % 1,000 ML 40 ML IVCONT (17:35)
[2020-09-06] MEDS: Insulin Lispro 100 UNIT/ML 3 ML VIAL SUBCUT ×2 (17:35→23:02)
[2020-09-06] MEDS: Sodium Bicarbonate 650 MG TABLET PO ×2 (17:37→19:52)
[2020-09-06] MEDS: Insulin Glargine,Hum.rec.anlog 100 UNIT/ML 10 ML VIAL 15 UNIT SUBCUT (17:38)
[2020-09-06] MEDS: Azithromycin 500 MG in 0.9 % Sodium Chloride 250 ML 125 MG IV (17:38)
[2020-09-06] MEDS: diphenhydrAMINE HCL 50 MG/ML VIAL 25 MG IVPUSH (19:52)
[2020-09-06 21:22] LABS: Glucose, Whole Blood 232 mg/dL (60-115)
--- NOTE | 2020-09-06 22:10 | PC.NURSE ---
Shift eval 3p-present: labs - BMP reviewed w/ Dr Murphy from 155 - anion gap down to 16, BUN and creat deemed to be at baseline, POC down to 180. Dr Murphy ordered to d/c insulin drip, ordered lantus & POC QIDAC, changed IV fluids to 0.45 soldium chloride. Patient also eating dinner / taking in fluids for dinner meal. Urine output >30ml/hour, Dr Murphy ordered to stop dobutabine drip. All orders initiated between 5p-5:30pm. @ 194 patient HR increased to 120's, hx afib, Angelica OLIVEROS made aware - EKG ordered and reviewed - afib. Converted back to SR 80's @ 2056. BP stable, afebrile. Cooperative w/ care. Scratching at lower leg scabs, making herself bleed, left lower leg worse than right. Left leg dressed w/ foam dressings, washed & thick barrier cream applied to help moisturize. Advised patient to not scratch at legs anymore. Angelica OLIVEROS made aware - 25mg IVP benedryl ordered, given @ 1951 with good effect. Patient also restless & c/o pain in lower extremities - Medicated w/ PRN dilaudid @ 1800. Patient reports dilaudid helps.
[2020-09-06 22:47] LABS: Base Excess VBG -7.8 mmol/L; HCO3 VBG 18 mmol/L; Oxygen Saturation VBG 76.3 %; PCO2 VBG 35 mmhg; PO2 VBG 44 mmhg; pH VBG 7.32 (7.32-7.43)
[2020-09-06 22:48] LABS: Blood Gas Serial # 5396
[2020-09-06] MEDS: 0.9 % Sodium Chloride Flush 3 ML SYRINGE IVFLUSH (23:02)
[2020-09-06 23:41] LABS: Anion Gap 18 (12-20); Blood Urea Nitrogen 56 mg/dL (9-16); Calcium 7.9 mg/dL (8.4-10.2); Carbon Dioxide 17 mmol/L (22-29); Chloride 105 mmol/L (96-108); Creatinine Clr Calc Pharmacy 38.2; Estimated Glomerular Filt Rate 24; Glucose Random 222 mg/dL (60-115); Potassium 5.9 mmol/l (3.3-5.1); Sodium 134 mmol/L (135-145)
[2020-09-07] VITALS (24 sets, daily range): BP systolic 116–164; BP diastolic 65–89; PULSE 61–87; RESP 10–19; TEMP 36.3–37.1; O2SAT 92–100; BMI 31.8
[2020-09-07] MEDS: Albuterol Sulfate (0.083%) 2.5 MG/3 ML VIAL.NEB 5 MG INHALE (00:29)
[2020-09-07 00:49] LABS: Glucose, Whole Blood 184 mg/dL (60-115)
[2020-09-07 01:33] LABS: Anion Gap 16 (12-20); Blood Urea Nitrogen 58 mg/dL (9-16); Calcium 7.7 mg/dL (8.4-10.2); Carbon Dioxide 15 mmol/L (22-29); Chloride 107 mmol/L (96-108); Creatinine Clr Calc Pharmacy 40.2; Estimated Glomerular Filt Rate 26; Glucose Random 188 mg/dL (60-115); Potassium 5.1 mmol/l (3.3-5.1); Sodium 133 mmol/L (135-145)
[2020-09-07] MEDS: HYDROmorphone HCl 0.5 MG/0.5 ML SYRINGE IVPUSH ×4 (03:20→19:55)
[2020-09-07] MEDS: hydrOXYzine HCL 25 MG TABLET PO ×2 (04:33→19:55)
[2020-09-07] MEDS: Piperacillin Sodium/Tazobactam 2.25 GM in 0.9 % Sodium Chloride 50 ML IV ×3 (04:33→17:24)
--- NOTE | 2020-09-07 04:43 | PC.NURSE ---
Addendum entered by Ruel Reich RN 09/07/20 06:12: lab unable to draw blood..lien searcher/ aware...2nd tech to attempt redraw...REQUESTED POSSIBLE PICC LINE FOR LABWORK & IV THERAPY..MD TO REVIEW Original Note: CARE ASSUMED 23:15...AWAKE...ALERT..ORIENTED X3...VSS...NSR..NO ECTOPY...HS K 5.9..ICU SALVAGE DETERMINER PRESENT...ALBUTEROL UPDRAFT GIVEN..REPEAT K=5.1..SALVAGE DETERMINER AWARE...CONTINUES TO SCRATCH LOWER LEGS LEFT>RIGHT CAUSING THEM TO BLEED...STATES I'VE BEEN A ACCOUNT LIAISON FOR YEARS...MY BOYFRIEND YELLS AT ME FOR IT ...LEFT LOWER LEG WRAP VASELINE GAUZE/CLING DRESSING...ATARAX 25MG PO GIVEN PER PA..DILAUDID 0.5 MG IV FOR C/O GENERALIZED ACHES/PAIN PER PATIENT..RESTFUL AFTERWARDS AND NAPPING INTERMITTANTLY
[2020-09-07 07:05] LABS: Basophils Absolute Auto 0.1 X10*3/uL (0.0-0.2); Basophils Percent Auto 0.7 % (0-2); Eosinophils Absolute Auto 0.2 X10*3/uL (0.0-0.4); Eosinophils Percent Auto 2.9 % (0-4); Hemoglobin 9.8 g/dl (12.0-16.0); Imm Gran Abs Auto 0.02 X10*3/uL (0.00-0.03); Imm Gran Pct Auto 0.3 % (0.0-0.4); Lymphocytes Absolute Auto 1.4 X10*3/uL (1.2-4.9); Lymphocytes Percent Auto 20.3 % (20-40); Mean Corpuscular HGB Conc 29.7 g/dl (31.0-35.0); Mean Corpuscular Hemoglobin 24.3 pg (27.0-33.0); Mean Corpuscular Volume 81.9 fL (80-98); Monocytes Absolute Auto 0.7 X10*3/uL (0.1-1.2); Monocytes Percent Auto 9.9 % (2-11); Neutrophils Absolute Auto 4.5 X10*3/uL (2.0-8.3); Neutrophils Percent Auto 65.9 % (45-73); Red Blood Count 4.03 X10*6/uL (4.20-5.50); Red Cell Distribution Width 23.5 % (11.0-16.0)
[2020-09-07 07:08] LABS: White Blood Count 6.8 X10*3/uL (4.8-10.8)
[2020-09-07 07:30] LABS: Anion Gap 17 (12-20); Blood Urea Nitrogen 55 mg/dL (9-16); Carbon Dioxide 15 mmol/L (22-29); Chloride 106 mmol/L (96-108); Creatinine Clr Calc Pharmacy 41.7; Estimated Glomerular Filt Rate 27; Glucose Random 196 mg/dL (60-115); Magnesium 2.2 mg/dL (1.6-2.6); Phosphorus 3.9 mg/dL (2.7-4.5); Potassium 5.2 mmol/l (3.3-5.1); Sodium 133 mmol/L (135-145)
[2020-09-07 07:31] LABS: PCO2 VBG 39 mmhg; pH VBG 7.31 (7.32-7.43)
[2020-09-07 07:32] LABS: Base Excess VBG -6.8 mmol/L; HCO3 VBG 19 mmol/L; Oxygen Saturation VBG 95.5 %; PO2 VBG 86 mmhg
[2020-09-07 07:35] LABS: Glucose, Whole Blood 181 mg/dL (60-115)
[2020-09-07] MEDS: Insulin Glargine,Hum.rec.anlog 100 UNIT/ML 10 ML VIAL 15 UNIT SUBCUT ×2 (08:22→17:27)
[2020-09-07] MEDS: Insulin Lispro 100 UNIT/ML 3 ML VIAL SUBCUT ×3 (08:22→21:09)
[2020-09-07] MEDS: Sodium Bicarbonate 650 MG TABLET 975 MG PO ×4 (08:22→19:53)
[2020-09-07] MEDS: 0.9 % Sodium Chloride Flush 3 ML SYRINGE IVFLUSH ×2 (08:26→15:28)
[2020-09-07 11:17] LABS: Glucose, Whole Blood 215 mg/dL (60-115)
[2020-09-07 16:20] LABS: Glucose, Whole Blood 136 mg/dL (60-115)
[2020-09-07 16:51] LABS: PCO2 VBG 44 mmhg; pH VBG 7.33 (7.32-7.43)
[2020-09-07 16:52] LABS: Base Excess VBG -3.5 mmol/L; HCO3 VBG 22 mmol/L; Oxygen Saturation VBG 54.3 %; PO2 VBG 31 mmhg
[2020-09-07 16:53] LABS: Blood Gas Serial # 5396
[2020-09-07 17:10] LABS: Anion Gap 12 (12-20); Blood Urea Nitrogen 49 mg/dL (9-16); Calcium 7.9 mg/dL (8.4-10.2); Carbon Dioxide 22 mmol/L (22-29); Chloride 106 mmol/L (96-108); Creatinine Clr Calc Pharmacy 39.9; Estimated Glomerular Filt Rate 25; Glucose Random 132 mg/dL (60-115); Potassium 4.8 mmol/l (3.3-5.1); Sodium 135 mmol/L (135-145)
--- NOTE | 2020-09-07 17:53 | PM.CCPN ---
Subjective Subjective Date of Service: 09/07/20 Interval History: The patient is much improved overall with much improved mental status very alert happy non complaining and what appears to be complete resolution of diabetic ketoacidosis and the negative base excess I have do believe is all on the basis of renal related bicarb loss from her a stage III renal failure which is probably a diabetic nephropathy and she is now been started on oral bicarb replacement and there is a renal consult pending Physical Exam Vital Signs: Vital Signs: Last Vital Signs Temp 97.7 F 09/07/20 15:51 Pulse 81 09/07/20 17:00 Resp 14 09/07/20 17:00 BP 145/82 H 09/07/20 17:00 Pulse Ox 97 09/07/20 17:00 Body Mass Index 31.8 Const: Other: Awake alert oriented and nonfocal neurologically Cardiac exam without gallop but there is diminished bilateral carotid upstrokes indicating diminished stroke work reserve of the ventricle Lungs are clear and no adventitious sounds Abdomen benign nontender with no organomegaly and good bowel sounds Skin with bilateral stasis dermatitis but no acrocyanosis and no cellulitis Objective Data Labs CBC & Chem 7: 09/07/20 06:36 09/07/20 16:33 Labs: Laboratory Results - last 24 hr 09/06/20 09/06/20 09/06/20 21:18 22:09 22:22 WBC RBC Hgb Hct MCV MCH MCHC RDW Plt Count MPV Immature Gran % (Auto) Neut % (Auto) Lymph % (Auto) Whitman % (Auto) Eos % (Auto) Baso % (Auto) Lymph # (Auto) Whitman # (Auto) Eos # (Auto) Baso # (Auto) Abs Immat Gran (auto) Absolute Neuts (auto) Absolute Nucleated RBC Nucleated RBC % (auto) VBG pH 7.32 VBG pCO2 35 VBG pO2 44 VBG HCO3 18 VBG O2 Saturation 76.3 VBG Base Excess -7.8 Sodium 134 L Potassium 5.9 H D Chloride 105 Carbon Dioxide 17 L Anion Gap 18 BUN 56 H Creatinine 2.16 H Estim Creat Clear Calc 38.2 Estimated GFR 24 POC Glucose 232 H Random Glucose 222 H D Calcium 7.9 L Phosphorus Magnesium 09/07/20 09/07/20 09/07/20 00:46 00:56 06:36 WBC 6.8 RBC 4.03 L Hgb 9.8 L Hct 33.0 L MCV 81.9 MCH 24.3 L MCHC 29.7 L RDW 23.5 H Plt Count TNP MPV Not Reportable Immature Gran % (Auto) 0.3 Neut % (Auto) 65.9 Lymph % (Auto) 20.3 Whitman % (Auto) 9.9 Eos % (Auto) 2.9 Baso % (Auto) 0.7 Lymph # (Auto) 1.4 Whitman # (Auto) 0.7 Eos # (Auto) 0.2 Baso # (Auto) 0.1 Abs Immat Gran (auto) 0.02 Absolute Neuts (auto) 4.5 Absolute Nucleated RBC 0.000 Nucleated RBC % (auto) 0.0 VBG pH VBG pCO2 VBG pO2 VBG HCO3 VBG O2 Saturation VBG Base Excess Sodium 133 L Potassium 5.1 Chloride 107 Carbon Dioxide 15 L Anion Gap 16 BUN 58 H Creatinine 2.05 H Estim Creat Clear Calc 40.2 Estimated GFR 26 POC Glucose 184 H Random Glucose 188 H Calcium 7.7 L Phosphorus Magnesium 09/07/20 09/07/20 09/07/20 06:36 06:36 07:14 WBC RBC Hgb Hct MCV MCH MCHC RDW Plt Count MPV Immature Gran % (Auto) Neut % (Auto) Lymph % (Auto) Whitman % (Auto) Eos % (Auto) Baso % (Auto) Lymph # (Auto) Whitman # (Auto) Eos # (Auto) Baso # (Auto) Abs Immat Gran (auto) Absolute Neuts (auto) Absolute Nucleated RBC Nucleated RBC % (auto) VBG pH Cancelled 7.31 L VBG pCO2 Cancelled 39 VBG pO2 Cancelled 86 VBG HCO3 Cancelled 19 VBG O2 Saturation Cancelled 95.5 VBG Base Excess Cancelled -6.8 Sodium 133 L Potassium 5.2 H Chloride 106 Carbon Dioxide 15 L Anion Gap 17 BUN 55 H Creatinine 1.98 H Estim Creat Clear Calc 41.7 Estimated GFR 27 POC Glucose Random Glucose 196 H Calcium 8.0 L Phosphorus 3.9 Magnesium 2.2 09/07/20 09/07/20 09/07/20 07:29 11:14 16:15 WBC RBC Hgb Hct MCV MCH MCHC RDW Plt Count MPV Immature Gran % (Auto) Neut % (Auto) Lymph % (Auto) Whitman % (Auto) Eos % (Auto) Baso % (Auto) Lymph # (Auto) Whitman # (Auto) Eos # (Auto) Baso # (Auto) Abs Immat Gran (auto) Absolute Neuts (auto) Absolute Nucleated RBC Nucleated RBC % (auto) VBG pH VBG pCO2 VBG pO2 VBG HCO3 VBG O2 Saturation VBG Base Excess Sodium Potassium Chloride Carbon Dioxide Anion Gap BUN Creatinine Estim Creat Clear Calc Estimated GFR POC Glucose 181 H 215 H 136 H Random Glucose Calcium Phosphorus Magnesium 09/07/20 09/07/20 16:33 16:33 WBC RBC Hgb Hct MCV MCH MCHC RDW Plt Count MPV Immature Gran % (Auto) Neut % (Auto) Lymph % (Auto) Whitman % (Auto) Eos % (Auto) Baso % (Auto) Lymph # (Auto) Whitman # (Auto) Eos # (Auto) Baso # (Auto) Abs Immat Gran (auto) Absolute Neuts (auto) Absolute Nucleated RBC Nucleated RBC % (auto) VBG pH 7.33 VBG pCO2 44 VBG pO2 31 VBG HCO3 22 VBG O2 Saturation 54.3 VBG Base Excess -3.5 Sodium 135 Potassium 4.8 Chloride 106 Carbon Dioxide 22 Anion Gap 12 BUN 49 H Creatinine 2.08 H Estim Creat Clear Calc 39.9 Estimated GFR 25 POC Glucose Random Glucose 132 H Calcium 7.9 L Phosphorus Magnesium Microbiology Microbiology Results: Microbiology 09/05/20 14:50 Blood - Venous Blood Culture - Preliminary No growth after 48 hours. 09/06/20 Unknown Urine clean catch - Clean Catch Midstream Urine Culture - Preliminary Enterococcus/Streptococcus sp 09/05/20 18:49 Blood - Venous Blood Culture - Preliminary No growth after 24 hours. Progress Note: A&P Assessment and plan (1) Ischemic dilated cardiomyopathy: Status: Acute (2) CHF (congestive heart failure): Status: Acute (3) Acute on chronic kidney failure: Status: Acute (4) Diabetic keto-acidosis: Status: Acute (5) Pneumonia: Status: Acute (6) Acute dehydration: Status: Acute (7) Opiate abuse, continuous: Status: Acute (8) Volume overload: Status: Acute (9) Chronic kidney disease (CKD): Problem details: baseline creatinine around 2 Status: Acute (10) Paroxysmal atrial fibrillation with rapid ventricular response: Status: Acute Assessment and Plan: Renal consult is pending and she has responded beautifully to bicarbonate replacement orally now on 975 mg q.i.d. with normal anion gap of 12 serum bicarb is now 22 diabetic ketoacidosis completely resolved Time Spent With Patient Time: Total time spent is greater than 50% in coordination of care (as documented) at patient's floor/unit and/or counseling patient: Total time spent with greater than 50% in coordination of care (as documented) at patient's floor/unit and/or counseling patient:: 30 No Severe Sepsis: No Severe Sepsis
[2020-09-07] MEDS: Azithromycin 500 MG in 0.9 % Sodium Chloride 250 ML 125 MG IV (17:54)
[2020-09-07] MEDS: Sodium Chloride 0.45 % 1,000 ML 40 ML IVCONT (18:01)
[2020-09-07] MEDS: ondansetron HCL 4 MG/2 ML VIAL IVPUSH (19:56)
[2020-09-07 20:11] LABS: Glucose, Whole Blood 174 mg/dL (60-115)
[2020-09-08] VITALS (11 sets, daily range): BP systolic 150–158; BP diastolic 90–102; PULSE 79–114; RESP 11–16; TEMP 36.7–37; O2SAT 90–97; BMI 33.0
[2020-09-08] MEDS: Piperacillin Sodium/Tazobactam 2.25 GM in 0.9 % Sodium Chloride 50 ML IV ×5 (00:17→22:35)
[2020-09-08] MEDS: 0.9 % Sodium Chloride Flush 3 ML SYRINGE IVFLUSH ×4 (00:18→23:34)
--- NOTE | 2020-09-08 07:08 | PC.NURSE ---
Shift eval 7p-7a: Patient c/o nausea, generalized pain and lower extr pain, and itching lower extremities. Medicated w/ IV dilaudid, PO atarax, & IVP zofran @ 1955 with good effect. Patient resting, frequently redirected from scratching legs, but then stopped scratching after 11pm - right lower leg bleeding small amount - redressed w/ xeroform & dry sterile dressing. Patient sitting at side of bed for part of night - calm, cooperative and drinking and eating snacks, then rested after 4am. Independently repositioning self. Patient made an IMC patient.
[2020-09-08 07:51] LABS: Glucose, Whole Blood 80 mg/dL (60-115)
[2020-09-08 08:34] LABS: Anion Gap 13 (12-20); Blood Urea Nitrogen 45 mg/dL (9-16); Calcium 7.9 mg/dL (8.4-10.2); Carbon Dioxide 21 mmol/L (22-29); Chloride 106 mmol/L (96-108); Creatinine Clr Calc Pharmacy 43.3; Estimated Glomerular Filt Rate 27; Glucose Random 71 mg/dL (60-115); Potassium 4.9 mmol/l (3.3-5.1); Sodium 135 mmol/L (135-145)
[2020-09-08] MEDS: Insulin Glargine,Hum.rec.anlog 100 UNIT/ML 10 ML VIAL 15 UNIT SUBCUT ×2 (08:37→17:59)
[2020-09-08] MEDS: Sodium Bicarbonate 650 MG TABLET 975 MG PO ×4 (08:38→20:47)
--- NOTE | 2020-09-08 11:23 | MHC.CM.PN ---
Met with patient. Will d/c home after lunch. Pt very happy to go home. Pt feels safe to d/c home without services. States walking in room. Rn has no concerns about d/c home. Pt requesting addiction recovery services to RN. CM consulted Ryan. Cárdenas, behavioral health specialist to see pt. Junior tells CM that he met with pt. and she was very receptive to him and accepted recovery services information, as well as Junior's contact info. Pt tells CM that she will need a ride home. RN aware and will call CM when d/c order is place. Will arrange chair van transportation at that time.
--- NOTE | 2020-09-08 11:26 | MHC.CM.PN ---
Pt on HF O2. Pt condition not appropriate for CM discussion or determination of HCP at this time. Dr. Murphy reports pt vague. To CT scan when CM on unit to r/o PE. Will probably need services upon D/C. Will re-evaluate as condition improves. Original plan was home with VNA. Daughter to transport.
--- NOTE | 2020-09-08 11:29 | MHC.RECOVSUP ---
Recovery Support note: Patient is a 49 year old German speaking female who presented to [facility] due to high blood sugar and was medically admitted. Patient was referred to this public relations writer by CM as patient had expressed interest in receiving information and resources related to opiate use disorder. This public relations writer met with patient in . Patient was sitting in the recliner, alert and willing to discuss her substance use. Patient reports that she is interested in maintaining sobriety however has been having difficulty due to living with her boyfriend who is currently using. Patient reports her boyfriend is also interested in getting into recovery. Discussed MAT and provided patient with information on where to get connected with Methadone and Suboxone clinics. Patient reports that she lives in [place] and has a hard time with transportation. Information on [place] MAT clinics was provided. Provided education and resources on IOP and NA support groups. Patient was receptive of the information. Informed patient that the resources discussed can also be utilized by her boyfriend. Provided patient with business card so that she can get in touch with this public relations writer with any questions. Discussed case with patient's RN and CM.
--- NOTE | 2020-09-08 11:35 | MHC.CLN ---
F/U PO INTAKE IMPROVED OBSERVED BREAKFAST MEAL 75% CONSUMED PT DEFERRED DM TEACHING (SEE TEACHING RECORD) PT REPORTS HAD TYPE 1 SINCE 6 YEARS OLD, NOT INTERESTED IN DM TEACHING APPETITE IS GOOD CONTINUE 1800DM 2GM NA DIET
[2020-09-08 11:40] LABS: Glucose, Whole Blood 127 mg/dL (60-115)
--- NOTE | 2020-09-08 11:52 | HO.PM.IMPN ---
Subjective Subjective Date of Service: 09/08/20 Interval History: seen and examined reports compliance with her insulin, although based off her refill history -- doesnt appear to be entirely clear she denies any urinary complaints hoping to go home today ROS General - no fevers or chills Cardiovascular - no chest pain Respiratory - no shortness of breath or cough Abdominal- no abdominal pain, nausea, vomiting, diarrhea Physical Exam Vital Signs: Vital Signs: Last Vital Signs Temp 98.4 F 09/08/20 08:00 Pulse 81 09/08/20 08:00 Resp 12 09/08/20 08:00 BP 157/102 H 09/08/20 08:00 Pulse Ox 97 09/08/20 08:00 Body Mass Index 33.0 Const: Other: General - no acute distress, appears comfortable Cardiovascular - regular rate and rhythm, S1-S2 Lungs - normal respiratory effort, clear to auscultation bilaterally, no wheezing Abdomen - soft, nontender, no rebound or guarding Extremities - no edema bilaterally Neuro - awake and alert, no focal deficits Objective Data Current Medications Generic Name Dose Route Start Last Admin Trade Name Freq PRN Reason Stop Dose Admin Hydroxyzine HCl 25 mg 09/07/20 19:48 09/07/20 19:55 Hydroxyzine Hcl 25 Mg Tablet PO 25 mg Q6H PRN Administration Itching Piperacillin Sod/Tazobactam 50 mls @ 100 mls/hr 09/06/20 11:00 09/08/20 07:25 Sod 2.25 gm/ Sodium Chloride IV Infused Q6H [facility] Infusion Insulin Glargine 15 unit 09/07/20 08:00 09/08/20 08:37 Insulin Glargine,Hum.Rec.Anlog 100 Unit/Ml 10 Ml Vial SUBCUT 15 unit BID@0800,1700 [facility] Administration Insulin Human Lispro 0 unit 09/07/20 21:00 09/08/20 08:28 Insulin Lispro 100 Unit/Ml 3 Ml Vial SUBCUT Not Given QIDACHS [facility] Ondansetron HCl 4 mg 09/05/20 19:43 09/07/20 19:56 Ondansetron Hcl 4 Mg/2 Ml Vial IVPUSH 4 mg Q8H PRN Administration Nausea Pharmacy Consult 1 each 09/08/20 07:41 Consult Rx Perform Med Rec MISCELLANE ONCE PRN Consult order Sodium Bicarbonate 975 mg 09/07/20 09:00 09/08/20 08:38 Sodium Bicarbonate 650 Mg Tablet PO 975 mg QID LARRY Administration Sodium Chloride 3 ml 09/07/20 00:00 09/08/20 08:28 0.9 % Sodium Chloride Flush 3 Ml Syringe IVFLUSH 3 ml QSHIFT LARRY Administration Labs CBC & Chem 7: 09/07/20 06:36 09/08/20 07:44 Microbiology Microbiology Results: Microbiology 09/06/20 Unknown Urine clean catch - Clean Catch Midstream Urine Culture - Preliminary Enterococcus/Streptococcus sp Yeast 09/05/20 18:49 Blood - Venous Blood Culture - Preliminary No growth after 48 hours. 09/05/20 14:50 Blood - Venous Blood Culture - Preliminary No growth after 48 hours. Assessment and Plan (1) Diabetic keto-acidosis: Status: Acute Assessment and Plan: This is a 49 yo F with a history of DM, CKD3, Combied systolic/diastolic CHF, prior hemorrhagic pericarditis, PAF not on OAC due to hemorrhagic pericardial effusion who presented to the hospital in DKA and was admitted to the ICU for further treatment. 1. DKA resolved on basal + bolus diabetic diet check a1c reeducated on compliance with meds 2. SERGO/CKD3, metabolic acidosis SCr around 2, baseline po bicarb neprhology consult 3. Combined diastolic / systolic CHF not in exacerbation resume torsemide, hold off on metolozone 4. PAF no on oac due to history of hemorrhagic pericarditis 5. HTN restart antihypertensives 6. Possible UTI pending final C&S continue zosyn for now remove mak Full Code DVT pptx, mechanical due to history of hemorrhagic pericarditis while on anticoagulation
[2020-09-08] MEDS: Omeprazole 40 MG CAPSULE.DR PO (12:46)
[2020-09-08] MEDS: amLODIPine Besylate 10 MG TABLET PO (12:46)
[2020-09-08] MEDS: hydrALAZINE HCl 25 MG TABLET PO ×3 (13:26→20:47)
--- NOTE | 2020-09-08 13:53 | PC.NURSE ---
pt oob to chair, hospitalist at bedside, awaiting urine culture, mak cath removed, pt had episode of incontinence and then up to commode with supervised transfer, pt ate 95% breakfast and 50% of lunch, no humalog coverage required, nephro at bedside to eval, care team at bedside to offer resources for substance abuse, will cont to monitor
--- NOTE | 2020-09-08 14:35 | CONS_ITS ---
DATE OF SERVICE: 09/08/2020 REASON FOR CONSULTATION: I was called to see this patient to assist in the management of patient's chronic kidney disease and possible insertion of a PICC line. HISTORY OF PRESENT ILLNESS: To summarize, Kelly is well known to us. She is a 49-year-old woman with history of diabetes mellitus complicated by diabetic nephropathy. She has had multiple admissions. She has been admitted again with diabetic ketoacidosis with associated hyperkalemia and hyponatremia. At the present time, has been corrected. The renal function has improved and returned to baseline. Her baseline creatinine is around 2 mg/dL. The eGFR of about 25 to 30 mL/minute. PAST MEDICAL HISTORY: Ongoing medical problems include history of paroxysmal atrial fibrillation, dilated cardiomyopathy, congestive heart failure, chronic kidney disease stage 3B with multiple episodes of superimposed acute kidney injury, history of opioid abuse, volume overload. PAST SURGICAL HISTORY: Significant for multiple surgeries in the leg for the wound. CURRENT MEDICATIONS: All the current medications were reviewed. REVIEW OF SYSTEMS: Positive for shortness of breath, which has improved. No chest pain, nausea, or vomiting. No abdominal pain. No diarrhea. PHYSICAL EXAMINATION: GENERAL: Kelly is a middle-aged woman, who appears ill, but not in any distress. NECK: Supple. No JVD. VITAL SIGNS: Blood pressure 150/100, pulse 81, temperature 98.4. LUNGS: Air entry equal. Bilateral crackles with rhonchi. HEART: No gallop or rub. ABDOMEN: Soft, nontender. EXTREMITIES: With dependent edema. LABORATORY DATA: Creatinine 1.95, BUN 45, potassium 4.9, calcium 7.9, phosphorus 3.9. Hemoglobin 9.8, platelets 278. IMPRESSION: 49-year-old woman with diabetes mellitus complicated by diabetic nephropathy with stage 3B chronic kidney disease, admitted with DKA. At the present time, the renal function is close to baseline. Acute kidney injury has resolved. From a renal standpoint, we would recommend to avoid PICC line since she is at high risk for requiring renal replacement therapy and we need to preserve the veins in her upper extremity for a possible AV fistula in the near future. The serum potassium at times corrected. We will keep her on a low-potassium diet. Blood sugar needs to be optimized. We will be happy to follow along with the team. Shane Read MD BPA/MODL / [id number]
[2020-09-08] MEDS: Gabapentin 600 MG TABLET PO ×2 (15:49→20:46)
[2020-09-08] MEDS: hydrOXYzine HCL 25 MG TABLET PO (15:49)
[2020-09-08 16:14] LABS: Glucose, Whole Blood 111 mg/dL (60-115)
[2020-09-08] MEDS: oxyCODONE HCl Immed Release 5 MG TABLET PO (17:57)
[2020-09-08] MEDS: ondansetron HCL 4 MG/2 ML VIAL IVPUSH (18:09)
[2020-09-08 20:44] LABS: Glucose, Whole Blood 97 mg/dL (60-115)
[2020-09-08] MEDS: carvediloL 6.25 MG TABLET PO (20:46)
[2020-09-08] MEDS: DULoxetine HCl 20 MG CAPSULE.DR PO (20:46)
[2020-09-08] MEDS: Torsemide 20 MG TABLET 100 MG PO (20:47)
[2020-09-09] VITALS (11 sets, daily range): BP systolic 110–141; BP diastolic 56–96; PULSE 66–72; RESP 14–18; TEMP 36.4–36.7; O2SAT 94–100; BMI 32.9
[2020-09-09] MEDS: Piperacillin Sodium/Tazobactam 2.25 GM in 0.9 % Sodium Chloride 50 ML IV (04:35)
[2020-09-09] MEDS: hydrOXYzine HCL 25 MG TABLET PO (05:16)
[2020-09-09] MEDS: 0.9 % Sodium Chloride Flush 3 ML SYRINGE IVFLUSH ×3 (08:13→23:14)
[2020-09-09] MEDS: Gabapentin 600 MG TABLET PO ×3 (08:19→21:24)
[2020-09-09] MEDS: carvediloL 6.25 MG TABLET PO ×2 (08:19→21:24)
[2020-09-09] MEDS: Omeprazole 40 MG CAPSULE.DR PO (08:19)
[2020-09-09] MEDS: Cholecalciferol (Vitamin D3) 25 MCG TABLET 50 MCG PO (08:19)
[2020-09-09] MEDS: DULoxetine HCl 20 MG CAPSULE.DR PO ×2 (08:19→21:24)
[2020-09-09] MEDS: amLODIPine Besylate 10 MG TABLET PO (08:19)
[2020-09-09] MEDS: Torsemide 20 MG TABLET 100 MG PO ×2 (08:19→21:23)
[2020-09-09] MEDS: oxyCODONE HCl Immed Release 5 MG TABLET PO ×3 (08:20→23:11)
[2020-09-09] MEDS: Sodium Bicarbonate 650 MG TABLET 975 MG PO (08:20)
[2020-09-09] MEDS: hydrALAZINE HCl 25 MG TABLET PO ×4 (08:20→21:24)
[2020-09-09] MEDS: Isosorbide Mononitrate 30 MG TAB.ER.24H PO (08:20)
--- NOTE | 2020-09-09 08:52 | PC.NURSE ---
POC 43 X2 - Patient A&O, no complaints, asymptomatic. MD notified. Patient drank 240 orange juice with 5 sugar packets - POC recheck down to 42 - 25g 50% Dextrose administered - recheck POC up to 151 - Patient currently eating breakfast. Will continue to monitor.
[2020-09-09 08:53] LABS: Glucose, Whole Blood 43 mg/dL (60-115)
[2020-09-09 08:53] LABS: Glucose, Whole Blood 43 mg/dL (60-115)
[2020-09-09 08:53] LABS: Glucose, Whole Blood 42 mg/dL (60-115)
[2020-09-09 08:53] LABS: Glucose, Whole Blood 151 mg/dL (60-115)
[2020-09-09 10:53] LABS: Estimated Average Glucose 295 mg/dL; Hemoglobin A1c % 11.9 %
--- NOTE | 2020-09-09 11:18 | HO.PM.IMPN ---
Subjective Subjective Date of Service: 09/09/20 Interval History: seen and examined events reviewed reports her sugars are labile at home too denies urinary symptoms ROS General - no fevers or chills Cardiovascular - no chest pain Respiratory - no shortness of breath or cough Abdominal- no abdominal pain, nausea, vomiting, diarrhea Physical Exam Vital Signs: Vital Signs: Last Vital Signs Temp 98.1 F 09/09/20 08:00 Pulse 71 09/09/20 08:20 Resp 14 09/09/20 08:00 BP 141/96 H 09/09/20 08:20 Pulse Ox 95 09/09/20 08:00 Body Mass Index 32.9 Const: Other: General - no acute distress, appears comfortable Cardiovascular - regular rate and rhythm, S1-S2 Lungs - normal respiratory effort, clear to auscultation bilaterally, no wheezing Abdomen - soft, nontender, no rebound or guarding Extremities - +bilateral LE edema, L TMA; b/l LE wounds with dressings in place, weeping Neuro - awake and alert, no focal deficits Objective Data Current Medications Generic Name Dose Route Start Last Admin Trade Name Ismaelq PRN Reason Stop Dose Admin Amlodipine Besylate 10 mg 09/08/20 12:00 09/09/20 08:19 Amlodipine Besylate 10 Mg Tablet PO 10 mg DAILY LARRY Administration Protocol Carvedilol 6.25 mg 09/08/20 21:00 09/09/20 08:19 Carvedilol 6.25 Mg Tablet PO 6.25 mg BID LARRY Administration Protocol Duloxetine HCl 20 mg 09/08/20 21:00 09/09/20 08:19 Duloxetine Hcl 20 Mg Capsule.Dr PO 20 mg BID LARRY Administration Gabapentin 600 mg 09/08/20 15:00 09/09/20 08:19 Gabapentin 600 Mg Tablet PO 600 mg TID LARRY Administration Hydralazine HCl 25 mg 09/08/20 13:00 09/09/20 08:20 Hydralazine Hcl 25 Mg Tablet PO 25 mg QID LARRY Administration Protocol Hydroxyzine HCl 25 mg 09/07/20 19:48 09/09/20 05:16 Hydroxyzine Hcl 25 Mg Tablet PO 25 mg Q6H PRN Administration Itching Piperacillin Sod/Tazobactam 50 mls @ 100 mls/hr 09/06/20 11:00 09/09/20 05:12 Sod 2.25 gm/ Sodium Chloride IV Infused Q6H [facility] Infusion Insulin Glargine 14 unit 09/10/20 09:00 Insulin Glargine,Hum.Rec.Anlog 100 Unit/Ml 10 Ml Vial SUBCUT DAILY [facility] Insulin Human Lispro 0 unit 09/08/20 16:30 09/09/20 08:12 Insulin Lispro 100 Unit/Ml 3 Ml Vial SUBCUT Not Given QIDACHS [facility] Protocol Isosorbide Mononitrate 30 mg 09/09/20 09:00 09/09/20 08:20 Isosorbide Mononitrate 30 Mg Tab.Er.24h PO 30 mg DAILY [facility] Administration Protocol Omeprazole 40 mg 09/08/20 12:00 09/09/20 08:19 Omeprazole 40 Mg Capsule.Dr PO 40 mg DAILY [facility] Administration Ondansetron HCl 4 mg 09/05/20 19:43 09/08/20 18:09 Ondansetron Hcl 4 Mg/2 Ml Vial IVPUSH 4 mg Q8H PRN Administration Nausea Oxycodone HCl 5 mg 09/08/20 16:43 09/09/20 08:20 Oxycodone Hcl Immed Release 5 Mg Tablet PO 5 mg Q6H PRN Administration Pain, Severe (Pain Scale 7-10) Pharmacy Consult 1 each 09/08/20 07:41 Consult Rx Perform Med Rec MISCELLANE ONCE PRN Consult order Sodium Bicarbonate 975 mg 09/07/20 09:00 09/09/20 08:20 Sodium Bicarbonate 650 Mg Tablet PO 975 mg QID [facility] Administration Sodium Chloride 3 ml 09/07/20 00:00 09/09/20 08:13 0.9 % Sodium Chloride Flush 3 Ml Syringe IVFLUSH 3 ml QSHIFT [facility] Administration Tamsulosin HCl 0.4 mg 09/09/20 21:00 Tamsulosin Hcl 0.4 Mg Capsule PO BEDTIME [facility] Torsemide 100 mg 09/08/20 21:00 09/09/20 08:19 Torsemide 20 Mg Tablet PO 100 mg BID [facility] Administration Vitamin D 50 mcg 09/09/20 09:00 09/09/20 08:19 Cholecalciferol (Vitamin D3) 25 Mcg Tablet PO 50 mcg DAILY [facility] Administration Labs CBC & Chem 7: 09/07/20 06:36 09/08/20 07:44 Microbiology Microbiology Results: Microbiology 12/29/20 Unknown Urine clean catch - Clean Catch Midstream Urine Culture - Preliminary Enterococcus faecium Yeast 09/05/20 18:49 Blood - Venous Blood Culture - Preliminary No growth after 48 hours. 09/05/20 14:50 Blood - Venous Blood Culture - Preliminary No growth after 48 hours. Assessment and Plan (1) Diabetic keto-acidosis: Status: Acute Assessment and Plan: This is a 49 yo F with a history of DM, CKD3, Combied systolic/diastolic CHF, prior hemorrhagic pericarditis, PAF not on OAC due to hemorrhagic pericardial effusion who presented to the hospital in DKA and was admitted to the ICU for further treatment. 1. Uncontrolled DM presented in DKA, now with hypoglycemic events this AM check a1C decrease lantus to QD -- may just have to use sliding scale continue with close monitoring 2. SERGO/CKD3, metabolic acidosis chem pending this AM, continue PO bicarb nephroloyg input appreciated 3. Combined diastolic / systolic CHF not in exacerbation torsemide restarted 4. PAF no on oac due to history of hemorrhagic pericarditis 5. HTN restart antihypertensives 6. VRE Urine less than 100k colonies; pt denies symptoms of UTI. Afberile without signs of sepsis and blood cx negative to date. d/c zosyn and hold off on escalating antibiotics. Will get ID input. Full Code DVT pptx, start heparin -- not tolerating scd due to chronic wounds
[2020-09-09 11:30] LABS: Glucose, Whole Blood 166 mg/dL (60-115)
[2020-09-09 11:32] LABS: Anion Gap 14 (12-20); Blood Urea Nitrogen 42 mg/dL (9-16); Calcium 7.8 mg/dL (8.4-10.2); Carbon Dioxide 23 mmol/L (22-29); Chloride 103 mmol/L (96-108); Estimated Glomerular Filt Rate 29; Glucose Random 143 mg/dL (60-115); Potassium 4.7 mmol/l (3.3-5.1); Sodium 135 mmol/L (135-145)
[2020-09-09] MEDS: Heparin Sodium,Porcine 5,000 UNIT/ML VIAL 5000 UNIT SUBCUT ×2 (11:38→21:25)
--- NOTE | 2020-09-09 14:31 | PC.NURSE ---
pt to [facility] from ICU, report from ICU. Pt to room via wheelchair. She is alert, oriented and able to stand pivot with assistance to bed. Pt in no distress, she has been oriented to room, bed functions and call light.
--- NOTE | 2020-09-09 15:48 | PM.PNNEP ---
Subjective Subjective Date of Service: 09/09/20 Interval history: Events noted Physical Exam Vital Signs: Vital Signs: Last Vital Signs Temp 98 F 09/09/20 14:46 Pulse 72 09/09/20 14:46 Resp 18 09/09/20 14:46 BP 119/65 09/09/20 14:46 Pulse Ox 97 09/09/20 14:46 Body Mass Index 32.9 Const: General: cooperative Neck: Neck: Yes supple Resp: Auscultation: clear to auscultation bilaterally Cardio: Heart sounds: no rubs Neuro: Motor exam (neuro): no asterixis Objective Data Labs CBC & Chem 7: 09/07/20 06:36 09/09/20 10:13 Labs: Laboratory Results - last 24 hr 09/08/20 09/08/20 09/09/20 15:53 20:41 08:03 Sodium Potassium Chloride Carbon Dioxide Anion Gap BUN Creatinine Estim Creat Clear Calc Estimated GFR POC Glucose 111 97 43 L* Random Glucose Estimat Average Glucose Hemoglobin A1c % Calcium 09/09/20 09/09/20 09/09/20 08:05 08:24 08:50 Sodium Potassium Chloride Carbon Dioxide Anion Gap BUN Creatinine Estim Creat Clear Calc Estimated GFR POC Glucose 43 L* 42 L* 151 H Random Glucose Estimat Average Glucose Hemoglobin A1c % Calcium 09/09/20 09/09/20 09/09/20 10:13 10:13 11:27 Sodium 135 Potassium 4.7 Chloride 103 Carbon Dioxide 23 Anion Gap 14 BUN 42 H Creatinine 1.83 H Estim Creat Clear Calc 46.0 Estimated GFR 29 POC Glucose 166 H Random Glucose 143 H D Estimat Average Glucose 295 Hemoglobin A1c % 11.9 Calcium 7.8 L Microbiology Microbiology Results: Microbiology 09/06/20 Unknown Urine clean catch - Clean Catch Midstream Urine Culture - Preliminary Enterococcus faecium Yeast 09/05/20 18:49 Blood - Venous Blood Culture - Preliminary No growth after 48 hours. 09/05/20 14:50 Blood - Venous Blood Culture - Preliminary No growth after 48 hours. Assessment & Plan Assessment and plan (1) Acute on chronic kidney failure: Problem details: Renal Fx close to baseline Keep current diuretics and O> I Low salt diet Status: Acute Time Spent With Patient Time: Total time spent is greater than 50% in coordination of care (as documented) at patient's floor/unit and/or counseling patient:
[2020-09-09 16:31] LABS: Glucose, Whole Blood 195 mg/dL (60-115)
[2020-09-09] MEDS: Insulin Lispro 100 UNIT/ML 3 ML VIAL SUBCUT ×2 (17:41→21:25)
[2020-09-09 21:05] LABS: Glucose, Whole Blood 183 mg/dL (60-115)
[2020-09-09] MEDS: Sodium Bicarbonate 650 MG TABLET PO (21:23)
[2020-09-09] MEDS: Tamsulosin HCL 0.4 MG CAPSULE PO (21:24)
[2020-09-10] VITALS: BP 112/73; PULSE 65; RESP 20; TEMP 36.6; O2SAT 98
[2020-09-10 04:00] VITALS: BP 110/68; PULSE 67; RESP 20; TEMP 36; O2SAT 95
[2020-09-10] MEDS: Heparin Sodium,Porcine 5,000 UNIT/ML VIAL 5000 UNIT SUBCUT ×2 (04:28→13:07)
[2020-09-10 06:00] VITALS: BMI 33.7
[2020-09-10 07:43] VITALS: BP 118/70; PULSE 77; RESP 18; TEMP 35.6; O2SAT 97
[2020-09-10 07:54] LABS: Glucose, Whole Blood 95 mg/dL (60-115)
[2020-09-10] MEDS: Insulin Glargine,Hum.rec.anlog 100 UNIT/ML 10 ML VIAL 14 UNIT SUBCUT (08:14)
[2020-09-10] MEDS: Torsemide 20 MG TABLET 100 MG PO (08:16)
[2020-09-10] MEDS: carvediloL 6.25 MG TABLET PO (08:17)
[2020-09-10] MEDS: Sodium Bicarbonate 650 MG TABLET PO (08:17)
[2020-09-10] MEDS: Cholecalciferol (Vitamin D3) 25 MCG TABLET 50 MCG PO (08:17)
[2020-09-10] MEDS: Omeprazole 40 MG CAPSULE.DR PO (08:18)
[2020-09-10] MEDS: Isosorbide Mononitrate 30 MG TAB.ER.24H PO (08:18)
[2020-09-10] MEDS: DULoxetine HCl 20 MG CAPSULE.DR PO (08:18)
[2020-09-10] MEDS: Gabapentin 600 MG TABLET PO (08:18)
[2020-09-10] MEDS: amLODIPine Besylate 10 MG TABLET PO (08:19)
[2020-09-10] MEDS: hydrALAZINE HCl 25 MG TABLET PO (08:19)
[2020-09-10] MEDS: 0.9 % Sodium Chloride Flush 3 ML SYRINGE IVFLUSH ×2 (08:22→08:29)
[2020-09-10] MEDS: oxyCODONE HCl Immed Release 5 MG TABLET PO (08:28)
[2020-09-10 11:35] VITALS: BP 104/72; PULSE 69; RESP 20; TEMP 36.6; O2SAT 99
[2020-09-10 11:41] LABS: Glucose, Whole Blood 128 mg/dL (60-115)
--- NOTE | 2020-09-10 13:04 | PM.PNNEP ---
Subjective Subjective Date of Service: 09/11/20 Interval history: Events noted Physical Exam Vital Signs: Vital Signs: Last Vital Signs Temp 98 F 09/10/20 11:35 Pulse 69 09/10/20 11:35 Resp 20 09/10/20 11:35 BP 104/72 09/10/20 11:35 Pulse Ox 99 09/10/20 11:35 Body Mass Index 33.7 Const: General: cooperative Neck: Neck: Yes supple Resp: Auscultation: clear to auscultation bilaterally Cardio: Heart sounds: no rubs Neuro: Motor exam (neuro): no asterixis Objective Data Labs CBC & Chem 7: 09/07/20 06:36 09/09/20 10:13 Labs: Laboratory Results - last 24 hr 09/09/20 09/09/20 09/10/20 16:24 21:01 07:19 POC Glucose 195 H 183 H 95 09/10/20 11:38 POC Glucose 128 H Microbiology Microbiology Results: Microbiology 09/06/20 Unknown Urine clean catch - Clean Catch Midstream Urine Culture - Final Enterococcus faecium Rita glabrata 09/05/20 18:49 Blood - Venous Blood Culture - Preliminary No growth after 48 hours. 09/05/20 14:50 Blood - Venous Blood Culture - Preliminary No growth after 48 hours. Assessment & Plan Assessment and plan (1) Acute on chronic kidney failure: Status: Acute (2) Chronic kidney disease (CKD): Status: Acute Time Spent With Patient Time: Total time spent is greater than 50% in coordination of care (as documented) at patient's floor/unit and/or counseling patient:
--- NOTE | 2020-09-10 15:00 | PM.DS ---
DS: Providers Provider Date of admission: 09/05/20 19:43 Primary care physician: Nazanin Veliz DO Consults: 09/07/20 17:01 Consult to Nephrology Routine Consulting Provider: Vincenzo Forrest Reason for consultation: diabetic with creat. 2.0-clearance in AM for PICC line Has provider been notified: Yes 09/09/20 09:24 Consult to Infectious Diseases Routine Consulting Provider: Gemini Lucas Reason for consultation: VRE urine DS: Diagnosis Discharge Diagnosis (1) Diabetic keto-acidosis: Status: Acute (2) Acute on chronic kidney failure: Status: Acute (3) Ischemic dilated cardiomyopathy: Status: Acute (4) Paroxysmal atrial fibrillation with rapid ventricular response: Status: Acute DS: Medications Discharge Medications Home Medications: Home Medications Medication Instructions Recorded Confirmed cholecalciferol (vitamin D3) 50 mcg PO DAILY 06/11/20 09/08/20 gabapentin 600 mg PO TID 06/11/20 09/08/20 omeprazole 40 mg PO DAILY 06/11/20 09/08/20 tamsulosin 0.4 mg PO DAILY 06/11/20 09/08/20 amlodipine 10 mg PO DAILY 06/15/20 09/08/20 hydralazine 25 mg PO QID 06/15/20 09/08/20 Lantus Solostar U-100 Insulin 22 unit SUBCUT QAM 09/08/20 09/08/20 carvedilol 6.25 mg PO BID 09/08/20 09/08/20 duloxetine 20 mg PO BID 09/08/20 09/08/20 ferrous gluconate 324 mg PO DAILY 09/08/20 09/08/20 insulin aspart U-100 [Novolog See Rx Instructions .ROUTE .COMPLEX 09/08/20 09/08/20 Flexpen U-100 Insulin] isosorbide mononitrate 30 mg PO DAILY 09/08/20 09/08/20 torsemide 100 mg PO BID 09/08/20 09/08/20 DS: Summary Hospital Course Hospital Course: Patient was initially admitted to the intensive care unit for treatment of DKA. She was started on insulin drip and aggressive fluid resuscitation. Her diuretics were held for acute on chronic kidney disease. With these measures, renal function normalized and DKA resolved. She was subsequently transitioned to subcu Lantus and sliding scale. Her hospital course was further complicated by hypoglycemia and her Lantus was subsequently decreased from twice daily to once daily. With these measures, her sugars remained within acceptable range. An A1c which was checked which showed a value of 11.4. She will be discharged back home with her insulin unchanged. She will also be referred to endocrinology. In regards to her acute kidney injury, renal function improved toward baseline. Nephrology was consulted and ultimately her diuretics were re-initiated. She will be discharged home on torsemide 100 mg twice daily. Her metolazone will be held until she is re-evaluated by Nephrology. She was offered VNA services as well as short-term rehabilitation which she refused. She also reported that she did not need any refills on her insulin. Time Spent with Patient Time attestation: Total time spent providing and/or coordinating discharge services: Physical Exam Vital Signs: Vital Signs: Last Vital Signs Temp 98 F 09/10/20 11:35 Pulse 69 09/10/20 11:35 Resp 20 09/10/20 11:35 BP 104/72 09/10/20 11:35 Pulse Ox 99 09/10/20 11:35 Body Mass Index 33.7 Const: Other: General - no acute distress, appears comfortable Cardiovascular - regular rate and rhythm, S1-S2 Lungs - normal respiratory effort, clear to auscultation bilaterally, no wheezing Abdomen - soft, nontender, no rebound or guarding Extremities - trace edema Neuro - awake and alert, no focal deficits DS: Data Data Completed and Pending Labs on day of discharge: Laboratory Last Values WBC 6.8 X10*3/uL (4.8-10.8) 09/07/20 06:36 RBC 4.03 X10*6/uL (4.20-5.50) L 09/07/20 06:36 Hgb 9.8 g/dl (12.0-16.0) L 09/07/20 06:36 Hct 33.0 % (37-47) L 09/07/20 06:36 MCV 81.9 fL (80-98) 09/07/20 06:36 MCH 24.3 pg (27.0-33.0) L 09/07/20 06:36 MCHC 29.7 g/dl (31.0-35.0) L 09/07/20 06:36 RDW 23.5 % (11.0-16.0) H 09/07/20 06:36 Plt Count TNP 09/07/20 06:36 MPV Not Reportable 09/07/20 06:36 Immature Gran % (Auto) 0.3 % (0.0-0.4) 09/07/20 06:36 Neut % (Auto) 65.9 % (45-73) 09/07/20 06:36 Lymph % (Auto) 20.3 % (20-40) 09/07/20 06:36 [place] % (Auto) 9.9 % (2-11) 09/07/20 06:36 Eos % (Auto) 2.9 % (0-4) 09/07/20 06:36 Baso % (Auto) 0.7 % (0-2) 09/07/20 06:36 Lymph # (Auto) 1.4 X10*3/uL (1.2-4.9) 09/07/20 06:36 [place] # (Auto) 0.7 X10*3/uL (0.1-1.2) 09/07/20 06:36 Eos # (Auto) 0.2 X10*3/uL (0.0-0.4) 09/07/20 06:36 Baso # (Auto) 0.1 X10*3/uL (0.0-0.2) 09/07/20 06:36 Abs Immat Gran (auto) 0.02 X10*3/uL (0.00-0.03) 09/07/20 06:36 Absolute Neuts (auto) 4.5 X10*3/uL (2.0-8.3) 09/07/20 06:36 Absolute Nucleated RBC 0.000 X10*3/uL (0.0-0.012) 09/07/20 06:36 Nucleated RBC % (auto) 0.0 /100WBC (0.0-0.2) 09/07/20 06:36 VBG pH 7.33 (7.32-7.43) 09/07/20 16:33 VBG pCO2 44 mmhg 09/07/20 16:33 VBG pO2 31 mmhg 09/07/20 16:33 VBG HCO3 22 mmol/L 09/07/20 16:33 VBG O2 Saturation 54.3 % 09/07/20 16:33 VBG Base Excess -3.5 mmol/L 09/07/20 16:33 Sodium 135 mmol/L (135-145) 09/09/20 10:13 Potassium 4.7 mmol/l (3.3-5.1) 09/09/20 10:13 Chloride 103 mmol/L (96-108) 09/09/20 10:13 Carbon Dioxide 23 mmol/L (22-29) 09/09/20 10:13 Anion Gap 14 (12-20) 09/09/20 10:13 BUN 42 mg/dL (9-16) H 09/09/20 10:13 Creatinine 1.83 mg/dL (0.5-1.4) H 09/09/20 10:13 Estim Creat Clear Calc 46.0 09/09/20 10:13 Estimated GFR 29 09/09/20 10:13 POC Glucose 128 mg/dL (60-115) H 09/10/20 11:38 Random Glucose 143 mg/dL (60-115) H D 09/09/20 10:13 Estimat Average Glucose 295 mg/dL 09/09/20 10:13 Hemoglobin A1c % 11.9 % 09/09/20 10:13 Lactic Acid 3.8 mmol/L (0.5-2.0) H* 09/05/20 16:58 Lactic Acid Fup @ 2Hr 3.3 mmol/L (0.5-2.0) H* 09/05/20 19:45 Lactic Acid Fup @ 4Hr 2.1 mmol/L (0.5-2.0) H* 09/05/20 22:30 Calcium 7.8 mg/dL (8.4-10.2) L 09/09/20 10:13 Phosphorus 3.9 mg/dL (2.7-4.5) 09/07/20 06:36 Magnesium 2.2 mg/dL (1.6-2.6) 09/07/20 06:36 Total Bilirubin 0.5 mg/dL (0.0-1.0) 09/05/20 16:58 AST 18 U/L (5-31) 09/05/20 16:58 ALT 18 U/L (0-31) 09/05/20 16:58 Alkaline Phosphatase 108 U/L (39-117) 09/05/20 16:58 Troponin I High Sens 23.2 ng/L (<3.5-17.0) H D 09/05/20 16:57 Total Protein 6.2 g/dL (6.5-8.0) L 09/05/20 16:58 Albumin 3.2 g/dL (3.5-5.0) L 09/05/20 16:58 Lipase 43 U/L (8-78) 09/05/20 16:57 Beta-Hydroxybutyrate/Acetoacetate Cancelled 09/05/20 14:50 Urine Color YELLOW 09/06/20 01:37 Urine Appearance HAZY 09/06/20 01:37 Urine pH 5.5 (5.0-8.0) 09/06/20 01:37 Ur Specific [place] 1.020 (1.005-1.025) 09/06/20 01:37 Urine Protein 1+ MG/DL (NEG-TRACE) H 09/06/20 01:37 Urine Glucose (UA) >=1000 MG/DL (NEG) H 09/06/20 01:37 Urine Ketones 5 MG/DL (NEG) 09/06/20 01:37 Urine Blood TRACE (NEG) 09/06/20 01:37 Urine Nitrite NEG (NEG) 09/06/20 01:37 Ur Leukocyte Esterase NEG (NEG) 09/06/20 01:37 Urine RBC 0-2 /HPF (0) 09/06/20 01:37 Urine WBC 15-29 /HPF (0-4) H 09/06/20 01:37 Urine WBC Clumps NOTED 09/06/20 01:37 Ur Squamous Epith Cells NONE /LPF 09/06/20 01:37 Urine Bacteria TRACE /LPF 09/06/20 01:37 Hyaline Casts 0-2 /LPF 09/06/20 01:37 Urine Mucus TRACE /LPF 09/06/20 01:37 Urine Yeast 1+ /HPF 09/06/20 01:37 Urine Opiates Screen Not Detected (Not Detect) 09/06/20 01:37 Ur Barbiturates Screen Not Detected (Not Detect) 09/06/20 01:37 Ur Phencyclidine Scrn Not Detected (Not Detect) 09/06/20 01:37 Ur Amphetamines Screen Not Detected (Not Detect) 09/06/20 01:37 U Benzodiazepines Scrn Not Detected (Not Detect) 09/06/20 01:37 Urine Cocaine Screen Not Detected (Not Detect) 09/06/20 01:37 U Marijuana (THC) Screen Not Detected (Not Detect) 09/06/20 01:37 Acetone, Qual Small (Negative) H 09/05/20 16:58 Coronavirus (PCR) NEGATIVE (Negative) 09/05/20 18:50 Influenza Type A (PCR) NEGATIVE (Negative) 09/05/20 18:50 Influenza Type B (PCR) NEGATIVE (Negative) 09/05/20 18:50 RSV RNA Qual (PCR) NEGATIVE (Negative) 09/05/20 18:50 Preliminary micro results at discharge 09/05/20 18:49 Blood Culture - Preliminary Blood - Venous No growth after 48 hours. 09/05/20 14:50 Blood Culture - Preliminary Blood - Venous No growth after 48 hours. Discharge Plan Discharge Patient Disposition: Home, Self-Care Referrals: Shane Read MD [Physician] - (call for f/u) Nazanin Veliz DO [Primary Care Provider] - 1 Week (Please call and schedule a follow up appointment within 1 week.) Edu Lopez MD [Physician] - (Call Office for appointment) Discharge Medications: Continued gabapentin 600 mg Tablet 600 mg PO TID RF: 0 cholecalciferol (vitamin D3) 50 mcg (2,000 unit) Tablet 50 mcg PO DAILY RF: 0 omeprazole 40 mg Capsule,Delayed Release(Dr/Ec) 40 mg PO DAILY RF: 0 tamsulosin 0.4 mg Capsule 0.4 mg PO DAILY RF: 0 hydralazine 25 mg tablet 25 mg PO QID RF: 0 amlodipine 10 mg tablet 10 mg PO DAILY RF: 0 carvedilol 6.25 mg tablet 6.25 mg PO BID RF: 0 isosorbide mononitrate 30 mg tablet extended release 24 hr 30 mg PO DAILY RF: 0 torsemide 100 mg tablet 100 mg PO BID RF: 0 duloxetine 20 mg capsule,delayed release(DR/EC) 20 mg PO BID RF: 0 ferrous gluconate 324 mg (38 mg iron) tablet 324 mg PO DAILY RF: 0 insulin aspart U-100 [Novolog Flexpen U-100 Insulin] 100 unit/mL (3 mL) insulin pen See Rx Instructions .ROUTE .COMPLEX RF: 0 Lantus Solostar U-100 Insulin 100 unit/mL (3 mL) insulin pen 22 unit subcut QAM RF: 0 Discontinued metolazone 5 mg tablet See Rx Instructions .ROUTE .COMPLEX RF: 0 Discharge Orders: Discharge Order (Routine); Ordered 09/10/20 Ordered By: Alexys Fermin Diet: advance to usual diet Activity on Discharge: As tolerated Other Ambulatory Orders: Basic Metabolic Panel (Routine) Timeframe: 20200915 Facility: [facility] - Location: Laboratory Ordered By: Alexys Fermin Visit Report Forms: Patient Portal Discharge page Care Plan Goals: To stay healthy and out of the hospital. Health Concerns: DKA Uncontrolled HTN CKD/CHF Plan of Treatment: DKA -- take your lantus and humalog as prescribed; f/u with Endocrinology uncontrolled HTN - Take medications as prescribed CKD/CHF -- Take Torsemide, do not take metolazone until seen by kidney doctors
--- NOTE | 2020-09-10 15:06 | P.CNID_ITS ---
History of Present Illness Data of Consult Service Date: 09/10/20 Primary Care Provider: Nazanin Veliz DO HPI Reason for consult: bacteriuria She presents to hospital with weakness and fatigue and found to have elevated blood sugar She also has some shortness of breath and pleural effusions She has urine rita glabrata and VRE She has no abdominal pain,nausea,vomiting,fever,dysuria,flank pain,hesitancy,urgency or hematuria Review of Systems Review of Systems: Yes all other systems are reviewed and are negative Neurologic: Reports as per HPI and Reports Abnormal speech present [facility] Past Medical History Medical History Acute on chronic systolic and diastolic heart failure, NYHA class 3 Acute respiratory distress Atherosclerotic cardiovascular disease Atrial fibrillation CAD (coronary artery disease) Cardiorenal syndrome CHF (congestive heart failure) CHF (congestive heart failure) Chronic kidney disease (CKD) CKD (chronic kidney disease) stage 3, GFR 30-59 ml/min Congestive heart failure GERD (gastroesophageal reflux disease) Heart murmur Hemopericardium Hepatitis C Heroin abuse Hyperglycemia Hypertension Ischemic dilated cardiomyopathy PAF (paroxysmal atrial fibrillation) Peripheral neuropathy Psychotic disorder Type 1 diabetes Urinary retention Social History Social History Household Members: Significant Other Housing: House Alcohol intake: never Smoking Status: Never smoker Use of substances other than those prescribed or required for medical reasons: No Currently Displaying Signs/Symptoms of Drug Intoxication Withdrawal: No Advance Directives: No Advance Directives Information Provided: No Do you have thoughts of harming others: None Do you have a plan to hurt others: No Plan service: No Current occupational status: disabled Meds Allergies Allergy/AdvReac Type Severity Reaction Status Date / Time No Known Allergies Allergy Verified 06/15/20 06:28 [No Known Allergies*] Home Medications Medication Instructions Recorded Confirmed Type cholecalciferol (vitamin D3) 50 mcg PO DAILY 06/11/20 09/08/20 History gabapentin 600 mg PO TID 06/11/20 09/08/20 History omeprazole 40 mg PO DAILY 06/11/20 09/08/20 History tamsulosin 0.4 mg PO DAILY 06/11/20 09/08/20 History amlodipine 10 mg PO DAILY 06/15/20 09/08/20 History hydralazine 25 mg PO QID 06/15/20 09/08/20 History Lantus Solostar U-100 Insulin 22 unit SUBCUT QAM 09/08/20 09/08/20 History carvedilol 6.25 mg PO BID 09/08/20 09/08/20 History duloxetine 20 mg PO BID 09/08/20 09/08/20 History ferrous gluconate 324 mg PO DAILY 09/08/20 09/08/20 History insulin aspart U-100 [Novolog See Rx Instructions .ROUTE .COMPLEX 09/08/20 09/08/20 History Flexpen U-100 Insulin] isosorbide mononitrate 30 mg PO DAILY 09/08/20 09/08/20 History torsemide 100 mg PO BID 09/08/20 09/08/20 History Physical Exam Vital Signs: Vital Signs: Last Vital Signs Temp 98 F 09/10/20 11:35 Pulse 69 09/10/20 11:35 Resp 20 09/10/20 11:35 BP 104/72 09/10/20 11:35 Pulse Ox 99 09/10/20 11:35 Body Mass Index 33.7 Const: General: cooperative HENMT: Head: Yes normal to inspection Mouth: Normal oral and palatal mucosa present Resp: Effort & Inspection: normal respiratory effort Cardio: Rate: regular rate Rhythm: regular rhythm GI: Palpation (GI): Soft to palpation and nontender Skin: General skin exam: no rashes or lesions noted Neuro: Speech: Abnormal speech present Extrem: Other: some venous status changes,plus 1 edema and abrasions,no celllulitis Assessment and Plan (1) Paroxysmal atrial fibrillation with rapid ventricular response: Status: Acute (2) Ischemic dilated cardiomyopathy: Status: Acute (3) Chronic kidney disease (CKD): Status: Acute (4) ASB (asymptomatic bacteriuria): Problem details: She has no symptoms Status: Acute No treatment for VRE or rita glabrata in urine,colonized and asymptomatic Results Labs CBC & Chem 7: 09/07/20 06:36 09/09/20 10:13 Microbiology Microbiology Results: Microbiology 09/06/20 Unknown Urine clean catch - Clean Catch Midstream Urine Culture - Final Enterococcus faecium Rita glabrata 09/05/20 18:49 Blood - Venous Blood Culture - Preliminary No growth after 48 hours. 09/05/20 14:50 Blood - Venous Blood Culture - Preliminary No growth after 48 hours.
[2020-09-10 16:00] VITALS: BP 101/54; PULSE 69; RESP 19; TEMP 36.5; O2SAT 92
--- NOTE | 2020-09-10 16:00 | MHC.CM.PN ---
Pt discharging home with no services. Pt will be transported via [employer] van.
[2020-09-10 16:17] LABS: Glucose, Whole Blood 119 mg/dL (60-115)
[2020-09-14 04:07] LABS: Beta-Hydroxybutyrate 7.01 mmol/L
== END 2020-09-10 16:45 | disposition home or self-care (01) | DRG 638 ==
LOC: HO.ED 18:28 → HO.ICU 20:09 → HO.IMC 09-09 13:54
PROVIDERS: Physician Assistant; Admitting Provider Internal Medicine Cardiovascular Disease; Emergency Provider Emergency Medicine Emergency Medical Services; PCP Internal Medicine; Visit Provider Family Medicine
DX: E10.10 Type 1 diabetes mellitus with ketoacidosis without coma (principal); N17.9 Acute kidney failure, unspecified; I13.0 Hypertensive heart and chronic kidney disease with heart failure and stage 1 through stage 4 chronic kidney disease, or unspecified chronic kidney disease; I42.0 Dilated cardiomyopathy; I50.42 Chronic combined systolic (congestive) and diastolic (congestive) heart failure; N39.0 Urinary tract infection, site not specified; I48.0 Paroxysmal atrial fibrillation; E86.0 Dehydration; N18.32 Chronic kidney disease, stage 3b; E10.22 Type 1 diabetes mellitus with diabetic chronic kidney disease; F11.10 Opioid abuse, uncomplicated; I25.5 Ischemic cardiomyopathy; Z20.828 Contact with and (suspected) exposure to other viral communicable diseases; Z79.4 Long term (current) use of insulin; Z79.899 Other long term (current) drug therapy
CPT/HCPCS: 0241U; 36415; 71045; 71250; 80048; 80053; 80307; 81001; 82009; 82010; 82803; 82947; 83036; 83605; 83690; 83735; 84100; 84484; 85025; 87040; 87086; 87088; 87186; 93005; 94640; 96361; 96365; 96375; 96376; 99285; 99291; C1758; J0456; J0696; J1170; J1200; J1250; J2405; J2543

== ENCOUNTER 2020-10-09 07:43 | Inpatient (IN) | payer OTHER, SELFPAY ==
[2020-10-09] VITALS (9 sets, daily range): BP systolic 120–170; BP diastolic 66–110; PULSE 64–112; RESP 12–22; TEMP 36.2; O2SAT 93–100; BMI 37.6; BMI 37.5
--- NOTE | 2020-10-09 08:03 | XR_ITS ---
EXAMINATION: XR CHEST CLINICAL INFORMATION: mental status change COMPARISON: 09/05/2020 TECHNIQUE: Frontal view of the chest was obtained. FINDINGS: Cardiac leads overlie the chest. Mild cardiomegaly, unchanged. Small bilateral pleural effusions are again noted. There is associated bibasilar atelectasis. Superimposed consolidation is possible. Pulmonary venous congestion is suspected. No pulmonary edema. No acute osseous findings. XR/XR chest 1V IMPRESSION: Cardiomegaly with small bilateral pleural effusions and pulmonary venous congestion. No significant pulmonary edema. Bibasilar opacities likely correspond to atelectasis. Superimposed consolidation cannot be excluded.
--- NOTE | 2020-10-09 08:04 | ECG_ITS ---
Test Reason : AMS Blood Pressure : / mmHG Vent. Rate : 082 BPM Atrial Rate : 082 BPM P-R Int : 174 ms QRS Dur : 110 ms QT Int : 422 ms P-R-T Axes : 075 002 088 degrees QTc Int : 493 ms Normal sinus rhythm Low voltage QRS Nonspecific T wave abnormality Prolonged QT Abnormal ECG When compared with ECG of 06-SEP-2020 20:45, Sinus rhythm has replaced Atrial fibrillation Vent. rate has decreased BY 45 BPM Nonspecific T wave abnormality no longer evident in Inferior leads Referred By: Siena Dan Electronically Signed By:Crow Ramsey
[2020-10-09 08:17] LABS: Glucose, Whole Blood > 600 mg/dL (60-115)
[2020-10-09 08:18] LABS: Glucose, Whole Blood > 600 mg/dL (60-115)
--- NOTE | 2020-10-09 08:34 | ED.AMS ---
HPI - Altered Mental Status General Chief Complaint: Altered Mental Status Stated Complaint: HIGH BS 473 X'S 2 DAYS,LETHARGY Time Seen by Provider: 10/09/20 08:00 Source: EMS Mode of arrival: EMS Limitations: altered mental status History of Present Illness HPI narrative: This is a 49-year-old female history of type 1 diabetes insulin controlled, with history also of DKA, acute and chronic kidney failure, ischemic dilated cardiomyopathy, paroxysmal AFib patient presented by EMS after significant other called for main complaint change mental status over the last days which is progressively worsening, glucometer home machine read as high. History and physical exam is limited due to patient's mental status. Related Data Home Medications Medication Instructions Recorded Confirmed cholecalciferol (vitamin D3) 50 mcg PO DAILY 06/11/20 09/08/20 gabapentin 600 mg PO TID 06/11/20 09/08/20 omeprazole 40 mg PO DAILY 06/11/20 09/08/20 tamsulosin 0.4 mg PO DAILY 06/11/20 09/08/20 amlodipine 10 mg PO DAILY 06/15/20 09/08/20 hydralazine 25 mg PO QID 06/15/20 09/08/20 Lantus Solostar U-100 Insulin 22 unit SUBCUT QAM 09/08/20 09/08/20 carvedilol 6.25 mg PO BID 09/08/20 09/08/20 duloxetine 20 mg PO BID 09/08/20 09/08/20 ferrous gluconate 324 mg PO DAILY 09/08/20 09/08/20 insulin aspart U-100 [Novolog See Rx Instructions .ROUTE .COMPLEX 09/08/20 09/08/20 Flexpen U-100 Insulin] isosorbide mononitrate 30 mg PO DAILY 09/08/20 09/08/20 torsemide 100 mg PO BID 09/08/20 09/08/20 Allergies Allergy/AdvReac Type Severity Reaction Status Date / Time No Known Allergies Allergy Verified 10/09/20 08:05 [No Known Allergies*] Review of Systems Review of Systems: Yes Unobtainable due to mental status PMFSH Past Medical History Medical History Acute on chronic systolic and diastolic heart failure, NYHA class 3 Acute respiratory distress ASB (asymptomatic bacteriuria) Atherosclerotic cardiovascular disease Atrial fibrillation CAD (coronary artery disease) Cardiorenal syndrome CHF (congestive heart failure) CHF (congestive heart failure) Chronic kidney disease (CKD) CKD (chronic kidney disease) stage 3, GFR 30-59 ml/min Congestive heart failure GERD (gastroesophageal reflux disease) Heart murmur Hemopericardium Hepatitis C Heroin abuse Hyperglycemia Hypertension Ischemic dilated cardiomyopathy PAF (paroxysmal atrial fibrillation) Peripheral neuropathy Psychotic disorder Type 1 diabetes Urinary retention Social History Social History Household Members: Significant Other Housing: House Alcohol intake: never Smoking Status: Never smoker Advance Directives: No Advance Directives Information Provided: No service: No Current occupational status: disabled Physical Exam Vital Signs: Vital Signs: Last Vital Signs Temp 97.1 F 10/09/20 07:52 Pulse 79 10/09/20 10:16 Resp 20 10/09/20 10:16 BP 131/72 10/09/20 10:16 Pulse Ox 97 10/09/20 10:16 Body Mass Index 37.5 Vital signs have been reviewed as normal and appeared to be correct. Blood pressure normal. Heart rate normal. Respiration rate normal. Temperature normal. Oxygen saturation normal. Appearance: Alert. No acute distress. Patient is lethargic but arousable. Head: Normal external exam. Normocephalic. Atraumatic. No Sharma signs noted. No raccoon eyes noted Eyes: PERRLA. EOMI. Conjunctiva and sclera normal. Eyelids normal. ENT: EAC normal. TM's Normal. Pharynx normal. Uvula midline. Moist mucous membranes. No trismus noted. No drooling noted. No muffled voice noted. Neck: Normal inspection. Neck supple. FROM. No adenopathy. Thyroid Normal. No meningeal signs. No neck mass noted. CVS: Normal heart rate and rhythm. Heart sound normal. No murmurs noted. Pulses normal throughout. Respiratory: No respiratory distress. Painless inspiration. Breath sounds normal. No wheezes/rales/rhonchi noted. Chest nontender. No accessory muscle usage noted or decreased air movement noted. Abdomen: Soft and nontender. Bowel sounds normal in all 4 quadrants. No distention noted. No organomegaly noted. No visible injury noted. Back: No CVA tenderness. Full range of motion noted. Skin: Skin warm and dry. Normal skin color. Normal skin turgor. No rashes/lesions/lacerations noted. Extremities: lower extremity edema/lymphedema with venous stasis bilaterally. Extremities exhibit normal range of motion. Extremities nontender. Neuro: No motor deficit. No sensory deficit. Course Course Course Narrative: Assessment and plan. 49-year-old female insulin dependent diabetes with history of DKA is presented today after boyfriend noticed change mental status over the past 2 days and worsening today. 1. DKA: Start of fluid/insulin drip. 2. UTI: Vital signs/WBCs, patient did not meet criteria for SIRS, lactic acidosis is secondary to DKA and not secondary to severe sepsis. Will start the patient on ceftriaxone. 3. Hyperkalemia with acute on chronic kidney insufficiency with no EKG changes continue with insulin drip will help the hyperkalemia. MDM - Altered Mental Status Lab Data Attestation: I reviewed the patient's lab results. Result diagrams: 10/09/20 08:58 10/09/20 09:08 Labs: Lab Results 10/09/20 10/09/20 10/09/20 Range/Units 08:09 08:14 08:42 WBC (4.8-10.8) X10*3/uL RBC (4.20-5.50) X10*6/uL Hgb (12.0-16.0) g/dl Hct (37-47) % MCV (80-98) fL MCH (27.0-33.0) pg MCHC (31.0-35.0) g/dl RDW (11.0-16.0) % Plt Count (160-400) X10*3/uL MPV Immature Gran % (Auto) (0.0-0.4) % Neut % (Auto) (45-73) % Lymph % (Auto) (20-40) % [place] % (Auto) (2-11) % Eos % (Auto) (0-4) % Baso % (Auto) (0-2) % Lymph # (Auto) (1.2-4.9) X10*3/uL [place] # (Auto) (0.1-1.2) X10*3/uL Eos # (Auto) (0.0-0.4) X10*3/uL Baso # (Auto) (0.0-0.2) X10*3/uL Abs Immat Gran (auto) (0.00-0.03) X10*3/uL Absolute Neuts (auto) (2.0-8.3) X10*3/uL Absolute Nucleated RBC (0.0-0.012) X10*3/uL Nucleated RBC % (auto) (0.0-0.2) /100WBC Smear Tech's Comments Sodium (135-145) mmol/L Potassium (3.3-5.1) mmol/L Chloride (96-108) mmol/L Carbon Dioxide (22-29) mmol/L Anion Gap (12-20) BUN (9-16) mg/dL Creatinine (0.5-1.4) mg/dL Estim Creat Clear Calc Estimated GFR POC Glucose > 600 H* > 600 H* (60-115) mg/dL Random Glucose (60-115) mg/dL Lactic Acid (0.5-2.0) mmol/L Calcium (8.4-10.2) mg/dL Total Bilirubin (0.0-1.0) mg/dL Direct Bilirubin (0.0-0.5) mg/dL AST (5-31) U/L ALT (0-31) U/L Alkaline Phosphatase (39-117) U/L Troponin I High Sens (<3.5-17.0) ng/L B-Natriuretic Peptide (<100) pg/mL Total Protein (6.5-8.0) g/dL Albumin (3.5-5.0) g/dL Lipase (8-78) U/L Acetone, Qual (Negative) COVID-19 (MAY) Negative (Negative) COVID-19 Clin Com See Note 10/09/20 10/09/20 10/09/20 Range/Units 08:58 08:58 08:58 WBC 9.6 (4.8-10.8) X10*3/uL RBC 3.98 L (4.20-5.50) X10*6/uL Hgb 9.4 L (12.0-16.0) g/dl Hct 31.6 L (37-47) % MCV 79.4 L (80-98) fL MCH 23.6 L (27.0-33.0) pg MCHC 29.7 L (31.0-35.0) g/dl RDW 23.4 H (11.0-16.0) % Plt Count 157 L D (160-400) X10*3/uL MPV Not Reportable Immature Gran % (Auto) 0.6 H (0.0-0.4) % Neut % (Auto) 85.3 H (45-73) % Lymph % (Auto) 6.9 L (20-40) % [place] % (Auto) 6.7 (2-11) % Eos % (Auto) 0.1 (0-4) % Baso % (Auto) 0.4 (0-2) % Lymph # (Auto) 0.7 L (1.2-4.9) X10*3/uL [place] # (Auto) 0.6 (0.1-1.2) X10*3/uL Eos # (Auto) 0.0 (0.0-0.4) X10*3/uL Baso # (Auto) 0.0 (0.0-0.2) X10*3/uL Abs Immat Gran (auto) 0.06 H (0.00-0.03) X10*3/uL Absolute Neuts (auto) 8.2 (2.0-8.3) X10*3/uL Absolute Nucleated RBC 0.020 H (0.0-0.012) X10*3/uL Nucleated RBC % (auto) 0.2 (0.0-0.2) /100WBC Smear Tech's Comments VERIFIED Sodium (135-145) mmol/L Potassium (3.3-5.1) mmol/L Chloride (96-108) mmol/L Carbon Dioxide (22-29) mmol/L Anion Gap (12-20) BUN (9-16) mg/dL Creatinine (0.5-1.4) mg/dL Estim Creat Clear Calc Estimated GFR POC Glucose (60-115) mg/dL Random Glucose (60-115) mg/dL Lactic Acid (0.5-2.0) mmol/L Calcium (8.4-10.2) mg/dL Total Bilirubin (0.0-1.0) mg/dL Direct Bilirubin (0.0-0.5) mg/dL AST (5-31) U/L ALT (0-31) U/L Alkaline Phosphatase (39-117) U/L Troponin I High Sens 20.3 H (<3.5-17.0) ng/L B-Natriuretic Peptide 3262 H (<100) pg/mL Total Protein (6.5-8.0) g/dL Albumin (3.5-5.0) g/dL Lipase (8-78) U/L Acetone, Qual Large H (Negative) COVID-19 (MAY) (Negative) COVID-19 Clin Com 10/09/20 10/09/20 10/09/20 Range/Units 09:08 09:08 09:08 WBC (4.8-10.8) X10*3/uL RBC (4.20-5.50) X10*6/uL Hgb (12.0-16.0) g/dl Hct (37-47) % MCV (80-98) fL MCH (27.0-33.0) pg MCHC (31.0-35.0) g/dl RDW (11.0-16.0) % Plt Count (160-400) X10*3/uL MPV Immature Gran % (Auto) (0.0-0.4) % Neut % (Auto) (45-73) % Lymph % (Auto) (20-40) % [place] % (Auto) (2-11) % Eos % (Auto) (0-4) % Baso % (Auto) (0-2) % Lymph # (Auto) (1.2-4.9) X10*3/uL [place] # (Auto) (0.1-1.2) X10*3/uL Eos # (Auto) (0.0-0.4) X10*3/uL Baso # (Auto) (0.0-0.2) X10*3/uL Abs Immat Gran (auto) (0.00-0.03) X10*3/uL Absolute Neuts (auto) (2.0-8.3) X10*3/uL Absolute Nucleated RBC (0.0-0.012) X10*3/uL Nucleated RBC % (auto) (0.0-0.2) /100WBC Smear Tech's Comments Sodium 132 L (135-145) mmol/L Potassium 6.2 H* (3.3-5.1) mmol/L Chloride 92 L (96-108) mmol/L Carbon Dioxide 7 L* D (22-29) mmol/L Anion Gap 39 H (12-20) BUN 106 H* D (9-16) mg/dL Creatinine 3.50 H (0.5-1.4) mg/dL Estim Creat Clear Calc TNP Estimated GFR 14 POC Glucose (60-115) mg/dL Random Glucose 739 H* (60-115) mg/dL Lactic Acid 4.3 H* (0.5-2.0) mmol/L Calcium 8.3 L D (8.4-10.2) mg/dL Total Bilirubin 1.3 H (0.0-1.0) mg/dL Direct Bilirubin 0.7 H (0.0-0.5) mg/dL AST 27 D (5-31) U/L ALT 17 (0-31) U/L Alkaline Phosphatase 130 H D (39-117) U/L Troponin I High Sens (<3.5-17.0) ng/L B-Natriuretic Peptide (<100) pg/mL Total Protein 6.9 (6.5-8.0) g/dL Albumin 3.2 L (3.5-5.0) g/dL Lipase 14 (8-78) U/L Acetone, Qual (Negative) COVID-19 (MAY) (Negative) COVID-19 Clin Com Imaging Data Chest x-ray: Radiologist's impression: Cardiomegaly with small bilateral pleural effusions and pulmonary venous congestion. No significant pulmonary edema. Bibasilar opacities likely correspond to atelectasis. Superimposed consolidation cannot be excluded. ECG Data ECG #1: Interpretation: Normal sinus rhythm, widening QRS otherwise on remarkable intervals, no ischemic ST-T changes., no hyperkalemic changes on the EKG in particular no peaked T-wave. Critical Care Time Critical Care Time Critical Care Time: Yes Total Critical Care Time: 60 Attestation: I spent 60 minutes providing critical level of care to the patient including bedside examination, monitoring vital signs, placing IV axis, starting patient on IV drips, talking to consultants, reviewing labs/radiographic studies, reassessing the patient. Discharge Plan Discharge Clinical Impression: Acute hyperkalemia, Acute on chronic renal insufficiency, Altered mental status DKA (diabetic ketoacidoses) Qualifiers: Diabetes mellitus type: type 1 UTI (urinary tract infection) Qualifiers: Urinary tract infection type: site unspecified Hematuria presence: without hematuria Qualified Code(s): N39.0 - Urinary tract infection, site not specified Patient Disposition: Admitted As Inpatient
--- NOTE | 2020-10-09 08:46 | PC.NURSE ---
patient very difficult stick, this RN attempted x 2, second RN attempted x 2. CENTRAL OFFICE EQUIPMENT ENGINEER aware and will try with ultrasound
[2020-10-09 09:09] LABS: COVID-19 Test Negative (Negative); IDNOW Serial# 9DD0AD1C
[2020-10-09] MEDS: 0.9 % Sodium Chloride 1,000 ML 999 ML IVCONT ×2 (09:10→10:15)
--- NOTE | 2020-10-09 09:12 | PC.NURSE ---
20g to right EJ by Nabil AGER OPERATOR
[2020-10-09 09:15] LABS: Basophils Percent Auto 0.4 % (0-2); Eosinophils Percent Auto 0.1 % (0-4); Hematocrit 31.6 % (37-47); Hemoglobin 9.4 g/dl (12.0-16.0); Imm Gran Abs Auto 0.06 X10*3/uL (0.00-0.03); Imm Gran Pct Auto 0.6 % (0.0-0.4); Lymphocytes Absolute Auto 0.7 X10*3/uL (1.2-4.9); Lymphocytes Percent Auto 6.9 % (20-40); MANUAL DIFF FLAG SCAN; Mean Corpuscular HGB Conc 29.7 g/dl (31.0-35.0); Mean Corpuscular Hemoglobin 23.6 pg (27.0-33.0); Mean Corpuscular Volume 79.4 fL (80-98); Monocytes Absolute Auto 0.6 X10*3/uL (0.1-1.2); Monocytes Percent Auto 6.7 % (2-11); NRBC Pct Auto 0.2 /100WBC (0.0-0.2); Neutrophils Absolute Auto 8.2 X10*3/uL (2.0-8.3); Neutrophils Percent Auto 85.3 % (45-73); Platelet Count 157 X10*3/uL (160-400); Red Blood Count 3.98 X10*6/uL (4.20-5.50); Red Cell Distribution Width 23.4 % (11.0-16.0); SCAN SMEAR FLAG 1; White Blood Count 9.6 X10*3/uL (4.8-10.8)
[2020-10-09 09:30] LABS: SLIDE REVIEW VERIFIED
[2020-10-09 09:41] LABS: B Type Natriuretic Peptide 3262 pg/mL (<100); Troponin-I High Sensitivity 20.3 ng/L (<3.5-17.0)
[2020-10-09 09:42] LABS: Acetone, serum QL Large (Negative)
[2020-10-09 09:44] LABS: Lactic Acid 4.3 mmol/L (0.5-2.0)
[2020-10-09 09:45] LABS: Lipase 14 U/L (8-78)
[2020-10-09 10:03] LABS: Alanine Aminotransferase 17 U/L (0-31); Albumin Level 3.2 g/dL (3.5-5.0); Alkaline Phosphatase 130 U/L (39-117); Anion Gap 39 (12-20); Aspartate Amino Transferase 27 U/L (5-31); Bilirubin Direct 0.7 mg/dL (0.0-0.5); Bilirubin Total 1.3 mg/dL (0.0-1.0); Blood Urea Nitrogen 106 mg/dL (9-16); Calcium 8.3 mg/dL (8.4-10.2); Carbon Dioxide 7 mmol/L (22-29); Chloride 92 mmol/L (96-108); Estimated Glomerular Filt Rate 14; Glucose Random 739 mg/dL (60-115); Potassium 6.2 mmol/L (3.3-5.1); Sodium 132 mmol/L (135-145); Total Protein 6.9 g/dL (6.5-8.0)
[2020-10-09] MEDS: Insulin Regular, Human 100 UNIT/ML 3 ML VIAL 10 UNIT IVPUSH (10:14)
[2020-10-09] MEDS: Insulin Regular/NS 100 UNIT/100 ML PLAST..BAG 6 UNIT IVCONT (11:11)
[2020-10-09 11:18] LABS: Reflex Lactate? Lactic Acid Added
--- NOTE | 2020-10-09 11:39 | PM.CCHP ---
History of Present Illness Date of Service: 10/09/20 Chief Complaint: DKA 49-year-old lady with underlying history of ischemic dilated cardiomyopathy with EF of approximately 15% and severe diastolic dysfunction, AFib, chronic renal disease, type 1 diabetes mellitus, polysubstance abuse, prior history of vancomycin resistant Enterococcus UTI, poor compliance with medications admitted on 10/09/2020 from home with worsening lethargy for several days. On ER evaluation patient noted to be in diabetic ketoacidosis and has been started on insulin drip and transferred to intensive care unit. Review of Systems Review of Systems: Yes Unobtainable due to mental status (As patient is lethargic and not completely coherent) [facility] Past Medical History Medical History Acute on chronic systolic and diastolic heart failure, NYHA class 3 Acute respiratory distress ASB (asymptomatic bacteriuria) Atherosclerotic cardiovascular disease Atrial fibrillation CAD (coronary artery disease) Cardiorenal syndrome CHF (congestive heart failure) CHF (congestive heart failure) Chronic kidney disease (CKD) CKD (chronic kidney disease) stage 3, GFR 30-59 ml/min Congestive heart failure GERD (gastroesophageal reflux disease) Heart murmur Hemopericardium Hepatitis C Heroin abuse Hyperglycemia Hypertension Ischemic dilated cardiomyopathy PAF (paroxysmal atrial fibrillation) Peripheral neuropathy Psychotic disorder Type 1 diabetes Urinary retention Social History Social History Household Members: Significant Other Housing: House Alcohol intake: never Smoking Status: Never smoker Advance Directives: No Advance Directives Information Provided: No service: No Current occupational status: disabled Meds Allergies Allergy/AdvReac Type Severity Reaction Status Date / Time No Known Allergies Allergy Verified 10/09/20 08:05 [No Known Allergies*] Home Medications Medication Instructions Recorded Confirmed Type cholecalciferol (vitamin D3) 50 mcg PO DAILY 06/11/20 10/09/20 History gabapentin 600 mg PO TID 06/11/20 10/09/20 History omeprazole 40 mg PO DAILY 06/11/20 10/09/20 History tamsulosin 0.4 mg PO DAILY 06/11/20 10/09/20 History amlodipine 10 mg PO DAILY 06/15/20 10/09/20 History hydralazine 25 mg PO QID 06/15/20 10/09/20 History Lantus Solostar U-100 Insulin 22 unit SUBCUT QAM 09/08/20 09/08/20 History carvedilol 6.25 mg PO BID 09/08/20 10/09/20 History duloxetine 20 mg PO BID 09/08/20 10/09/20 History ferrous gluconate 324 mg PO DAILY 09/08/20 10/09/20 History insulin aspart U-100 [Novolog See Rx Instructions .ROUTE .COMPLEX 09/08/20 09/08/20 History Flexpen U-100 Insulin] isosorbide mononitrate 30 mg PO DAILY 09/08/20 10/09/20 History torsemide 100 mg PO BID 09/08/20 10/09/20 History sertraline 100 mg PO DAILY 10/09/20 10/09/20 History Physical Exam Vital Signs: Vital Signs: Last Vital Signs Temp 97.1 F 10/09/20 07:52 Pulse 79 10/09/20 10:16 Resp 20 10/09/20 10:16 BP 131/72 10/09/20 10:16 Pulse Ox 97 10/09/20 10:16 Body Mass Index 37.5 Const: General: no acute distress and lethargic (Arousable) Eyes: Sclerae: sclerae normal EOM: EOMs intact bilaterally Neck: Neck: Yes no lymphadenopathy, Yes trachea midline and Yes supple Resp: Effort & Inspection: normal respiratory effort and no respiratory distress Auscultation: clear to auscultation bilaterally Cardio: Rate: regular rate Rhythm: regular rhythm Heart sounds: no gallops, no murmurs and no rubs GI: Palpation (GI): Soft to palpation and Other GI palpation findings present ( Nontender) Auscultation: normal bowel sounds Extrem: General: No clubbing, No cyanosis and Yes edema (2+ bilateral) Results Labs CBC and Chem 7: 10/09/20 08:58 10/09/20 09:08 Labs: Laboratory Results - last 24 hr 10/09/20 10/09/20 10/09/20 08:09 08:14 08:42 MCV MCH MCHC RDW Plt Count MPV Immature Gran % (Auto) Neut % (Auto) Lymph % (Auto) [place] % (Auto) Eos % (Auto) Baso % (Auto) Lymph # (Auto) [place] # (Auto) Eos # (Auto) Baso # (Auto) Abs Immat Gran (auto) Absolute Neuts (auto) Absolute Nucleated RBC Nucleated RBC % (auto) Smear Tech's Comments Anion Gap Estim Creat Clear Calc Estimated GFR POC Glucose > 600 H* > 600 H* Random Glucose Lactic Acid Calcium Total Bilirubin Direct Bilirubin AST ALT Alkaline Phosphatase Troponin I High Sens B-Natriuretic Peptide Total Protein Albumin Lipase Acetone, Qual COVID-19 (MAY) Negative COVID-19 Clin Com See Note 10/09/20 10/09/20 10/09/20 08:58 08:58 08:58 MCV 79.4 L MCH 23.6 L MCHC 29.7 L RDW 23.4 H Plt Count 157 L D MPV Not Reportable Immature Gran % (Auto) 0.6 H Neut % (Auto) 85.3 H Lymph % (Auto) 6.9 L [place] % (Auto) 6.7 Eos % (Auto) 0.1 Baso % (Auto) 0.4 Lymph # (Auto) 0.7 L [place] # (Auto) 0.6 Eos # (Auto) 0.0 Baso # (Auto) 0.0 Abs Immat Gran (auto) 0.06 H Absolute Neuts (auto) 8.2 Absolute Nucleated RBC 0.020 H Nucleated RBC % (auto) 0.2 Smear Tech's Comments VERIFIED Anion Gap Estim Creat Clear Calc Estimated GFR POC Glucose Random Glucose Lactic Acid Calcium Total Bilirubin Direct Bilirubin AST ALT Alkaline Phosphatase Troponin I High Sens 20.3 H B-Natriuretic Peptide 3262 H Total Protein Albumin Lipase Acetone, Qual Large H COVID-19 (MAY) COVID-19 Clin Com 10/09/20 10/09/20 10/09/20 09:08 09:08 09:08 MCV MCH MCHC RDW Plt Count MPV Immature Gran % (Auto) Neut % (Auto) Lymph % (Auto) [place] % (Auto) Eos % (Auto) Baso % (Auto) Lymph # (Auto) [place] # (Auto) Eos # (Auto) Baso # (Auto) Abs Immat Gran (auto) Absolute Neuts (auto) Absolute Nucleated RBC Nucleated RBC % (auto) Smear Tech's Comments Anion Gap 39 H Estim Creat Clear Calc TNP Estimated GFR 14 POC Glucose Random Glucose 739 H* Lactic Acid 4.3 H* Calcium 8.3 L D Total Bilirubin 1.3 H Direct Bilirubin 0.7 H AST 27 D ALT 17 Alkaline Phosphatase 130 H D Troponin I High Sens B-Natriuretic Peptide Total Protein 6.9 Albumin 3.2 L Lipase 14 Acetone, Qual COVID-19 (MAY) COVID-19 Clin Com Imaging Radiologist's Impressions: Impressions Chest X-Ray 10/09/20 08:03 IMPRESSION: Cardiomegaly with small bilateral pleural effusions and pulmonary venous congestion. No significant pulmonary edema. Bibasilar opacities likely correspond to atelectasis. Superimposed consolidation cannot be excluded. Assessment and Plan (1) DKA (diabetic ketoacidoses): Qualifiers: Diabetes mellitus type: type 1 Status: Acute Assessment: 49-year-old lady with multiple medical issues admitted with diabetic ketoacidosis started on insulin drip. Plan: Neuro: No acute issues. Cardiac: No acute issues. Underlying ischemic cardiomyopathy with severely reduced ejection fraction and severe diastolic dysfunction. Underlying history of AFib. Pulmonary: No acute issues. Renal: Acute kidney injury on the background of chronic renal disease. Non oliguric. Continue to monitor renal indices and urine output. Diuretics held secondary to an acute ketoacidosis picture and started on IV fluid. Endo: Diabetic ketoacidosis, started on IV insulin protocol. GI: No acute issues. ID: No acute issues. No evidence of sepsis at this time. Underlying history of vancomycin resistant Enterococcus UTI. Heme/Onc: No acute issues. Psych: No acute issues. Miscellaneous: No acute issues. Prophylaxis: Heparin Diet: Nothing by mouth Critical care time spent: 45 minutes (2) Acute hyperkalemia: Status: Acute (3) Acute on chronic renal insufficiency: Status: Acute (4) Ischemic dilated cardiomyopathy: Status: Acute Critical Care Time 45 minutes
--- NOTE | 2020-10-09 12:22 | PC.NURSE ---
Addendum entered by Mahogany Islas 10/09/20 13:14: Insulin changed to [address] Smith Original Note: Dr. Smith at bedside and aware of blood glucose reading HI per algorithm Insulin increased to 12u/hr and witnessed by second RN. Patient remains sleepy but more easily arousable and able to state she is in [place] ER. NSR via tele. resp even and non labored. awaiting ICU admission
[2020-10-09 12:27] LABS: Glucose, Whole Blood > 600 mg/dL (60-115)
[2020-10-09] MEDS: Heparin Sodium,Porcine 5,000 UNIT/ML VIAL 5000 UNIT SUBCUT ×2 (12:32→18:54)
[2020-10-09 12:37] LABS: Anion Gap 33 (12-20); Blood Urea Nitrogen 102 mg/dL (9-16); Calcium 7.7 mg/dL (8.4-10.2); Carbon Dioxide 8 mmol/L (22-29); Chloride 96 mmol/L (96-108); Creatinine Clr Calc Pharmacy 23.9; Estimated Glomerular Filt Rate 15; Glucose Random 723 mg/dL (60-115); Sodium 132 mmol/L (135-145)
--- NOTE | 2020-10-09 13:12 | ECG_ITS ---
Test Reason : REPEAT Blood Pressure : / mmHG Vent. Rate : 117 BPM Atrial Rate : 117 BPM P-R Int : 000 ms QRS Dur : 114 ms QT Int : 320 ms P-R-T Axes : 000 -08 185 degrees QTc Int : 446 ms Atrial fibrillation with rapid ventricular response Incomplete left bundle branch block Nonspecific ST and T wave abnormality Abnormal ECG When compared with ECG of 09-OCT-2020 08:13, Atrial fibrillation has replaced Sinus rhythm Nonspecific T wave abnormality now evident in Inferior leads Referred By: Lei Smith Electronically Signed By:FERNANDO FERRARI MD
[2020-10-09 13:22] LABS: Glucose, Whole Blood > 600 mg/dL (60-115)
[2020-10-09] MEDS: Lactated Ringers 1,000 ML 100 ML IVCONT (13:31)
--- NOTE | 2020-10-09 13:36 | PC.NURSE ---
POC reading HI, glucometer QCd just prior to use. Pt remains at 12units/hr. Will recheck in 1 hr. LR started at 100/hr.
[2020-10-09 13:43] LABS: Glucose, Whole Blood > 600 mg/dL (60-115)
[2020-10-09 14:39] LABS: Glucose, Whole Blood > 600 mg/dL (60-115)
[2020-10-09 14:40] LABS: Glucose, Whole Blood > 600 mg/dL (60-115)
[2020-10-09 14:44] LABS: ~Lactic Acid-LAB USE ONLY 3.1 mmol/L (0.5-2.0)
[2020-10-09 15:12] LABS: Glucose Urine UA >=1000 MG/DL (NEG); Leukocyte Esterase Urine NEG (NEG); Nitrite Urine NEG (NEG); PH 5.5 (5.0-8.0); Urine Blood 2+ (NEG); Urine Ketones 5 MG/DL (NEG); Urine Protein NEG (NEG-TRACE)
[2020-10-09 15:13] LABS: Appearance Urine CLEAR; Color Urine YELLOW
[2020-10-09 15:27] LABS: Bacteria Urine TRACE /LPF; RBC Urine 0-2 /HPF (0); Squamous Epithelial Cell Urine TRACE /LPF; UACC CULT YES
[2020-10-09 15:38] LABS: Amphetamine Screen Urine Not Detected (Not Detect); Barbiturates, Urine Not Detected (Not Detect); Benzodiazepines Screen Urine Not Detected (Not Detect); Cannabinoid Screen Urine Not Detected (Not Detect); Cocaine Screen Urine Not Detected (Not Detect); Opiate Screen Urine POSITIVE (Not Detect); Phencyclidine Screen Urine Not Detected (Not Detect)
[2020-10-09 15:51] LABS: Glucose, Whole Blood 582 mg/dL (60-115)
[2020-10-09 16:09] LABS: Anion Gap 27 (12-20); Blood Urea Nitrogen 98 mg/dL (9-16); Calcium 7.9 mg/dL (8.4-10.2); Carbon Dioxide 15 mmol/L (22-29); Chloride 96 mmol/L (96-108); Creatinine Clr Calc Pharmacy 24.3; Estimated Glomerular Filt Rate 15; Glucose Random 705 mg/dL (60-115); Potassium 4.5 mmol/L (3.3-5.1); Sodium 133 mmol/L (135-145)
[2020-10-09 16:17] LABS: Reflex Lactate? 2 Y
[2020-10-09 16:44] LABS: Glucose, Whole Blood 578 mg/dL (60-115)
[2020-10-09 17:17] LABS: PCO2 VBG 40 mmHg; pH VBG 7.29 (7.32-7.43)
[2020-10-09 17:18] LABS: Base Excess VBG -6.1 mmol/L; HCO3 VBG 19 mmol/L; PO2 VBG 87 mmHg
[2020-10-09 17:40] LABS: ~Lactic Acid-LAB USE ONLY 2.6 mmol/L (0.5-2.0)
[2020-10-09 17:42] LABS: Glucose, Whole Blood 542 mg/dL (60-115)
[2020-10-09] MEDS: Insulin Regular/NS 100 UNIT/100 ML PLAST..BAG 27 UNIT IVCONT (17:59)
[2020-10-09 19:14] LABS: Glucose, Whole Blood 501 mg/dL (60-115)
--- NOTE | 2020-10-09 19:27 | PC.NURSE ---
Pt resting on stretcher, opens eyes to verbal stimuli but does not respond to questioning. ICU provider JIMMY Bell at bedside during assessment, is aware of pt current presentation. Pt IV insulin continues infusing at 40.5U/hr. Plan for continued hourly BGL POC and following of insulin protocol. Awaiting bed assignment to ICU.
--- NOTE | 2020-10-09 20:24 | PC.NURSE ---
Jose Antonio roman
--- NOTE | 2020-10-09 20:24 | PC.NURSE ---
BGL 454, continuing IV insulin at 40.5U/hr. Will reassess BGL in 1 hour
[2020-10-09 20:39] LABS: Glucose, Whole Blood 454 mg/dL (60-115)
[2020-10-09 20:46] LABS: Anion Gap 22 (12-20); Blood Urea Nitrogen 99 mg/dL (9-16); Calcium 7.7 mg/dL (8.4-10.2); Carbon Dioxide 18 mmol/L (22-29); Chloride 98 mmol/L (96-108); Creatinine Clr Calc Pharmacy 25.1; Estimated Glomerular Filt Rate 16; Glucose Random 537 mg/dL (60-115); Potassium 5.4 mmol/L (3.3-5.1); Sodium 133 mmol/L (135-145)
--- NOTE | 2020-10-09 20:51 | PC.NURSE ---
MD Luis and JIMMY Bell made aware of repeat potassium, also made aware of slight hemolysis. Per Arabella, no repeat needed at this time.
[2020-10-09 21:22] LABS: Glucose, Whole Blood 417 mg/dL (60-115)
[2020-10-09] MEDS: Insulin Regular/NS 100 UNIT/100 ML PLAST..BAG 40.5 UNIT IVCONT ×2 (21:34→23:51)
[2020-10-09 22:25] LABS: Glucose, Whole Blood 391 mg/dL (60-115)
--- NOTE | 2020-10-09 23:01 | PC.NURSE ---
Since 2135, output of 100mL urine in catheter
[2020-10-09 23:35] LABS: Anion Gap 19 (12-20); Blood Urea Nitrogen 98 mg/dL (9-16); Calcium 7.7 mg/dL (8.4-10.2); Carbon Dioxide 21 mmol/L (22-29); Chloride 99 mmol/L (96-108); Creatinine Clr Calc Pharmacy 25.7; Estimated Glomerular Filt Rate 16; Glucose Random 414 mg/dL (60-115); Potassium 3.8 mmol/L (3.3-5.1); Sodium 135 mmol/L (135-145)
[2020-10-10] VITALS (26 sets, daily range): BP systolic 112–139; BP diastolic 55–72; PULSE 64–129; RESP 9–31; TEMP 36.1–38; O2SAT 92–100; BMI 37.6
[2020-10-10 00:03] LABS: Glucose, Whole Blood 317 mg/dL (60-115)
--- NOTE | 2020-10-10 00:07 | PC.NURSE ---
pt repositioned up in bed, to a upright sitting position. pt not able to use straw to drink, unable to stay awake. pt was able to drink from cup, finished 80z potassium powder/water. pt paid more attention to commands when her name was used. pt not able to follow simple commands, such as raise your right arm in the air. pupils equal and reactive to light, aprox 3mm.
[2020-10-10 00:43] LABS: Glucose, Whole Blood 325 mg/dL (60-115)
[2020-10-10 01:42] LABS: Glucose, Whole Blood 266 mg/dL (60-115)
[2020-10-10] MEDS: Heparin Sodium,Porcine 5,000 UNIT/ML VIAL 5000 UNIT SUBCUT ×3 (02:53→21:00)
[2020-10-10] MEDS: Dextrose 5 % and Lactated Ring 1,000 ML 50 ML IVCONT (03:05)
[2020-10-10] MEDS: Insulin Regular/NS 100 UNIT/100 ML PLAST..BAG 40.5 UNIT IVCONT (03:12)
--- NOTE | 2020-10-10 03:12 | PC.NURSE ---
New bag of 100 units/100 mL Myxredlin insulin started. Unable to scan in. Verified dose and med against order with RIZWANA Whitmore and RIZWANA Lawson.
[2020-10-10 03:16] LABS: Glucose, Whole Blood 211 mg/dL (60-115)
[2020-10-10 04:03] LABS: Glucose, Whole Blood 159 mg/dL (60-115)
[2020-10-10 05:13] LABS: Glucose, Whole Blood 124 mg/dL (60-115)
[2020-10-10] MEDS: Insulin Regular/NS 100 UNIT/100 ML PLAST..BAG 19 UNIT IVCONT (06:00)
[2020-10-10 06:05] LABS: Basophils Percent Auto 0.3 % (0-2); Hematocrit 27.8 % (37-47); PLT ABN DIST 1; SCAN SMEAR FLAG 1
[2020-10-10 06:07] LABS: Base Excess VBG 5.2 mmol/L; Eosinophils Absolute Auto 0.2 X10*3/uL (0.0-0.4); Eosinophils Percent Auto 2.1 % (0-4); HCO3 VBG 30 mmol/L; Hemoglobin 8.9 g/dl (12.0-16.0); Imm Gran Abs Auto 0.03 X10*3/uL (0.00-0.03); Imm Gran Pct Auto 0.3 % (0.0-0.4); Lymphocytes Absolute Auto 0.9 X10*3/uL (1.2-4.9); Lymphocytes Percent Auto 8.2 % (20-40); Mean Corpuscular Hemoglobin 23.5 pg (27.0-33.0); Mean Corpuscular Volume 73.4 fL (80-98); Monocytes Absolute Auto 0.6 X10*3/uL (0.1-1.2); Monocytes Percent Auto 5.5 % (2-11); NRBC Pct Auto 0.6 /100WBC (0.0-0.2); Neutrophils Percent Auto 83.6 % (45-73); PCO2 VBG 49 mmHg; PO2 VBG 63 mmHg; Platelet Count 152 X10*3/uL (160-400); Red Blood Count 3.79 X10*6/uL (4.20-5.50); Red Cell Distribution Width 21.4 % (11.0-16.0); White Blood Count 10.8 X10*3/uL (4.8-10.8); pH VBG 7.39 (7.32-7.43)
[2020-10-10 06:08] LABS: MANUAL DIFF FLAG NO
[2020-10-10 06:41] LABS: Alanine Aminotransferase 13 U/L (0-31); Albumin Level 2.7 g/dL (3.5-5.0); Alkaline Phosphatase 106 U/L (39-117); Anion Gap 14 (12-20); Aspartate Amino Transferase 16 U/L (5-31); Bilirubin Total 0.8 mg/dL (0.0-1.0); Blood Urea Nitrogen 99 mg/dL (9-16); Calcium 7.9 mg/dL (8.4-10.2); Carbon Dioxide 25 mmol/L (22-29); Chloride 102 mmol/L (96-108); Creatinine Clr Calc Pharmacy 28.3; Estimated Glomerular Filt Rate 18; Glucose Random 112 mg/dL (60-115); Phosphorus 3.7 mg/dL (2.7-4.5); Potassium 3.8 mmol/L (3.3-5.1); Sodium 137 mmol/L (135-145); Total Protein 5.7 g/dL (6.5-8.0)
[2020-10-10 07:10] LABS: Glucose, Whole Blood 105 mg/dL (60-115)
[2020-10-10 07:10] LABS: Glucose, Whole Blood 78 mg/dL (60-115)
[2020-10-10 07:10] LABS: Glucose, Whole Blood 91 mg/dL (60-115)
[2020-10-10 07:54] LABS: Glucose, Whole Blood > 600 mg/dL (60-115)
[2020-10-10 08:03] LABS: Glucose, Whole Blood 73 mg/dL (60-115)
[2020-10-10] MEDS: Dextrose 50 % 25 GM/50 ML SYRINGE IVPUSH (08:13)
[2020-10-10 08:35] LABS: Glucose, Whole Blood 91 mg/dL (60-115)
[2020-10-10 09:30] LABS: Glucose, Whole Blood 54 mg/dL (60-115)
[2020-10-10 09:49] LABS: Glucose, Whole Blood 107 mg/dL (60-115)
[2020-10-10 11:01] LABS: Glucose, Whole Blood 79 mg/dL (60-115)
[2020-10-10 12:18] LABS: Glucose, Whole Blood 94 mg/dL (60-115)
--- NOTE | 2020-10-10 12:49 | P.PNCC_ITS ---
Subjective Subjective Date of Service: 10/10/20 Interval History: Ms. Kimball was admitted to the ICU yesterday with DKA. The patient is a 49-year-old lady with underlying history of ischemic dilated cardiomyopathy with EF of approximately 15% and severe diastolic dysfunction w h/o CHF, PAFib, CKD stage 3 (baseline creat probably about 1.8-2.0), type 1 diabetes mellitus, psychotic disorder, polysubstance abuse, hepatitis C, prior history of vancomycin resistant Enterococcus UTI, and h/o very poor compliance with medications. Admitted yesterday from home with worsening lethargy for several days. On ER evaluation the patient was noted to be in diabetic ketoacidosis. BUN/creat up to 106/3.5. No infection was found, altho CXR suggested venous congestion. Chest CT showed large right and small left pelural eff. She was started on an insulin drip, which required escalation to as high as 40 u/hr. Fluid administration was moderated b/o concern for heart failure. By the time of transfer to the ICU, her bicarb was correcting and she was down to a POC in the 200s. This morning, she?s awake and eating. See Vital Signs below. Baseline HR is in 70s, but she?s having runs of Afib with monitor HR up to 130. Breathing easy, Sat 100% on 1L NC. Afebrile thruout. No JVD at 30?. Chest is CTA with normal exp phase. Irreg rhythm, no M or G heard. Abdomen protuberant, cannot r/o ascites. At least 2-3+ anasarca. LABORATORY DATA: As below. Notably, BUN/creat down to 99/2.7. IMAGING: Review of her admission chest CT is suggestive of RV enlargement. IMPRESSION: 1. DKA. Bicarb normalized, insulin is off bec she?s hypoglycemic, despite D5W- based fluids. We will have to give her D50 now. I will start her on Lantus insulin tonight, and add a sliding scale. 2. Underlying ischemic cardiomyopathy with severely reduced ejection fraction and severe diastolic dysfunction. She has anasarca, and the CT is suggestive of right heart failure. Imperative to limit fluids. Restarted her Coreg and Amlodipine. At some point, she?ll need to restart her torsamide, +/- hyd ralazine. 3. Ojyky-mm-tnwrqqm kidney disease. Very likely has cardiorenal syndrome. No need to hoffman to correct her creatinine. I?m going to D/C her IV fluids. 4. PAfib. Underlying history of AFib. Restarted the Coreg, and her rhythm is now sinus. ID: No evidence of acute infection. Underlying history of vancomycin resistant Enterococcus UTI. Time: . Physical Exam Vital Signs: Vital Signs: Last Vital Signs Temp 97.0 F 10/10/20 08:00 Pulse 75 10/10/20 12:00 Resp 9 L 10/10/20 12:00 BP 124/65 10/10/20 12:00 Pulse Ox 100 10/10/20 12:00 Body Mass Index 37.6 Objective Data Labs CBC & Chem 7: 10/10/20 05:59 10/10/20 05:59 Labs: Laboratory Results - last 24 hr 10/09/20 10/09/20 10/09/20 10:28 13:13 13:28 WBC RBC Hgb Hct MCV MCH MCHC RDW Plt Count MPV Immature Gran % (Auto) Neut % (Auto) Lymph % (Auto) [place] % (Auto) Eos % (Auto) Baso % (Auto) Lymph # (Auto) [place] # (Auto) Eos # (Auto) Baso # (Auto) Abs Immat Gran (auto) Absolute Neuts (auto) Absolute Nucleated RBC Nucleated RBC % (auto) VBG pH VBG pCO2 VBG pO2 VBG HCO3 VBG O2 Saturation VBG Base Excess Sodium Potassium Chloride Carbon Dioxide Anion Gap BUN Creatinine Estim Creat Clear Calc Estimated GFR POC Glucose > 600 H* > 600 H* > 600 H* Random Glucose Lactic Acid Fup @ 2Hr Lactic Acid Fup @ 4Hr Calcium Phosphorus Magnesium Total Bilirubin AST ALT Alkaline Phosphatase Total Protein Albumin Urine Color Urine Appearance Urine pH Ur Specific [place] Urine Protein Urine Glucose (UA) Urine Ketones Urine Blood Urine Nitrite Ur Leukocyte Esterase Urine RBC Urine WBC Ur Squamous Epith Cells Urine Bacteria Urine Yeast Urine Opiates Screen Ur Barbiturates Screen Ur Phencyclidine Scrn Ur Amphetamines Screen U Benzodiazepines Scrn Urine Cocaine Screen U Marijuana (THC) Screen 10/09/20 10/09/20 10/09/20 14:14 14:35 14:37 WBC RBC Hgb Hct MCV MCH MCHC RDW Plt Count MPV Immature Gran % (Auto) Neut % (Auto) Lymph % (Auto) [place] % (Auto) Eos % (Auto) Baso % (Auto) Lymph # (Auto) [place] # (Auto) Eos # (Auto) Baso # (Auto) Abs Immat Gran (auto) Absolute Neuts (auto) Absolute Nucleated RBC Nucleated RBC % (auto) VBG pH VBG pCO2 VBG pO2 VBG HCO3 VBG O2 Saturation VBG Base Excess Sodium Potassium Chloride Carbon Dioxide Anion Gap BUN Creatinine Estim Creat Clear Calc Estimated GFR POC Glucose > 600 H* > 600 H* Random Glucose Lactic Acid Fup @ 2Hr 3.1 H* Lactic Acid Fup @ 4Hr Calcium Phosphorus Magnesium Total Bilirubin AST ALT Alkaline Phosphatase Total Protein Albumin Urine Color Urine Appearance Urine pH Ur Specific [place] Urine Protein Urine Glucose (UA) Urine Ketones Urine Blood Urine Nitrite Ur Leukocyte Esterase Urine RBC Urine WBC Ur Squamous Epith Cells Urine Bacteria Urine Yeast Urine Opiates Screen Ur Barbiturates Screen Ur Phencyclidine Scrn Ur Amphetamines Screen U Benzodiazepines Scrn Urine Cocaine Screen U Marijuana (THC) Screen 10/09/20 10/09/20 10/09/20 15:01 15:01 15:24 WBC RBC Hgb Hct MCV MCH MCHC RDW Plt Count MPV Immature Gran % (Auto) Neut % (Auto) Lymph % (Auto) [place] % (Auto) Eos % (Auto) Baso % (Auto) Lymph # (Auto) [place] # (Auto) Eos # (Auto) Baso # (Auto) Abs Immat Gran (auto) Absolute Neuts (auto) Absolute Nucleated RBC Nucleated RBC % (auto) VBG pH VBG pCO2 VBG pO2 VBG HCO3 VBG O2 Saturation VBG Base Excess Sodium 133 L Potassium 4.5 Chloride 96 Carbon Dioxide 15 L Anion Gap 27 H BUN 98 H* Creatinine 3.24 H Estim Creat Clear Calc 24.3 Estimated GFR 15 POC Glucose Random Glucose 705 H* Lactic Acid Fup @ 2Hr Lactic Acid Fup @ 4Hr Calcium 7.9 L Phosphorus Magnesium Total Bilirubin AST ALT Alkaline Phosphatase Total Protein Albumin Urine Color YELLOW Urine Appearance CLEAR Urine pH 5.5 Ur Specific [place] 1.020 Urine Protein NEG Urine Glucose (UA) >=1000 H Urine Ketones 5 Urine Blood 2+ H Urine Nitrite NEG Ur Leukocyte Esterase NEG Urine RBC 0-2 Urine WBC 15-29 H Ur Squamous Epith Cells TRACE Urine Bacteria TRACE Urine Yeast 1+ Urine Opiates Screen POSITIVE H Ur Barbiturates Screen Not Detected Ur Phencyclidine Scrn Not Detected Ur Amphetamines Screen Not Detected U Benzodiazepines Scrn Not Detected Urine Cocaine Screen Not Detected U Marijuana (THC) Screen Not Detected 10/09/20 10/09/20 10/09/20 15:43 16:40 17:10 WBC RBC Hgb Hct MCV MCH MCHC RDW Plt Count MPV Immature Gran % (Auto) Neut % (Auto) Lymph % (Auto) [place] % (Auto) Eos % (Auto) Baso % (Auto) Lymph # (Auto) [place] # (Auto) Eos # (Auto) Baso # (Auto) Abs Immat Gran (auto) Absolute Neuts (auto) Absolute Nucleated RBC Nucleated RBC % (auto) VBG pH VBG pCO2 VBG pO2 VBG HCO3 VBG O2 Saturation VBG Base Excess Sodium Potassium Chloride Carbon Dioxide Anion Gap BUN Creatinine Estim Creat Clear Calc Estimated GFR POC Glucose 582 H* 578 H* Random Glucose Lactic Acid Fup @ 2Hr Lactic Acid Fup @ 4Hr 2.6 H* Calcium Phosphorus Magnesium Total Bilirubin AST ALT Alkaline Phosphatase Total Protein Albumin Urine Color Urine Appearance Urine pH Ur Specific [place] Urine Protein Urine Glucose (UA) Urine Ketones Urine Blood Urine Nitrite Ur Leukocyte Esterase Urine RBC Urine WBC Ur Squamous Epith Cells Urine Bacteria Urine Yeast Urine Opiates Screen Ur Barbiturates Screen Ur Phencyclidine Scrn Ur Amphetamines Screen U Benzodiazepines Scrn Urine Cocaine Screen U Marijuana (THC) Screen 10/09/20 10/09/20 10/09/20 17:10 17:38 19:09 WBC RBC Hgb Hct MCV MCH MCHC RDW Plt Count MPV Immature Gran % (Auto) Neut % (Auto) Lymph % (Auto) [place] % (Auto) Eos % (Auto) Baso % (Auto) Lymph # (Auto) [place] # (Auto) Eos # (Auto) Baso # (Auto) Abs Immat Gran (auto) Absolute Neuts (auto) Absolute Nucleated RBC Nucleated RBC % (auto) VBG pH 7.29 L VBG pCO2 40 VBG pO2 87 VBG HCO3 19 VBG O2 Saturation 94.0 VBG Base Excess -6.1 Sodium Potassium Chloride Carbon Dioxide Anion Gap BUN Creatinine Estim Creat Clear Calc Estimated GFR POC Glucose 542 H* 501 H* Random Glucose Lactic Acid Fup @ 2Hr Lactic Acid Fup @ 4Hr Calcium Phosphorus Magnesium Total Bilirubin AST ALT Alkaline Phosphatase Total Protein Albumin Urine Color Urine Appearance Urine pH Ur Specific [place] Urine Protein Urine Glucose (UA) Urine Ketones Urine Blood Urine Nitrite Ur Leukocyte Esterase Urine RBC Urine WBC Ur Squamous Epith Cells Urine Bacteria Urine Yeast Urine Opiates Screen Ur Barbiturates Screen Ur Phencyclidine Scrn Ur Amphetamines Screen U Benzodiazepines Scrn Urine Cocaine Screen U Marijuana (THC) Screen 10/09/20 10/09/20 10/09/20 20:16 20:21 21:16 WBC RBC Hgb Hct MCV MCH MCHC RDW Plt Count MPV Immature Gran % (Auto) Neut % (Auto) Lymph % (Auto) [place] % (Auto) Eos % (Auto) Baso % (Auto) Lymph # (Auto) [place] # (Auto) Eos # (Auto) Baso # (Auto) Abs Immat Gran (auto) Absolute Neuts (auto) Absolute Nucleated RBC Nucleated RBC % (auto) VBG pH VBG pCO2 VBG pO2 VBG HCO3 VBG O2 Saturation VBG Base Excess Sodium 133 L Potassium 5.4 H Chloride 98 Carbon Dioxide 18 L Anion Gap 22 H BUN 99 H* Creatinine 3.14 H Estim Creat Clear Calc 25.1 Estimated GFR 16 POC Glucose 454 H* 417 H* Random Glucose 537 H* Lactic Acid Fup @ 2Hr Lactic Acid Fup @ 4Hr Calcium 7.7 L Phosphorus Magnesium Total Bilirubin AST ALT Alkaline Phosphatase Total Protein Albumin Urine Color Urine Appearance Urine pH Ur Specific [place] Urine Protein Urine Glucose (UA) Urine Ketones Urine Blood Urine Nitrite Ur Leukocyte Esterase Urine RBC Urine WBC Ur Squamous Epith Cells Urine Bacteria Urine Yeast Urine Opiates Screen Ur Barbiturates Screen Ur Phencyclidine Scrn Ur Amphetamines Screen U Benzodiazepines Scrn Urine Cocaine Screen U Marijuana (THC) Screen 10/09/20 10/09/20 10/09/20 22:21 22:42 23:39 WBC RBC Hgb Hct MCV MCH MCHC RDW Plt Count MPV Immature Gran % (Auto) Neut % (Auto) Lymph % (Auto) [place] % (Auto) Eos % (Auto) Baso % (Auto) Lymph # (Auto) [place] # (Auto) Eos # (Auto) Baso # (Auto) Abs Immat Gran (auto) Absolute Neuts (auto) Absolute Nucleated RBC Nucleated RBC % (auto) VBG pH VBG pCO2 VBG pO2 VBG HCO3 VBG O2 Saturation VBG Base Excess Sodium 135 Potassium 3.8 D Chloride 99 Carbon Dioxide 21 L Anion Gap 19 BUN 98 H* Creatinine 3.06 H Estim Creat Clear Calc 25.7 Estimated GFR 16 POC Glucose 391 H* 317 H Random Glucose 414 H* Lactic Acid Fup @ 2Hr Lactic Acid Fup @ 4Hr Calcium 7.7 L Phosphorus Magnesium Total Bilirubin AST ALT Alkaline Phosphatase Total Protein Albumin Urine Color Urine Appearance Urine pH Ur Specific [place] Urine Protein Urine Glucose (UA) Urine Ketones Urine Blood Urine Nitrite Ur Leukocyte Esterase Urine RBC Urine WBC Ur Squamous Epith Cells Urine Bacteria Urine Yeast Urine Opiates Screen Ur Barbiturates Screen Ur Phencyclidine Scrn Ur Amphetamines Screen U Benzodiazepines Scrn Urine Cocaine Screen U Marijuana (THC) Screen 10/10/20 10/10/20 10/10/20 00:32 01:38 02:50 WBC RBC Hgb Hct MCV MCH MCHC RDW Plt Count MPV Immature Gran % (Auto) Neut % (Auto) Lymph % (Auto) [place] % (Auto) Eos % (Auto) Baso % (Auto) Lymph # (Auto) [place] # (Auto) Eos # (Auto) Baso # (Auto) Abs Immat Gran (auto) Absolute Neuts (auto) Absolute Nucleated RBC Nucleated RBC % (auto) VBG pH VBG pCO2 VBG pO2 VBG HCO3 VBG O2 Saturation VBG Base Excess Sodium Potassium Chloride Carbon Dioxide Anion Gap BUN Creatinine Estim Creat Clear Calc Estimated GFR POC Glucose 325 H 266 H 211 H Random Glucose Lactic Acid Fup @ 2Hr Lactic Acid Fup @ 4Hr Calcium Phosphorus Magnesium Total Bilirubin AST ALT Alkaline Phosphatase Total Protein Albumin Urine Color Urine Appearance Urine pH Ur Specific [place] Urine Protein Urine Glucose (UA) Urine Ketones Urine Blood Urine Nitrite Ur Leukocyte Esterase Urine RBC Urine WBC Ur Squamous Epith Cells Urine Bacteria Urine Yeast Urine Opiates Screen Ur Barbiturates Screen Ur Phencyclidine Scrn Ur Amphetamines Screen U Benzodiazepines Scrn Urine Cocaine Screen U Marijuana (THC) Screen 10/10/20 10/10/20 10/10/20 03:56 04:54 05:59 WBC 10.8 RBC 3.79 L Hgb 8.9 L Hct 27.8 L MCV 73.4 L D MCH 23.5 L MCHC 32.0 RDW 21.4 H Plt Count 152 L MPV Not Reportable Immature Gran % (Auto) 0.3 Neut % (Auto) 83.6 H Lymph % (Auto) 8.2 L [place] % (Auto) 5.5 Eos % (Auto) 2.1 Baso % (Auto) 0.3 Lymph # (Auto) 0.9 L [place] # (Auto) 0.6 Eos # (Auto) 0.2 Baso # (Auto) 0.0 Abs Immat Gran (auto) 0.03 Absolute Neuts (auto) 9.0 H Absolute Nucleated RBC 0.060 H Nucleated RBC % (auto) 0.6 H VBG pH VBG pCO2 VBG pO2 VBG HCO3 VBG O2 Saturation VBG Base Excess Sodium Potassium Chloride Carbon Dioxide Anion Gap BUN Creatinine Estim Creat Clear Calc Estimated GFR POC Glucose 159 H 124 H Random Glucose Lactic Acid Fup @ 2Hr Lactic Acid Fup @ 4Hr Calcium Phosphorus Magnesium Total Bilirubin AST ALT Alkaline Phosphatase Total Protein Albumin Urine Color Urine Appearance Urine pH Ur Specific [place] Urine Protein Urine Glucose (UA) Urine Ketones Urine Blood Urine Nitrite Ur Leukocyte Esterase Urine RBC Urine WBC Ur Squamous Epith Cells Urine Bacteria Urine Yeast Urine Opiates Screen Ur Barbiturates Screen Ur Phencyclidine Scrn Ur Amphetamines Screen U Benzodiazepines Scrn Urine Cocaine Screen U Marijuana (THC) Screen 10/10/20 10/10/20 10/10/20 05:59 05:59 06:03 WBC RBC Hgb Hct MCV MCH MCHC RDW Plt Count MPV Immature Gran % (Auto) Neut % (Auto) Lymph % (Auto) [place] % (Auto) Eos % (Auto) Baso % (Auto) Lymph # (Auto) [place] # (Auto) Eos # (Auto) Baso # (Auto) Abs Immat Gran (auto) Absolute Neuts (auto) Absolute Nucleated RBC Nucleated RBC % (auto) VBG pH 7.39 VBG pCO2 49 VBG pO2 63 VBG HCO3 30 VBG O2 Saturation 88.0 VBG Base Excess 5.2 Sodium 137 Potassium 3.8 Chloride 102 Carbon Dioxide 25 Anion Gap 14 BUN 99 H* Creatinine 2.78 H Estim Creat Clear Calc 28.3 Estimated GFR 18 POC Glucose 91 Random Glucose 112 D Lactic Acid Fup @ 2Hr Lactic Acid Fup @ 4Hr Calcium 7.9 L Phosphorus 3.7 Magnesium 2.0 Total Bilirubin 0.8 AST 16 D ALT 13 Alkaline Phosphatase 106 Total Protein 5.7 L Albumin 2.7 L Urine Color Urine Appearance Urine pH Ur Specific [place] Urine Protein Urine Glucose (UA) Urine Ketones Urine Blood Urine Nitrite Ur Leukocyte Esterase Urine RBC Urine WBC Ur Squamous Epith Cells Urine Bacteria Urine Yeast Urine Opiates Screen Ur Barbiturates Screen Ur Phencyclidine Scrn Ur Amphetamines Screen U Benzodiazepines Scrn Urine Cocaine Screen U Marijuana (THC) Screen 10/10/20 10/10/20 10/10/20 06:31 07:07 07:58 WBC RBC Hgb Hct MCV MCH MCHC RDW Plt Count MPV Immature Gran % (Auto) Neut % (Auto) Lymph % (Auto) [place] % (Auto) Eos % (Auto) Baso % (Auto) Lymph # (Auto) [place] # (Auto) Eos # (Auto) Baso # (Auto) Abs Immat Gran (auto) Absolute Neuts (auto) Absolute Nucleated RBC Nucleated RBC % (auto) VBG pH VBG pCO2 VBG pO2 VBG HCO3 VBG O2 Saturation VBG Base Excess Sodium Potassium Chloride Carbon Dioxide Anion Gap BUN Creatinine Estim Creat Clear Calc Estimated GFR POC Glucose 78 105 73 Random Glucose Lactic Acid Fup @ 2Hr Lactic Acid Fup @ 4Hr Calcium Phosphorus Magnesium Total Bilirubin AST ALT Alkaline Phosphatase Total Protein Albumin Urine Color Urine Appearance Urine pH Ur Specific [place] Urine Protein Urine Glucose (UA) Urine Ketones Urine Blood Urine Nitrite Ur Leukocyte Esterase Urine RBC Urine WBC Ur Squamous Epith Cells Urine Bacteria Urine Yeast Urine Opiates Screen Ur Barbiturates Screen Ur Phencyclidine Scrn Ur Amphetamines Screen U Benzodiazepines Scrn Urine Cocaine Screen U Marijuana (THC) Screen 10/10/20 10/10/20 10/10/20 08:27 09:26 09:47 WBC RBC Hgb Hct MCV MCH MCHC RDW Plt Count MPV Immature Gran % (Auto) Neut % (Auto) Lymph % (Auto) [place] % (Auto) Eos % (Auto) Baso % (Auto) Lymph # (Auto) [place] # (Auto) Eos # (Auto) Baso # (Auto) Abs Immat Gran (auto) Absolute Neuts (auto) Absolute Nucleated RBC Nucleated RBC % (auto) VBG pH VBG pCO2 VBG pO2 VBG HCO3 VBG O2 Saturation VBG Base Excess Sodium Potassium Chloride Carbon Dioxide Anion Gap BUN Creatinine Estim Creat Clear Calc Estimated GFR POC Glucose 91 54 L* 107 Random Glucose Lactic Acid Fup @ 2Hr Lactic Acid Fup @ 4Hr Calcium Phosphorus Magnesium Total Bilirubin AST ALT Alkaline Phosphatase Total Protein Albumin Urine Color Urine Appearance Urine pH Ur Specific [place] Urine Protein Urine Glucose (UA) Urine Ketones Urine Blood Urine Nitrite Ur Leukocyte Esterase Urine RBC Urine WBC Ur Squamous Epith Cells Urine Bacteria Urine Yeast Urine Opiates Screen Ur Barbiturates Screen Ur Phencyclidine Scrn Ur Amphetamines Screen U Benzodiazepines Scrn Urine Cocaine Screen U Marijuana (THC) Screen 10/10/20 10/10/20 10:58 12:15 WBC RBC Hgb Hct MCV MCH MCHC RDW Plt Count MPV Immature Gran % (Auto) Neut % (Auto) Lymph % (Auto) [place] % (Auto) Eos % (Auto) Baso % (Auto) Lymph # (Auto) [place] # (Auto) Eos # (Auto) Baso # (Auto) Abs Immat Gran (auto) Absolute Neuts (auto) Absolute Nucleated RBC Nucleated RBC % (auto) VBG pH VBG pCO2 VBG pO2 VBG HCO3 VBG O2 Saturation VBG Base Excess Sodium Potassium Chloride Carbon Dioxide Anion Gap BUN Creatinine Estim Creat Clear Calc Estimated GFR POC Glucose 79 94 Random Glucose Lactic Acid Fup @ 2Hr Lactic Acid Fup @ 4Hr Calcium Phosphorus Magnesium Total Bilirubin AST ALT Alkaline Phosphatase Total Protein Albumin Urine Color Urine Appearance Urine pH Ur Specific [place] Urine Protein Urine Glucose (UA) Urine Ketones Urine Blood Urine Nitrite Ur Leukocyte Esterase Urine RBC Urine WBC Ur Squamous Epith Cells Urine Bacteria Urine Yeast Urine Opiates Screen Ur Barbiturates Screen Ur Phencyclidine Scrn Ur Amphetamines Screen U Benzodiazepines Scrn Urine Cocaine Screen U Marijuana (THC) Screen Microbiology Microbiology Results: Microbiology 10/09/20 09:08 Blood - Venous Blood Culture - Preliminary No growth after 24 hours. 10/09/20 08:58 Blood - Venous Blood Culture - Preliminary No growth after 24 hours. 10/09/20 14:59 Urine [place] Urine Culture - Preliminary No growth to date. Progress Note: A&P Time Spent With Patient Time: Total time spent is greater than 50% in coordination of care (as docum ented) at patient's floor/unit and/or counseling patient: Total time spent with greater than 50% in coordination of care (as documented) at patient's floor/unit and/or counseling patient:: 0
[2020-10-10] MEDS: Potassium Chloride Packet 20 MEQ PACKET 40 MEQ PO ×2 (13:00)
[2020-10-10 13:15] LABS: Glucose, Whole Blood 112 mg/dL (60-115)
[2020-10-10 14:57] LABS: Glucose, Whole Blood 149 mg/dL (60-115)
[2020-10-10] MEDS: amLODIPine Besylate 10 MG TABLET PO (15:07)
[2020-10-10] MEDS: carvediloL 6.25 MG TABLET PO ×2 (15:07→21:03)
[2020-10-10] MEDS: Magnesium Sulfate/D5W 1 GM/100 ML PIGGYBACK IV (15:07)
--- NOTE | 2020-10-10 15:37 | PC.NURSE ---
assumed care about 03:15. Patient arrived from ED with insulin gtt running at 40.5 Units/hour, as well as d5%LR at 50/hour. Patient POC was initially 211. Insulin gtt was titrated following direction from MASTIC SPR[employer]ER and then MD after shift change, largely following the DKA protocol. insulin gtt rapidly titrated down, off since 8 am. Patient entered a rapid A-fib this afternoon, MD aware, hx of PAF. Patient was administered 1 GM mag as well as her home doses of amlodipine and carvediol. Patient HR around 129. Denies chest pain, denies discomfort, denies palpitations; murmur auscultated. Patient lung sounds clear thoughout. was on 2 lpm nc on arrival, titirated to 1. Breathing was initially somewhat tachypneic, apparent kussmaul pattern, now easy and regular.. diet advanced per MD. Patient has had 100% lunch.
--- NOTE | 2020-10-10 16:07 | MHC.CM.PN ---
Attempted to meet with patient in regards to discharge planning. Patient currently only oriented to person. Spoke with patient's sig other/HCP Catracho via telephone. Patient lives with Catracho, uses a wheelchair/walker for mobility and has [employer] hours through [facility]. PCP verified. HCP verified to be on file. IMM explained and sent via certified mail. Patient will need chair van to discharge home. Catracho states patient gets very short of breath while at home and is requesting a home oxygen eval prior to discharge. Dr Donaldson notified. Patient came to hospital with glucose over 700. Per Yuriy from [facility] pharmacy, she hasn't filled her insulin since March. Dr Donaldson aware.
[2020-10-10 17:22] LABS: Glucose, Whole Blood 247 mg/dL (60-115)
[2020-10-10] MEDS: Insulin Lispro 100 UNIT/ML 3 ML VIAL SUBCUT ×2 (17:26→20:57)
[2020-10-10 19:46] LABS: Anion Gap 13 (12-20); Blood Urea Nitrogen 87 mg/dL (9-16); Calcium 7.7 mg/dL (8.4-10.2); Carbon Dioxide 24 mmol/L (22-29); Chloride 101 mmol/L (96-108); Creatinine Clr Calc Pharmacy 30.7; Estimated Glomerular Filt Rate 20; Glucose Random 251 mg/dL (60-115); Magnesium 2.2 mg/dL (1.6-2.6); Phosphorus 3.5 mg/dL (2.7-4.5); Sodium 133 mmol/L (135-145)
[2020-10-10 20:48] LABS: Glucose, Whole Blood 256 mg/dL (60-115)
[2020-10-10] MEDS: Insulin Glargine,Hum.rec.anlog 100 UNIT/ML 10 ML VIAL 12 UNIT SUBCUT (20:58)
[2020-10-11] VITALS (11 sets, daily range): BP systolic 111–132; BP diastolic 58–69; PULSE 65–77; RESP 8–18; TEMP 36–36.9; O2SAT 90–99; BMI 38.0
--- NOTE | 2020-10-11 02:23 | PC.NURSE ---
PT IS VAGUE, DROWSY, FOLLOWS COMMANDS. WAS HEARD MOANING AND WHEN ASKED HER WHAT WAS WRONG SHE REPLIED SHE WAS HUNGRY. THAT WAS AT 2100. POC 256. HS SNACK GIVEN. ALSO C/O BEING THIRSTY. HS LANTUS GIVEN AND LISPRO PER SLIDING SCALE. LOWER EXTREMITIES 2+ EDEMA NOTED. CONN IN PLACE.
[2020-10-11] MEDS: Heparin Sodium,Porcine 5,000 UNIT/ML VIAL 5000 UNIT SUBCUT ×3 (06:39→21:10)
[2020-10-11] MEDS: DULoxetine HCl 20 MG CAPSULE.DR PO ×2 (06:41→21:09)
[2020-10-11] MEDS: Omeprazole 40 MG CAPSULE.DR PO (06:41)
[2020-10-11 07:02] LABS: Glucose, Whole Blood 305 mg/dL (60-115)
[2020-10-11 07:06] LABS: Anion Gap 15 (12-20); Blood Urea Nitrogen 85 mg/dL (9-16); Calcium 7.6 mg/dL (8.4-10.2); Carbon Dioxide 24 mmol/L (22-29); Chloride 97 mmol/L (96-108); Creatinine Clr Calc Pharmacy 33.9; Estimated Glomerular Filt Rate 22; Glucose Random 287 mg/dL (60-115); Magnesium 2.2 mg/dL (1.6-2.6); Phosphorus 3.3 mg/dL (2.7-4.5); Potassium 5.2 mmol/L (3.3-5.1); Sodium 131 mmol/L (135-145)
[2020-10-11 07:18] LABS: Glucose, Whole Blood 51 mg/dL (60-115)
[2020-10-11] MEDS: Insulin Lispro 100 UNIT/ML 3 ML VIAL SUBCUT ×4 (07:42→21:09)
[2020-10-11] MEDS: amLODIPine Besylate 10 MG TABLET PO (07:59)
[2020-10-11] MEDS: Isosorbide Mononitrate 30 MG TAB.ER.24H PO (07:59)
[2020-10-11] MEDS: Ferrous Sulfate 324 MG TABLET.DR PO (07:59)
[2020-10-11] MEDS: Cholecalciferol (Vitamin D3) 25 MCG TABLET 50 MCG PO (07:59)
[2020-10-11] MEDS: carvediloL 6.25 MG TABLET PO ×2 (08:00→21:11)
[2020-10-11] MEDS: Insulin Glargine,Hum.rec.anlog 100 UNIT/ML 10 ML VIAL 12 UNIT SUBCUT ×2 (08:02→21:10)
[2020-10-11 11:17] LABS: Glucose, Whole Blood 296 mg/dL (60-115)
[2020-10-11 16:11] LABS: Glucose, Whole Blood 277 mg/dL (60-115)
--- NOTE | 2020-10-11 17:33 | P.PNIM_ITS ---
Subjective Subjective Date of Service: 10/11/20 Interval History: seen in f/u for DKA, REsolved Bicab is normal Review of Systems no fever, no sob, no Physical Exam Vital Signs: Vital Signs: Last Vital Signs Temp 98.5 F 10/11/20 15:24 Pulse 69 10/11/20 15:24 Resp 16 10/11/20 15:24 BP 119/65 10/11/20 15:24 Pulse Ox 99 10/11/20 15:24 Body Mass Index 38.0 General: AO X 3, no acute distress Resp: CTA bilateral CVS: S1,S2,RRR GI: +BS, NT, no distention Skin: No rash Neuro: motor grossly intact Psych: appropriate affect Objective Data Current Medications Generic Name Dose Route Start Last Admin Trade Name Ismaelq PRN Reason Stop Dose Admin Amlodipine Besylate 10 mg 10/10/20 14:30 10/11/20 07:59 Amlodipine Besylate 10 Mg Tablet PO 10 mg DAILY LARRY Administration Protocol Carvedilol 6.25 mg 10/10/20 14:20 10/11/20 08:00 Carvedilol 6.25 Mg Tablet PO 6.25 mg BID LARRY Administration Protocol Duloxetine HCl 20 mg 10/11/20 05:22 10/11/20 06:41 Duloxetine Hcl 20 Mg Capsule. PO 20 mg BID LARRY Administration Ferrous Sulfate 324 mg 10/11/20 09:00 10/11/20 07:59 Ferrous Sulfate 324 Mg Tablet. PO 324 mg DAILY LARRY Administration Heparin Sodium (Porcine) 5,000 unit 10/10/20 21:00 10/11/20 11:29 Heparin Sodium,Porcine 5,000 Unit/Ml Vial SUBCUT 5,000 unit Q8H LARRY Administration Insulin Glargine 12 unit 10/10/20 21:00 10/11/20 08:02 Insulin Glargine,Hum.Rec.Anlog 100 Unit/Ml 10 Ml Vial SUBCUT 12 unit BID LARRY Administration Insulin Human Lispro 0 unit 10/10/20 11:30 10/11/20 16:34 Insulin Lispro 100 Unit/Ml 3 Ml Vial SUBCUT 6 unit QIDACHS LARRY Administration Protocol Isosorbide Mononitrate 30 mg 10/11/20 09:00 10/11/20 07:59 Isosorbide Mononitrate 30 Mg Tab.Er.24h PO 30 mg DAILY LARRY Administration Protocol Omeprazole 40 mg 10/11/20 06:30 10/11/20 06:41 Omeprazole 40 Mg Capsule.Dr PO 40 mg DAILY@0630 LARRY Administration Ondansetron HCl 4 mg 10/09/20 10:34 Ondansetron Hcl 4 Mg/2 Ml Vial IVPUSH Q8H PRN Nausea Vitamin D 50 mcg 10/11/20 09:00 10/11/20 07:59 Cholecalciferol (Vitamin D3) 25 Mcg Tablet PO 50 mcg DAILY LARRY Administration Labs CBC & Chem 7: 10/10/20 05:59 10/11/20 05:37 Microbiology Microbiology Results: Microbiology 10/09/20 09:08 Blood - Venous Blood Culture - Preliminary No growth after 48 hours. 10/09/20 08:58 Blood - Venous Blood Culture - Preliminary No growth after 48 hours. 10/09/20 14:59 Urine [place] Urine Culture - Final No growth. Assessment and Plan (1) DKA (diabetic ketoacidoses): Status: Acute (2) Acute hyperkalemia: Status: Acute (3) Acute on chronic renal insufficiency: Status: Acute (4) Ischemic dilated cardiomyopathy: Status: Acute Assessment and Plan: Assessment: 49-year-old lady with multiple medical issues admitted with diab etic ketoacidosis started on insulin drip. Plan: Neuro: No acute issues. Cardiac: No acute issues. Underlying ischemic cardiomyopathy with severely reduced ejection fraction and severe diastolic dysfunction. Underlying history of AFib. Pulmonary: No acute issues. Renal: Acute kidney injury on the background of chronic renal disease with markedly high BUN, get Nephrology to see her Endo: Diabetic ketoacidosis, of insulin drip and on lantus, dka resolved GI: No acute issues. ID: No acute issues. No evidence of sepsis at this time. Underlying history of vancomycin resistant Enterococcus UTI. Heme/Onc: No acute issues. Psych: No acute issues. HTN--amlodipine Prophylaxis: Heparin Diet: diabetic diet pland dc tomorrow
[2020-10-11 20:08] LABS: Glucose, Whole Blood 267 mg/dL (60-115)
[2020-10-11] MEDS: Acetaminophen 325 MG TABLET 650 MG PO (21:29)
[2020-10-11] MEDS: oxyCODONE HCl Immed Release 5 MG TABLET PO (23:43)
[2020-10-12] VITALS (10 sets, daily range): BP systolic 110–135; BP diastolic 62–77; PULSE 67–72; RESP 18–20; TEMP 35.8–37.2; O2SAT 93–97
--- NOTE | 2020-10-12 03:27 | PC.NURSE ---
CARE ASSUMED 23;15...AWAKE..ALERT..ORIENTED X3...RESPIRATIONS EASY..CONTINUES TO C/O 8/10 LEG PAIN AND DIFFUSE BODY PAIN PER PATIENT...PREVIOUSLY RECEIVED TYLENOL PO 3-11 W/O EFFECT...HOSPITALIST PREVIOUSLY UPDATED...OXYCODONE 5MG PO X1 GIVEN...REPORTED NO EFFECT FROM OXYCODONE..STATED CAN I GET SOME DILAUDID? ...ADMITS TO SNORTING HEROIN CHRONICALLY AT HOME...HOSPITALIST UPDATED... STATED NO DILAUDID TO BE ORDERED VIA TIGERTEXT..NAPPING INTERMITTANTLY...S.LOCO HR 50'S AT REST
[2020-10-12] MEDS: Heparin Sodium,Porcine 5,000 UNIT/ML VIAL 5000 UNIT SUBCUT ×3 (05:15→20:34)
[2020-10-12] MEDS: Omeprazole 40 MG CAPSULE.DR PO (05:15)
[2020-10-12 07:30] LABS: Glucose, Whole Blood 204 mg/dL (60-115)
[2020-10-12] MEDS: Insulin Lispro 100 UNIT/ML 3 ML VIAL SUBCUT ×2 (07:42→11:54)
[2020-10-12] MEDS: Insulin Glargine,Hum.rec.anlog 100 UNIT/ML 10 ML VIAL 12 UNIT SUBCUT ×2 (07:43→20:35)
[2020-10-12] MEDS: DULoxetine HCl 20 MG CAPSULE.DR PO ×2 (07:49→20:32)
[2020-10-12] MEDS: Ferrous Sulfate 324 MG TABLET.DR PO (07:49)
[2020-10-12] MEDS: Isosorbide Mononitrate 30 MG TAB.ER.24H PO (07:49)
[2020-10-12] MEDS: carvediloL 6.25 MG TABLET PO ×2 (07:49→20:33)
[2020-10-12] MEDS: Cholecalciferol (Vitamin D3) 25 MCG TABLET 50 MCG PO (07:50)
[2020-10-12] MEDS: amLODIPine Besylate 10 MG TABLET PO (07:52)
[2020-10-12 11:20] LABS: Glucose, Whole Blood 157 mg/dL (60-115)
--- NOTE | 2020-10-12 12:02 | P.PNIM_ITS ---
Subjective Subjective Date of Service: 10/12/20 Interval History: seen in f/u for DKA. No further DKA, doesn feel well and weak Review of Systems no fever, no sob, no, weak Physical Exam Vital Signs: Vital Signs: Last Vital Signs Temp 98 F 10/12/20 11:13 Pulse 72 10/12/20 11:13 Resp 20 10/12/20 11:13 BP 135/77 10/12/20 11:13 Pulse Ox 96 10/12/20 11:13 Body Mass Index 38.0 Const: Other: General: AO X 3, no acute distress Resp: CTA bilateral CVS: S1,S2,RRR GI: +BS, NT, no distention Skin: No rash Neuro: motor grossly intact Psych: appropriate affect Objective Data Current Medications Generic Name Dose Route Start Last Admin Trade Name Freq PRN Reason Stop Dose Admin Amlodipine Besylate 10 mg 10/10/20 14:30 10/12/20 07:52 Amlodipine Besylate 10 Mg Tablet PO 10 mg DAILY LARRY Administration Protocol Carvedilol 6.25 mg 10/10/20 14:20 10/12/20 07:49 Carvedilol 6.25 Mg Tablet PO 6.25 mg BID LARRY Administration Protocol Duloxetine HCl 20 mg 10/11/20 05:22 10/12/20 07:49 Duloxetine Hcl 20 Mg Capsule. PO 20 mg BID LARRY Administration Ferrous Sulfate 324 mg 10/11/20 09:00 10/12/20 07:49 Ferrous Sulfate 324 Mg Tablet. PO 324 mg DAILY LARRY Administration Heparin Sodium (Porcine) 5,000 unit 10/10/20 21:00 10/12/20 11:55 Heparin Sodium,Porcine 5,000 Unit/Ml Vial SUBCUT 5,000 unit Q8H LARRY Administration Insulin Glargine 12 unit 10/10/20 21:00 10/12/20 07:43 Insulin Glargine,Hum.Rec.Anlog 100 Unit/Ml 10 Ml Vial SUBCUT 12 unit BID LARRY Administration Insulin Human Lispro 0 unit 10/10/20 11:30 10/12/20 11:54 Insulin Lispro 100 Unit/Ml 3 Ml Vial SUBCUT 2 unit QIDACHS [facility] Administration Protocol Isosorbide Mononitrate 30 mg 10/11/20 09:00 10/12/20 07:49 Isosorbide Mononitrate 30 Mg Tab.Er.24h PO 30 mg DAILY LARRY Administration Protocol Omeprazole 40 mg 10/11/20 06:30 10/12/20 05:15 Omeprazole 40 Mg Capsule.Dr PO 40 mg DAILY@0630 LARRY Administration Ondansetron HCl 4 mg 10/09/20 10:34 Ondansetron Hcl 4 Mg/2 Ml Vial IVPUSH Q8H PRN Nausea Vitamin D 50 mcg 10/11/20 09:00 10/12/20 07:50 Cholecalciferol (Vitamin D3) 25 Mcg Tablet PO 50 mcg DAILY LARRY Administration Labs CBC & Chem 7: 10/10/20 05:59 10/11/20 05:37 Microbiology Microbiology Results: Microbiology 10/09/20 09:08 Blood - Venous Blood Culture - Preliminary No growth after 48 hours. 10/09/20 08:58 Blood - Venous Blood Culture - Preliminary No growth after 48 hours. 10/09/20 14:59 Urine [place] Urine Culture - Final No growth. Assessment and Plan (1) DKA (diabetic ketoacidoses): Status: Acute (2) Acute hyperkalemia: Status: Acute (3) Acute on chronic renal insufficiency: Status: Acute (4) Ischemic dilated cardiomyopathy: Status: Acute Assessment and Plan: Assessment: 49-year-old lady with multiple medical issues admitted with samaria betic ketoacidosis started on insulin drip. Plan: Neuro: No acute issues, other than generalized weakness Cardiac: No acute issues. Underlying ischemic cardiomyopathy with severely reduced ejection fraction and severe diastolic dysfunction. Underlying history of AFib -continue Coreg -Not on anticoagulation -restart Torsemide 20 bid HLD--restart Lipitor Pulmonary: No acute issues. Renal: Acute kidney injury on the background of chronic renal disease with markedly high BUN, get Nephrology to see her Endo: Diabetic ketoacidosis, of insulin drip and on lantus, dka resolved GI: No acute issues. ID: No acute issues. No evidence of sepsis at this time. Underlying history of vancomycin resistant Enterococcus UTI. Heme/Onc: No acute issues. Psych: No acute issues. HTN--amlodipine, Coreg Psych: Fluexetine Prophylaxis: Heparin Diet: diabetic diet PT eval
[2020-10-12] MEDS: Torsemide 20 MG TABLET PO ×2 (12:39→20:33)
[2020-10-12 13:03] LABS: Anion Gap 17 (12-20); Blood Urea Nitrogen 81 mg/dL (9-16); Calcium 7.6 mg/dL (8.4-10.2); Carbon Dioxide 19 mmol/L (22-29); Chloride 98 mmol/L (96-108); Creatinine Clr Calc Pharmacy 36.8; Estimated Glomerular Filt Rate 24; Glucose Random 163 mg/dL (60-115); Potassium 5.3 mmol/L (3.3-5.1); Sodium 129 mmol/L (135-145)
--- NOTE | 2020-10-12 13:41 | MHC.CM.PN ---
physical therapy recommended str for pt spoke with hcp son who is agreeable and will talk with pt he is requesting [facility] as she has been there in the past additionally he doesnt hdrive but uses a bicycle to visit pt wherever she is
[2020-10-12 16:51] LABS: Glucose, Whole Blood 122 mg/dL (60-115)
[2020-10-12] MEDS: oxyCODONE HCl Immed Release 5 MG TABLET PO (17:03)
--- NOTE | 2020-10-12 17:15 | PC.NURSE ---
pt complaining of pain in her feet radiating up to her legs- /10 pain. got pt OOB to chair 1 assist with PT and walker. Did not help with pain in her legs at that time, still describing them as stabbing Contacted MD - new order for 5mg oxicodone q4 prn ordered and administered. effectiveness pending at this time. pt remains AO with flat affect, VSS,lungs dim with fine crackles at bases, orthopnea , MORRISON, edema bilateral to lower extremities. skin intact except some scratches from picking at skin and some peeling skin lower extemities, bilat toe amputations. high fall risk measures in place. call jones in place, pt OOB to the chair at this time.
[2020-10-12 20:32] LABS: Glucose, Whole Blood 111 mg/dL (60-115)
[2020-10-13] VITALS (11 sets, daily range): BP systolic 124–136; BP diastolic 64–76; PULSE 66–80; RESP 16–20; TEMP 36.3–36.6; O2SAT 95–98
[2020-10-13] MEDS: Omeprazole 40 MG CAPSULE.DR PO (05:36)
[2020-10-13] MEDS: Heparin Sodium,Porcine 5,000 UNIT/ML VIAL 5000 UNIT SUBCUT ×3 (05:36→20:41)
[2020-10-13 07:35] LABS: Glucose, Whole Blood 79 mg/dL (60-115)
[2020-10-13] MEDS: Torsemide 20 MG TABLET PO ×2 (08:55→20:41)
[2020-10-13] MEDS: Isosorbide Mononitrate 30 MG TAB.ER.24H PO (08:55)
[2020-10-13] MEDS: carvediloL 6.25 MG TABLET PO ×2 (08:56→20:42)
[2020-10-13] MEDS: amLODIPine Besylate 10 MG TABLET PO (08:59)
[2020-10-13] MEDS: DULoxetine HCl 20 MG CAPSULE.DR PO ×2 (08:59→20:40)
[2020-10-13] MEDS: Cholecalciferol (Vitamin D3) 25 MCG TABLET 50 MCG PO (08:59)
[2020-10-13] MEDS: Ferrous Sulfate 324 MG TABLET.DR PO (08:59)
[2020-10-13] MEDS: Insulin Glargine,Hum.rec.anlog 100 UNIT/ML 10 ML VIAL 12 UNIT SUBCUT ×2 (09:00→20:49)
[2020-10-13 11:25] LABS: Glucose, Whole Blood 136 mg/dL (60-115)
--- NOTE | 2020-10-13 12:11 | P.PNIM_ITS ---
Subjective Subjective Date of Service: 10/13/20 Interval History: seen in f/u for DKA. No further DKA. Feels better, weak and would go to rehab if offered Review of Systems no fever, no sob, no, weak Physical Exam Vital Signs: Vital Signs: Last Vital Signs Temp 97.5 F 10/13/20 11:09 Pulse 69 10/13/20 11:09 Resp 20 10/13/20 11:09 BP 133/71 10/13/20 11:09 Pulse Ox 97 10/13/20 11:09 Body Mass Index 38.0 Const: Other: General: AO X 3, no acute distress Resp: CTA bilateral CVS: S1,S2,RRR GI: +BS, NT, no distention Skin: No rash Neuro: motor grossly intact Psych: appropriate affect Objective Data Current Medications Generic Name Dose Route Start Last Admin Trade Name Freq PRN Reason Stop Dose Admin Amlodipine Besylate 10 mg 10/10/20 14:30 10/13/20 08:59 Amlodipine Besylate 10 Mg Tablet PO 10 mg DAILY LARRY Administration Protocol Carvedilol 6.25 mg 10/10/20 14:20 10/13/20 08:56 Carvedilol 6.25 Mg Tablet PO 6.25 mg BID LARRY Administration Protocol Duloxetine HCl 20 mg 10/11/20 05:22 10/13/20 08:59 Duloxetine Hcl 20 Mg Capsule. PO 20 mg BID LARRY Administration Ferrous Sulfate 324 mg 10/11/20 09:00 10/13/20 08:59 Ferrous Sulfate 324 Mg Tablet. PO 324 mg DAILY LARRY Administration Heparin Sodium (Porcine) 5,000 unit 10/10/20 21:00 10/13/20 05:36 Heparin Sodium,Porcine 5,000 Unit/Ml Vial SUBCUT 5,000 unit Q8H LARRY Administration Insulin Glargine 12 unit 10/10/20 21:00 10/13/20 09:00 Insulin Glargine,Hum.Rec.Anlog 100 Unit/Ml 10 Ml Vial SUBCUT 12 unit BID LARRY Administration Insulin Human Lispro 0 unit 10/10/20 11:30 10/13/20 11:34 Insulin Lispro 100 Unit/Ml 3 Ml Vial SUBCUT Not Given QIDACHS [facility] Protocol Isosorbide Mononitrate 30 mg 10/11/20 09:00 10/13/20 08:55 Isosorbide Mononitrate 30 Mg Tab.Er.24h PO 30 mg DAILY [facility] Administration Protocol Omeprazole 40 mg 10/11/20 06:30 10/13/20 05:36 Omeprazole 40 Mg Capsule.Dr PO 40 mg DAILY@0630 [facility] Administration Ondansetron HCl 4 mg 10/09/20 10:34 Ondansetron Hcl 4 Mg/2 Ml Vial IVPUSH Q8H PRN Nausea Oxycodone HCl 5 mg 10/12/20 16:54 10/12/20 17:03 Oxycodone Hcl Immed Release 5 Mg Tablet PO 5 mg Q4H PRN Administration Pain, Severe (Pain Scale 7-10) Torsemide 20 mg 10/12/20 12:15 10/13/20 08:55 Torsemide 20 Mg Tablet PO 20 mg BID [facility] Administration Protocol Vitamin D 50 mcg 10/11/20 09:00 10/13/20 08:59 Cholecalciferol (Vitamin D3) 25 Mcg Tablet PO 50 mcg DAILY [facility] Administration Labs CBC & Chem 7: 10/10/20 05:59 10/12/20 12:24 Microbiology Microbiology Results: Microbiology 10/09/20 09:08 Blood - Venous Blood Culture - Preliminary No growth after 48 hours. 10/09/20 08:58 Blood - Venous Blood Culture - Preliminary No growth after 48 hours. 10/09/20 14:59 Urine [place] Urine Culture - Final No growth. Assessment and Plan (1) DKA (diabetic ketoacidoses): Status: Acute (2) Acute hyperkalemia: Status: Acute (3) Acute on chronic renal insufficiency: Status: Acute (4) Ischemic dilated cardiomyopathy: Status: Acute Assessment and Plan: Assessment: 49-year-old lady with multiple medical issues admitted with diabetic ketoacidosis started on insulin drip. Plan: Neuro: No acute issues, other than generalized weakness Cardiac: No acute issues. Underlying ischemic cardiomyopathy with severely reduced ejection fraction and severe diastolic dysfunction. Underlying history of AFib -continue Coreg -Not on anticoagulation -restart Torsemide 20 bid HLD--restart Lipitor Pulmonary: No acute issues. Renal: Acute kidney injury on the background of chronic renal disease with markedly high BUN, get Nephrology to see her Endo: Diabetic ketoacidosis, of insulin drip and on lantus, dka resolved. check labs GI: No acute issues. ID: No acute issues. No evidence of sepsis at this time. Underlying history of vancomycin resistant Enterococcus UTI. Heme/Onc: No acute issues. Psych: No acute issues. HTN--amlodipine, Coreg Psych: Fluexetine Prophylaxis: Heparin Diet: diabetic diet PT recommends short term rehab
--- NOTE | 2020-10-13 13:26 | MHC.CM.PN ---
SUSAN STR @ [facility] via [facility]. CM will follow.
[2020-10-13 13:46] LABS: Anion Gap 14 (12-20); Blood Urea Nitrogen 77 mg/dL (9-16); Calcium 7.8 mg/dL (8.4-10.2); Carbon Dioxide 27 mmol/L (22-29); Chloride 96 mmol/L (96-108); Creatinine Clr Calc Pharmacy 37.3; Estimated Glomerular Filt Rate 25; Glucose Random 146 mg/dL (60-115); Potassium 4.6 mmol/L (3.3-5.1); Sodium 132 mmol/L (135-145)
--- NOTE | 2020-10-13 14:48 | MHC.CM.PN ---
SUSAN STR @ [facility] via chair van. CM will follow. anticipate DC 10/14/20, tomorrow.
[2020-10-13 16:29] LABS: Glucose, Whole Blood 147 mg/dL (60-115)
--- NOTE | 2020-10-13 17:15 | PM.CNNEP ---
History of Present Illness Reason for Consult Consult date: 10/13/20 Chief Complaint Chief complaint: DKA History of Present Illness Narrative: 49-year-old lady with underlying history of ischemic dilated cardiomyopathy with EF of approximately 15% and severe diastolic dysfunction, AFib, chronic renal disease, type 1 diabetes mellitus, polysubstance abuse, prior history of vancomycin resistant Enterococcus UTI, poor compliance with medications admitted on 10/09/2020 from home with worsening lethargy for several days. On ER evaluation patient noted to be in diabetic ketoacidosis with hyperkalemia on a background of CKD. Nephrology has been consulted to assist in her care during her current hospital stay. Review of Systems Review of Systems Yes all other systems are reviewed and are negative PMFSH Past Medical History Medical History Acute on chronic systolic and diastolic heart failure, NYHA class 3 Acute respiratory distress ASB (asymptomatic bacteriuria) Atherosclerotic cardiovascular disease Atrial fibrillation CAD (coronary artery disease) Cardiorenal syndrome CHF (congestive heart failure) CHF (congestive heart failure) Chronic kidney disease (CKD) CKD (chronic kidney disease) stage 3, GFR 30-59 ml/min Congestive heart failure GERD (gastroesophageal reflux disease) Heart murmur Hemopericardium Hepatitis C Heroin abuse Hyperglycemia Hypertension Ischemic dilated cardiomyopathy PAF (paroxysmal atrial fibrillation) Peripheral neuropathy Psychotic disorder Type 1 diabetes Urinary retention Social History Social History Household Members: Significant Other Housing: Apartment Alcohol intake: never Smoking Status: Never smoker Second Hand Smoke Exposure: Yes service: No Current occupational status: disabled Meds Allergies Allergy/AdvReac Type Severity Reaction Status Date / Time No Known Allergies Allergy Verified 10/09/20 08:05 [No Known Allergies*] Home Medications Medication Instructions Recorded Confirmed Type cholecalciferol (vitamin D3) 50 mcg PO DAILY 06/11/20 10/09/20 History gabapentin 600 mg PO TID 06/11/20 10/09/20 History omeprazole 40 mg PO DAILY 06/11/20 10/09/20 History tamsulosin 0.4 mg PO DAILY 06/11/20 10/09/20 History amlodipine 10 mg PO DAILY 06/15/20 10/09/20 History hydralazine 25 mg PO QID 06/15/20 10/09/20 History Lantus Solostar U-100 Insulin 22 unit SUBCUT QAM 09/08/20 09/08/20 History carvedilol 6.25 mg PO BID 09/08/20 10/09/20 History duloxetine 20 mg PO BID 09/08/20 10/09/20 History ferrous gluconate 324 mg PO DAILY 09/08/20 10/09/20 History insulin aspart U-100 [Novolog See Rx Instructions .ROUTE .COMPLEX 09/08/20 09/08/20 History Flexpen U-100 Insulin] isosorbide mononitrate 30 mg PO DAILY 09/08/20 10/09/20 History torsemide 100 mg PO BID 09/08/20 10/09/20 History sertraline 100 mg PO DAILY 10/09/20 10/09/20 History Physical Exam Vital Signs: Last Vital Signs Temp 97.4 F 10/13/20 15:17 Pulse 69 10/13/20 15:17 Resp 20 10/13/20 15:17 BP 125/67 10/13/20 15:17 Pulse Ox 97 10/13/20 15:17 Body Mass Index 38.0 Const General: no acute distress Orientation/consciousness: patient oriented x3 Neck Neck: Yes supple Resp Auscultation: diminished lung sounds Cardio Heart sounds: no rubs GI Palpation (GI): Soft to palpation Neuro General: patient oriented x3 and moves all extremities Results Lab Results Result Diagrams: 10/10/20 05:59 10/13/20 13:02 Lab results: Chemistry 10/10/20 10/10/20 10/11/20 17:26 19:04 05:37 Sodium Cancelled 133 L 131 L Potassium Cancelled 5.0 D 5.2 H Carbon Dioxide Cancelled 24 24 BUN Cancelled 87 H* 85 H* Creatinine Cancelled 2.57 H 2.32 H Calcium Cancelled 7.7 L 7.6 L Phosphorus Cancelled 3.5 3.3 10/12/20 10/13/20 12:24 13:02 Sodium 129 L 132 L Potassium 5.3 H 4.6 Carbon Dioxide 19 L 27 BUN 81 H* 77 H Creatinine 2.15 H 2.10 H Calcium 7.6 L 7.8 L Phosphorus Assessment and Plan (1) Chronic kidney disease (CKD): Problem details: Known to have CKD for a long time Was hyperkalemic- resolved SERGO due to compromise in renal perfusion due to DKA(resolved) Renal functions back to baseline; Pre renal Azotemia + If BUN/ serum creatinine rises , may have to cut back on Diuretics Concur with rest of current management. Shall closely follow up Status: Acute
[2020-10-13 19:47] LABS: Glucose, Whole Blood 140 mg/dL (60-115)
[2020-10-14] MEDS: oxyCODONE HCl Immed Release 5 MG TABLET PO ×2 (01:35→08:50)
[2020-10-14 03:42] VITALS: BP 114/60; PULSE 70; RESP 18; TEMP 36; O2SAT 95
[2020-10-14] MEDS: Heparin Sodium,Porcine 5,000 UNIT/ML VIAL 5000 UNIT SUBCUT ×2 (05:46→13:58)
[2020-10-14] MEDS: Omeprazole 40 MG CAPSULE.DR PO (05:46)
[2020-10-14 07:32] LABS: Glucose, Whole Blood 60 mg/dL (60-115)
[2020-10-14 07:44] VITALS: BP 137/78; PULSE 73; RESP 20; TEMP 36.3; O2SAT 99
[2020-10-14 08:00] VITALS: BMI 37.9
[2020-10-14] MEDS: DULoxetine HCl 20 MG CAPSULE.DR PO (08:50)
[2020-10-14] MEDS: Cholecalciferol (Vitamin D3) 25 MCG TABLET 50 MCG PO (08:50)
[2020-10-14 08:51] VITALS: BP 137/78; PULSE 73
[2020-10-14] MEDS: carvediloL 6.25 MG TABLET PO (08:51)
[2020-10-14] MEDS: Ferrous Sulfate 324 MG TABLET.DR PO (08:51)
[2020-10-14] MEDS: amLODIPine Besylate 10 MG TABLET PO (08:51)
[2020-10-14] MEDS: Isosorbide Mononitrate 30 MG TAB.ER.24H PO (08:51)
[2020-10-14] MEDS: Torsemide 20 MG TABLET PO (08:51)
[2020-10-14] MEDS: Insulin Glargine,Hum.rec.anlog 100 UNIT/ML 10 ML VIAL 12 UNIT SUBCUT (08:52)
[2020-10-14 09:00] LABS: Glucose, Whole Blood 112 mg/dL (60-115)
[2020-10-14 10:16] LABS: COVID-19 Test Negative (Negative); IDNOW Serial# 9DD0AD1C
[2020-10-14 11:17] VITALS: BP 131/71; PULSE 69; RESP 20; TEMP 36.5; O2SAT 96
--- NOTE | 2020-10-14 11:22 | PM.PNNEP ---
Subjective Subjective Date of Service: 10/14/20 Interval history: Events noted; All recent data reviewed Physical Exam Vital Signs: Vital Signs: Last Vital Signs Temp 97.7 F 10/14/20 11:17 Pulse 69 10/14/20 11:17 Resp 20 10/14/20 11:17 BP 131/71 10/14/20 11:17 Pulse Ox 96 10/14/20 11:17 Body Mass Index 37.9 Const: General: no acute distress Orientation/consciousness: patient oriented x3 Neck: Neck: Yes supple Resp: Auscultation: diminished lung sounds Cardio: Rate: regular rate GI: Palpation (GI): Soft to palpation Neuro: General: patient oriented x3 Objective Data Labs CBC & Chem 7: 10/10/20 05:59 10/13/20 13:02 Labs: Laboratory Results - last 24 hr 10/13/20 10/13/20 10/13/20 11:20 13:02 16:06 Sodium 132 L Potassium 4.6 Chloride 96 Carbon Dioxide 27 Anion Gap 14 BUN 77 H Creatinine 2.10 H Estim Creat Clear Calc 37.3 Estimated GFR 25 POC Glucose 136 H 147 H Random Glucose 146 H Calcium 7.8 L COVID-19 (MAY) COVID-19 Clin Com 10/13/20 10/14/20 10/14/20 19:39 07:17 08:54 Sodium Potassium Chloride Carbon Dioxide Anion Gap BUN Creatinine Estim Creat Clear Calc Estimated GFR POC Glucose 140 H 60 112 Random Glucose Calcium COVID-19 (MAY) COVID-19 Clin Com 10/14/20 09:48 Sodium Potassium Chloride Carbon Dioxide Anion Gap BUN Creatinine Estim Creat Clear Calc Estimated GFR POC Glucose Random Glucose Calcium COVID-19 (MAY) Negative COVID-19 Clin Com See Note Microbiology Microbiology Results: Microbiology 10/09/20 09:08 Blood - Venous Blood Culture - Final No growth after 5 days. 10/09/20 08:58 Blood - Venous Blood Culture - Final No growth after 5 days. 10/09/20 14:59 Urine [place] Urine Culture - Final No growth. Assessment & Plan Assessment and plan (1) Chronic kidney disease (CKD): Problem details: Known to have CKD for a long time Was hyperkalemic- resolved SERGO due to compromise in renal perfusion due to DKA(resolved) Renal functions back to baseline; Pre renal Azotemia + - better If BUN/ serum creatinine rises , may have to cut back on Diuretics Concur with rest of current management. Shall arrange close follow up when D/Humberto Status: Acute Time Spent With Patient Time: Total time spent is greater than 50% in coordination of care (as documented) at patient's floor/unit and/or counseling patient:
[2020-10-14 11:29] LABS: Glucose, Whole Blood 120 mg/dL (60-115)
--- NOTE | 2020-10-14 12:59 | MHC.CM.PN ---
IMM 10/14/20 Female 50 dx DKA DP str @ [facility] via JENNY clark. HCP has been notified of DP. He will bring clothing to the Pt tomorrow @ the Facility. JENNY clark scheduled 2pm today.
--- NOTE | 2020-10-14 13:57 | PM.DS ---
DS: Providers Provider Date of Service: 01/07/21 Date of admission: 10/09/20 10:34 Primary care physician: Nazanin Veliz DO Consults: 10/12/20 12:05 Consult to Nephrology Routine Consulting Provider: Edward Varghese Reason for consultation: sergo, ckd Has provider been notified: No DS: Diagnosis Discharge Diagnosis (1) Chronic kidney disease (CKD): Problem details: Known to have CKD for a long time Was hyperkalemic- resolved SERGO due to compromise in renal perfusion due to DKA(resolved) Renal functions back to baseline; Pre renal Azotemia + - better If BUN/ serum creatinine rises , may have to cut back on Diuretics Concur with rest of current management. Shall arrange close follow up when D/Humberto DS: Medications Discharge Medications Home Medications: Home Medications Medication Instructions Recorded Confirmed cholecalciferol (vitamin D3) 50 mcg PO DAILY 06/11/20 10/09/20 gabapentin 600 mg PO TID 06/11/20 10/09/20 omeprazole 40 mg PO DAILY 06/11/20 10/09/20 tamsulosin 0.4 mg PO DAILY 06/11/20 10/09/20 amlodipine 10 mg PO DAILY 06/15/20 10/09/20 hydralazine 25 mg PO QID 06/15/20 10/09/20 Lantus Solostar U-100 Insulin 22 unit SUBCUT QAM 09/08/20 09/08/20 carvedilol 6.25 mg PO BID 09/08/20 10/09/20 duloxetine 20 mg PO BID 09/08/20 10/09/20 ferrous gluconate 324 mg PO DAILY 09/08/20 10/09/20 insulin aspart U-100 [Novolog See Rx Instructions .ROUTE .COMPLEX 09/08/20 09/08/20 Flexpen U-100 Insulin] isosorbide mononitrate 30 mg PO DAILY 09/08/20 10/09/20 torsemide 100 mg PO BID 09/08/20 10/09/20 sertraline 100 mg PO DAILY 10/09/20 10/09/20 DS: Summary Hospital Course Hospital Course: 49-year-old female with a past medical history of 50 yo female with significant PMH of CAD s/p TRELL to LAD in 2018 with ischemic cardiomyopathy with EF 15%, CKD III (baseline SCr 2.0), hx of afib not on anticoagulation, poorly controlled DM1, hx prior heroin abuse on suboxone presents with complaining of elevated blood sugars. The patient states she was admitted to [facility] on 09/02 for elevated blood sugars but is unable to provide any further details. According to emergency department records, the patient states her sugars have been high at home despite being compliant with her insulin regimen and and patient is complaining of increased thirst, increased weakness, fatigue, nausea and states she has vomited several times. She denies fever, chills, chest pain, shortness of breath, abdominal pain, frequency, urgency or dysuria. Of note, the emergency department records reflect that the patient was refusing labs treatments, blood cultures and an IV but eventually agreed and an IV & right EJ were placed. The patient's refusal red to a significant delay in her care. Upon my evaluation of the patient, she was tired and refusing to answer my questions, the only question of mine she did answer was that she was not nauseous. Patient's labs were found to be as follows, bicarb of 8 anion gap 28, lactic acid 3.8, BUN 63, creatinine 2.3 (baseline SCr 2.0). Chest CT showed Large right and small left pleural effusion with underlying compressive atelectasis. There is airspace disease in left lung base as well. Infiltrate is not excluded. Reactionary lymph nodes in the mediastinum. Irregularity along the distal sternum and the system most likely an old nonhealed fracture. There are multiple healing old fractures left lateral lower ribs. Correlate with previous trauma-histo Hospital course: 49-year-old lady with multiple medical issues admitted with diabetic ketoacidosis started on insulin drip. 1/ DKA--admitted through ICU and treated with insulin drip per DKA protocol along with IV fluid, frequent glucose check and ultimately DKA resolved. 2/Sergo on CkD likely related to DKA and dehydration, renal function has returned to baseline 3/ HTN--blood pressure is reasonably controlled, continue Coreg and Novasc, Hydralzine and Imdure 4/Diabetes with DKA as stated, DKA has resolved, she takes Lantus 24 in the morning and SSI, she has been on Lantus 12 bid but can go back to 12 bid upon discharge 5/Paroxysmal AFIB, reate controlled on coreg. 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 She will be going to short term rehab for less 30 days Time Spent with Patient Time attestation: Total time spent providing and/or coordinating discharge services: Discharge coordination time: Greater than 30 minutes Physical Exam Vital Signs: Vital Signs: Last Vital Signs Temp 97.7 F 10/14/20 11:17 Pulse 69 10/14/20 11:17 Resp 20 10/14/20 11:17 BP 131/71 10/14/20 11:17 Pulse Ox 96 10/14/20 11:17 Body Mass Index 37.9 Const: Other: General: AO X 3, no acute distress Resp: CTA bilateral CVS: S1,S2,RRR GI: +BS, NT, no distention Skin: No rash,,has some chronic venous stasis ulcer to leg leg, dressing in place Neuro: motor grossly intact Psych: appropriate affect DS: Data Data Completed and Pending Labs on day of discharge: Laboratory Tests 10/09/20 10/09/20 10/09/20 08:09 08:14 08:42 WBC RBC Hgb Hct MCV MCH MCHC RDW Plt Count MPV Immature Gran % (Auto) Neut % (Auto) Lymph % (Auto) [place] % (Auto) Eos % (Auto) Baso % (Auto) Lymph # (Auto) [place] # (Auto) Eos # (Auto) Baso # (Auto) Abs Immat Gran (auto) Absolute Neuts (auto) Absolute Nucleated RBC Nucleated RBC % (auto) Smear Tech's Comments VBG pH VBG pCO2 VBG pO2 VBG HCO3 VBG O2 Saturation VBG Base Excess Sodium Potassium Chloride Carbon Dioxide Anion Gap BUN Creatinine Estim Creat Clear Calc Estimated GFR POC Glucose > 600 H* > 600 H* Random Glucose Lactic Acid Lactic Acid Fup @ 2Hr Lactic Acid Fup @ 4Hr Calcium Phosphorus Magnesium Total Bilirubin Direct Bilirubin AST ALT Alkaline Phosphatase Troponin I High Sens B-Natriuretic Peptide Total Protein Albumin Lipase Urine Color Urine Appearance Urine pH Ur Specific [place] Urine Protein Urine Glucose (UA) Urine Ketones Urine Blood Urine Nitrite Ur Leukocyte Esterase Urine RBC Urine WBC Ur Squamous Epith Cells Urine Bacteria Urine Yeast Urine Opiates Screen Ur Barbiturates Screen Ur Phencyclidine Scrn Ur Amphetamines Screen U Benzodiazepines Scrn Urine Cocaine Screen U Marijuana (THC) Screen Acetone, Qual COVID-19 (MAY) Negative COVID-19 Clin Com See Note 10/09/20 10/09/20 10/09/20 08:58 08:58 08:58 WBC 9.6 RBC 3.98 L Hgb 9.4 L Hct 31.6 L MCV 79.4 L MCH 23.6 L MCHC 29.7 L RDW 23.4 H Plt Count 157 L D MPV Not Reportable Immature Gran % (Auto) 0.6 H Neut % (Auto) 85.3 H Lymph % (Auto) 6.9 L [place] % (Auto) 6.7 Eos % (Auto) 0.1 Baso % (Auto) 0.4 Lymph # (Auto) 0.7 L [place] # (Auto) 0.6 Eos # (Auto) 0.0 Baso # (Auto) 0.0 Abs Immat Gran (auto) 0.06 H Absolute Neuts (auto) 8.2 Absolute Nucleated RBC 0.020 H Nucleated RBC % (auto) 0.2 Smear Tech's Comments VERIFIED VBG pH VBG pCO2 VBG pO2 VBG HCO3 VBG O2 Saturation VBG Base Excess Sodium Potassium Chloride Carbon Dioxide Anion Gap BUN Creatinine Estim Creat Clear Calc Estimated GFR POC Glucose Random Glucose Lactic Acid Lactic Acid Fup @ 2Hr Lactic Acid Fup @ 4Hr Calcium Phosphorus Magnesium Total Bilirubin Direct Bilirubin AST ALT Alkaline Phosphatase Troponin I High Sens 20.3 H B-Natriuretic Peptide 3262 H Total Protein Albumin Lipase Urine Color Urine Appearance Urine pH Ur Specific [place] Urine Protein Urine Glucose (UA) Urine Ketones Urine Blood Urine Nitrite Ur Leukocyte Esterase Urine RBC Urine WBC Ur Squamous Epith Cells Urine Bacteria Urine Yeast Urine Opiates Screen Ur Barbiturates Screen Ur Phencyclidine Scrn Ur Amphetamines Screen U Benzodiazepines Scrn Urine Cocaine Screen U Marijuana (THC) Screen Acetone, Qual Large H COVID-19 (MAY) COVID-19 Clin Com 10/09/20 10/09/20 10/09/20 09:08 09:08 09:08 WBC RBC Hgb Hct MCV MCH MCHC RDW Plt Count MPV Immature Gran % (Auto) Neut % (Auto) Lymph % (Auto) [place] % (Auto) Eos % (Auto) Baso % (Auto) Lymph # (Auto) [place] # (Auto) Eos # (Auto) Baso # (Auto) Abs Immat Gran (auto) Absolute Neuts (auto) Absolute Nucleated RBC Nucleated RBC % (auto) Smear Tech's Comments VBG pH VBG pCO2 VBG pO2 VBG HCO3 VBG O2 Saturation VBG Base Excess Sodium 132 L Potassium 6.2 H* Chloride 92 L Carbon Dioxide 7 L* D Anion Gap 39 H BUN 106 H* D Creatinine 3.50 H Estim Creat Clear Calc TNP Estimated GFR 14 POC Glucose Random Glucose 739 H* Lactic Acid 4.3 H* Lactic Acid Fup @ 2Hr Lactic Acid Fup @ 4Hr Calcium 8.3 L D Phosphorus Magnesium Total Bilirubin 1.3 H Direct Bilirubin 0.7 H AST 27 D ALT 17 Alkaline Phosphatase 130 H D Troponin I High Sens B-Natriuretic Peptide Total Protein 6.9 Albumin 3.2 L Lipase 14 Urine Color Urine Appearance Urine pH Ur Specific [place] Urine Protein Urine Glucose (UA) Urine Ketones Urine Blood Urine Nitrite Ur Leukocyte Esterase Urine RBC Urine WBC Ur Squamous Epith Cells Urine Bacteria Urine Yeast Urine Opiates Screen Ur Barbiturates Screen Ur Phencyclidine Scrn Ur Amphetamines Screen U Benzodiazepines Scrn Urine Cocaine Screen U Marijuana (THC) Screen Acetone, Qual COVID-19 (MAY) COVID-19 Clin Com 10/09/20 10/09/20 10/09/20 10:28 11:25 12:15 WBC RBC Hgb Hct MCV MCH MCHC RDW Plt Count MPV Immature Gran % (Auto) Neut % (Auto) Lymph % (Auto) [place] % (Auto) Eos % (Auto) Baso % (Auto) Lymph # (Auto) [place] # (Auto) Eos # (Auto) Baso # (Auto) Abs Immat Gran (auto) Absolute Neuts (auto) Absolute Nucleated RBC Nucleated RBC % (auto) Smear Tech's Comments VBG pH VBG pCO2 VBG pO2 VBG HCO3 VBG O2 Saturation VBG Base Excess Sodium 132 L Potassium 5.0 Chloride 96 Carbon Dioxide 8 L* Anion Gap 33 H BUN 102 H* Creatinine 3.29 H Estim Creat Clear Calc 23.9 Estimated GFR 15 POC Glucose > 600 H* > 600 H* Random Glucose 723 H* Lactic Acid Lactic Acid Fup @ 2Hr Lactic Acid Fup @ 4Hr Calcium 7.7 L D Phosphorus Magnesium Total Bilirubin Direct Bilirubin AST ALT Alkaline Phosphatase Troponin I High Sens B-Natriuretic Peptide Total Protein Albumin Lipase Urine Color Urine Appearance Urine pH Ur Specific [place] Urine Protein Urine Glucose (UA) Urine Ketones Urine Blood Urine Nitrite Ur Leukocyte Esterase Urine RBC Urine WBC Ur Squamous Epith Cells Urine Bacteria Urine Yeast Urine Opiates Screen Ur Barbiturates Screen Ur Phencyclidine Scrn Ur Amphetamines Screen U Benzodiazepines Scrn Urine Cocaine Screen U Marijuana (THC) Screen Acetone, Qual COVID-19 (MAY) COVID-19 [employer] 10/09/20 10/09/20 10/09/20 13:13 13:28 14:14 WBC RBC Hgb Hct MCV MCH MCHC RDW Plt Count MPV Immature Gran % (Auto) Neut % (Auto) Lymph % (Auto) [place] % (Auto) Eos % (Auto) Baso % (Auto) Lymph # (Auto) [place] # (Auto) Eos # (Auto) Baso # (Auto) Abs Immat Gran (auto) Absolute Neuts (auto) Absolute Nucleated RBC Nucleated RBC % (auto) Smear Tech's Comments VBG pH VBG pCO2 VBG pO2 VBG HCO3 VBG O2 Saturation VBG Base Excess Sodium Potassium Chloride Carbon Dioxide Anion Gap BUN Creatinine Estim Creat Clear Calc Estimated GFR POC Glucose > 600 H* > 600 H* Random Glucose Lactic Acid Lactic Acid Fup @ 2Hr 3.1 H* Lactic Acid Fup @ 4Hr Calcium Phosphorus Magnesium Total Bilirubin Direct Bilirubin AST ALT Alkaline Phosphatase Troponin I High Sens B-Natriuretic Peptide Total Protein Albumin Lipase Urine Color Urine Appearance Urine pH Ur Specific [place] Urine Protein Urine Glucose (UA) Urine Ketones Urine Blood Urine Nitrite Ur Leukocyte Esterase Urine RBC Urine WBC Ur Squamous Epith Cells Urine Bacteria Urine Yeast Urine Opiates Screen Ur Barbiturates Screen Ur Phencyclidine Scrn Ur Amphetamines Screen U Benzodiazepines Scrn Urine Cocaine Screen U Marijuana (THC) Screen Acetone, Qual COVID-19 (MAY) COVID-19 [employer] 10/09/20 10/09/20 10/09/20 14:35 14:37 15:01 WBC RBC Hgb Hct MCV MCH MCHC RDW Plt Count MPV Immature Gran % (Auto) Neut % (Auto) Lymph % (Auto) [place] % (Auto) Eos % (Auto) Baso % (Auto) Lymph # (Auto) [place] # (Auto) Eos # (Auto) Baso # (Auto) Abs Immat Gran (auto) Absolute Neuts (auto) Absolute Nucleated RBC Nucleated RBC % (auto) Smear Tech's Comments VBG pH VBG pCO2 VBG pO2 VBG HCO3 VBG O2 Saturation VBG Base Excess Sodium Potassium Chloride Carbon Dioxide Anion Gap BUN Creatinine Estim Creat Clear Calc Estimated GFR POC Glucose > 600 H* > 600 H* Random Glucose Lactic Acid Lactic Acid Fup @ 2Hr Lactic Acid Fup @ 4Hr Calcium Phosphorus Magnesium Total Bilirubin Direct Bilirubin AST ALT Alkaline Phosphatase Troponin I High Sens B-Natriuretic Peptide Total Protein Albumin Lipase Urine Color Urine Appearance Urine pH Ur Specific [place] Urine Protein Urine Glucose (UA) Urine Ketones Urine Blood Urine Nitrite Ur Leukocyte Esterase Urine RBC Urine WBC Ur Squamous Epith Cells Urine Bacteria Urine Yeast Urine Opiates Screen POSITIVE H Ur Barbiturates Screen Not Detected Ur Phencyclidine Scrn Not Detected Ur Amphetamines Screen Not Detected U Benzodiazepines Scrn Not Detected Urine Cocaine Screen Not Detected U Marijuana (THC) Screen Not Detected Acetone, Qual COVID-19 (MAY) COVID-19 Clin Com 10/09/20 10/09/20 10/09/20 15:01 15:24 15:43 WBC RBC Hgb Hct MCV MCH MCHC RDW Plt Count MPV Immature Gran % (Auto) Neut % (Auto) Lymph % (Auto) [place] % (Auto) Eos % (Auto) Baso % (Auto) Lymph # (Auto) [place] # (Auto) Eos # (Auto) Baso # (Auto) Abs Immat Gran (auto) Absolute Neuts (auto) Absolute Nucleated RBC Nucleated RBC % (auto) Smear Tech's Comments VBG pH VBG pCO2 VBG pO2 VBG HCO3 VBG O2 Saturation VBG Base Excess Sodium 133 L Potassium 4.5 Chloride 96 Carbon Dioxide 15 L Anion Gap 27 H BUN 98 H* Creatinine 3.24 H Estim Creat Clear Calc 24.3 Estimated GFR 15 POC Glucose 582 H* Random Glucose 705 H* Lactic Acid Lactic Acid Fup @ 2Hr Lactic Acid Fup @ 4Hr Calcium 7.9 L Phosphorus Magnesium Total Bilirubin Direct Bilirubin AST ALT Alkaline Phosphatase Troponin I High Sens B-Natriuretic Peptide Total Protein Albumin Lipase Urine Color YELLOW Urine Appearance CLEAR Urine pH 5.5 Ur Specific [place] 1.020 Urine Protein NEG Urine Glucose (UA) >=1000 H Urine Ketones 5 Urine Blood 2+ H Urine Nitrite NEG Ur Leukocyte Esterase NEG Urine RBC 0-2 Urine WBC 15-29 H Ur Squamous Epith Cells TRACE Urine Bacteria TRACE Urine Yeast 1+ Urine Opiates Screen Ur Barbiturates Screen Ur Phencyclidine Scrn Ur Amphetamines Screen U Benzodiazepines Scrn Urine Cocaine Screen U Marijuana (THC) Screen Acetone, Qual COVID-19 (MAY) COVID-19 [employer] 10/09/20 10/09/20 10/09/20 16:40 17:10 17:10 WBC RBC Hgb Hct MCV MCH MCHC RDW Plt Count MPV Immature Gran % (Auto) Neut % (Auto) Lymph % (Auto) [place] % (Auto) Eos % (Auto) Baso % (Auto) Lymph # (Auto) [place] # (Auto) Eos # (Auto) Baso # (Auto) Abs Immat Gran (auto) Absolute Neuts (auto) Absolute Nucleated RBC Nucleated RBC % (auto) Smear Tech's Comments VBG pH 7.29 L VBG pCO2 40 VBG pO2 87 VBG HCO3 19 VBG O2 Saturation 94.0 VBG Base Excess -6.1 Sodium Potassium Chloride Carbon Dioxide Anion Gap BUN Creatinine Estim Creat Clear Calc Estimated GFR POC Glucose 578 H* Random Glucose Lactic Acid Lactic Acid Fup @ 2Hr Lactic Acid Fup @ 4Hr 2.6 H* Calcium Phosphorus Magnesium Total Bilirubin Direct Bilirubin AST ALT Alkaline Phosphatase Troponin I High Sens B-Natriuretic Peptide Total Protein Albumin Lipase Urine Color Urine Appearance Urine pH Ur Specific [place] Urine Protein Urine Glucose (UA) Urine Ketones Urine Blood Urine Nitrite Ur Leukocyte Esterase Urine RBC Urine WBC Ur Squamous Epith Cells Urine Bacteria Urine Yeast Urine Opiates Screen Ur Barbiturates Screen Ur Phencyclidine Scrn Ur Amphetamines Screen U Benzodiazepines Scrn Urine Cocaine Screen U Marijuana (THC) Screen Acetone, Qual COVID-19 (MAY) COVID-19 [employer] 10/09/20 10/09/20 10/09/20 17:38 19:09 20:16 WBC RBC Hgb Hct MCV MCH MCHC RDW Plt Count MPV Immature Gran % (Auto) Neut % (Auto) Lymph % (Auto) [place] % (Auto) Eos % (Auto) Baso % (Auto) Lymph # (Auto) [place] # (Auto) Eos # (Auto) Baso # (Auto) Abs Immat Gran (auto) Absolute Neuts (auto) Absolute Nucleated RBC Nucleated RBC % (auto) Smear Tech's Comments VBG pH VBG pCO2 VBG pO2 VBG HCO3 VBG O2 Saturation VBG Base Excess Sodium 133 L Potassium 5.4 H Chloride 98 Carbon Dioxide 18 L Anion Gap 22 H BUN 99 H* Creatinine 3.14 H Estim Creat Clear Calc 25.1 Estimated GFR 16 POC Glucose 542 H* 501 H* Random Glucose 537 H* Lactic Acid Lactic Acid Fup @ 2Hr Lactic Acid Fup @ 4Hr Calcium 7.7 L Phosphorus Magnesium Total Bilirubin Direct Bilirubin AST ALT Alkaline Phosphatase Troponin I High Sens B-Natriuretic Peptide Total Protein Albumin Lipase Urine Color Urine Appearance Urine pH Ur Specific [place] Urine Protein Urine Glucose (UA) Urine Ketones Urine Blood Urine Nitrite Ur Leukocyte Esterase Urine RBC Urine WBC Ur Squamous Epith Cells Urine Bacteria Urine Yeast Urine Opiates Screen Ur Barbiturates Screen Ur Phencyclidine Scrn Ur Amphetamines Screen U Benzodiazepines Scrn Urine Cocaine Screen U Marijuana (THC) Screen Acetone, Qual COVID-19 (MAY) [employer] 10/09/20 10/09/20 10/09/20 20:21 21:16 22:21 WBC RBC Hgb Hct MCV MCH MCHC RDW Plt Count MPV Immature Gran % (Auto) Neut % (Auto) Lymph % (Auto) [place] % (Auto) Eos % (Auto) Baso % (Auto) Lymph # (Auto) [place] # (Auto) Eos # (Auto) Baso # (Auto) Abs Immat Gran (auto) Absolute Neuts (auto) Absolute Nucleated RBC Nucleated RBC % (auto) Smear Tech's Comments VBG pH VBG pCO2 VBG pO2 VBG HCO3 VBG O2 Saturation VBG Base Excess Sodium Potassium Chloride Carbon Dioxide Anion Gap BUN Creatinine Estim Creat Clear Calc Estimated GFR POC Glucose 454 H* 417 H* 391 H* Random Glucose Lactic Acid Lactic Acid Fup @ 2Hr Lactic Acid Fup @ 4Hr Calcium Phosphorus Magnesium Total Bilirubin Direct Bilirubin AST ALT Alkaline Phosphatase Troponin I High Sens B-Natriuretic Peptide Total Protein Albumin Lipase Urine Color Urine Appearance Urine pH Ur Specific [place] Urine Protein Urine Glucose (UA) Urine Ketones Urine Blood Urine Nitrite Ur Leukocyte Esterase Urine RBC Urine WBC Ur Squamous Epith Cells Urine Bacteria Urine Yeast Urine Opiates Screen Ur Barbiturates Screen Ur Phencyclidine Scrn Ur Amphetamines Screen U Benzodiazepines Scrn Urine Cocaine Screen U Marijuana (THC) Screen Acetone, Qual COVID-19 (MAY) [employer] 10/09/20 10/09/20 10/10/20 22:42 23:39 00:32 WBC RBC Hgb Hct MCV MCH MCHC RDW Plt Count MPV Immature Gran % (Auto) Neut % (Auto) Lymph % (Auto) [place] % (Auto) Eos % (Auto) Baso % (Auto) Lymph # (Auto) [place] # (Auto) Eos # (Auto) Baso # (Auto) Abs Immat Gran (auto) Absolute Neuts (auto) Absolute Nucleated RBC Nucleated RBC % (auto) Smear Tech's Comments VBG pH VBG pCO2 VBG pO2 VBG HCO3 VBG O2 Saturation VBG Base Excess Sodium 135 Potassium 3.8 D Chloride 99 Carbon Dioxide 21 L Anion Gap 19 BUN 98 H* Creatinine 3.06 H Estim Creat Clear Calc 25.7 Estimated GFR 16 POC Glucose 317 H 325 H Random Glucose 414 H* Lactic Acid Lactic Acid Fup @ 2Hr Lactic Acid Fup @ 4Hr Calcium 7.7 L Phosphorus Magnesium Total Bilirubin Direct Bilirubin AST ALT Alkaline Phosphatase Troponin I High Sens B-Natriuretic Peptide Total Protein Albumin Lipase Urine Color Urine Appearance Urine pH Ur Specific [place] Urine Protein Urine Glucose (UA) Urine Ketones Urine Blood Urine Nitrite Ur Leukocyte Esterase Urine RBC Urine WBC Ur Squamous Epith Cells Urine Bacteria Urine Yeast Urine Opiates Screen Ur Barbiturates Screen Ur Phencyclidine Scrn Ur Amphetamines Screen U Benzodiazepines Scrn Urine Cocaine Screen U Marijuana (THC) Screen Acetone, Qual COVID-19 (MAY) COVID-19 Clin Com 10/10/20 10/10/20 10/10/20 01:38 02:50 03:56 WBC RBC Hgb Hct MCV MCH MCHC RDW Plt Count MPV Immature Gran % (Auto) Neut % (Auto) Lymph % (Auto) [place] % (Auto) Eos % (Auto) Baso % (Auto) Lymph # (Auto) [place] # (Auto) Eos # (Auto) Baso # (Auto) Abs Immat Gran (auto) Absolute Neuts (auto) Absolute Nucleated RBC Nucleated RBC % (auto) Smear Tech's Comments VBG pH VBG pCO2 VBG pO2 VBG HCO3 VBG O2 Saturation VBG Base Excess Sodium Potassium Chloride Carbon Dioxide Anion Gap BUN Creatinine Estim Creat Clear Calc Estimated GFR POC Glucose 266 H 211 H 159 H Random Glucose Lactic Acid Lactic Acid Fup @ 2Hr Lactic Acid Fup @ 4Hr Calcium Phosphorus Magnesium Total Bilirubin Direct Bilirubin AST ALT Alkaline Phosphatase Troponin I High Sens B-Natriuretic Peptide Total Protein Albumin Lipase Urine Color Urine Appearance Urine pH Ur Specific [place] Urine Protein Urine Glucose (UA) Urine Ketones Urine Blood Urine Nitrite Ur Leukocyte Esterase Urine RBC Urine WBC Ur Squamous Epith Cells Urine Bacteria Urine Yeast Urine Opiates Screen Ur Barbiturates Screen Ur Phencyclidine Scrn Ur Amphetamines Screen U Benzodiazepines Scrn Urine Cocaine Screen U Marijuana (THC) Screen Acetone, Qual COVID-19 (MAY) COVID-19 [employer] 10/10/20 10/10/20 10/10/20 04:54 05:59 05:59 WBC 10.8 RBC 3.79 L Hgb 8.9 L Hct 27.8 L MCV 73.4 L D MCH 23.5 L MCHC 32.0 RDW 21.4 H Plt Count 152 L MPV Not Reportable Immature Gran % (Auto) 0.3 Neut % (Auto) 83.6 H Lymph % (Auto) 8.2 L [place] % (Auto) 5.5 Eos % (Auto) 2.1 Baso % (Auto) 0.3 Lymph # (Auto) 0.9 L [place] # (Auto) 0.6 Eos # (Auto) 0.2 Baso # (Auto) 0.0 Abs Immat Gran (auto) 0.03 Absolute Neuts (auto) 9.0 H Absolute Nucleated RBC 0.060 H Nucleated RBC % (auto) 0.6 H Smear Tech's Comments VBG pH VBG pCO2 VBG pO2 VBG HCO3 VBG O2 Saturation VBG Base Excess Sodium 137 Potassium 3.8 Chloride 102 Carbon Dioxide 25 Anion Gap 14 BUN 99 H* Creatinine 2.78 H Estim Creat Clear Calc 28.3 Estimated GFR 18 POC Glucose 124 H Random Glucose 112 D Lactic Acid Lactic Acid Fup @ 2Hr Lactic Acid Fup @ 4Hr Calcium 7.9 L Phosphorus 3.7 Magnesium 2.0 Total Bilirubin 0.8 Direct Bilirubin AST 16 D ALT 13 Alkaline Phosphatase 106 Troponin I High Sens B-Natriuretic Peptide Total Protein 5.7 L Albumin 2.7 L Lipase Urine Color Urine Appearance Urine pH Ur Specific [place] Urine Protein Urine Glucose (UA) Urine Ketones Urine Blood Urine Nitrite Ur Leukocyte Esterase Urine RBC Urine WBC Ur Squamous Epith Cells Urine Bacteria Urine Yeast Urine Opiates Screen Ur Barbiturates Screen Ur Phencyclidine Scrn Ur Amphetamines Screen U Benzodiazepines Scrn Urine Cocaine Screen U Marijuana (THC) Screen Acetone, Qual COVID-19 (MAY) COVID-19 [employer] 10/10/20 10/10/20 10/10/20 05:59 06:03 06:31 WBC RBC Hgb Hct MCV MCH MCHC RDW Plt Count MPV Immature Gran % (Auto) Neut % (Auto) Lymph % (Auto) [place] % (Auto) Eos % (Auto) Baso % (Auto) Lymph # (Auto) [place] # (Auto) Eos # (Auto) Baso # (Auto) Abs Immat Gran (auto) Absolute Neuts (auto) Absolute Nucleated RBC Nucleated RBC % (auto) Smear Tech's Comments VBG pH 7.39 VBG pCO2 49 VBG pO2 63 VBG HCO3 30 VBG O2 Saturation 88.0 VBG Base Excess 5.2 Sodium Potassium Chloride Carbon Dioxide Anion Gap BUN Creatinine Estim Creat Clear Calc Estimated GFR POC Glucose 91 78 Random Glucose Lactic Acid Lactic Acid Fup @ 2Hr Lactic Acid Fup @ 4Hr Calcium Phosphorus Magnesium Total Bilirubin Direct Bilirubin AST ALT Alkaline Phosphatase Troponin I High Sens B-Natriuretic Peptide Total Protein Albumin Lipase Urine Color Urine Appearance Urine pH Ur Specific [place] Urine Protein Urine Glucose (UA) Urine Ketones Urine Blood Urine Nitrite Ur Leukocyte Esterase Urine RBC Urine WBC Ur Squamous Epith Cells Urine Bacteria Urine Yeast Urine Opiates Screen Ur Barbiturates Screen Ur Phencyclidine Scrn Ur Amphetamines Screen U Benzodiazepines Scrn Urine Cocaine Screen U Marijuana (THC) Screen Acetone, Qual COVID-19 (MAY) COVID-19 [employer] 10/10/20 10/10/20 10/10/20 07:07 07:58 08:27 WBC RBC Hgb Hct MCV MCH MCHC RDW Plt Count MPV Immature Gran % (Auto) Neut % (Auto) Lymph % (Auto) [place] % (Auto) Eos % (Auto) Baso % (Auto) Lymph # (Auto) [place] # (Auto) Eos # (Auto) Baso # (Auto) Abs Immat Gran (auto) Absolute Neuts (auto) Absolute Nucleated RBC Nucleated RBC % (auto) Smear Tech's Comments VBG pH VBG pCO2 VBG pO2 VBG HCO3 VBG O2 Saturation VBG Base Excess Sodium Potassium Chloride Carbon Dioxide Anion Gap BUN Creatinine Estim Creat Clear Calc Estimated GFR POC Glucose 105 73 91 Random Glucose Lactic Acid Lactic Acid Fup @ 2Hr Lactic Acid Fup @ 4Hr Calcium Phosphorus Magnesium Total Bilirubin Direct Bilirubin AST ALT Alkaline Phosphatase Troponin I High Sens B-Natriuretic Peptide Total Protein Albumin Lipase Urine Color Urine Appearance Urine pH Ur Specific [place] Urine Protein Urine Glucose (UA) Urine Ketones Urine Blood Urine Nitrite Ur Leukocyte Esterase Urine RBC Urine WBC Ur Squamous Epith Cells Urine Bacteria Urine Yeast Urine Opiates Screen Ur Barbiturates Screen Ur Phencyclidine Scrn Ur Amphetamines Screen U Benzodiazepines Scrn Urine Cocaine Screen U Marijuana (THC) Screen Acetone, Qual COVID-19 (MAY) COVID-19 [employer] Com 10/10/20 10/10/20 10/10/20 09:26 09:27 09:47 WBC RBC Hgb Hct MCV MCH MCHC RDW Plt Count MPV Immature Gran % (Auto) Neut % (Auto) Lymph % (Auto) [place] % (Auto) Eos % (Auto) Baso % (Auto) Lymph # (Auto) [place] # (Auto) Eos # (Auto) Baso # (Auto) Abs Immat Gran (auto) Absolute Neuts (auto) Absolute Nucleated RBC Nucleated RBC % (auto) Smear Tech's Comments VBG pH VBG pCO2 VBG pO2 VBG HCO3 VBG O2 Saturation VBG Base Excess Sodium Potassium Chloride Carbon Dioxide Anion Gap BUN Creatinine Estim Creat Clear Calc Estimated GFR POC Glucose 54 L* 51 L* 107 Random Glucose Lactic Acid Lactic Acid Fup @ 2Hr Lactic Acid Fup @ 4Hr Calcium Phosphorus Magnesium Total Bilirubin Direct Bilirubin AST ALT Alkaline Phosphatase Troponin I High Sens B-Natriuretic Peptide Total Protein Albumin Lipase Urine Color Urine Appearance Urine pH Ur Specific [place] Urine Protein Urine Glucose (UA) Urine Ketones Urine Blood Urine Nitrite Ur Leukocyte Esterase Urine RBC Urine WBC Ur Squamous Epith Cells Urine Bacteria Urine Yeast Urine Opiates Screen Ur Barbiturates Screen Ur Phencyclidine Scrn Ur Amphetamines Screen U Benzodiazepines Scrn Urine Cocaine Screen U Marijuana (THC) Screen Acetone, Qual COVID-19 (MAY) COVID-19 Clin Com 10/10/20 10/10/20 10/10/20 10:58 12:15 13:09 WBC RBC Hgb Hct MCV MCH MCHC RDW Plt Count MPV Immature Gran % (Auto) Neut % (Auto) Lymph % (Auto) [place] % (Auto) Eos % (Auto) Baso % (Auto) Lymph # (Auto) [place] # (Auto) Eos # (Auto) Baso # (Auto) Abs Immat Gran (auto) Absolute Neuts (auto) Absolute Nucleated RBC Nucleated RBC % (auto) Smear Tech's Comments VBG pH VBG pCO2 VBG pO2 VBG HCO3 VBG O2 Saturation VBG Base Excess Sodium Potassium Chloride Carbon Dioxide Anion Gap BUN Creatinine Estim Creat Clear Calc Estimated GFR POC Glucose 79 94 112 Random Glucose Lactic Acid Lactic Acid Fup @ 2Hr Lactic Acid Fup @ 4Hr Calcium Phosphorus Magnesium Total Bilirubin Direct Bilirubin AST ALT Alkaline Phosphatase Troponin I High Sens B-Natriuretic Peptide Total Protein Albumin Lipase Urine Color Urine Appearance Urine pH Ur Specific [place] Urine Protein Urine Glucose (UA) Urine Ketones Urine Blood Urine Nitrite Ur Leukocyte Esterase Urine RBC Urine WBC Ur Squamous Epith Cells Urine Bacteria Urine Yeast Urine Opiates Screen Ur Barbiturates Screen Ur Phencyclidine Scrn Ur Amphetamines Screen U Benzodiazepines Scrn Urine Cocaine Screen U Marijuana (THC) Screen Acetone, Qual COVID-19 (MAY) [employer] 10/10/20 10/10/20 10/10/20 14:54 17:18 17:26 WBC RBC Hgb Hct MCV MCH MCHC RDW Plt Count MPV Immature Gran % (Auto) Neut % (Auto) Lymph % (Auto) [place] % (Auto) Eos % (Auto) Baso % (Auto) Lymph # (Auto) [place] # (Auto) Eos # (Auto) Baso # (Auto) Abs Immat Gran (auto) Absolute Neuts (auto) Absolute Nucleated RBC Nucleated RBC % (auto) Smear Tech's Comments VBG pH VBG pCO2 VBG pO2 VBG HCO3 VBG O2 Saturation VBG Base Excess Sodium Cancelled Potassium Cancelled Chloride Cancelled Carbon Dioxide Cancelled Anion Gap Cancelled BUN Cancelled Creatinine Cancelled Estim Creat Clear Calc Cancelled Estimated GFR Cancelled POC Glucose 149 H 247 H Random Glucose Cancelled Lactic Acid Lactic Acid Fup @ 2Hr Lactic Acid Fup @ 4Hr Calcium Cancelled Phosphorus Cancelled Magnesium Cancelled Total Bilirubin Direct Bilirubin AST ALT Alkaline Phosphatase Troponin I High Sens B-Natriuretic Peptide Total Protein Albumin Lipase Urine Color Urine Appearance Urine pH Ur Specific [place] Urine Protein Urine Glucose (UA) Urine Ketones Urine Blood Urine Nitrite Ur Leukocyte Esterase Urine RBC Urine WBC Ur Squamous Epith Cells Urine Bacteria Urine Yeast Urine Opiates Screen Ur Barbiturates Screen Ur Phencyclidine Scrn Ur Amphetamines Screen U Benzodiazepines Scrn Urine Cocaine Screen U Marijuana (THC) Screen Acetone, Qual COVID-19 (MAY) [employer] 10/10/20 10/10/20 10/11/20 19:04 20:41 05:37 WBC RBC Hgb Hct MCV MCH MCHC RDW Plt Count MPV Immature Gran % (Auto) Neut % (Auto) Lymph % (Auto) [place] % (Auto) Eos % (Auto) Baso % (Auto) Lymph # (Auto) [place] # (Auto) Eos # (Auto) Baso # (Auto) Abs Immat Gran (auto) Absolute Neuts (auto) Absolute Nucleated RBC Nucleated RBC % (auto) Smear Tech's Comments VBG pH VBG pCO2 VBG pO2 VBG HCO3 VBG O2 Saturation VBG Base Excess Sodium 133 L 131 L Potassium 5.0 D 5.2 H Chloride 101 97 Carbon Dioxide 24 24 Anion Gap 13 15 BUN 87 H* 85 H* Creatinine 2.57 H 2.32 H Estim Creat Clear Calc 30.7 33.9 Estimated GFR 20 22 POC Glucose 256 H Random Glucose 251 H D 287 H Lactic Acid Lactic Acid Fup @ 2Hr Lactic Acid Fup @ 4Hr Calcium 7.7 L 7.6 L Phosphorus 3.5 3.3 Magnesium 2.2 2.2 Total Bilirubin Direct Bilirubin AST ALT Alkaline Phosphatase Troponin I High Sens B-Natriuretic Peptide Total Protein Albumin Lipase Urine Color Urine Appearance Urine pH Ur Specific [place] Urine Protein Urine Glucose (UA) Urine Ketones Urine Blood Urine Nitrite Ur Leukocyte Esterase Urine RBC Urine WBC Ur Squamous Epith Cells Urine Bacteria Urine Yeast Urine Opiates Screen Ur Barbiturates Screen Ur Phencyclidine Scrn Ur Amphetamines Screen U Benzodiazepines Scrn Urine Cocaine Screen U Marijuana (THC) Screen Acetone, Qual COVID-19 (MAY) COVID-19 Clin Com 10/11/20 10/11/20 10/11/20 06:58 11:06 15:26 WBC RBC Hgb Hct MCV MCH MCHC RDW Plt Count MPV Immature Gran % (Auto) Neut % (Auto) Lymph % (Auto) [place] % (Auto) Eos % (Auto) Baso % (Auto) Lymph # (Auto) [place] # (Auto) Eos # (Auto) Baso # (Auto) Abs Immat Gran (auto) Absolute Neuts (auto) Absolute Nucleated RBC Nucleated RBC % (auto) Smear Tech's Comments VBG pH VBG pCO2 VBG pO2 VBG HCO3 VBG O2 Saturation VBG Base Excess Sodium Potassium Chloride Carbon Dioxide Anion Gap BUN Creatinine Estim Creat Clear Calc Estimated GFR POC Glucose 305 H 296 H 277 H Random Glucose Lactic Acid Lactic Acid Fup @ 2Hr Lactic Acid Fup @ 4Hr Calcium Phosphorus Magnesium Total Bilirubin Direct Bilirubin AST ALT Alkaline Phosphatase Troponin I High Sens B-Natriuretic Peptide Total Protein Albumin Lipase Urine Color Urine Appearance Urine pH Ur Specific [place] Urine Protein Urine Glucose (UA) Urine Ketones Urine Blood Urine Nitrite Ur Leukocyte Esterase Urine RBC Urine WBC Ur Squamous Epith Cells Urine Bacteria Urine Yeast Urine Opiates Screen Ur Barbiturates Screen Ur Phencyclidine Scrn Ur Amphetamines Screen U Benzodiazepines Scrn Urine Cocaine Screen U Marijuana (THC) Screen Acetone, Qual COVID-19 (MAY) [employer] 10/11/20 10/12/20 10/12/20 19:44 07:23 11:12 WBC RBC Hgb Hct MCV MCH MCHC RDW Plt Count MPV Immature Gran % (Auto) Neut % (Auto) Lymph % (Auto) [place] % (Auto) Eos % (Auto) Baso % (Auto) Lymph # (Auto) [place] # (Auto) Eos # (Auto) Baso # (Auto) Abs Immat Gran (auto) Absolute Neuts (auto) Absolute Nucleated RBC Nucleated RBC % (auto) Smear Tech's Comments VBG pH VBG pCO2 VBG pO2 VBG HCO3 VBG O2 Saturation VBG Base Excess Sodium Potassium Chloride Carbon Dioxide Anion Gap BUN Creatinine Estim Creat Clear Calc Estimated GFR POC Glucose 267 H 204 H 157 H Random Glucose Lactic Acid Lactic Acid Fup @ 2Hr Lactic Acid Fup @ 4Hr Calcium Phosphorus Magnesium Total Bilirubin Direct Bilirubin AST ALT Alkaline Phosphatase Troponin I High Sens B-Natriuretic Peptide Total Protein Albumin Lipase Urine Color Urine Appearance Urine pH Ur Specific [place] Urine Protein Urine Glucose (UA) Urine Ketones Urine Blood Urine Nitrite Ur Leukocyte Esterase Urine RBC Urine WBC Ur Squamous Epith Cells Urine Bacteria Urine Yeast Urine Opiates Screen Ur Barbiturates Screen Ur Phencyclidine Scrn Ur Amphetamines Screen U Benzodiazepines Scrn Urine Cocaine Screen U Marijuana (THC) Screen Acetone, Qual COVID-19 (MAY) [employer] 10/12/20 10/12/20 10/12/20 12:24 16:29 20:21 WBC RBC Hgb Hct MCV MCH MCHC RDW Plt Count MPV Immature Gran % (Auto) Neut % (Auto) Lymph % (Auto) [place] % (Auto) Eos % (Auto) Baso % (Auto) Lymph # (Auto) [place] # (Auto) Eos # (Auto) Baso # (Auto) Abs Immat Gran (auto) Absolute Neuts (auto) Absolute Nucleated RBC Nucleated RBC % (auto) Smear Tech's Comments VBG pH VBG pCO2 VBG pO2 VBG HCO3 VBG O2 Saturation VBG Base Excess Sodium 129 L Potassium 5.3 H Chloride 98 Carbon Dioxide 19 L Anion Gap 17 BUN 81 H* Creatinine 2.15 H Estim Creat Clear Calc 36.8 Estimated GFR 24 POC Glucose 122 H 111 Random Glucose 163 H D Lactic Acid Lactic Acid Fup @ 2Hr Lactic Acid Fup @ 4Hr Calcium 7.6 L Phosphorus Magnesium Total Bilirubin Direct Bilirubin AST ALT Alkaline Phosphatase Troponin I High Sens B-Natriuretic Peptide Total Protein Albumin Lipase Urine Color Urine Appearance Urine pH Ur Specific [place] Urine Protein Urine Glucose (UA) Urine Ketones Urine Blood Urine Nitrite Ur Leukocyte Esterase Urine RBC Urine WBC Ur Squamous Epith Cells Urine Bacteria Urine Yeast Urine Opiates Screen Ur Barbiturates Screen Ur Phencyclidine Scrn Ur Amphetamines Screen U Benzodiazepines Scrn Urine Cocaine Screen U Marijuana (THC) Screen Acetone, Qual COVID-19 (MAY) COVID-19 Clin Com 10/13/20 10/13/20 10/13/20 07:23 11:20 13:02 WBC RBC Hgb Hct MCV MCH MCHC RDW Plt Count MPV Immature Gran % (Auto) Neut % (Auto) Lymph % (Auto) [place] % (Auto) Eos % (Auto) Baso % (Auto) Lymph # (Auto) [place] # (Auto) Eos # (Auto) Baso # (Auto) Abs Immat Gran (auto) Absolute Neuts (auto) Absolute Nucleated RBC Nucleated RBC % (auto) Smear Tech's Comments VBG pH VBG pCO2 VBG pO2 VBG HCO3 VBG O2 Saturation VBG Base Excess Sodium 132 L Potassium 4.6 Chloride 96 Carbon Dioxide 27 Anion Gap 14 BUN 77 H Creatinine 2.10 H Estim Creat Clear Calc 37.3 Estimated GFR 25 POC Glucose 79 136 H Random Glucose 146 H Lactic Acid Lactic Acid Fup @ 2Hr Lactic Acid Fup @ 4Hr Calcium 7.8 L Phosphorus Magnesium Total Bilirubin Direct Bilirubin AST ALT Alkaline Phosphatase Troponin I High Sens B-Natriuretic Peptide Total Protein Albumin Lipase Urine Color Urine Appearance Urine pH Ur Specific [place] Urine Protein Urine Glucose (UA) Urine Ketones Urine Blood Urine Nitrite Ur Leukocyte Esterase Urine RBC Urine WBC Ur Squamous Epith Cells Urine Bacteria Urine Yeast Urine Opiates Screen Ur Barbiturates Screen Ur Phencyclidine Scrn Ur Amphetamines Screen U Benzodiazepines Scrn Urine Cocaine Screen U Marijuana (THC) Screen Acetone, Qual COVID-19 (MAY) COVID-19 [employer] 10/13/20 10/13/20 10/14/20 16:06 19:39 07:17 WBC RBC Hgb Hct MCV MCH MCHC RDW Plt Count MPV Immature Gran % (Auto) Neut % (Auto) Lymph % (Auto) [place] % (Auto) Eos % (Auto) Baso % (Auto) Lymph # (Auto) [place] # (Auto) Eos # (Auto) Baso # (Auto) Abs Immat Gran (auto) Absolute Neuts (auto) Absolute Nucleated RBC Nucleated RBC % (auto) Smear Tech's Comments VBG pH VBG pCO2 VBG pO2 VBG HCO3 VBG O2 Saturation VBG Base Excess Sodium Potassium Chloride Carbon Dioxide Anion Gap BUN Creatinine Estim Creat Clear Calc Estimated GFR POC Glucose 147 H 140 H 60 Random Glucose Lactic Acid Lactic Acid Fup @ 2Hr Lactic Acid Fup @ 4Hr Calcium Phosphorus Magnesium Total Bilirubin Direct Bilirubin AST ALT Alkaline Phosphatase Troponin I High Sens B-Natriuretic Peptide Total Protein Albumin Lipase Urine Color Urine Appearance Urine pH Ur Specific [place] Urine Protein Urine Glucose (UA) Urine Ketones Urine Blood Urine Nitrite Ur Leukocyte Esterase Urine RBC Urine WBC Ur Squamous Epith Cells Urine Bacteria Urine Yeast Urine Opiates Screen Ur Barbiturates Screen Ur Phencyclidine Scrn Ur Amphetamines Screen U Benzodiazepines Scrn Urine Cocaine Screen U Marijuana (THC) Screen Acetone, Qual COVID-19 (MAY) COVID-19 [employer] 10/14/20 10/14/20 10/14/20 08:54 09:48 11:24 WBC RBC Hgb Hct MCV MCH MCHC RDW Plt Count MPV Immature Gran % (Auto) Neut % (Auto) Lymph % (Auto) [place] % (Auto) Eos % (Auto) Baso % (Auto) Lymph # (Auto) [place] # (Auto) Eos # (Auto) Baso # (Auto) Abs Immat Gran (auto) Absolute Neuts (auto) Absolute Nucleated RBC Nucleated RBC % (auto) Smear Tech's Comments VBG pH VBG pCO2 VBG pO2 VBG HCO3 VBG O2 Saturation VBG Base Excess Sodium Potassium Chloride Carbon Dioxide Anion Gap BUN Creatinine Estim Creat Clear Calc Estimated GFR POC Glucose 112 120 H Random Glucose Lactic Acid Lactic Acid Fup @ 2Hr Lactic Acid Fup @ 4Hr Calcium Phosphorus Magnesium Total Bilirubin Direct Bilirubin AST ALT Alkaline Phosphatase Troponin I High Sens B-Natriuretic Peptide Total Protein Albumin Lipase Urine Color Urine Appearance Urine pH Ur Specific [place] Urine Protein Urine Glucose (UA) Urine Ketones Urine Blood Urine Nitrite Ur Leukocyte Esterase Urine RBC Urine WBC Ur Squamous Epith Cells Urine Bacteria Urine Yeast Urine Opiates Screen Ur Barbiturates Screen Ur Phencyclidine Scrn Ur Amphetamines Screen U Benzodiazepines Scrn Urine Cocaine Screen U Marijuana (THC) Screen Acetone, Qual COVID-19 (MAY) Negative COVID-19 Clin Com See Note Discharge Plan Discharge Anticipated Discharge Date/Time: 10/14/20 13:50 Patient Disposition: Home, Self-Care Discharge Diagnosis: dka Referrals: Nazanin Veliz DO [Primary Care Provider] - 1 Week ((SNF)) Discharge Medications: Continued gabapentin 600 mg Tablet 600 mg PO TID RF: 0 cholecalciferol (vitamin D3) 50 mcg (2,000 unit) Tablet 50 mcg PO DAILY RF: 0 omeprazole 40 mg Capsule,Delayed Release(Dr/Ec) 40 mg PO DAILY RF: 0 tamsulosin 0.4 mg Capsule 0.4 mg PO DAILY RF: 0 hydralazine 25 mg tablet 25 mg PO QID RF: 0 amlodipine 10 mg tablet 10 mg PO DAILY RF: 0 carvedilol 6.25 mg tablet 6.25 mg PO BID RF: 0 isosorbide mononitrate 30 mg tablet extended release 24 hr 30 mg PO DAILY RF: 0 duloxetine 20 mg capsule,delayed release(DR/EC) 20 mg PO BID RF: 0 ferrous gluconate 324 mg (38 mg iron) tablet 324 mg PO DAILY RF: 0 insulin aspart U-100 [Novolog Flexpen U-100 Insulin] 100 unit/mL (3 mL) insulin pen See Rx Instructions .ROUTE .COMPLEX RF: 0 sertraline 100 mg tablet 100 mg PO DAILY RF: 0 Changed Lantus Solostar U-100 Insulin 100 unit/mL (3 mL) insulin pen 24 unit subcut QAM Qty: 0 RF: 0 torsemide 100 mg tablet 40 mg PO BID Qty: 0 RF: 0 Discharge Orders: Discharge Order (Routine); Ordered 10/14/20 Ordered By: Piyush Hernandez Diet: advance to usual diet and diabetic diet Activity on Discharge: As tolerated Stand Alone Forms: Patient Portal Discharge page Visit Report Forms: Patient Portal Discharge page Care Plan Goals: prevent rehospitalization and Health Concerns: 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
[2020-10-14] MEDS: HYDROmorphone HCl 2 MG TABLET PO (14:20)
== END 2020-10-14 15:00 | disposition home or self-care (01) | DRG 638 ==
LOC: HO.ED 10:11 → HO.EDOVER 10:44 → HO.ICU 10-10 02:59 → HO.IMC 10-10 20:44 → HO.ICU 10-10 21:48 → HO.IMC 10-11 02:26
PROVIDERS: Anesthesiology; Family Medicine; Nurse Practitioner Family; Admitting Provider Internal Medicine Pulmonary Disease; Emergency Provider Emergency Medicine; PCP Internal Medicine; Visit Provider Internal Medicine
DX: E10.10 Type 1 diabetes mellitus with ketoacidosis without coma (principal); N39.0 Urinary tract infection, site not specified; N17.9 Acute kidney failure, unspecified; I25.5 Ischemic cardiomyopathy; E87.5 Hyperkalemia; I48.0 Paroxysmal atrial fibrillation; I25.10 Atherosclerotic heart disease of native coronary artery without angina pectoris; I12.9 Hypertensive chronic kidney disease with stage 1 through stage 4 chronic kidney disease, or unspecified chronic kidney disease; E10.22 Type 1 diabetes mellitus with diabetic chronic kidney disease; N18.9 Chronic kidney disease, unspecified; I48.91 Unspecified atrial fibrillation; K21.9 Gastro-esophageal reflux disease without esophagitis; Z20.822 Contact with and (suspected) exposure to COVID-19; Z79.4 Long term (current) use of insulin; Z79.02 Long term (current) use of antithrombotics/antiplatelets; Z79.899 Other long term (current) drug therapy
CPT/HCPCS: 36415; 71045; 80048; 80053; 80076; 80307; 81001; 82009; 82803; 82947; 83605; 83690; 83735; 83880; 84100; 84484; 85025; 87040; 87086; 87635; 93005; 96361; 96374; 96376; 97110; 97116; 97163; 99285; 99291; J3475